=== PATIENT | female | born 2000 | race Caucasian/White ===

== ENCOUNTER → 2023-09-11 | Outpatient (CLI) | payer OTHER, SELFPAY ==
[2023-09-15 22:07] LABS: Chlamydia By Nucleic Acid AMP Negative (Negative); Gonococcus By Nucleic Acid AMP Negative (Negative)
== END | disposition home or self-care (01) ==
LOC: LABSPEC 14:27
PROVIDERS: Referring Provider Registered Nurse; Visit Provider Registered Nurse
DX: Z11.3 Encounter for screening for infections with a predominantly sexual mode of transmission (principal)
CPT/HCPCS: 87491; 87591

== ENCOUNTER → 2024-07-21 | Outpatient (CLI) | payer SELFPAY ==
[2024-07-21 09:19] LABS: hCG Titer Quant., Serum 561 mIU/mL (1-3)
== END | disposition home or self-care (01) ==
LOC: BWCLAB 08:06
PROVIDERS: Nurse Practitioner Women's Health; Referring Provider Obstetrics & Gynecology; Visit Provider Obstetrics & Gynecology
DX: Z34.90 Encounter for supervision of normal pregnancy, unspecified, unspecified trimester (principal)
CPT/HCPCS: 36415; 84702

== ENCOUNTER → 2024-07-23 | Outpatient (CLI) | payer SELFPAY ==
[2024-07-23 11:08] LABS: hCG Titer Quant., Serum 1355 mIU/mL (1-3)
== END | disposition home or self-care (01) ==
LOC: BWCLAB 08:11
PROVIDERS: Referring Provider Advanced Practice Midwife; Visit Provider Advanced Practice Midwife
DX: Z34.90 Encounter for supervision of normal pregnancy, unspecified, unspecified trimester (principal)
CPT/HCPCS: 36415; 84702

== ENCOUNTER 2024-07-29 16:14 | Emergency (ER) | payer SELFPAY ==
[2024-07-29 16:15] VITALS: BP 142/99; PULSE 106; RESP 15; TEMP 36.4; O2SAT 100; BMI 23.6
--- NOTE | 2024-07-29 16:27 | US_ITS ---
STUDY: FIRST TRIMESTER OBSTETRICAL ULTRASOUND REASON FOR EXAM: Female, 24 years old Left sided pelvic pain. LMP: TECHNIQUE: Transvaginal TECHNICAL QUALITY: Adequate. PRIOR ULTRASOUND: None. FINDINGS: There is visualization of a single gestational sac in a normal intrauterine position. The mean sac diameter (MSD) measures 1.04 cm, indicating an estimated gestational age (EGA) of 5 weeks, 5 days. The gestational sac shape is within normal limits. There is a visualized yolk sac. The yolk sac measures 2.4 mm. The placenta is non-visualized. No pole visualized at this time The estimated gestation age (EGA) by LMP is 6 weeks, 2 days. The estimated date of delivery (KEVIN) by LMP is March 22, 2025. The estimated gestation age (EGA) by US is 5 weeks, 5 days. The estimated date of delivery (KEVIN) by US is March 26, 2025. The uterus measures 8.2 x 7.2 x 4.5 cm. Small anechoic area adjacent to the gestational sac measuring 9 x 5 mm likely subchorionic hemorrhage There is no demonstrated uterine fibroid. The cervix is closed. The right ovary measures 2.9 x 2.2 x 2 cm. There is no right ovarian cyst. There is no visualized right adnexal mass or complex lesion. The left ovary measures 2.5 1.6-1.3 cm. There is no left ovarian cyst. There is no visualized left adnexal mass or complex lesion. There is no moderate amount of fluid in the cul de sac. US/Transvaginal w/Preg US IMPRESSION: Findings consistent with intrauterine gestation approximately 5-6 weeks gestational age with small subchorionic bleed. No definitive evidence for pelvic mass however there is free fluid possibly due to recent rupture of cyst. No definitive evidence for ectopic . Recommend clinical correlation and follow-up studies Electronically Signed: Rahul Bush MD at 18:23 EST ,
--- NOTE | 2024-07-29 16:30 | EDS_ITS ---
HPI HPI - GI History of Present Illness Chief Complaint: Abd Pain Informant: patient Abdominal Pain/Flank Pain Onset: Days Context: Gradual Onset Timing: Intermittent Quality: Cramping Location: LLQ (Left lower quadrant left lateral pelvis.) Current Severity: Mild Maximum Severity: Mild Nausea/Vomiting/Emesis GI Symptom: Positive for Vomiting (With first trimester .); Negative for Nausea Onset: Days Severity: Mild Diarrhea/Melena/Hematochezia GI Symptom: Negative for Diarrhea or Melena Associated Symptoms Associated Symptoms: Negative for Dysuria, Frequency, Hematuria or Urgency Narrative Narrative: 24-year-old female Ab1 with that being a miscarriage several months ago. No other significant past medical history. States she is currently about 6 weeks . Has been having mild left lower quadrant and left lateral pelv ic cramping for the last several days. No dysuria. No fever. No bleeding or discharge. No prior abdominal or pelvic surgeries or procedures. Prior similar symptoms: No Recent Illness/Hospitalization: No PFSH PFSH Medical History Supervision of normal first Screening examination for STI Home Medications ?Medication ?Instructions ?Recorded ?Last Taken ?Type NK 04/16/24 Unknown History Allergy/AdvReac Type Severity Reaction Status Date / Time No Known Allergies Allergy Verified 07/29/24 16:18 Family History Grandmother Breast cancer, Onset Age: 60 Paternal Stillbirth maternal & paternal each with 1 stillborn Uncle Cancer Paternal- throat cancer Mother Family history of recurrent miscarriage 3 miscarriages Surgical History History of root canal procedure [place] teeth extracted Social History adopted: No household members: spouse housing: house number of children: 0 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 occupational exposures/hazards: No pets and animals: No history of recent travel: Yes (January) out of state: Yes out of country: Yes sexually active: Yes Smoking Status: Never smoker alcohol intake: never substance use type: does not use well-balanced diet: daily or most days caffeine: No eating out: rarely or never during the past year weight has: remained stable what type of physical activity do you participate in: none manuelito/methodist: Confucianism seatbelt use: always do you feel safe at home: Yes 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 Constitutional Constitutional ED: Denies chills or fever(s) ENT ENT ED: Denies ear pain Cardiovascular Cardiovascular: Denies chest pain Respiratory/Chest Respiratory/Chest: Denies cough Gastrointestinal Gastrointestinal: Reports abdominal pain, nausea and vomiting; Denies constipation, diarrhea or melena Genitourinary Genitourinary ED: Denies dysuria or hematuria Musculoskeletal Musculoskeletal: Denies arthralgias or back pain Integumentary Denies abscess Neurologic Neurologic: Denies headache(s) Psychiatric Psychiatric: Denies anxiety Endocrine Endocrinology: Denies polydipsia Hematologic/Lymphatic Hematologic/Lymphatic: Denies easy bleeding Allergic/Immunologic Allergic/Immunologic ED: Denies mouth swelling EXAM Physical Exam Narrative Exam Narrative: Well-appearing 24-year-old female. Vital signs are stable afebrile. Companied by her mom I believe. H EENT exam unremarkable. Mytrex membranes. Neck non tender. Lungs clear. Heart regular rhythm rate about 100 no murmur. Chest wall ribs nontender. Abdomen soft, nontender, nondistended normal bowel sounds without peritoneal signs. She has no reproducible left lower quadrant abdominal pain at this time no right upper or right lower quadrant pain. No hernia or mass. No distention. No mass. Soft. Moving all 4 extremities. Nontender no edema. Back nontender. Neurologically she is awake alert no focal motor deficits. Const Vital Signs: 07/29/24 16:15 Temperature 97.5 F L Temperature Source Temporal Pulse Rate 106 H Respiratory Rate 15 Blood Pressure 142/99 H Blood Pressure Mean 113 Pulse Ox 100 Oxygen Delivery Method Room Air Positive well nourished and well developed; Negative for obese, cachectic, contractures or unkempt General Appearance ED: well developed and NAD; Negative for unkempt, cachectic, contractures or pallor Nutritional Appearance: Negative for cachectic or obese HEENT Reports moist mucous membranes normocephalic and atraumatic Eyes PERRL and EOMs intact bilaterally Neck no lymphadenopathy, supple and no JVD Resp normal respiratory effort and clear to auscultation bilaterally Cardio regular rate, regular rhythm, S1 normal heart sound, S2 normal heart sound and no murmurs GI non-tender, non-distended and no masses Inspection: Negative for abdominal distention Palpation: soft; Negative for tender, guarding or rebound tenderness present Back/Spine no CVA tenderness General Back: Negative for CVA tenderness Cervical Spine: Negative for cervical spine tenderness Thoracic Spine / Upper Back: Negative for thoracic spinal tenderness Lumbar Spine / Lower Back: Negative for lumbar spinal tenderness Extremity full ROM General Extremety ED: Negative for edema or tenderness General Extremity: Negative for edema Neuro CN's II-XII intact bilaterally and moves all extremities Sensorium / Orientation: alert, oriented to person, oriented to place and oriented to time; Negative for orientation impaired Motor Exam: strength 5/5 throughout Psych mental status grossly normal and thought process normal Appearance: Negative for unkempt Attitude: No agitated Mood & Affect: Negative for depressed or tearful Skin no wounds General Skin Exam: Negative for jaundice or pallor Lesions: no lesions Rashes: no rashes Trauma: Negative for abrasion Nails: Negative for discolored MDM MDM MDM Narrative Medical decision making narrative: 24-year-old female Ab1 with that being a miscarriage several months ago. Reportedly is around 6 weeks with mild cramping left lower quadrant. No dysuria. No fever. No bleeding or discharge. Exam benign. Pelvic ultrasound, quant and UA being obtained. Repeat exam patient doing well both at 5 PM and 6:26 PM. She will be discharged to home. Tylenol for pain. History & Record Review Discussion w/independent historian: Patient and Family Additional record(s) reviewed:: Prior inpatient record, Prior outpatient record and Prior ED visit Lab Data Attestation: I reviewed the patient's lab results. Lab results narrative: UA normal. No infection. Blood type B+. Quantitative hCG 14,073. Ultrasound shows small fluid in the pelvis possibly consistent with a ruptured ovarian cyst. Intrauterine at 5-6 weeks. No ectopic. Labs: Laboratory Results - last 24 hr 07/29/24 16:45 HCG, Quant [id number] H Urine Color Yellow Urine Clarity Clear Urine pH 6.5 Ur Specific Gar[place]di 1.015 Urine Protein Negative Urine Glucose (UA) Normal Urine Ketones Negative Urine Occult Blood Negative Urine Nitrite Negative Urine Bilirubin Negative Urine Urobilinogen Normal Ur Leukocyte Esterase Negative Urine RBC 0 SEEN Urine WBC 0-5 SEEN Ur Squamous Epith Cells 5-10 SEEN Urine Bacteria 0 SEEN Urine Mucus 0 SEEN Blood Type B POSITIVE Radiography Diagnostic Testing: Clinical Impression(s) from Imaging Studies Obstetrics Ultrasound 07/29/24 16:27 IMPRESSION: Findings consistent with intrauterine gestation approximately 5-6 weeks gestational age with small subchorionic bleed. No definitive evidence for pelvic mass however there is free fluid possibly due to recent rupture of cyst. No definitive evidence for ectopic . Recommend clinical correlation and follow-up studies Electronically Signed: Rahul Bush MD at 18:23 EST Reading Location ID and State: [facility] / [place] Tel , Service support , Discharge Plan Triage Chief Complaint: Abd Pain ED Provider: Gary Grace Dx/Rx/DC Orders Clinical Impression: Pelvic pain, First trimester Instructions: 1st Trimester Prescriptions: No Action NK Primary Care Provider: Care Physician,No Primary Referrals: Mikayla Ferrer DO [Med Staff - Active Staff] - Keep Jere appointment Care Physician,No Primary [Primary Care Provider] - Activity Restrictions/Additional Instructions: Urine is clean. No infection. Ultrasound looks good. at 5 to 6 weeks. Tylenol for pain. 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 Print Language: Kazakh Disposition Disposition: Home, Self Care
[2024-07-29 17:07] LABS: Bacteria 0 SEEN /hpf (None Seen); Mucous, Urine 0 SEEN /hpf (<or=2+); Red Blood Cells-Urine 0 SEEN /hpf (0-5)
[2024-07-29 17:23] LABS: Color, Urine Yellow (Yellow); Glucose, Dipstick Normal (Normal); Ketone-Dipstick Negative (Negative); Leukocyte Esterase-Dipstick Negative /ul (Negative); Nitrite-Dipstick Negative (Negative); Occult Blood-Urine Negative /ul (Negative); Protein-Dipstick Negative (Negative); Specific Gravity, Urine 1.015 (1.002-1.030); Urine Bilirubin Dipstick Negative (Negative); Urine Clarity Clear (Clear); Urine Urobilinogen Normal (Normal); Urine pH 6.5 (5.0 - 8.0)
[2024-07-29 17:31] LABS: Squamous Epithelial Cells - UA 5-10 SEEN /hpf (5-10); White Blood Cells 0-5 SEEN /hpf (0-5)
[2024-07-29 17:49] LABS: hCG Titer Quant., Serum 14073 mIU/mL (1-3)
[2024-07-29 18:15] VITALS: PULSE 98; RESP 18; O2SAT 100
== END 2024-07-29 18:35 | disposition home or self-care (01) ==
PROVIDERS: Emergency Provider Emergency Medicine; Visit Provider Emergency Medicine
DX: O99.891 Other specified diseases and conditions complicating pregnancy (principal); R10.2 Pelvic and perineal pain; Z3A.01 Less than 8 weeks gestation of pregnancy
CPT/HCPCS: 76817; 81001; 84702; 86900; 86901; 99282; A4216

== ENCOUNTER → 2024-08-09 | Outpatient (CLI) | payer SELFPAY ==
--- NOTE | 2024-08-09 15:34 | US_ITS ---
EXAM: US , TRANSVAGINAL CLINICAL INDICATION: viability, hx miscarriage TECHNIQUE: Real-time transvaginal obstetrical ultrasound of the maternal pelvis and a first trimester with image documentation. Transvaginal imaging was used for better evaluation of the fetus and adnexa. COMPARISON: No relevant prior studies available. FINDINGS: GESTATION: There is an intrauterine gestational sac with mean sac diameter 2.6 cm age 7 weeks 4 days. There is a 3 mm yolk sac. There is a pole crown-rump length of 1 cm age 7 weeks 1 day. heart rate is 137 bpm. PLACENTA/AMNIOTIC FLUID: There is a hypoechoic area in the uterus that measures 0.7 x 1.4 cm which may represent a subchorionic hemorrhage. UTERUS/CERVIX: Unremarkable. No myometrial mass. OVARIES: The right ovary measures 4.0 x 2.4 x 2.5 cm. The left ovary measures 2.7 x 1.3 x 1.7 cm. No mass. FREE FLUID: No free fluid. OTHER FINDINGS: The wrist measures 8.5 x 5.3 x 7.0 cm. US/Transvaginal w/Preg US IMPRESSION: Intrauterine gestation with an average ultrasound age is 7 weeks 3 days and ultrasound estimated due date of 03/25/2025. heart rate is 137 bpm. There is a hypoechoic area in the uterus adjacent to the gestational sac which may represent a subchorionic hemorrhage. Electronically Signed: Dl Bennett MD at 21:27 EST ,
== END | disposition home or self-care (01) ==
PROVIDERS: Referring Provider Obstetrics & Gynecology; Visit Provider Obstetrics & Gynecology
DX: O26.891 Other specified pregnancy related conditions, first trimester (principal); R10.2 Pelvic and perineal pain; Z3A.01 Less than 8 weeks gestation of pregnancy
CPT/HCPCS: 76817

== ENCOUNTER → 2024-08-23 | Outpatient (CLI) | payer SELFPAY ==
[2024-08-24 21:07] LABS: Chlamydia By Nucleic Acid AMP Negative (Negative); Gonococcus By Nucleic Acid AMP Negative (Negative)
[2024-08-27 12:52] LABS: HPV Reflexed? NOT INDICATED
== END | disposition home or self-care (01) ==
LOC: BWCLAB 11:50
PROVIDERS: Referring Provider Obstetrics & Gynecology; Visit Provider Obstetrics & Gynecology
DX: O09.90 Supervision of high risk pregnancy, unspecified, unspecified trimester (principal); Z12.4 Encounter for screening for malignant neoplasm of cervix; Z3A.00 Weeks of gestation of pregnancy not specified
CPT/HCPCS: 87086; 87491; 87591; 88175; G0145

== ENCOUNTER → 2024-09-09 | Outpatient (CLI) | payer SELFPAY ==
[2024-09-09 17:10] LABS: Absolute Lymphocyte Count 1.47 X10^3/uL (0.83-4.51); Basophil# 0.02 X10^3/uL; Basophil% 0.3 % (0-1); Eosinophil# 0.07 X10^3/uL; Hematocrit 34.1 % (37-47); Hemoglobin 11.3 g/dL (12.0-15.0); Lymphocyte # 1.47 X10^3/ul (0.83-4.51); Lymphocyte % 20.9 % (19-41); Mean Corp Hgb Conc 33.1 g/dL (32-36); Mean Corpuscular Hgb 29.4 pg (27.0-32.0); Mean Corpuscular Volume 88.6 fL (81-99); Mean Platelet Vol. 9.8 fl (6.2-12.0); Monocyte# 0.49 X10^3/uL; NRBC Flagged by Analyzer 0 % (0-5); Neutrophil # 4.99 X10^3/uL (2.7-7.7); Neutrophil % 70.7 % (47-70); Platelet Count 200 K/mm3 (150-450); RBC Distribution Width CV 13.6 % (11.6-14.6); RBC Distribution Width SD 44.4 fl (35.1-43.9); Red Blood Count 3.85 M/mm3 (4.2-5.4); White Blood Count 7.1 K/mm3 (4.4-11.0)
[2024-09-09 18:43] LABS: HIV - WCH Non-Reactive (Nonreactive); Hepatitis B Surface Antigen Non-Reactive (Nonreactive); Hepatitis C Antibody Non-Reactive (Nonreactive); Rubella IgG Reactive (Nonreactive); Syphilis Antibodies Non-reactive
== END | disposition home or self-care (01) ==
LOC: BWCLAB 16:19
PROVIDERS: Referring Provider Obstetrics & Gynecology; Visit Provider Obstetrics & Gynecology
DX: O09.90 Supervision of high risk pregnancy, unspecified, unspecified trimester (principal); Z3A.00 Weeks of gestation of pregnancy not specified
CPT/HCPCS: 36415; 85025; 86703; 86762; 86780; 86803; 86850; 86900; 86901; 87340

== ENCOUNTER 2024-11-10 07:33 | Outpatient (CLI) | payer SELFPAY ==
--- NOTE | 2024-11-10 07:48 | US_ITS ---
PROCEDURE: OB ANATOMY W/ TRANSVAGINAL 11/10/2024 REASON FOR EXAM: ANATOMY TECHNIQUE: High resolution obstetric ultrasound performed using a 2D transducer. Standard views obtained, including biometry, anatomy survey, and Doppler studies. COMPARISON: None FINDINGS Number: 1 Position: Varying position between cephalic and breech. Placental Position: Posterior and not low-lying. Placental Abnormalities: No evidence of previa. DIMENSIONS: Biparietal Diameter: 4.7 cm: 20 weeks and 1 day: 13%/ Head Circumference: 17 cm: 19 weeks and 5 days: 2 percentile/ Abdominal Circumference: 14.8 cm: 20 weeks and 0 days: 13 percentile/ Femur Length: 3.2 cm: 20 weeks and 1 day: 11 percentile/ ESTIMATED WEIGHT: 331 g plus/-50 g ESTIMATED WEIGHT PERCENTILE (24+ weeks): 7 percentile ESTIMATED GESTATIONAL AGE: Baseline: 21 weeks and 1 day By Ultrasound: 20 weeks and 1 day ESTIMATED DATE OF DELIVERY: Baseline: March 22, 2025 By Ultrasound: March 29, 2025 BIOPHYSICAL ASSESSMENT: Amniotic Fluid Volume: 3.4 Amniotic Fluid Index: Within normal limits (8-24 cm normal range) Cardiac Motion: 140 (average) Trunk and Limb Motion: Present. MATERNAL ANATOMY: Adnexa: Both maternal ovaries are visualized and unremarkable. Cervical Length (if measured): 3.5 cm ANATOMY: Spine: Unremarkable except for limited visualization of the thoracic spine due to position. Cranium: Unremarkable Cerebellum: Unremarkable Cisterna Magna: Unremarkable Cavum Septum Pellucidi: Unremarkable Lateral Ventricles: Unremarkable Choroid Plexus: Unremarkable Midline Falx: Unremarkable Nuchal Fold: Unremarkable Upper Lip: Unremarkable Heart: Unremarkable Stomach: Unremarkable Kidneys: Unremarkable Bladder: Unremarkable Umbilical Cord: Unremarkable Extremities: Unremarkable US/OB Anatomy w/ Transvaginal IMPRESSION: Single live intrauterine gestation with a mean gestational age of 21 weeks and 1 day. Low percentages seen in the biometry. Clinical correlation recommended. Reading Location: [place] [id number]
== END 2024-11-10 23:59 | disposition home or self-care (01) ==
PROVIDERS: Referring Provider Obstetrics & Gynecology; Visit Provider Obstetrics & Gynecology
DX: O09.92 Supervision of high risk pregnancy, unspecified, second trimester (principal); Z3A.21 21 weeks gestation of pregnancy
CPT/HCPCS: 76805; 76817

== ENCOUNTER 2025-01-29 21:34 | Outpatient (CLI) | payer SELFPAY ==
--- OUTSIDE RECORDS SUMMARY | 2025-01-29 21:43 | XMS RPT_ITS | CCD ---
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 Mikayla Ferrer DO Attending Provider Dr. Mikayla Ferrer DO Referring Provider Rosa M Moran CNM Attending Provider Rosa M Moran CNM Referring Provider [phone] Sanjay LANCE, Dr. Vega Attending Provider [phone] Dr. Gary Grace MD Emergency Provider [phone] Care Physician, No Primary Primary Care Provider Unavailable Dr. Negrita Gomez MD Attending Provider Care Physician, No Primary Referring Provider Un available Dr. Negrita Gomez MD Referring Provider Shereen Amos CNM Attending Provider [phone] NO PRIMARY CARE, Primary Care Unavailable NEGRITA GOMEZ Referring DELMA Harrington Attending Unavailable Gary Grace Attending Unavailable Care Physician, No Primary Primary Care Unava ilable Mikayla Ferrer Attending UnavailMikayla Dunlap Referring Unavailabl e Care Physician, No Primary Primary Care Unava ilable Negrita Gomez Attending Unavailable Negrita Gomez Referring Unavailable Care Physician, No Primary Primary Care Unava ilable Mikayla Ferrer Attending Unavailabl e Care Physician, No Primary Primary Care Unava ilable Negrita Gomez Attending Unavailable Care Physician, No Primary Referring Unava ilable Negrita Gomez Attending Unavailable Care Physician, No Primary Referring Unava ilable Care Physician, No Primary Primary Care Unava ilShereen Aguilera Attending Unavailable Care Physician, No Primary Referring Unava ilable Care Physician, No Primary Primary Care Unava ilable Mikayla Ferrer Attending Unavailabl e Care Physician, No Primary Referring Unava ilable Care Physician, No Primary Primary Care Unava ilable Paola Almanza NP Attending Unavailable Care Physician, No Primary Referring Unava ilable Care Physician, No Primary Primary Care Unava ilable Jose Cochran Attending Unavailable Dean, Rosa M Attending Unavailable Amy Gutierrez, Mikayla Attending Unavailabl e Amy Gutierrez, Mikayla Referring Unavailirena e Dean, Rosa M Attending Unavailable Dean, Rosa M Referring Unavailable Luis, Negrita Attending Unavailable Luis, Negrita Referring Unavailable Care Physician, No Primary Primary Care Unava ilable Luis, Negrita Attending Unavailable Luis, Negrita Referring Unavailable Care Physician, No Primary Primary Care Unava ilable Care Physician, No Primary Primary Care Provider Unavailable Care Physician, No Primary Referring Provider Un available Dr. Mikayla Ferrer DO Attending Provider Luis LANCE, Dr. Rees Attending Provider [phone] Luis LANCE, Dr. Rees Referring Provider [phone] Paola Mann Attending Provider [phone] Jose Cochran Attending Provider Medications Current Medications Medication Drug Class(es) Dates Sig (Normalized) Sig (Original) metroNIDAZOLE 500 mg oral tablet (3 sources) Nitroimidazole Antimicrobial Start: 06-07-2023 End: 06-14-2023 take 1 tablet by mouth twice daily at mealtime metroNIDAZOLE (FLAGYL) 500 MG tablet Indications: Vaginal discharge Take 1 (one) tablet (500 mg total) by mouth 2 (two) times a day with meals for 7 days . 14 tablet 0 06/07/2023 06/14/2023 Active Vit 522-Tnvy-Fxivqm 6 (Giovanni Pnv) 6 mg iron- 833.5 mcg DFE tablet (2 sources) Start: 08-12-2024 Vit 078-Fhcc-Lgryuh 6 ( Pnv) 6 mg iron- 833.5 mcg DFE tablet Active {tbl} PO August 12, 2024 1:00am Triamcinolone (3 sources) Corticosteroid Start: 01-27-2025 Triamcinolone Acetonide 0.1 % ointment Active 1 NMA TOPICAL TWICE A DAY January 27, 2025 12:00am Apply to all affected areas BID x 14 days. Start: 03-08-2024 End: 03-23-2024 Triamcinolone Acetonide 0.1 % ointment Discontinued 1 NMA TOPICAL TWICE A DAY March 08, 2024 12:00am March 23, 2024 9:03am Apply to all affected areas BID up to 14 days. Completed/Discontinued Medications Medication Drug Class(es) Dates Sig (Normalized) Sig (Original) acetaminophen 325 mg / oxyCODONE hydrochloride 5 mg oral tablet (2 sources) Opioid Agonist Start: 04-09-2024 End: 04-16-2024 Oxycodone-Acetamin ophen (Percocet) 5-325 mg tablet Discontinued 1 {tbl} PO EVERY 6 HOURS 14 April 09, 2024 April 15, 2024 12:00am April 16, 2024 12:04am miSOPROStol 0.2 mg oral tablet (2 sources) Prostaglandin E1 Analog Start: 04-09-2024 End: 04-16-2024 Misoprostol (Cytotec) 200 mcg tablet Discontinued 800 ug PO .complex April 09, 2024 12:00am April 16, 2024 11:32am 4 tablets orally and then repeat in 48 hours Mv-Mins 28-Cytr-Ncshc No.1-Dha (Pnv-[place]) 28-1-300 mg capsule (2 sources) Start: 03-23-2024 End: 04-16-2024 Mv-Mins 84-Swhp-Pgypd No.1-Dha (Pnv-[place]) 28-1-300 mg capsule Discontinued NMA PO March 23, 2024 12:00am April 16, 2024 11:35am naproxen 500 mg oral tablet (2 sources) Nonsteroidal Anti-inflammatory Drug Start: 04-09-2024 End: 04-16-2024 Naproxen 500 mg tablet Discontinued 500 mg PO 2 to 3 times per day as needed for pain April 09, 2024 12:00am April 16, 2024 11:35am administer with food or milk Problems Active Problems Problem Classification Problem Date Documented Date Episodic/Chronic Abdominal pain (4 sources) Pain in pelvis; Translations: [Pelvic and perineal pain] Onset: 04-09-2024 08-06-2024 Episodic Allergic reactions (3 sources) Contact dermatitis due to poison harris; Translations: [Allergic contact dermatitis due to plants, except food] Onset: 03-08-2024 08-12-2024 Episodic Immunizations and screening for infectious disease (2 sources) Patient encounter status; Translations: [Encounter for screening for infections with a predominantly sexual mode of transmission] 03-23-2024 Episodic Other complications of (2 sources) Missed miscarriage; Translations: [Missed ] 08-23-2024 Episodic Comment on above: SM consulted and opt ions discussed by SM with pt Other complications of (3 sources) High risk ; Translations: [Supervision of high risk , unspecified, unspecified trimester] 09-09-2024 Episodic Other complications of (2 sources) Pain in female pelvis; Translations: [Other specified related conditions, unspecified trimester] 08-12-2024 Episodic Other complications of (3 sources) Asymmetrical growth retardation; Translations: [Maternal care for other known or suspected poor growth, unspecified trimester, not applicable or unspecified] 11-12-2024 Episodic Comment on above: referral MFM for gudelia gregorio referral MFM for gudelia gregorio: 11/19 40%/nl. Rpt 12/20: Other complications of (1 source) Supervision of high risk , unspecified, unspecified trimester; Translations: [Supervision of high risk , unspecified, unspecified trimester] Onset: 11-16-2024 Episodic Other complications of (1 source) Other specified related conditions, unspecified trimester; Translations: [Other specified related conditions, unspecified trimester] Onset: 09-01-2024 Episodic Other female genital disorders (1 source) Abnormal uterine and vaginal bleeding, unspecified; Translations: [Abnormal uterine and vaginal bleeding, unspecified] Onset: 04-09-2024 Chronic Other female genital disorders (6 sources) Vaginal discharge; Translations: [Other specified noninflammatory disorders of vagina] Onset: 06-07-2023 06-07-2023 Episodic Other female genital disorders (2 sources) Other specified noninflammatory disorders of vagina; Translations: [Other specified noninflammatory disorders of vagina] Onset: 06-07-2023 Episodic Other and delivery including normal (20 sources) Normal ; Translations: [Encounter for supervision of normal first , unspecified trimester] Onset: 11-29-2024 04-09-2024 Episodic Comment on above: , KEVIN 11/01/24, H lore Burgos , KEVIN 03/22/25, H lore Burgos plan NIPT w/gender & declined carrier testing PRR , KEVIN 5, Aubrey Residual codes; unclassified (1 source) 12 weeks gestation of ; Translations: [12 weeks gestation of ] Onset: 09-09-2024 Episodic Past or Other Problems Problem Classification Problem Date Documented Da te Episodic/Chronic Residual codes; unclassified (1 source) 9 weeks gestation of ; Translations: [9 weeks gestation of ] Onset: 08-23-2024 Episodic Results Test Name Value Interpretation Reference Range Facility Laboratory - Chemistry and C hemistry - challengeOrdered By: Paola Almanza on 11-29-2024 Glucose Ql (U) Negative [facility] - UrinalysisOrder ed By: Paola Almanza on 11-29-2024 Protein Ql (U) Negative [facility] Corrections Unit Supervisor Office Visit Reporton 11-29-2024 Corrections Unit Supervisor Office Visit Report [facility] [address], [address] [place] [address] OFFICE VISIT Date of Service: 11/29/24 MR#: [id number] Acct: [id number] Name: JOI DANIEL Rep #: [id number] : 2000 Provider: UMESH osborne Age/Sex: 24/F Location: [facility] Status: Signed Intake Vital Signs 08/23/24 11:16 08/23/24 11:19 11/01/24 13:15 11/29/24 09:55 Height 5 ft 4 in 5 ft 4 in 5 ft 4 in 5 ft 4 in Weight: 164 lb BMI 28.1 BP 120/74 Intake Visit Reasons: 24 wk ob Chief Complaint: 24 Week OB [employer] Required: No Is patient in pain?: No Allergies No Known Allergies Allergy (Verified 11/29/24 09:55) Medications ???Medication ???Instructions ???Recorded ???Confirmed ???Type vit no.164-ferrous tab PO 08/12/24 11/29/24 History gluconate 6 mg-folate 833.5 mcg DFE tablet ( PNV) Last Menstrual Period: 06/15/24 Zika: Zika virus screening: Negative : No PFSH PFSH Medical History Poison harris dermatitis Pelvic pain affecting Supervision of normal first Screening examination for STI Surgical History History of root canal procedure [place] teeth extracted Family History Grandmother Stillbirth maternal paternal each with 1 stillborn Colon cancer Uncle Cancer Paternal- throat cancer Mother Family history of recurrent miscarriage 3 miscarriages Social History adopted: No household members: spouse housing: house number of children: 0 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 occupational exposures/hazards: No pets and animals: No history of recent travel: Yes (January) out of state: Yes out of country: Yes sexually active: Yes Smoking Status: Never smoker alcohol intake: never substance use type: does not use well-balanced diet: daily or most days caffeine: Yes (stopped since ) eating out: 1-3 times/week during the past year weight has: remained stable what type of physical activity do you participate in: none manuelito/bahai: Caodaism seatbelt use: always do you feel safe at home: Yes 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 Date Name GA/Weeks Outcome Route Bth Weight Infant Gen Labor Lgth Anesthesia Del Locatn Provider FOB 04/09/24 10 spontaneous Delivery Date: 04/09/24 Last Updated by: Deann Negrete RN Gestational sac measuring 7weeks HPI 24 wk ob Details: JIO DANIEL is a 24 year old who presents for routine OB visit. OB Visit KEVIN Calculator Estimated Delivery Date Method Current WG Current Estimate 03/22/25 LMP (Certain) 23w 6d Other Estimates 03/27/25 Ultrasound #1 23w 1d Expected Delivery Route/Plan Labor Preferences- CB/BF classes: encouraged labor support person: Aubrey labor intervention preferences: [] pain management options preferred: cut cord/dad catch: maybe : yes PP control planned: discussed discussed possible routes of delivery and associated risks: [] special requests: [] Specific Issue/Plans Covid status: [] Flu vaccine: [] Tdap vaccine: [] Rhogam: NA LARC form signed: yes Problem list reviewed and updated with the most current plan of care details and appropriate orders placed. Relevant counseling for the gestational age provided. Continue routine care and follow up unless otherwise noted in visit notes/problem list details Initial Weight: 150 lb Date -???-???-???-???-?? ?-???-???-???-???-? ??-???-???- EGA Weight BP Urine Prot -???-???-???-???-?? ?-???-???-???-???-? ??-???-???- Glucose FHR FuHt Pres Dilation -???-???-???-???-?? ?-???-???-???-???-? ??-???-???- Effaced St Visit Note 08/23/24 -???-???-???-???-?? ?-???-???-???-???-? ??-???-???- 9w 6d 150 lb 4 oz (+4 oz) 103/72 -???-???-???-???-?? ?-???-???-???-???-? ??-???-???- 170 -???-???-???-???-?? ?-???-???-???-???-? ??-???-???- SM- CRL 2.4c m 1.7cm subchorionic hematoma seen viable IUP 09/09/24 -???-???-???-???-?? ?-???-???-???-???-? ??-???-???- 12w 2d 151 lb 8 oz (+1 lb 8 oz) 124/78 Negative -???-???-???-???-?? ?-???-???-???-???-? ??-???-???- Negative 150 -???-???-???-???-?? ?-???-???-???-???-? ??-???-???- SM- no vb cr amping subchorionic hematoma resolved labs drawn today decline NIPT 10/08/24 -???-???- (more content not included)... Normal [facility] OB Anatomy w/ Transvaginalon 11-10-2024 OB Anatomy w/ Transvaginal [facility] [place] [facility] [address] [place], [place] [id number] OB Anatomy w/ Transvaginal MR#: [id number] Acct: [id number] Name: JOI DANIEL Rep #: [id number] : 2000 F 24 From: Johnny tate MD PCP: Care Physician,No Primary Status: [facility] Study: OB Anatomy w/ Transvaginal Date of Exam: 11/10 Exam# [id number] Ordering Dr: Negrita Gomez PROCEDURE: OB ANATOMY W/ TRANSVAGINAL 11/10/2024 REASON FOR EXAM: ANATOMY TECHNIQUE: High resolution obstetric ultrasound performed using a 2D transducer. Standard views obtained, including biometry, anatomy survey, and Doppler studies. COMPARISON: None FINDINGS Number: 1 Position: Varying position between cephalic and breech. Placental Position: Posterior and not low-lying. Placental Abnormalities: No evidence of previa. DIMENSIONS: Biparietal Diameter: 4.7 cm: 20 weeks and 1 day: 13%/ Head Circumference: 17 cm: 19 weeks and 5 days: 2 percentile/ Abdominal Circumference: 14.8 cm: 20 weeks and 0 days: 13 percentile/ Femur Length: 3.2 cm: 20 weeks and 1 day: 11 percentile/ ESTIMATED WEIGHT: 331 g plus/-50 g ESTIMATED WEIGHT PERCENTILE (24+ weeks): 7 percentile ESTIMATED GESTATIONAL AGE: Baseline: 21 weeks and 1 day By Ultrasound: 20 weeks and 1 day ESTIMATED DATE OF DELIVERY: Baseline: March 22, 2025 By Ultrasound: March 29, 2025 BIOPHYSICAL ASSESSMENT: Amniotic Fluid Volume: 3.4 Amniotic Fluid Index: Within normal limits (8-24 cm normal range) Cardiac Motion: 140 (average) Trunk and Limb Motion: Present. MATERNAL ANATOMY: Adnexa: Both maternal ovaries are visualized and unremarkable. Cervical Length (if measured): 3.5 cm ANATOMY: Spine: Unremarkable except for limited visualization of the thoracic spine due to position. Cranium: Unremarkable Cerebellum: Unremarkable Cisterna Magna: Unremarkable Cavum Septum Pellucidi: Unremarkable Lateral Ventricles: Unremarkable Choroid Plexus: Unremarkable Midline Falx: Unremarkable Nuchal Fold: Unremarkable Upper Lip: Unremarkable Heart: Unremarkable Stomach: Unremarkable Kidneys: Unremarkable Bladder: Unremarkable Umbilical Cord: Unremarkable Extremities: Unremarkable US/OB Anatomy w/ Transvaginal IMPRESSION: Single live intrauterine gestation with a mean gestational age of 21 weeks and 1 day. Low percentages seen in the biometry. Clinical correlation recommended. Reading Location: [place] [address] CC: Dr. Negrita Gomez MD; No Primary Care Physician Ferry Hand: Signed Normal [facility] Laboratory - Chemistry and C hemistry - challengeOrdered By: Mikayla Gutierrez on 11-01-2024 Glucose Ql (U) Negative [facility] Laboratory - UrinalysisOrder ed By: Mikayla Gutierrez on 11-01-2024 Protein Ql (U) Negative [facility] Corrections Unit Supervisor Office Visit Reporton 11-01-2024 Corrections Unit Supervisor Office Visit Report [facility] [address], [address] [place] [address] OFFICE VISIT Date of Service: 11/01/24 MR#: [id number] Acct: [id number] Name: DANIELJOIGIL MARTINEZ Rep #: [id number] : 2000 Provider: Dr. Mikayla Fraser DO Age/Sex: 24/F Location: [facility] Status: Signed Intake Vital Signs 08/23/24 11:16 10/08/24 08:51 11/01/24 13:15 11/01/24 13:15 Height 5 ft 4 in 5 ft 4 in 5 ft 4 in 5 ft 4 in Weight: 155 lb 8 oz 160 lb 4 oz BMI 26.6 27.5 BP 115/74 131/81 H Intake Visit Reasons: 20 wk ob [employer] Required: No Is patient in pain?: No Allergies No Known Allergies Allergy (Verified 11/01/24 13:14) Medications ???Medication ???Instructions ???Recorded ???Confirmed ???Type vit no.164-ferrous tab PO 08/12/24 11/01/24 History gluconate 6 mg-folate 833.5 mcg DFE tablet ( PNV) Last Menstrual Period: 06/15/24 Zika: Zika virus screening: Negative : No PFSH PFSH Medical History Poison harris dermatitis Pelvic pain affecting Supervision of normal first Screening examination for STI Surgical History History of root canal procedure [place] teeth extracted Family History Grandmother Stillbirth maternal paternal each with 1 stillborn Colon cancer Uncle Cancer Paternal- throat cancer Mother Family history of recurrent miscarriage 3 miscarriages Social History adopted: No household members: spouse housing: house number of children: 0 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 occupational exposures/hazards: No pets and animals: No history of recent travel: Yes (January) out of state: Yes out of country: Yes sexually active: Yes Smoking Status: Never smoker alcohol intake: never substance use type: does not use well-balanced diet: daily or most days caffeine: Yes (stopped since ) eating out: 1-3 times/week during the past year weight has: remained stable what type of physical activity do you participate in: none manuelito/bahai: Caodaism seatbelt use: always do you feel safe at home: Yes 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 Date Name GA/Weeks Outcome Route Bth Weight Infant Gen Labor Lgth Anesthesia Del Locatn Provider FOB 04/09/24 10 spontaneous Delivery Date: 04/09/24 Last Updated by: Deann Negrete RN Gestational sac measuring 7weeks HPI 20 wk ob Details: JOI DANIEL is a 24 year old who presents for routine OB visit. OB Visit KEVIN Calculator Estimated Delivery Date Method Current WG Current Estimate 03/22/25 LMP (Certain) 19w 6d Other Estimates 03/27/25 Ultrasound #1 19w 1d Expected Delivery Route/Plan Labor Preferences- CB/BF classes: [] labor support person: [] labor intervention preferences: [] pain management options preferred: [] cut cord/dad catch: [] : [] PP control planned: [] discussed possible routes of delivery and associated risks: [] special requests: [] Specific Issue/Plans Covid status: [] Flu vaccine: [] Tdap vaccine: [] Rhogam: [] LARC form signed: [] Problem list reviewed and updated with the most current plan of care details and appropriate orders placed. Relevant counseling for the gestational age provided. Continue routine care and follow up unless otherwise noted in visit notes/problem list details Initial Weight: 150 lb Date -???-???-???-???-?? ?-???-???-???-???-? ??-???-???- EGA Weight BP Urine Prot -???-???-???-???-?? ?-???-???-???-???-? ??-???-???- Glucose FHR FuHt Pres Dilation -???-???-???-???-?? ?-???-???-???-???-? ??-???-???- Effaced St Visit Note 08/23/24 -???-???-???-???-?? ?-???-???-???-???-? ??-???-???- 9w 6d 150 lb 4 oz (+4 oz) 103/72 -???-???-???-???-?? ?-???-???-???-???-? ??-???-???- 170 -???-???-???-???-?? ?-???-???-???-???-? ??-???-???- SM- CRL 2.4c m 1.7cm subchorionic hematoma seen viable IUP 09/09/24 -???-???-???-???-?? ?-???-???-???-???-? ??-???-???- 12w 2d 151 lb 8 oz (+1 lb 8 oz) 124/78 Negative -???-???-???-???-?? ?-???-???-???-???-? ??-???-???- Negative 150 -???-???-???-???-?? ?-???-???-???-???-? ??-???-???- SM- no vb cr amping subchorionic hematoma resolved labs drawn today decline NIPT 10/08/24 -???-???-???-???-?? ?-??? (more content not included)... Normal [facility] - Chemistry and C hemistry - challengeOrdered By: Shereen Amos on 10-08-2024 Glucose Ql (U) Negative [facility] - UrinalysisOrder ed By: Shereen Amos on 10-08-2024 Protein Ql (U) Negative [facility] Corrections Unit Supervisor Office Visit Reporton 10-08-2024 Corrections Unit Supervisor Office Visit Report [facility] [address], [address] [place] [address] OFFICE VISIT Date of Service: 10/08/24 MR#: [id number] Acct: [id number] Name: JOI DANIEL Rep #: [id number] : 2000 Provider: ABBI brito Age/Sex: 24/F Location: [facility] Status: Signed Intake Vital Signs 08/23/24 11:16 09/09/24 15:39 10/08/24 08:51 Height 5 ft 4 in 5 ft 4 in 5 ft 4 in Weight: 155 lb 8 oz BMI 26.6 BP 115/74 Intake Visit Reasons: 16 wk ob [employer] Required: No Is patient in pain?: No Allergies No Known Allergies Allergy (Verified 10/08/24 08:53) Medications ???Medication ???Instructions ???Recorded ???Confirmed ???Type vit no.164-ferrous tab PO 08/12/24 10/08/24 History gluconate 6 mg-folate 833.5 mcg DFE tablet ( PNV) Last Menstrual Period: 06/15/24 : Yes PFSH PFSH Medical History Poison harris dermatitis Pelvic pain affecting Supervision of normal first Screening examination for STI Surgical History History of root canal procedure [place] teeth extracted Family History Grandmother Stillbirth maternal paternal each with 1 stillborn Colon cancer Uncle Cancer Paternal- throat cancer Mother Family history of recurrent miscarriage 3 miscarriages Social History adopted: No household members: spouse housing: house number of children: 0 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 occupational exposures/hazards: No pets and animals: No history of recent travel: Yes (January) out of state: Yes out of country: Yes sexually active: Yes Smoking Status: Never smoker alcohol intake: never substance use type: does not use well-balanced diet: daily or most days caffeine: Yes (stopped since ) eating out: 1-3 times/week during the past year weight has: remained stable what type of physical activity do you participate in: none manuelito/bahai: Caodaism seatbelt use: always do you feel safe at home: Yes 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 Date Name GA/Weeks Outcome Route Bth Weight Gen Labor Lgth Anesthesia Del Locatn Provider FOB 04/09/24 10 spontaneous Delivery Date: 04/09/24 Last Updated by: Deann Negrete RN Gestational sac measuring 7weeks HPI 16 wk ob Details: JOI DANIEL is a 24 year old who presents for routine OB visit. OB Visit KEVIN Calculator Estimated Delivery Date Method Current WG Current Estimate 03/22/25 LMP (Certain) 16w 3d Other Estimates 03/27/25 Ultrasound #1 15w 5d Expected Delivery Route/Plan Labor Preferences- CB/BF classes: [] labor support person: [] labor intervention preferences: [] pain management options preferred: [] cut cord/dad catch: [] : [] PP control planned: [] discussed possible routes of delivery and associated risks: [] special requests: [] Specific Issue/Plans Covid status: [] Flu vaccine: [] Tdap vaccine: [] Rhogam: [] LARC form signed: [] Problem list reviewed and updated with the most current plan of care details and appropriate orders placed. Relevant counseling for the gestational age provided. Continue routine care and follow up unless otherwise noted in visit notes/problem list details Initial Weight: 150 lb Date -???-???-???-???-?? ?-???-???-???-???-? ??-???-???- EGA Weight BP Urine Prot -???-???-???-???-?? ?-???-???-???-???-? ??-???-???- Glucose FHR FuHt Pres Dilation -???-???-???-???-?? ?-???-???-???-???-? ??-???-???- Effaced St Visit Note 08/23/24 -???-???-???-???-?? ?-???-???-???-???-? ??-???-???- 9w 6d 150 lb 4 oz (+4 oz) 103/72 -???-???-???-???-?? ?-???-???-???-???-? ??-???-???- 170 -???-???-???-???-?? ?-???-???-???-???-? ??-???-???- SM- CRL 2.4c m 1.7cm subchorionic hematoma seen viable IUP 09/09/24 -???-???-???-???-?? ?-???-???-???-???-? ??-???-???- 12w 2d 151 lb 8 oz (+1 lb 8 oz) 124/78 Negative -???-???-???-???-?? ?-???-???-???-???-? ??-???-???- Negative 150 -???-???-???-???-?? ?-???-???-???-???-? ??-???-???- SM- no vb cr amping subchorionic hematoma resolved labs drawn today decline NIPT 10/08/24 -???-???-???-???-?? ?-???-???-???-???-? ??-???-???- 16w 3d 155 lb 8 oz (+5 lb 8 oz) 115/74 Negative -???-???-???-???-?? ?-???-???-???-??? (more content not included)... Normal [facility] Absolute neutrophil countOrd ered By: Negrita Gomez on 09-09-2024 Neutrophils (Bld) [#/Vol] 5.0 10*3/uL 2.0-7.7 [facility] Basophil percentageOrdered B y: Negrita Gomez on 09-09-2024 Basophils/100 WBC (Bld) 0.3 % 0-1 [facility] CBC W/Diff, Automatedon 08-13 Absolute Lymph 1.47 X10 3/uL Normal 0.83-4.51 [facility] Comment on above: Performed By: #### L 509.4005, L509.8000, L3890.6300, L100.0100, L3890.6100, L3890.6005, BTS ####[facility] [address] [place], [address] Absolute Neut 5.0 X10 3/uL Normal 2.0-7.7 [facility] Comment on above: Performed By: #### L 509.4005, L509.8000, L3890.6300, L100.0100, L3890.6100, L3890.6005, BTS ####[facility] [address] [place], [address] Basophils/100 WBC (Bld) 0.3 % Normal 0-1 [facility] Comment on above: Performed By: #### L 509.4005, L509.8000, L3890.6300, L100.0100, L3890.6100, L3890.6005, BTS ####[facility] [address] [place], [address] Eosinophils/100 WBC (Bld) 1.0 % Normal 0-5 [facility] Comment on above: Performed By: #### L 509.4005, L509.8000, L3890.6300, L100.0100, L3890.6100, L3890.6005, BTS ####[facility] [address] [place], [address] Erythrocyte distribution width (RBC) [Ratio] 13.6 % Normal 11.6-14.6 [facility] Comment on above: Performed By: #### L 509.4005, L509.8000, L3890.6300, L100.0100, L3890.6100, L3890.6005, BTS ####[facility] [address] [place], [address] Hematocrit (Bld) [Volume fraction] 34.1 % Low 37-47 [facility] Comment on above: Performed By: #### L 509.4005, L509.8000, L3890.6300, L100.0100, L3890.6100, L3890.6005, BTS ####[facility] [address] [place], [address] Hemoglobin (Bld) [Mass/Vol] 11.3 g/dL Low 12.0-15.0 [facility] Comment on above: Performed By: #### L 509.4005, L509.8000, L3890.6300, L100.0100, L3890.6100, L3890.6005, BTS ####[facility] [address] [place], [address] IG% 0.100 Normal 0.0-0.9 [facility] Comment on above: Result Comment: IG% - Immature Granulocytes (promyelocytes, myelocytes and metamyelocytes) > 1% indicates that a LEFT SHIFT is Present. Performed By: #### L 509.4005, L509.8000, L3890.6300, L100.0100, L3890.6100, L3890.6005, BTS ####[facility] [address] [place], [address] Lymphocytes/100 WBC (Bld) 20.9 % Normal 19-41 [facility] Comment on above: Performed By: #### L 509.4005, L509.8000, L3890.6300, L100.0100, L3890.6100, L3890.6005, BTS ####[facility] [address] [place], [address] MCH (RBC) [Entitic mass] 29.4 pg Normal 27.0-32.0 [facility] Comment on above: Performed By: #### L 509.4005, L509.8000, L3890.6300, L100.0100, L3890.6100, L3890.6005, BTS ####[facility] [address] [place], [address] MCHC (RBC) [Mass/Vol] 33.1 g/dL Normal 32-36 [facility] Comment on above: Performed By: #### L 509.4005, L509.8000, L3890.6300, L100.0100, L3890.6100, L3890.6005, BTS ####[facility] [address] [place], [address] MCV (RBC) [Entitic vol] 88.6 fL Normal 81-99 [facility] Comment on above: Performed By: #### L 509.4005, L509.8000, L3890.6300, L100.0100, L3890.6100, L3890.6005, BTS ####[facility] [address] [place], [address] Monocytes/100 WBC (Bld) 7.0 % Normal 0-10 [facility] Comment on above: Performed By: #### L 509.4005, L509.8000, L3890.6300, L100.0100, L3890.6100, L3890.6005, BTS ####[facility] [address] [place], [address] Neutrophils/100 WBC (Bld) 70.7 % High 47-70 [facility] Comment on above: Performed By: #### L 509.4005, L509.8000, L3890.6300, L100.0100, L3890.6100, L3890.6005, BTS ####[facility] [address] [place], [address] Nucleated RBC (Bld) [#/Vol] 0 10*3/uL Normal 0-5 [facility] Comment on above: Performed By: #### L 509.4005, L509.8000, L3890.6300, L100.0100, L3890.6100, L3890.6005, BTS ####[facility] [address] [place], [address] Platelet mean volume (Bld) [Entitic vol] 9.8 fL Normal 6.2-12.0 [facility] Comment on above: Performed By: #### L 509.4005, L509.8000, L3890.6300, L100.0100, L3890.6100, L3890.6005, BTS ####[facility] [address] [place], [address] Platelets (Bld) [#/Vol] 200 10*3/uL Normal 150-450 [facility] Comment on above: Performed By: #### L 509.4005, L509.8000, L3890.6300, L100.0100, L3890.6100, L3890.6005, BTS ####[facility] [address] [place], [address] RBC (Bld) [#/Vol] 3.85 10*6/uL Low 4.2-5.4 [facility] Comment on above: Performed By: #### L 509.4005, L509.8000, L3890.6300, L100.0100, L3890.6100, L3890.6005, BTS ####[facility] [address] [place], [address] RDW SD 44.4 fl High 35.1-43.9 [facility] Comment on above: Performed By: #### L 509.4005, L509.8000, L3890.6300, L100.0100, L3890.6100, L3890.6005, BTS ####[facility] [address] [place], [address] WBC (Bld) [#/Vol] 7.1 10*3/uL Normal 4.4-11.0 [facility] Comment on above: Performed By: #### L 509.4005, L509.8000, L3890.6300, L100.0100, L3890.6100, L3890.6005, BTS ####[facility] [address] [place], [address] Eosinophil percentageOrdered By: Negrita Gomez on 09-09-2024 Eosinophils/100 WBC (Bld) 1.0 % 0-5 [facility] Erythrocyte distribution wid th (RBC) [Ratio]Ordered By: Negrita Gomez on 09-09-2024 Erythrocyte distribution width (RBC) [Entitic vol] 44.4 fL High 35.1-43.9 [facility] Erythrocyte distribution wid th ratioOrdered By: Negrita Gmoez on 09-09-2024 Erythrocyte distribution width (RBC) [Ratio] 13.6 % 11.6-14.6 [facility] HIV - WCHon 09-09-2024 HIV Non-Reactive Normal Nonreactive [facility] Comment on above: Order Comment: Reaso n for Exam: Performed By: #### L 509.4005, L509.8000, L3890.6300, L100.0100, L3890.6100, L3890.6005, BTS ####[facility] [address] [place], [address] HIV 1+2 Ab+HIV1 p24 Ag IA Ql Ordered By: Negrita Gomez on 09-09-2024 HIV (1&2) Antibody Non-Reactive Nonreactive [facility] Hematocrit Auto (Bld) [Volum e fraction]Ordered By: Negrita Gomez on 09-09-2024 Hematocrit (Bld) [Volume fraction] 34.1 % Low 37-47 [facility] Hemoglobin measurementOrdere d By: Negrita Gomez on 09-09-2024 Hemoglobin (Bld) [Mass/Vol] 11.3 g/dL Low 12.0-15.0 [facility] Hepatitis B Surface Antigeno n 09-09-2024 HEP B Surf Ag Non-Reactive Normal Nonreactive [facility] Comment on above: Order Comment: Reaso n for Exam: Performed By: #### L 509.4005, L509.8000, L3890.6300, L100.0100, L3890.6100, L3890.6005, BTS ####[facility] [address] [place], [address] Hepatitis B surface antigen detectionOrdered By: Negrita Gomez on 09-09-2024 Hepatitis B Surface Antigen Non-Reactive Nonreactive [facility] Hepatitis C Antibodyon 09-09 Hepatitis C AB [facility]-Reactive [facility] Comment on above: Order Comment: Reaso n for Exam: Result Comment: Non Reactive: < 0.8 Equivocal: >/= 0.8 to < 1.0 Reactive: >/= 1.0 The CDC requires that a reactive/equivocal HCV antibody result be sent out for confirmation. HCV Quant by PCR testing. Performed By: #### L 509.4005, L509.8000, L3890.6300, L100.0100, L3890.6100, L3890.6005, BTS ####[facility] [address] [place], [address] Hepatitis C virus antibody a ssayOrdered By: Negrita Gomez on 09-09-2024 Hepatitis C Antibody Non-Reactive Nonreactive [facility] Comment on above: Non Reactive: < 0.8 Equivocal: >/= 0.8 to < 1.0 Reactive: >/= 1.0The CDC requires that a reactive/equivocal HCV antibody result be sent out for confirmation. HCV Quant by PCR testing. Immature granulocytes/100 WB C Auto (Bld)Ordered By: Negrita Gomez on 09-09-2024 Immature granulocytes/100 WBC (Bld) 0.100 % 0.0-0.9 [facility] Comment on above: IG% - Immature Granu locytes (promyelocytes, myelocytes and metamyelocytes) > 1% indicates that a LEFT SHIFT is Present. L509.8000on 09-09-2024 Syphilis Abs Non-Reactive Normal [facility] Comment on above: Order Comment: Reaso n for Exam: Performed By: #### L 509.4005, L509.8000, L3890.6300, L100.0100, L3890.6100, L3890.6005, BTS ####[facility] [address] [place], [address] Laboratory - Chemistry and C hemistry - challengeOrdered By: Negrita Gomez on 09-09-2024 Glucose Ql (U) Negative [facility] Laboratory - UrinalysisOrder ed By: Negrita Gomez on 09-09-2024 Protein Ql (U) Negative [facility] Lymphocytes Auto (Unsp spec) [#/Vol]Ordered By: Negrita Gomez on 09-09-2024 Lymphocytes (Bld) [#/Vol] 1.47 10*3/uL 0.83-4.51 [facility] Lymphocytes/100 WBC Auto (Un sp spec)Ordered By: Negrita Gomez on 09-09-2024 Lymphocytes/100 WBC (Bld) 20.9 % 19-41 [facility] MCV (mean corpuscular volume ) determinationOrdered By: Negirta Gomez on 09-09-2024 MCV (RBC) [Entitic vol] 88.6 fL 81-99 [facility] Mean corpuscular hemoglobin (MCH) determinationOrdered By: Negrita Gomez on 09-09-2024 MCH (RBC) [Entitic mass] 29.4 pg 27.0-32.0 [facility] Mean corpuscular hemoglobin concentration (MCHC) determinationOrdered By: Negrita Gomez on 09-09-2024 MCHC (RBC) [Mass/Vol] 33.1 g/dL 32-36 [facility] Mean platelet volume determi nationOrdered By: Negrita Gomez on 09-09-2024 Platelet mean volume (Bld) [Entitic vol] 9.8 fL 6.2-12.0 [facility] Monocyte percentageOrdered B y: Negrita Gomez on 09-09-2024 Monocytes/100 WBC (Bld) 7.0 % 0-10 [facility] Neutrophil percentageOrdered By: Negrita Gomez on 09-09-2024 Neutrophils/100 WBC (Bld) 70.7 % High 47-70 [facility] Nucleated red blood cell per centageOrdered By: Negrita Gomez on 09-09-2024 Nucleated RBC/100 WBC (Bld) [Ratio] 0 % 0-5 [facility] Corrections Unit Supervisor Office Visit Reporton 09-09-2024 Corrections Unit Supervisor Office Visit Report [facility] [address], [address] [place] [address] OFFICE VISIT Date of Service: 09/09/24 MR#: [id number] Acct: [id number] Name: JOI DANIEL Rep #: [id number] : 2000 Provider: Dr. Negrita felix MD Age/Sex: 24/F Location: [facility] Status: Signed Intake Vital Signs 08/23/24 11:16 08/23/24 11:19 09/09/24 15:36 09/09/24 15:39 Height 5 ft 4 in 5 ft 4 in 5 ft 4 in 5 ft 4 in Weight: 151 lb 8 oz BMI 25.9 BP 124/78 H Intake Visit Reasons: 12 wk ob FU Chief Complaint: 12 wk ob Is patient in pain?: No Allergies No Known Allergies Allergy (Verified 09/09/24 15:38) Medications ???Medication ???Instructions ???Recorded ???Confirmed ???Type vit no.164-ferrous tab PO 08/12/24 09/09/24 History gluconate 6 mg-folate 833.5 mcg DFE tablet ( PNV) Last Menstrual Period: 06/15/24 PFSH PFSH Medical History Poison harris dermatitis Pelvic pain affecting Supervision of normal first Screening examination for STI Surgical History History of root canal procedure [place] teeth extracted Family History Grandmother Stillbirth maternal paternal each with 1 stillborn Colon cancer Uncle Cancer Paternal- throat cancer Mother Family history of recurrent miscarriage 3 miscarriages Social History adopted: No household members: spouse housing: house number of children: 0 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 occupational exposures/hazards: No pets and animals: No history of recent travel: Yes (January) out of state: Yes out of country: Yes sexually active: Yes Smoking Status: Never smoker alcohol intake: never substance use type: does not use well-balanced diet: daily or most days caffeine: Yes (stopped since ) eating out: 1-3 times/week during the past year weight has: remained stable what type of physical activity do you participate in: none manuelito/bahai: Caodaism seatbelt use: always do you feel safe at home: Yes 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 Date Name GA/Weeks Outcome Route Bth Weight Gen Labor Lgth Anesthesia Del Locatn Provider FOB 04/09/24 10 spontaneous Delivery Date: 04/09/24 Last Updated by: Deann Negrete RN Gestational sac measuring 7weeks HPI 12 wk ob FU Details: JOI DANIEL is a 24 year old who presents for routine OB visit. OB Visit KEVIN Calculator Estimated Delivery Date Method Current WG Current Estimate 03/22/25 LMP (Certain) 12w 2d Other Estimates 03/27/25 Ultrasound #1 11w 4d Expected Delivery Route/Plan Labor Preferences- CB/BF classes: [] labor support person: [] labor intervention preferences: [] pain management options preferred: [] cut cord/dad catch: [] : [] PP control planned: [] discussed possible routes of delivery and associated risks: [] special requests: [] Specific Issue/Plans Covid status: [] Flu vaccine: [] Tdap vaccine: [] Rhogam: [] LARC form signed: [] Problem list reviewed and updated with the most current plan of care details and appropriate orders placed. Relevant counseling for the gestational age provided. Continue routine care and follow up unless otherwise noted in visit notes/problem list details Initial Weight: Not Recorded Date -???-???-???-???-?? ?-???-???-???-???-? ??-???-???- EGA Weight BP Urine Prot -???-???-???-???-?? ?-???-???-???-???-? ??-???-???- Glucose FHR FuHt Pres Dilation -???-???-???-???-?? ?-???-???-???-???-? ??-???-???- Effaced St Visit Note 08/23/24 -???-???-???-???-?? ?-???-???-???-???-? ??-???-???- 9w 6d 150 lb 4 oz 103/72 -???-???-???-???-?? ?-???-???-???-???-? ??-???-???- 170 -???-???-???-???-?? ?-???-???-???-???-? ??-???-???- SM- CRL 2.4c m 1.7cm subchorionic hematoma seen viable IUP 09/09/24 -???-???-???-???-?? ?-???-???-???-???-? ??-???-???- 12w 2d 151 lb 8 oz 124/78 -???-???-???-???-?? ?-???-???-???-???-? ??-???-???- 150 -???-???-???-???-?? ?-???-???-???-???-? ??-???-???- SM- no vb cr amping subchorionic hematoma resolved labs drawn today decline NIPT ACOG First Trimester First Trimester: Desire for , Alcohol, Tobacco Cessation, Illicit/Recreationa l Drug/Substance Use, Intimate Partner Vi (more content not included)... Normal [facility] Platelet countOrdered By: Sari Gomez on 09-09-2024 Platelets (Bld) [#/Vol] 200 10*3/uL 150-450 [facility] RBC Auto (Bld) [#/Vol]Ordere d By: Negrita Gomez on 09-09-2024 RBC (Bld) [#/Vol] 3.85 10*6/uL Low 4.2-5.4 [facility] Rubella IgGon 09-09-2024 Rubella IgG Reactive Normal Nonreactive [facility] Comment on above: Order Comment: Reaso n for Exam: Result Comment: Anti body Results Interpretation of Immune Status Non Reactive Presumed Non-Immune Equivocal Equivocal Reactive Presumed Immune Performed By: #### L 509.4005, L509.8000, L3890.6300, L100.0100, L3890.6100, L3890.6005, BTS ####[facility] [address] [place], [address] Rubella immune status IgGOrd ered By: Negrita Gomez on 09-09-2024 Rubella IgG Antibody Reactive Nonreactive [facility] Comment on above: Antibody Results Int erpretation of Immune Status Non Reactive Presumed Non-Immune Equivocal Equivocal Reactive Presumed Immune Treponema sp Ab Ql (S)Ordere d By: Negrita Gomez on 09-09-2024 Syphilis Total Antibody Non-Reactive [facility] Type AND Screenon 09-09-2024 Ab SCREEN GEL PENDING Normal [facility] Comment on above: Order Comment: PN Performed By: #### L 509.4005, L509.8000, L3890.6300, L100.0100, L3890.6100, L3890.6005, BTS ####[facility] [address] [place], [address] ABO and Rh group Nom (Bld) Blood group B Rh(D) positive Normal [facility] Comment on above: Order Comment: PN Performed By: #### L 509.4005, L509.8000, L3890.6300, L100.0100, L3890.6100, L3890.6005, BTS ####[facility] [address] [place], [address] White blood cell (WBC) count Ordered By: Negrita Gomez on 09-09-2024 WBC (Bld) [#/Vol] 7.1 10*3/uL 4.4-11.0 [facility] PAP I-G w/rfx hrHPV-Aptimaon 08-27-2024 ADEQ Comment Normal . [facility] Comment on above: Order Comment: Speci men Comment: [id number] Comment: Source.............Cervix;EndocervixSpecimen Comment: LMP / Prev Treat...[id number] Comment: Other..............Specimen Comment: No. of containers..01 ThinPrep Vial Result Comment: Sati sfactory for evaluation. No endocervical component is identified. An endocervical component is not commonly seen in the patient. Performed By: #### L 7000.1800, M100.2200, L7400.0353 ####[facility] [address] [place], [place], [address] COMM . Normal . [facility] Comment on above: Order Comment: Speci men Comment: [id number] Comment: Source.............Cervix;EndocervixSpecimen Comment: LMP / Prev Treat...[id number] Comment: Other..............Specimen Comment: No. of containers..01 ThinPrep Vial Performed By: #### L 7000.1800, M100.2200, L7400.0353 ####[facility] [address] [place], [place], [address] COMMENT Comment Normal . [facility] Comment on above: Order Comment: Speci men Comment: [id number] Comment: Source.............Cervix;EndocervixSpecimen Comment: LMP / Prev Treat...[id number] Comment: Other..............Specimen Comment: No. of containers..01 ThinPrep Vial Result Comment: This liquid based ThinPrep(R) pap test was screened with the use of an image guided system. Performed By: #### L 7000.1800, M100.2200, L7400.0353 ####[facility] [address] [place], [place], [address] DIAG Comment Normal . [facility] Comment on above: Order Comment: Speci men Comment: [id number] Comment: Source.............Cervix;EndocervixSpecimen Comment: LMP / Prev Treat...[id number] Comment: Other..............Specimen Comment: No. of containers..01 ThinPrep Vial Result Comment: NEGA TIVE FOR INTRAEPITHELIAL LESION OR MALIGNANCY. Performed By: #### L 7000.1800, M100.2200, L7400.0353 ####[facility] [address] [place], [place], [address] HPV RFLX Comment Normal . [facility] Comment on above: Order Comment: Speci men Comment: [id number] Comment: Source.............Cervix;EndocervixSpecimen Comment: LMP / Prev Treat...[id number] Comment: Other..............Specimen Comment: No. of containers..01 ThinPrep Vial Result Comment: The HPV DNA reflex criteria were not met with this specimen result therefore, no HPV testing was performed. Performed at: [address] [id number] Director Executive Communications: Masood Polanco PhD, Phone: [phone] Performed at: [address] [id number] Director Executive Communications: Amber García MD, Phone: [phone] Performed By: #### L 7000.1800, M100.2200, L7400.0353 ####[facility] [address] [place], [place], [address] PAPSMR Comment Normal . [facility] Comment on above: Order Comment: Speci men Comment: [id number] Comment: Source.............Cervix;EndocervixSpecimen Comment: LMP / Prev Treat...[id number] Comment: Other..............Specimen Comment: No. of containers..01 ThinPrep Vial Result Comment: The Pap smear is a screening test designed to aid in the detection of premalignant and malignant conditions of the uterine cervix. It is not a diagnostic procedure and should not be used as the sole means of detecting cervical cancer. Both false-positive and false-negative reports do occur. Performed By: #### L 7000.1800, M100.2200, L7400.0353 ####[facility] [address] [place], [address] PERFORM Comment Normal . [facility] Comment on above: Order Comment: Speci men Comment: [id number] Comment: Source.............Cervix;EndocervixSpecimen Comment: LMP / Prev Treat...[id number] Comment: Other..............Specimen Comment: No. of containers..01 ThinPrep Vial Result Comment: Mary Andrade, Solutions Engineer (ASCP) Performed By: #### L 7000.1800, M100.2200, L7400.0353 ####[facility] [address] [place], [address] Chlamydia/GC AFRICA aptimaon CHLAMY,NUC ACID Negative Normal Negative [facility] Comment on above: Performed By: #### L 7000.1800, M100.2200, L7400.0353 ####[facility] [address] [place], [address] GC BY NUC ACID Negative Normal Negative [facility] Comment on above: Result Comment: Perf ormed at: =G - [facility] [address] [id number] Director Executive Communications: Amber García MD, Phone: [phone] Performed By: #### L 7000.1800, M100.2200, L7400.0353 ####[facility] [address] [place], [address] Urine Cultureon 08-24-2024 URC Culture exhibits no growth. Normal [facility] Comment on above: Performed By: #### L 7000.1800, M100.2200, L7400.0353 ####[facility] [address] [place], [address] C. trachomatis rRNA AFRICA+prob e Ql (Unsp spec)Ordered By: Negrita Gomez on 08-23-2024 Chlamydia DNA (AFRICA) Negative Negative [facility] Director Of Partnerships Cyto stain Nom (C vx/Vag) [ID]Ordered By: Negrita Gomez on 08-23-2024 Pap Smear Performed By Comment . [facility] Comment on above: Leana Andrade, Cyto technologist (ASCP) Cytology report Cyto stain D oc (Cvx/Vag)Ordered By: Negrita Gomez on 08-23-2024 Thin Prep Pap Smear Comment . [facility] Comment on above: The Pap smear is a s creening test designed to aid in thedetection of premalignant and malignant conditions of theuterine cervix. It is not a diagnostic procedure andshould not be used as the sole means of detecting cervicalcancer. Both false-positive and false-negative reports dooccur. Image-guided ThinPrep PapOrd ered By: Negrita Gomez on 08-23-2024 Pap Smear Note Comment . [facility] Comment on above: This liquid based Th inPrep(R) pap test was screened withthe use of an image guided system. Image-guided liquid-based Pa pOrdered By: Negrita Gomez on 08-23-2024 Pap Smear Diagnosis Comment . [facility] Comment on above: NEGATIVE FOR INTRAEP ITHELIAL LESION OR MALIGNANCY. Image-guided liquid-based ce rvical Pap w high-risk HPV+reflex to HPV 16+18Ordered By: Negrita Gomez on 08-23-2024 Human Papillomavirus Screen Comment . [facility] Comment on above: The HPV DNA reflex c falgunieria were not met with this specimenresult therefore, no HPV testing was performed.Performed at: [facility] [place], [place] [id number] Director: Masood Polanco PhD, Phone: [phone] at: [facility] [id number] Director: Amber García MD, Phone: [phone] Neisseria gonorrhoeae nuclei c acid detection by amplified probe techniqueOrdered By: Negrita Gomez on 08-23-2024 N. gonorrhoeae DNA [place]+probe Ql (Unsp spec) Negative Negative [facility] Comment on above: Performed at: =[facility] [address] [place] [id number] Director: Amber García MD, Phone: [phone] Corrections Unit Supervisor Office Visit Reporton 08-23-2024 Corrections Unit Supervisor Office Visit Report [facility] [address], [address] [place] [address] OFFICE VISIT Date of Service: 08/23/24 MR#: [id number] Acct: [id number] Name: JOI DANIEL Rep #: [id number] : 2000 Provider: Dr. Negrita felix MD Age/Sex: 24/F Location[place] [facility] [place] Status: Signed Intake Vital Signs 04/16/24 11:35 07/20/24 13:47 07/29/24 16:15 08/23/24 10:23 Height 5 ft 4 in 5 ft 4 in 5 ft 4 in 5 ft 4 in Weight: 150 lb 4 oz BMI 25.7 BP 103/72 Intake Visit Reasons: New OB, LMP 06/15, KEVIN 03/22 hx miscarriage Allergies No Known Allergies Allergy (Verified 08/23/24 10:24) Medications ???Medication ???Instructions ???Recorded ???Confirmed ???Type vit no.164-ferrous tab PO 08/12/24 History gluconate 6 mg-folate 833.5 mcg DFE tablet (Giovanni PNV) Last Menstrual Period: 06/15/24 : Yes PFSH PFSH Medical History Poison harris dermatitis Pelvic pain affecting Supervision of normal first Screening examination for STI Surgical History History of root canal procedure [place] teeth extracted Family History Grandmother Stillbirth maternal paternal each with 1 stillborn Colon cancer Uncle Cancer Paternal- throat cancer Mother Family history of recurrent miscarriage 3 miscarriages Social History adopted: No household members: spouse housing: house number of children: 0 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 occupational exposures/hazards: No pets and animals: No history of recent travel: Yes (January) out of state: Yes out of country: Yes sexually active: Yes Smoking Status: Never smoker alcohol intake: never substance use type: does not use well-balanced diet: daily or most days caffeine: Yes (stopped since ) eating out: 1-3 times/week during the past year weight has: remained stable what type of physical activity do you participate in: none manuelito/bahai: Caodaism seatbelt use: always do you feel safe at home: Yes 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 Date Name GA/Weeks Outcome Route Bth Weight Gen Labor Lgth Anesthesia Del Locatn Provider FOB 04/09/24 10 spontaneous Delivery Date: 04/09/24 Last Updated by: Deann Negrete RN Gestational sac measuring 7weeks HPI New OB, LMP 06/15, KEVIN 03/22 hx miscarriage Details: JOI DANIEL is a 24 year old who presents for New OB visit. OB Visit KEVIN Calculator Estimated Delivery Date Method Current WG Current Estimate 03/22/25 LMP (Certain) 9w 6d Other Estimates 03/27/25 Ultrasound #1 9w 1d Comments: HIV: Urine Culture: Sequential Screen: NIPT Screen: Estimated Due Date: 03/22/25 Initial Weight: Not Recorded Date -???-???-???-???-?? ?-???-???-???-???-? ??-???-???- EGA Weight BP Urine Prot -???-???-???-???-?? ?-???-???-???-???-? ??-???-???- Glucose FHR FuHt Pres Dilation -???-???-???-???-?? ?-???-???-???-???-? ??-???-???- Effaced St Visit Note 08/23/24 -???-???-???-???-?? ?-???-???-???-???-? ??-???-???- 9w 6d 150 lb 4 oz 103/72 -???-???-???-???-?? ?-???-???-???-???-? ??-???-???- 170 -???-???-???-???-?? ?-???-???-???-???-? ??-???-???- SM- CRL 2.4c m 1.7cm subchorionic hematoma seen viable IUP Menstrual History Last Menstrual Period: 06/15/24 Antepartum Record Genetic Screening: Congenital Heart Defect: Other, Neural Tube Defect: Other, Hemoglobinopathy Or Carrier: Other, Cystic Fibrosis: Other, Chromosome Abnormality: Other, Guilherme-Sachs: Other, Hemophilia: Other, Intellectual Disability/Autism: Other, Recurrent Loss/Stillbirth: Patient (Grandparents), Other Structural Defect: Other, Other Genetic Disease: Other and Maternal Metabolic Disorder: Other Infection History: Live with someone with TB or Exposed to TB: No, Patient or Partner has history of Genital Herpes: No, Rash or Viral illness since last mentrual period: No, Prior GBS-Infected child: No, History of STD: No, HIV Infection: No, History of Hepatitis: No, Recent travel outside of [place]: Yes, Concern for hepatitis exposure: No, Varicella immune: Yes (Chickenpox as a child) and Covid Vaccinated: No ACOG First Trimester First Trimester: Desire for , Alcohol, Tobacco Cessation, Illicit/Recreationa l Drug/Substance Use, Intimate Partner Viol (more content not included)... Normal [facility] Corrections Unit Supervisor Office Visit Report [facility] [address], [address] [place] [address] OFFICE VISIT Date of Service: 08/23/24 MR#: [id number] Acct: [id number] Name: JOI DANIEL Rep #: [id number] : 2000 Provider: Dr. Negrita felix MD Age/Sex: 24/F Location: [facility] Status: Signed Intake Vital Signs 04/16/24 11:35 07/20/24 13:47 07/29/24 16:15 08/23/24 10:23 Height 5 ft 4 in 5 ft 4 in 5 ft 4 in 5 ft 4 in Weight: 150 lb 4 oz BMI 25.7 BP 130/91 H Intake Visit Reasons: New OB, LMP 06/15, KEVIN 03/22 hx miscarriage [employer] Required: No Is patient in pain?: No Allergies No Known Allergies Allergy (Verified 08/23/24 10:24) Medications ???Medication ???Instructions ???Recorded ???Confirmed ???Type vit no.164-ferrous tab PO 08/12/24 History gluconate 6 mg-folate 833.5 mcg DFE tablet (Giovanni PNV) Last Menstrual Period: 06/15/24 Zika: Zika virus screening: Negative : Yes Have you fallen in the past year?: No PFSH PFSH Medical History Poison harris dermatitis Pelvic pain affecting Supervision of normal first Screening examination for STI Surgical History History of root canal procedure [place] teeth extracted Family History Grandmother Stillbirth maternal paternal each with 1 stillborn Colon cancer Uncle Cancer Paternal- throat cancer Mother Family history of recurrent miscarriage 3 miscarriages Social History adopted: No household members: spouse housing: house number of children: 0 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 occupational exposures/hazards: No pets and animals: No history of recent travel: Yes (January) out of state: Yes out of country: Yes sexually active: Yes Smoking Status: Never smoker alcohol intake: never substance use type: does not use well-balanced diet: daily or most days caffeine: Yes (stopped since ) eating out: 1-3 times/week during the past year weight has: remained stable what type of physical activity do you participate in: none manuelito/bahai: Caodaism seatbelt use: always do you feel safe at home: Yes additional social history: Aubrey- History 1 Elective abortions Hx Para 0 Spontaneous abortions 1 Hx # Term Pregnancies Ectopic pregnancies Hx # Pregnancies Multiple births # of living children 0 Past Pregnancies Del. Date Name GA/Weeks Outcome Route Bth Weight Infant Gen Labor Lgth Anesthesia Del Locatn Provider FOB 04/09/24 10 spontaneous Delivery Date: 04/09/24 Last Updated by: Deann Negrete RN Gestational sac measuring 7weeks HPI New OB, LMP 06/15, KEVIN 03/22 hx miscarriage Details: JOI DANIEL is a 24 year old who presents for New OB visit. OB Visit KEVIN Calculator Estimated Delivery Date Method Current WG Current Estimate 03/22/25 LMP (Certain) 9w 6d Comments: HIV: Urine Culture: Sequential Screen: NIPT Screen: Estimated Due Date: 03/22/25 Menstrual History Last Menstrual Period: 06/15/24 Reported LMP: definite Normal amount/duration: Yes Frequency in days: 28 On hormonal BC at conception: No hCG+: 06/13/24 Antepartum Record Genetic Screening: Congenital Heart Defect: Other, Neural Tube Defect: Other, Hemoglobinopathy Or Carrier: Other, Cystic Fibrosis: Other, Chromosome Abnormality: Other, Guilherme-Sachs: Other, Hemophilia: Other, Intellectual Disability/Autism: Other, Recurrent Loss/Stillbirth: Patient (Grandparents), Other Structural Defect: Other, Other Genetic Disease: Other and Maternal Metabolic Disorder: Other Infection History: Live with someone with TB or Exposed to TB: No, Patient or Partner has history of Genital Herpes: No, Rash or Viral illness since last mentrual period: No, Prior GBS-Infected child: No, History of STD: No, HIV Infection: No, History of Hepatitis: No, Recent travel outside of [place]: Yes, Concern for hepatitis exposure: No, Varicella immune: Yes (Chickenpox as a child) and Covid Vaccinated: No Medical History Medical History: Positive: D (Rh) Sensitized (B+) and Negative: Diabetes, Hypertension, Heart disease, Auto-immune disorder, Kidney disease/UTI, Neurologic/epilepsy , Psychiatric, Depression/postpart um depression, Hepatitis/liver disease, Varicosities/phlebi tis, Thyroid dysfunction, Trauma/domestic violence, History of blood transfusions, Pulmonary (e.g.,TB,Asthma), Seasonal allergies, Drug/latex allergies/reactions , Breast, Intelligence Director surgery, Operations/hospital izations, Anest (more content not included)... Normal [facility] Service comment (Unsp spec) [Interp]Ordered By: Negrita Gomez on 08-23-2024 Pap Smear Comment (3) . . [facility] Urine cultureOrdered By: Anselmo Gomez on 08-23-2024 Bacteria identified Cx Nom (U) Culture exhibits no growth. [facility] Transvaginal w/Preg USon Transvaginal w/Preg US [facility] Imaging Services [address] [place] [address] Transvaginal w/Preg US MR#: [id number] Acct: [id number] Name: JOI DANIEL Rep #: [id number] : 2000 F 24 From: Dl Bennett MD PCP: Care Physician,No Primary Status: REG CLI Study: Transvaginal w/Preg US Date of Exam: 08/09/24 Exam# [id number] Ordering Dr: Mikayla Ferrer DO -[id number] EXAM: US , TRANSVAGINAL CLINICAL INDICATION: viability, hx miscarriage TECHNIQUE: Real-time transvaginal obstetrical ultrasound of the maternal pelvis and a first trimester with image documentation. Transvaginal imaging was used for better evaluation of the fetus and adnexa. COMPARISON: No relevant prior studies available. FINDINGS: GESTATION: There is an intrauterine gestational sac with mean sac diameter 2.6 cm age 7 weeks 4 days. There is a 3 mm yolk sac. There is a pole crown-rump length of 1 cm age 7 weeks 1 day. heart rate is 137 bpm. PLACENTA/AMNIOTIC FLUID: There is a hypoechoic area in the uterus that measures 0.7 x 1.4 cm which may represent a subchorionic hemorrhage. UTERUS/CERVIX: Unremarkable. No myometrial mass. OVARIES: The right ovary measures 4.0 x 2.4 x 2.5 cm. The left ovary measures 2.7 x 1.3 x 1.7 cm. No mass. FREE FLUID: No free fluid. OTHER FINDINGS: The wrist measures 8.5 x 5.3 x 7.0 cm. US/Transvaginal w/Preg US IMPRESSION: Intrauterine gestation with an average ultrasound age is 7 weeks 3 days and ultrasound estimated due date of 03/25/2025. heart rate is 137 bpm. There is a hypoechoic area in the uterus adjacent to the gestational sac which may represent a subchorionic hemorrhage. Electronically Signed: Dl Bennett MD at 21:27 EST , CC: Dr. Mikayla Ferrer, DO; No Primary Care Physician Ferry Hand: Signed Normal [facility] [id number] 07-29-2024 ABO and Rh group Nom (Bld) Blood group B Rh(D) positive Normal [facility] Comment on above: Performed By: #### L 700.8000, B882-1 ####[facility] [id number] [facility] [place], [address] Bilirubin Test strip Ql (U)O rdered By: Gary Grace on 07-29-2024 Bilirubin Ql (U) Negative Negative [facility] Emergency Department Summary on 07-29-2024 Emergency Department Summary [facility] Medical Records Department [address] [place] [address] Emergency Department Summary 07/29/24 MR#: [id number] Acct: [id number] Name: JOI DANIEL Rep #: [id number] : 2000 24 From: Gary Grace MD PCP: Care Physician,No Primary Status:REG ER Location: ED HPI HPI - GI History of Present Illness Chief Complaint: Abd Pain Informant: patient Abdominal Pain/Flank Pain Onset: Days Context: Gradual Onset Timing: Intermittent Quality: Cramping Location: LLQ (Left lower quadrant left lateral pelvis.) Current Severity: Mild Maximum Severity: Mild Nausea/Vomiting/July sis GI Symptom: Positive for Vomiting (With first trimester .); Negative for Nausea Onset: Days Severity: Mild Diarrhea/Melena/Hem atochezia GI Symptom: Negative for Diarrhea or Melena Associated Symptoms Associated Symptoms: Negative for Dysuria, Frequency, Hematuria or Urgency Narrative Narrative: 24-year-old female Ab1 with that being a miscarriage several months ago. No other significant past medical history. States she is currently about 6 weeks . Has been having mild left lower quadrant and left lateral pelvic cramping for the last several days. No dysuria. No fever. No bleeding or discharge. No prior abdominal or pelvic surgeries or procedures. Prior similar symptoms: No Recent Illness/Hospitaliza tion: No PFSH PFSH Medical History Supervision of normal first Screening examination for STI Home Medications ???Medication ???Instructions ???Recorded ???Last Taken ???Type NK 04/16/24 Unknown History Allergy/AdvReac Type Severity Reaction Status Date / Time No Known Allergies Allergy Verified 07/29/24 16:18 Family History Grandmother Breast cancer, Onset Age: 60 Paternal Stillbirth maternal paternal each with 1 stillborn Uncle Cancer Paternal- throat cancer Mother Family history of recurrent miscarriage 3 miscarriages Surgical History History of root canal procedure [place] teeth extracted Social History adopted: No household members: spouse housing: house number of children: 0 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 occupational exposures/hazards: No pets and animals: No history of recent travel: Yes (January) out of state: Yes out of country: Yes sexually active: Yes Smoking Status: Never smoker alcohol intake: never substance use type: does not use well-balanced diet: daily or most days caffeine: No eating out: rarely or never during the past year weight has: remained stable what type of physical activity do you participate in: none manuelito/bahai: Caodaism seatbelt use: always do you feel safe at home: Yes 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 Constitutional Constitutional ED: Denies chills or fever(s) ENT ENT ED: Denies ear pain Cardiovascular Cardiovascular: Denies chest pain Respiratory/Chest Respiratory/Chest: Denies cough Gastrointestinal Gastrointestinal: Reports abdominal pain, nausea and vomiting; Denies constipation, diarrhea or melena Genitourinary Genitourinary ED: Denies dysuria or hematuria Musculoskeletal Musculoskeletal: Denies arthralgias or back pain Integumentary Denies abscess Neurologic Neurologic: Denies headache(s) Psychiatric Psychiatric: Denies anxiety Endocrine Endocrinology: Denies polydipsia Hematologic/Lymphat ic Hematologic/Lymphat ic: Denies easy bleeding Allergic/Immunologi c Allergic/Immunologi c ED: Denies mouth swelling EXAM Physical Exam Narrative Exam Narrative: Well-appearing 24-year-old female. Vital signs are stable afebrile. Companied by her mom I believe. H EENT exam unremarkable. Mytrex membranes. Neck nontender. Lungs clear. Heart regular rhythm rate about 100 no murmur. Chest wall ribs nontender. Abdomen soft, nontender, nondistended normal bowel sounds without peritoneal signs. She has no reproducible left lower quadrant abdominal pain at this time no right upper or right lower quadrant pain. No hernia or mass. No distention. No mass. Soft. Moving all 4 extremities. Nontender no edema. Back nontender. Neurologically she is awake alert no focal motor deficits. Const Vital Signs: 07/29/24 16:15 Temperature 97.5 F L Temperature Source Temporal Pulse Rate 106 H Respiratory Rate 15 Blood Pressure 142/99 H Blood Pressure Mean 113 Pulse Ox 100 Oxygen Delivery Method Room Air Positive well nourished and (more content not included)... Normal [facility] Epithelial cells.squamous LM Ql (Urine sed)Ordered By: Gary Grace on 07-29-2024 Epithelial cells.squamous LM.HPF (Urine sed) [#/Area] 5 /[HPF] 5-10 [facility] Glucose Ql (U)Ordered By: Adeel Grace on 07-29-2024 Urine Glucose (UA) Normal mg/dl Normal [facility] HCG ( test) QlOrder ed By: Gary Grace on 12-19-2024 Human Chorionic Gonadotropin, Quant 16504 mIU/mL High <4 [facility] Comment on above: hCG levels with Gest ational AgeGestational Age hCG mIU/mL (IU/L)0.2 - 1 week 5 - 501-2 weeks 50 - 5002-3 weeks 100 - 25224-4 weeks 500 - 920395-8 weeks 1000 - 437117-7 weeks 63354 - 100,0006-8 weeks 45416 - 200,0002-3 months 12400 - 100,000 Ketones Test strip Ql (U)Ord ered By: Gary Grace on 07-29-2024 Ketones Ql (U) Negative Negative [facility] Microscopic analysis of urin e for red blood cells (RBC)Ordered By: Gary Grace on 07-29-2024 Urine RBC 0 SEEN /hpf 0-5 [facility] Mucus LM Ql (Urine sed)Order ed By: Gary Grace on 07-29-2024 Mucus Ql (Urine sed) 0 SEEN /hpf [facility] Nitrite Test strip Ql (U)Ord ered By: Gary Grace on 07-29-2024 Nitrite Ql (U) Negative Negative [facility] Protein Test strip Ql (U)Ord ered By: Gary Grace on 07-29-2024 Protein Ql (U) Negative Negative [facility] Transvaginal w/Preg USon Transvaginal w/Preg US [facility] Services [address] [place] [address] Transvaginal w/Preg US MR#: [id number] Acct: [id number] Name: JOI DANIEL Rep #: [id number] : 2000 F 24 From: Rahul Bush MD PCP: Care Physician,No Primary Status: REG ER Study: Transvaginal w/Preg US Date of Exam: 07/29/24 Exam# [id number] Ordering Dr: Gary Grace MD -[id number] STUDY: FIRST TRIMESTER OBSTETRICAL ULTRASOUND REASON FOR EXAM: Female, 24 years old Left sided pelvic pain. LMP: TECHNIQUE: Transvaginal TECHNICAL QUALITY: Adequate. PRIOR ULTRASOUND: None. FINDINGS: There is visualization of a single gestational sac in a normal intrauterine position. The mean sac diameter (MSD) measures 1.04 cm, indicating an estimated gestational age (EGA) of 5 weeks, 5 days. The gestational sac shape is within normal limits. There is a visualized yolk sac. The yolk sac measures 2.4 mm. The placenta is non-visualized. No pole visualized at this time The estimated gestation age (EGA) by LMP is 6 weeks, 2 days. The estimated date of delivery (KEVIN) by LMP is March 22, 2025. The estimated gestation age (EGA) by US is 5 weeks, 5 days. The estimated date of delivery (KEVIN) by US is March 26, 2025. The uterus measures 8.2 x 7.2 x 4.5 cm. Small anechoic area adjacent to the gestational sac measuring 9 x 5 mm likely subchorionic hemorrhage There is no demonstrated uterine fibroid. The cervix is closed. The right ovary measures 2.9 x 2.2 x 2 cm. There is no right ovarian cyst. There is no visualized right adnexal mass or complex lesion. The left ovary measures 2.5 1.6-1.3 cm. There is no left ovarian cyst. There is no visualized left adnexal mass or complex lesion. There is no moderate amount of fluid in the cul de sac. US/Transvaginal w/Preg US IMPRESSION: Findings consistent with intrauterine gestation approximately 5-6 weeks gestational age with small subchorionic bleed. No definitive evidence for pelvic mass however there is free fluid possibly due to recent rupture of cyst. No definitive evidence for ectopic . Recommend clinical correlation and follow-up studies Electronically Signed: Rahul Bush MD at 18:23 EST , CC: Dr. Gary Grace MD; No Primary Care Physician Ferry Hand: Signed Normal [facility] Urinalysis, Completeon 12-19 -2024 EPI,SQUAMOUS 5-10 SEEN Normal 5-10 [facility] Comment on above: Order Comment: CLEAN CATCH Performed By: #### L 400.0001 #### [facility] [address] [place], [address] WBC 0-5 SEEN Normal 0-5 [facility] Comment on above: Order Comment: CLEAN CATCH Performed By: #### L 400.0001 #### [facility] [address] [place], [address] BACTERIA 0 SEEN Normal None Seen [facility] Comment on above: Order Comment: CLEAN CATCH Performed By: #### L 400.0001 #### [facility] [address] [place], [address] Mucus Ql (Urine sed) 0 SEEN Normal [facility] Comment on above: Order Comment: CLEAN CATCH Performed By: #### L 400.0001 #### [facility] [address] [place], [address] RBC 0 SEEN Normal 0-5 [facility] Comment on above: Order Comment: CLEAN CATCH Performed By: #### L 400.0001 #### [facility] [address] [place], [address] Urine blood detectionOrdered By: Gary Grace on 07-29-2024 Urine Occult Blood Negative Negative [facility] Urine clarityOrdered By: Tal Grace on 07-29-2024 Clarity (U) Clear Clear [facility] Urine color determinationOrd ered By: Gary Grace on 07-29-2024 Color (U) Yellow Yellow [facility] Urine leukocyte esterase det ection by dipstickOrdered By: Gary Grace on 07-29-2024 Leukocyte esterase Test strip Ql (U) Negative Negative [facility] Urine pHOrdered By: Gary mclean on 07-29-2024 pH (U) 6.5 [pH] 5.0 - 8.0 [facility] Urine sediment bacteria coun t by microscopy (number/high power field)Ordered By: Gary Grace on 07-29-2024 Bacteria LM.HPF (Urine sed) [#/Area] 0 /[HPF] None Seen [facility] Urine specific gravity measu rementOrdered By: Gary Grace on 07-29-2024 Specific gravity (U) [Rel density] 1.015 1.002-1.030 [facility] Urobilinogen Ql (U)Ordered B y: Gary Grace on 07-29-2024 Urine Urobilinogen Normal mg/dl Normal [facility] White blood cell countOrdere d By: Gary Grace on 07-29-2024 Urine WBC 0-5 SEEN /hpf 0-5 [facility] hCG Titer Quant., Serumon HCG QUANT. 04962 mIU/mL High 1-3 [facility] Comment on above: Result Comment: hCG levels with Gestational Age Gestational Age hCG mIU/mL (IU/L) 0.2 - 1 week 5 - 50 1-2 weeks 50 - 500 2-3 weeks 100 - 5000 3-4 weeks 500 - 21054 4-5 weeks 1000 - 47330 5-6 weeks 36538 - 100,000 6-8 weeks 23117 - 200,000 2-3 months 01474 - 100,000 Performed By: #### L 700.8000, B882-1 ####[facility] [id number] [place], [place], [address] HCG ( test) QlOrder ed By: Rosa M Moran on 07-23-2024 Human Chorionic Gonadotropin, Quant 1355 mIU/mL High <4 [facility] Comment on above: hCG levels with Gest ational AgeGestational Age hCG mIU/mL (IU/L)0.2 - 1 week 5 - 501-2 weeks 50 - 5002-3 weeks 100 - 31102-9 weeks 500 - 111648-3 weeks 1000 - 840515-3 weeks 89044 - 100,0006-8 weeks 46389 - 200,0002-3 months 68731 - 100,000 hCG Titer Quant., Serumon HCG QUANT. 1355 mIU/mL High 1-3 [facility] Comment on above: Result Comment: hCG levels with Gestational Age Gestational Age hCG mIU/mL (IU/L) 0.2 - 1 week 5 - 50 1-2 weeks 50 - 500 2-3 weeks 100 - 5000 3-4 weeks 500 - 29857 4-5 weeks 1000 - 85290 5-6 weeks 45390 - 100,000 6-8 weeks 23927 - 200,000 2-3 months 05139 - 100,000 Performed By: #### L 700.8000 #### [facility] [address] [place], [place], [address] HCG ( test) QlOrder ed By: Paola Almanza on 07-21-2024 Human Chorionic Gonadotropin, Quant 561 mIU/mL High <4 [facility] Comment on above: hCG levels with Gest ational AgeGestational Age hCG mIU/mL (IU/L)0.2 - 1 week 5 - 501-2 weeks 50 - 5002-3 weeks 100 - 20732-2 weeks 500 - 607381-4 weeks 1000 - 334589-4 weeks 45759 - 100,0006-8 weeks 13383 - 200,0002-3 months 13093 - 100,000 hCG Titer Quant., Serumon HCG QUANT. 561 mIU/mL High 1-3 [facility] Comment on above: Result Comment: hCG levels with Gestational Age Gestational Age hCG mIU/mL (IU/L) 0.2 - 1 week 5 - 50 1-2 weeks 50 - 500 2-3 weeks 100 - 5000 3-4 weeks 500 - 25226 4-5 weeks 1000 - 34303 5-6 weeks 78124 - 100,000 6-8 weeks 51905 - 200,000 2-3 months 66692 - 100,000 Performed By: #### L 700.8000 #### [facility] [address] [place], [place], [address] Corrections Unit Supervisor Office Visit Reporton 04-16-2024 Corrections Unit Supervisor Office Visit Report [facility] [address], [address] [place] [address] OFFICE VISIT Date of Service: 04/16/24 MR#: [id number] Acct: [id number] Name: JOI DANIEL Rep #: [id number] : 2000 Provider: Dr. Mikayla Fraser DO Age/Sex: 24/F Location: [facility] Status: Signed Intake Vital Signs 04/09/24 11:08 04/09/24 12:18 04/16/24 11:35 04/16/24 11:35 Height 5 ft 4 in 5 ft 4 in 5 ft 4 in 5 ft 4 in Weight: 139 lb 2 oz BMI 23.8 BP 115/76 Intake Visit Reasons: miscarriage follow up *give pt new hipaa form* [employer] Required: No Is patient in pain?: No Allergies No Known Allergies Allergy (Verified 04/16/24 11:32) Medications ???Medication ???Instructions ???Recorded ???Confirmed ???Type NK 04/16/24 04/16/24 History Post menopausal: No Patient : No : No [facility] History Supervision of normal first Screening examination for STI Surgical History History of root canal procedure [place] teeth extracted Family History Grandmother Breast cancer, Onset Age: 60 Paternal Stillbirth maternal paternal each with 1 stillborn Uncle Cancer Paternal- throat cancer Mother Family history of recurrent miscarriage 3 miscarriages Social History adopted: No household members: spouse housing: house number of children: 0 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 occupational exposures/hazards: No pets and animals: No history of recent travel: Yes (January) out of state: Yes out of country: Yes sexually active: Yes Smoking Status: Never smoker alcohol intake: never substance use type: does not use well-balanced diet: daily or most days caffeine: No eating out: rarely or never during the past year weight has: remained stable what type of physical activity do you participate in: none manuelito/bahai: Caodaism seatbelt use: always do you feel safe at home: Yes additional social history: Aubrey- [employer] [facility] miscarriage follow up *give pt new hipaa form* Details: JOI DANIEL is a 24 year old who presents for follow up cytotec treatment for an incomplete . She bled heavily last weekend and now just has some brown discharge. History 1 Elective abortions Hx Para 0 Spontaneous abortions 1 Hx # Term Pregnancies Ectopic pregnancies Hx # Pregnancies Multiple births # of living children 0 Past Pregnancies Del. Date Name GA/Weeks Outcome Route Bth Weight Infant Gen Labor Lgth Anesthesia Del Locatn Provider FOB 04/09/24 10 spontaneous Delivery Date: 04/09/24 Last Updated by: Deann Negrete RN Gestational sac measuring 7weeks ROS Const ROS Unobtainable: All systems reviewed are unremarkable except as noted in H Resp Resp: Reports system reviewed and no additional complaints, except as documented; Denies cough GI GI: Reports as per HPI Psych Psych: Reports system reviewed and no additional complaints, except as documented Exam Const General: cooperative, healthy appearing, comfortable and no acute distress Resp Effort Inspection: normal respiratory effort General: bimanual renal exam normal bilaterally External Female Exam: normal appearance of the urethra Urethra: normal appearance of the urethra Speculum Exam - Vagina: normal appearance of the vagina Speculum Exam - Cervix: normal appearance of the cervix Bimanual Exam- Adnexa, other: normal adnexae and normal Pelvic Support: normal Skin General: no rashes or lesions noted Psych Appearance: grossly normal Speech and Movement: speech and movement normal Coding Level of Care Code Off vis,est,level 3 Diagnoses Missed O02.1 Assessment and Plan Assessment and Plan (1) Missed : Status: Acute Comment: SM consulted and options discussed by SM with pt Plan: now complete . ENdometrium is 2mm on exam. Patient will call us if she gets again and will order early us and quants. 04/16/24 1322 Date Mikayla Pillai Signature: Date (if applicable) CC: Normal [facility] Corrections Unit Supervisor Office Visit Reporton 04-09-2024 Corrections Unit Supervisor Office Visit Report [facility] [address], [address] [place] [address] OFFICE VISIT Date of Service: 04/09/24 MR#: [id number] Acct: [id number] Name: JOI DANIEL Rep #: [id number] : 2000 Provider: ABBI Del Castillo ams Age/Sex: 24/F Location: [facility] Status: Signed Intake Vital Signs 09/11/23 07:07 03/03/24 09:18 04/09/24 11:06 04/09/24 11:08 Height 5 ft 4 in 5 ft 4 in 5 ft 4 in 5 ft 4 in Weight: 136 lb 139 lb 2 oz BMI 23.3 23.8 BP 98/67 120/82 H Blood Pressure Location Lt brachial Position Sitting Intake Visit Reasons: New OB, LMP 01/25, KEVIN 11/01/24 [employer] Required: No Is patient in pain?: No Allergies No Known Allergies Allergy (Verified 04/09/24 11:06) Medications ???Medication ???Instructions ???Recorded ???Confirmed ???Type multivit-min no.71-iron fum 28 cap PO 03/23/24 04/09/24 History mg-folate no.1 1 mg-dha 300 mg capsule (PNV-[place]) misoprostol 200 mcg tablet 800 mcg (4 x 200 mcg) PO .complex 04/09/24 04/09/24 Rx (Cytotec) #8 tabs naproxen 500 mg tablet 500 mg PO BID-TID PRN pain #30 tabs 04/09/24 04/09/24 Rx oxycodone-acetamino phen 5 mg-325 1 tab PO Q6H 7 days #14 tabs 04/09/24 04/09/24 Rx mg tablet (Percocet) Last Menstrual Period: 01/26/24 Zika: Zika virus screening: Negative : No PFSH PFSH Medical History (Updated 04/09/24 @ 15:27 by Deann Negrete RN) Supervision of normal first Screening examination for STI Surgical History History of root canal procedure [place] teeth extracted Family History Grandmother Breast cancer, Onset Age: 60 Paternal Stillbirth maternal paternal each with 1 stillborn Uncle Cancer Paternal- throat cancer Mother Family history of recurrent miscarriage 3 miscarriages Social History adopted: No household members: spouse housing: house number of children: 0 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 occupational exposures/hazards: No pets and animals: No history of recent travel: Yes (January) out of state: Yes out of country: Yes sexually active: Yes Smoking Status: Never smoker alcohol intake: never substance use type: does not use well-balanced diet: daily or most days caffeine: No eating out: rarely or never during the past year weight has: remained stable what type of physical activity do you participate in: none manuelito/bahai: Caodaism seatbelt use: always do you feel safe at home: Yes 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 Date Name GA/Weeks Outcome Route Bth Weight Infant Gen Labor Lgth Anesthesia Del Locatn Provider FOB 04/09/24 10 spontaneous Delivery Date: 04/09/24 Last Updated by: Deann Negrete RN Gestational sac measuring 7weeks HPI New OB, LMP 01/25, KEVIN 11/01/24 Details: JOI DANIEL is a 24 year old who presents for New OB visit. Gestational sac measuring 7 weeks. SM consulted. confirms missed AB. she denies any vaginal bleeding no abnormal discharge, she has had a positive test for a month and a half. she denies any fevers. she denies any significant crmaping or pain. OB Visit Comments: HIV: Urine Culture: Sequential Screen: NIPT Screen: Estimated Due Date: 11/01/24 Menstrual History Last Menstrual Period: 01/26/24 Reported LMP: definite Normal amount/duration: No (Had severe cramping for 2 days of last menses. Normal flow.) Frequency in days: 28 On hormonal BC at conception: No hCG+: 02/23/24 Antepartum Record Genetic Screening: Congenital Heart Defect: Other, Neural Tube Defect: Other, Hemoglobinopathy Or Carrier: Other, Cystic Fibrosis: Other, Chromosome Abnormality: Other, Guilherme-Sachs: Other, Hemophilia: Other, Intellectual Disability/Autism: Other, Recurrent Loss/Stillbirth: Patient (Both Grandmothers had 1 stillborn, Mother 3 miscarriages), Other Structural Defect: Other, Other Genetic Disease: Other and Maternal Metabolic Disorder: Other Infection History: Live with someone with TB or Exposed to TB: No, Patient or Partner has history of Genital Herpes: No, Rash or Viral illness since last mentrual period: No, Prior GBS-Infected child: No, History of STD: No, HIV Infection: No, History of Hepatitis: No, Recent travel outside of [place]: Yes (January), Concern for hepatitis exposure: No, Varicella immune: Yes (immune) and Covid Vac (more content not included)... Normal [facility] Urgent Care Visit Reporton 0 03-08-2024 Urgent Care Visit Report [facility] [address] , [address] [place] [address] OFFICE VISIT Date of Service: 03/08/24 MR#: [id number] Acct: [id number] Name: KARISSA DANIEL Rep #: [id number] : 2000 Provider: BETTINA West Age/Sex: 23/F Location: [facility] Status: Signed Intake Vital Signs 03/03/24 09:18 Height 1.63 m Weight: 62.596 kg BMI 23.6 BP 105/68 Blood Pressure Location Lt brachial Position Sitting Pulse 76 Pulse Source Monitor Temp 98.7 F Temp Source Temporal Pulse Oximetry (%) 100 Intake Visit Reasons: POISON HARRIS Chief Complaint: poison harris Allergies No Known Allergies Allergy (Unverified 03/08/24 09:49) Medications ???Medication ???Instructions ???Recorded ???Confirmed ???Type triamcinolone acetonide 0.1 % 1 applic topical BID #30 grams 03/08/24 03/08/24 Rx topical ointment PFSH Family History Grandmother Breast cancer Social History (Updated 09/11/23 @ 07:32 by Lisa Leblanc) adopted: No household members: family housing: house number of children: 0 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 This has been present about a week. She has a mild maculopapular rash that is pruritic on the arms, neck, and slightly on the face. No breathing issues/wheezing or sob. She tried an otc ointment but that did not help. ROS Const Constitutional: No body ache, chills, fatigue or fever(s) Resp Respiratory: No cough, shortness of breath or wheezing Endo Endocrine: No fatigue Aller/Imm Allergy/Immunologic : No wheezing Coding Level of Care Code Off vis,new,level 3 Diagnoses Z34.90 Poison harris dermatitis L23.7 Assessment and Plan Assessment and Plan (1) : Status: Acute (2) Poison harris dermatitis: Status: Acute Plan: Poison harris complicated by 5 week . I have explained that systemic steroids are not indicated. She has failed an otc remedy. A low-mid potency topical corticosteroid is low risk. Start kenalog topical 0.1% bid for up to 14 days. Medications: New triamcinolone acetonide 0.1% Apply to all affected areas BID up to 14 days. 1 applic topical BID 30 grams 0RF 03/08/24 1002 Date Jose Cope Signature: Date (if applicable) CC: Normal [facility] HCG ( test) Ql (U)O rdered By: Jeannette Lloyd on 06-07-2023 Internal Control Pass [facility] Interpretation and review of laboratory results Normal [facility] - Chemistry and C hemistry - challengeon 06-07-2023 Bilirubin Ql (U) Negative Negative [facility] Glucose Ql (U) Negative Normal, Negative mg/dL [facility] Ketones Ql (U) Trace Abnormal Negative mg/dL [facility] pH (U) 7.0 [pH] 5.0 - 7.0 [facility] Specific gravity (U) [Rel density] 1.020 1.005 - 1.025 [facility] Urobilinogen Qn (U) 0.2 mg/dL <2.0, 0. 2, Normal, Negative, 1.0, 2.0, <1.0 [facility] Laboratory - Chemistry and C hemistry - challengeOrdered By: Jeannette Lloyd on 06-07-2023 HCG ( test) Ql (U) Negative Negative [facility] Laboratory - Hematology and Cell countson 06-07-2023 Hemoglobin Ql (U) Trace-intact Abnormal Negative [facility] - Urinalysison Leukocyte esterase Test strip Ql (U) Large Abnormal Negative [facility] Nitrite Ql (U) Negative Negative [facility] Protein Ql (U) Trace Abnormal Negative mg/dL [facility] alth No Panel Informationon 06-07 Interpretation and review of laboratory results Abnormal [facility] Vital Signs Date Time Vital Sign Value Performing Clinician Facility 01-27-2025 15:25-0400 Body height 162.56 cm No Primary Care Physician [facility] 01-27-2025 15:25-0400 Body mass index (BMI) [Ratio] 29.8 kg/m2 No Primary Care Physician [facility] 01-27-2025 15:25-0400 Body temperature 98.4 [degF] No Primary Care Physician [facility] 01-27-2025 15:25-0400 Body weight 78.92 kg No Primary Care Physician [facility] 01-27-2025 15:25-0400 Diastolic blood pressure 65 mm[Hg] No Primary Care Physician [facility] 01-27-2025 15:25-0400 Heart rate 90 /min No Primary Care Physician [facility] 01-27-2025 15:25-0400 SaO2% (BldA) [Mass fraction] 97 % No Primary Care Physician [facility] 01-27-2025 15:25-0400 Systolic blood pressure 98 mm[Hg] No Primary Care Physician [facility] 11-29-2024 09:55-0400 Body mass index (BMI) [Ratio] 28.1 kg/m2 No Primary Care Physician [facility] 11-29-2024 09:55-0400 Body weight 74.38 kg No Primary Care Physician [facility] 11-29-2024 09:55-0400 Diastolic blood pressure 74 mm[Hg] No Primary Care Physician [facility] 11-29-2024 09:55-0400 Systolic blood pressure 120 mm[Hg] No Primary Care Physician [facility] 11-01-2024 13:15-0400 Body height 162.[address] Mikayla Ferrer DO Work Phone: [facility] 11-01-2024 13:15-0400 Body mass index (BMI) [Ratio] 27.5 kg/m2 Dr. Mikayla Ferrer DO Work Phone: [facility] 11-01-2024 13:15-0400 Body weight 72.[address] Mikayla Ferrer DO Work Phone: [facility] 11-01-2024 13:15-0400 Diastolic blood pressure 81 mm[Hg] Dr. Mikayla Ferrer DO Work Phone: [facility] 11-01-2024 13:15-0400 Systolic blood pressure 131 mm[Hg] Dr. Mikayla Ferrer DO Work Phone: [facility] 10-08-2024 08:51-0500 Body mass index (BMI) [Ratio] 26.6 kg/m2 Dr. Mikayla Ferrer DO Work Phone: [facility] 10-08-2024 08:51-0500 Body weight 70.[address] Mikayla Ferrer DO Work Phone: [facility] 10-08-2024 08:51-0500 Diastolic blood pressure 74 mm[Hg] Dr. Mikayla Ferrer DO Work Phone: [facility] 10-08-2024 08:51-0500 Systolic blood pressure 115 mm[Hg] Dr. Mikayla Ferrer DO Work Phone: [facility] 09-09-2024 15:36-0500 Body mass index (BMI) [Ratio] 25.9 kg/m2 Dr. Mikayla Ferrer DO Work Phone: [facility] 09-09-2024 15:36-0500 Body weight 68.[address] Mikayla Ferrer DO Work Phone: [facility] 09-09-2024 15:36-0500 Diastolic blood pressure 78 mm[Hg] Dr. Mikayla Ferrer DO Work Phone: [phone])[phone] [place] [address] 09-09-2024 15:36-0500 Systolic blood pressure 124 mm[Hg] Dr. Mikayla Ferrer DO Work Phone: [facility] 08-23-2024 10:23-0500 Body mass index (BMI) [Ratio] 25.7 kg/m2 Dr. Mikayla Ferrer DO Work Phone: [phone])[phone] [place] [address] 08-23-2024 10:23-0500 Body weight 68.[address] Mikayla Ferrer DO Work Phone: [facility] 08-23-2024 10:23-0500 Diastolic blood pressure 72 mm[Hg] Dr. Mikayla Ferrer DO Work Phone: [facility] 08-23-2024 10:23-0500 Systolic blood pressure 103 mm[Hg] Dr. Mikayla Ferrer DO Work Phone: [facility] 07-29-2024 18:15-0500 Heart rate 98 /min Dr. Mikayla Ferrer DO Work Phone: [facility] 07-29-2024 18:15-0500 Respiratory rate 18 /min Dr. Mikayla Ferrer DO Work Phone: [facility] 07-29-2024 18:15-0500 SaO2% (BldA) [Mass fraction] 100 % Dr. Mikayla Ferrer DO Work Phone: [facility] 07-29-2024 16:15-0500 Body mass index (BMI) [Ratio] 23.6 kg/m2 Dr. Mikayla Ferrer DO Work Phone: [facility] 07-29-2024 16:15-0500 Body temperature 97.5 [degF] Dr. Mikayla Ferrer DO Work Phone: [facility] 07-29-2024 16:15-0500 Body weight 62.[address] Mikayla Ferrer DO Work Phone: [facility] 07-29-2024 16:15-0500 Diastolic blood pressure 99 mm[Hg] Dr. Mikayla Ferrer DO Work Phone: [facility] 07-29-2024 16:15-0500 Systolic blood pressure 142 mm[Hg] Dr. Mikayla Ferrer DO Work Phone: [facility] 06-07-2023 12:54-0400 Body height 165.1 cm [facility] 06-07-2023 12:54-0400 Body mass index (BMI) [Ratio] 22.88 kg/m2 [facility] 06-07-2023 12:54-0400 Body temperature 97.9 [degF] [facility] 06-07-2023 12:54-0400 Body weight 62.37 kg [facility] 06-07-2023 12:54-0400 Diastolic blood pressure 75 mm[Hg] [facility] 06-07-2023 12:54-0400 Heart rate 69 /min [facility] 06-07-2023 12:54-0400 Respiratory rate 18 /min [facility] 06-07-2023 12:54-0400 SaO2% (BldA) [Mass fraction] 95 % [facility] 06-07-2023 12:54-0400 Systolic blood pressure 110 mm[Hg] [facility] Encounters Encounter Date Encounter Type Care Provider Facility Start: 01-27-2025 End: 01-27-2025 ambulatory No Primary Care Physician [facility] Work Phone: Start: 01-27-2025 End: 01-27-2025 Patient encounter procedure Jose Palomo PA -[facility] Work Phone: Start: 11-29-2024 End: 11-29-2024 Patient encounter procedure Paola Almanza CUSTOMER SERVICE DRIVER-C -[facility] Work Phone: Start: 11-29-2024 End: 11-29-2024 ambulatory Paola Almanza NP Facility:[facility] Start: 11-19-2024 End: 11-19-2024 ambulatory MD [facility] Start: 11-10-2024 End: 11-10-[address] Mikayla Ferrer DO Work Phone: [facility] Work Phone: Start: 11-10-2024 End: 11-10-[address] Negrita Gomez MD -[facility] Work Phone: Start: 11-10-2024 End: 11-10-2024 ambulatory Negrita Gomez Facility:[facility] Start: 11-01-2024 End: 11-01-[address] Mikayla Ferrer DO -[facility] Work Phone: Start: 11-01-2024 End: 11-01-2024 ambulatory Mikayla Ferrer Facility:[facility] Start: 10-08-2024 End: 10-08-2024 Patient encounter procedure Shereen Amos CNM -[facility] Work Phone: Start: 10-08-2024 End: 10-08-2024 ambulatory Shereen Amos Facility:[facility] Start: 09-09-2024 End: 09-09-[address] Negrita Gomez MD -[facility] Work Phone: Start: 09-09-2024 End: 09-09-2024 ambulatory Negrita Gomez Facility:[facility] Start: 09-09-2024 End: 09-09-2024 ambulatory Negrita Gomez Facility:[facility] Start: 08-23-2024 End: 08-23-[address] Negrita Gomze MD -Lab, [facility] Start: 08-23-2024 End: 08-23-2024 ambulatory No Primary Care Physician Facility:[facility] Start: 08-23-2024 End: 08-23-[address] Negrita Gomez MD -[facility] Work Phone: Start: 08-23-2024 End: 08-23-2024 ambulatory Negrita Gomez Facility:[facility] Start: 08-09-2024 End: 08-09-[address] Mikayla Ferrer DO -Ultrasound, [facility] Work Phone: Start: 08-09-2024 End: 08-09-2024 ambulatory Mikayla Ferrer Facility:[facility] Start: 07-29-2024 End: 07-29-2024 Emergency department patient visit Dr. Gary Grace MD -Emergency Department Work Phone: Start: 07-23-2024 End: 07-23-2024 Patient encounter procedure Rosa M Moran CNM -Lab, [facility] Start: 07-23-2024 End: 07-23-2024 ambulatory Rosa M Moran Facility:[facility] Start: 07-21-2024 End: 07-21-[address] Mikayla Ferrer DO -Lab, [facility] Start: 07-21-2024 End: 07-21-2024 ambulatory Mikayla Ferrer Facility:[facility] Start: 04-16-2024 End: 04-16-2024 ambulatory Mikayla Ferrer Facility:[facility] Start: 04-09-2024 End: 04-09-2024 ambulatory Rosa M Moran Facility:[facility] Start: 03-08-2024 End: 03-08-2024 ambulatory Jose DUNBAR Facility:[facility] Start: 06-07-2023 End: 06-07-2023 ambulatory GIOVANNI WINSTON [facility] Start: 06-07-2023 End: 06-07-2023 Office outpatient new 30 minutes Giovanni Winston DO [facility] [place] Comment on above: Vaginal discharge (P rimary Dx) Procedures Date Procedure Procedure Detail Performing Clinician Start: 11-10-2024 Ultrasonography in f irst trimester Dr. Mikayla Ferrer DO Work Phone: Start: 08-23-[address] Malou Ferrer DO Work Phone: Start: 08-09-[address] ic ultrasonography Dr. Mikayla Ferrer DO Work Phone: Start: 07-29-[address] ic ultrasonography Dr[address] Mikayla Ferrer DO Work Phone: Start: 06-07-2023 End: 06-07-2023 Urine test visual color cmprsn meths Giovanni Winston DO Plan of Treatment Date Care Activity Detail Author Start: 07-29-2024 [facility] Start: 04-11-2023 Influenza vaccination Sequenti al Influenza Vaccine (#1) [facility] Start: 2019 Screening for malign ant neoplasm of cervix Pap Smear [facility] Start: 2016 Hepatitis C screening Hepatitis C Sc reening [facility] Start: 2013 HIV screening HIV Screening [facility] Start: 2010 Depression screening using PHQ-9 (Patient Health Questionnaire 9) score Depression Screening (PHQ-2/9) [facility] Start: 2009 Vaccination for marguerite n papillomavirus HPV Vaccines (1 - 2-dose series) [facility] Start: 2001 History and physical examination, annual for health maintenance Wellness Visit [facility] Start: 1998 COVID-19 Vaccine (#1) COVID-19 Vacci ne (#1) [facility] Start: 1998 Tetanus vaccination Tetanus: Every 1 0yrs [facility] End: 06-07-2024 Bacteria identified in Unspecified specimen by Aerobe culture Urine Aerobic Culture Microbiology Routine Vaginal discharge 1 Occurrences starting 06/07/2023 until 06/07/2024 [facility] Comment on above: 1 Occurrences starti ng 06/07/2023 until 06/07/2024 CBC W Auto Different ial panel - Blood [facility] Chlamydia trachomati s rRNA assay Chlamydia/GC/Trichomon as Amplified RNA Microbiology Routine Vaginal discharge Ordered: 06/07/2023 [facility] Comment on above: Ordered: 06/07/2023 End: 06-07-2024 Gardnerella vaginalis rRNA assay Vaginitis DNA Probes Microbiology Routine Vaginal discharge 1 Occurrences starting 06/07/2023 until 06/07/2024 [facility] Comment on above: 1 Occurrences starti ng 06/07/2023 until 06/07/2024 Measurement of gluco se 2 hours after glucose challenge for glucose tolerance test [facility] Neisseria gonorrhoea e nucleic acid detection Chlamydia/Gonorrhoeae Amplified RNA Microbiology Routine Vaginal discharge Ordered: 06/07/2023 [facility] Comment on above: Ordered: 06/07/2023 Patient Education 1st Trimester [facility] Work Phone: Patient referral [facility] Work Phone: Serologic test for syphilis [facility] Trichomonas vaginali s Amplified RNA Trichomonas vaginalis Amplified RNA Microbiology Routine Vaginal discharge Ordered: 06/07/2023 [facility] Comment on above: Ordered: 06/07/2023 [facility] Payers Date Payer Category Payer Unknown [id number] 2024 Self-pay 2022 Unknown [employer] PPO [id number] 2022-Present [phone] [address] [place] [address] [id number] 2022 Unknown [id number] 2000 Unknown [id number] Unknown [id number] Unknown [id number] Unknown [id number] [id number] Unknown [id number] [id number] Unknown [id number] [id number] Unknown [id number] [id number] Unknown [id number] [id number] Unknown [id number] [id number] Unknown [id number] [id number] Unknown [id number] [id number] Unknown [id number] [id number] Unknown [id number] [id number] Unknown [id number] [id number] Unknown [id number] [id number] Unknown [id number] Social History Date Type Detail Facility Start: 06-07-2023 Tobacco smoking status MEIS Ex-smoker [facility] History of tobacco use Current smoker [facility] History of tobacco use Cigarette Smoker [facility] Start: 06-07-2023 Tobacco use and exposure Smokeless tobacco non-user [facility] Start: 06-07-2023 Alcohol intake Current drinke r of alcohol (finding) [facility] Start: 06-07-2023 History of Social function [facility] Start: 06-07-2023 Tobacco use panel [facility] Start: 06-07-[address] [facility] Start: 2000 Sex Assigned At Not on file [facility] Start: 08-23-2024 Tobacco smoking status NHIS Never smoked tobacco (finding) [facility] Start: 11-16-2024 Sex Female (finding) [facility] Start: 2000 Sex Assigned At Female [facility] Clinical Note 11-19-2024 Note Date & Type Note Facility 11-19-2024 Note [facility] CONSULTATION Referring Provider Negrita Gomez MD [address] [place] [address] SUBJECTIVE Joi Daniel is a 24 y.o. who presents at 22w3d for discussion of IUGR. She presents with and is without other complaints. She otherwise denies LOF/CTX/VB. She is without preE complaints. She endorses movement We performed a detailed ROS including screening for general, gastrointestinal, respiratory, cardiac, renal, urological symptoms and the patient has no pertinent positives on screen. OB History Para Term AB Living 2 1 SAB IAB Ectopic Multiple Live Births 1 # Outcome Date GA Lbr Cas/2nd Weight Sex Type Anes PTL Lv 2 Current 1 SAB 03/2024 8w0d Problem List[1] History reviewed. No pertinent past medical history. Past Surgical History: Procedure Laterality Date WISDOM TOOTH EXTRACTION Current Medications[2] Allergies[3] Social History Socioeconomic History Marital status: Spouse name: Not on file Number of children: Not on file Years of education: Not on file Highest education level: Not on file Occupational History Not on file Tobacco Use Smoking status: Never Smokeless tobacco: Never Substance and Sexual Activity Alcohol use: Never Drug use: Never Sexual activity: Not on file Other Topics Concern Not on file Social History Narrative Not on file Social Drivers of Health Food Insecurity: Not on file Transportation Needs: Not on file Housing Stability: Not on file Family History Problem Relation Age of Onset Cancer Maternal Grandmother Cancer Paternal Uncle OBJECTIVE BP 119/62 Pulse 89 Resp 18 Wt 73.7 kg (162 lb 8 oz) LMP 06/15/2024 SpO2 100% BMI 27.89 kg/m Alert and oriented, NAD, comfortable appearing. Normal respiratory effort Abdomen: Gravid and non-tender during ultrasound exam. OB Imaging: Please see detailed ultrasound report. Laboratory Studies reviewed in [facility]. Medical Discussion: Ultrasound results reviewed. The limitation of ultrasound in the diagnosis of all congenital anomalies and genetic syndromes was discussed. Ultrasound is not diagnostic for aneuploidy and will not detect all structural abnormalities, even if multiple exams are performed during a given . Normal ultrasound findings do not guarantee normal outcomes. We discussed the definition of IUGR today and that the baby's weight today is reassuring and appropriate. The patient's questions and concerns have been addressed and she was counseled regarding subsequent recommendations and evaluation. Impressions: Measurements are c/w established KEVIN. Normal appearing anatomy on today s exam. Normal amniotic fluid. Normal placentation. Normal appearing cervix/adnexa. Patient declined transvaginal exam to evaluate placentation and cervix. Recommendations: Ultrasound to evaluate growth and complete anatomy in 4 weeks with MFM has been scheduled. Thank you for allowing me to participate in the care of your patient. Please do not hesitate to contact me if you have any questions or concerns. If findings at delivery differ from our evaluation, please provide us with follow-up for quality technician fiberglass. The data contained in the above ultrasound report/consultation along with subsequent clinical management of the patient are the responsibility of the ordering provider. Sincerely, Julio Brink MD, FACOG Maternal Medicine Shelter Monitor The total time for today's visit is 45 minutes in which I spent time in reviewing the medical records, counseling, charting, and coordinating care. [1] There is no problem list on file for this patient. [2] Current Outpatient Medications: Vit-Fe Fumarate-FA ( PO), Take by mouth, Disp: , Rfl: UNABLE TO FIND, Med Name: probiotic, Disp: , Rfl: NONFORMULARY, MED Name Natural Wellness and Prevention. 5 drops TID daily, Disp: , Rfl: [3] No Known Allergies [facility] Radiology Diagnostic study note 11-10-2024 Note Date & Type Note Facility 11-10-2024 Radiology Diagnostic study note [facility] [place] Imaging Services [address] [place] [address] OB Anatomy w/ Transvaginal MR#: [id number] Acct: [id number] Name: JOI DANIEL Rep #: [id number] : 2000 F 24 From: Leo Ryan MD PCP: Care Physician,No Primary Status: REG CLI Study:OB Anatomy w/ Transvaginal Date of Exam : 11/10/24 Exam# [id number] Ordering Dr: Negrita Steve MD PROCEDURE: OB ANATOMY W/ TRANSVAGINAL 11/10/2024 REASON FOR EXAM: ANATOMY TECHNIQUE: High resolution obstetric ultrasound performed using a 2D transducer. Standard views obtained, including biometry, anatomy survey, and Doppler studies. COMPARISON: None FINDINGS Number: 1 Position: Varying position between cephalic and breech. Placental Position: Posterior and not low-lying. Placental Abnormalities: No evidence of previa. DIMENSIONS: Biparietal Diameter: 4.7 cm: 20 weeks and 1 day: 13%/ Head Circumference: 17 cm: 19 weeks and 5 days: 2 percentile/ Abdominal Circumference: 14.8 cm: 20 weeks and 0 days: 13 percentile/ Femur Length: 3.2 cm: 20 weeks and 1 day: 11 percentile/ ESTIMATED WEIGHT: 331 g plus/-50 g ESTIMATED WEIGHT PERCENTILE (24+ weeks): 7 percentile ESTIMATED GESTATIONAL AGE: Baseline: 21 weeks and 1 day By Ultrasound: 20 weeks and 1 day ESTIMATED DATE OF DELIVERY: Baseline: March 22, 2025 By Ultrasound: March 29, 2025 BIOPHYSICAL ASSESSMENT: Amniotic Fluid Volume: 3.4 Amniotic Fluid Index: Within normal limits (8-24 cm normal range) Cardiac Motion: 140 (average) Trunk and Limb Motion: Present. MATERNAL ANATOMY: Adnexa: Both maternal ovaries are visualized and unremarkable. Cervical Length (if measured): 3.5 cm ANATOMY: Spine: Unremarkable except for limited visualization of the thoracic spine due to position. Cranium: Unremarkable Cerebellum: Unremarkable Cisterna Magna: Unremarkable Cavum Septum Pellucidi: Unremarkable Lateral Ventricles: Unremarkable Choroid Plexus: Unremarkable Midline Falx: Unremarkable Nuchal Fold: Unremarkable Upper Lip: Unremarkable Heart: Unremarkable Stomach: Unremarkable Kidneys: Unremarkable Bladder: Unremarkable Umbilical Cord: Unremarkable Extremities: Unremarkable US/OB Anatomy w/ Transvaginal IMPRESSION: Single live intrauterine gestation with a mean gestational age of 21 weeks and 1day. Low percentages seen in the biometry. Clinical correlation recommended. Reading Location: [place] [address] CC: Dr. Negrita Gomez MD; No Primary Care Physician ~ Ferry Hand: Signed [facility] Evaluation note 10-08-2024 Note Date & Type Note Facility 10-08-2024 Evaluation note Diagnosis Onset Date Resolution acute October 08, 2024 8:45am Supervision of normal acute October 08, 2 025 8:45am acute November 01 1:11pm Supervision of normal acute November 01, 2024 1:11pm Asymmetric IUGR affecting , antepartum acute November 29, 2024 9:51am acute November 29 9:51am Supervision of normal acute November 29, 2024 9:51am [facility] Work Phone: Evaluation note 08-23-2024 Note Date & Type Note Facility 08-23-2024 Evaluation note Diagnosis Onset Date Resolution acute August 23, 2024 10:05am Supervision of high-risk resolved August 10:05am acute September 09, 2024 3:30pm Supervision of normal acute September 09 3:30pm acute October 08, 2024 8:45am Supervision of normal acute October 08, 2 025 8:45am acute November 01 1:11pm Supervision of normal acute November 01, 2024 1:11pm [facility] Work Phone: Clinical Note 08-23-2024 Note Date & Type Note Facility 08-23-2024 Note [facility] Pap Smear Specimen Adequacy August 23, 2024 12:51pm Comment . Satisfactory for evaluation. No endocervical component is identified.An endocervical component is not commonly seen in the patient. Comment on above: Satisfactory for toni luation. No endocervical component is identified.An endocervical component is not commonly seen in the patient. Evaluation + Plan note 06-07-2023 Assessment & Plan Note - Giovanni Winston, - 06/07/2023 1:17 PM EDT Note Date & Type Note Facility 06-07-2023 Evaluation + Plan note Associ ated Problem(s): Vaginal discharge Reports vaginal discharge x2 months. Denies any urinary symptoms. Intimate exam offered to patient with big data platform architect however patient declines as she states she has an upcoming KEG INSPECTOR appointment coming up. -Self swab of POC gonorrhea/trichomonas/chlamydia and vaginitis probe collected. -POC UA collected. Showed ketones, trace blood, large leuk esterase. Urine culture pending. -POC urine collected. Negative. -Start abx for prophylactic treatment. We will treat as BV at this time and initiate Flagyl 500 mg twice daily x7 days. Advised that we will contact if antibiotic changes needed. -Discussed safe sex practices. -Return precautions provided. -Follow-up with PCP. [facility] Note 06-07-2023 Assessment & Plan Note - Giovanni Winston DO - 06/07/2023 1:17 PM EDT Note Date & Type Note Facility 06-07-2023 Miscellaneous Notes Associate d Problem(s): Vaginal discharge Reports vaginal discharge x2 months. Denies any urinary symptoms. Intimate exam offered to patient with big data platform architect however patient declines as she states she has an upcoming KEG INSPECTOR appointment coming up. -Self swab of POC gonorrhea/trichomonas/chlamydia and vaginitis probe collected. -POC UA collected. Showed ketones, trace blood, large leuk esterase. Urine culture pending. -POC urine collected. Negative. -Start abx for prophylactic treatment. We will treat as BV at this time and initiate Flagyl 500 mg twice daily x7 days. Advised that we will contact if antibiotic changes needed. -Discussed safe sex practices. -Return precautions provided. -Follow-up with PCP. documented in this encounter [facility] History of Present illness Narrative 06-07-2023 Giovanni Winston DO - 06/07/2023 1:03 PM EDT Note Date & Type Note Facility 06-07-2023 History of Presen t illness Narrative Images from the original note were not included. Patient Name: [facility] Urgent Care Location: Karissa Daniel [address] [place] [address] Date Of : Date Of Visit: 2000 06/07/2023 MRN# Provider: [id number] Giovanni Winston DO Chief Complaint Patient presents with Vaginitis Swollen and itching (dark discharge) notice the symptoms a couple of months ago Assessment & Plan Problem List Vaginal discharge - Primary Reports vaginal discharge x2 months. Denies any urinary symptoms. Intimate exam offered to patient with big data platform architect however patient declines as she states she has an upcoming KEG INSPECTOR appointment coming up. -Self swab of POC gonorrhea/trichomonas/chlamydia and vaginitis probe collected. -POC UA collected. Showed ketones, trace blood, large leuk esterase. Urine culture pending. -POC urine collected. Negative. -Start abx for prophylactic treatment. We will treat as BV at this time and initiate Flagyl 500 mg twice daily x7 days. Advised that we will contact if antibiotic changes needed. -Discussed safe sex practices. -Return precautions provided. -Follow-up with PCP. Relevant Medications metroNIDAZOLE (FLAGYL) 500 MG tablet Other Relevant Orders Vaginitis DNA Probes POC , Urine (Completed) POC Urinalysis Dipstick, Auto (Completed) Chlamydia/GC/Trichomonas Amplified RNA Urine Aerobic Culture Return if symptoms worsen or fail to improve. Additional Clinical Comments Discussed over the counter medications for symptomatic management and side effects of medications. Recommended taking all medications with food and to stop medications if they develop any signs of an allergic reaction. Educated patient and/or guardian about signs and symptoms that would warrant further immediate evaluation. Recommended that they should return to urgent care, make an appointment with their family physician, or go to the emergency room if symptoms persist or get acutely worse. Recommended follow up within the next week with their PCP or to get established with a PCP soon in order to follow up appropriately. Subjective 23 y.o. female presents with Vaginitis (Swollen and itching (dark discharge) notice the symptoms a couple of months ago ) HPI Vaginal Discharge Endorses a few months of dark discharge. Discharge was originally white now dark green/yellow. Feels that it is getting worse. Thinks dark discharge is because of recent ending of menstrual period. Last menstrual period was last week. Endorses itching on the inside and outside of vagina. Feels outside vagina might be a little swollen. Sexually active with 1 partner with intermittent use of protection. Last had intercourse approximately 1 month ago. Denies any pain or discomfort with intercourse. Denies any low back pain or urinary symptoms. Review Of Systems Review of Systems Constitutional: Negative for chills and fever. HENT: Negative for congestion, postnasal drip, sinus pressure and sinus pain. Respiratory: Negative for cough, chest tightness, shortness of breath and wheezing. Cardiovascular: Negative for chest pain. Gastrointestinal: Negative for abdominal pain, diarrhea, nausea and vomiting. Genitourinary: Positive for vaginal discharge. Negative for dysuria, frequency, genital sores, hematuria, menstrual problem, urgency, vaginal bleeding and vaginal pain. Musculoskeletal: Negative for back pain and myalgias. Neurological: Negative for light-headedness and headaches. Medical History History reviewed. No pertinent past medical history. History reviewed. No pertinent surgical history. Patient Active Problem List Diagnosis Vaginal discharge Social History Social History Tobacco Use Smoking status: Former Types: Cigarettes Smokeless tobacco: Never Substance Use Topics Alcohol use: Yes Comment: occassional Drug use: Yes Types: Marijuana Family History History reviewed. No pertinent family history. Objective Physical Exam BP 110/75 (BP Location: Left arm, Patient Position: Sitting, BP Cuff Size: Adult) Pulse 69 Temp 97.9 F (36.6 C) Resp 18 Ht 5' 5 Wt 62.4 kg (137 lb 8 oz) SpO2 95% BMI 22.88 kg/m Vision/Hearing Exam:No results found. Physical Exam Vitals and nursing note reviewed. Constitutional: General: She is not in acute distress. Appearance: Normal appearance. She is normal weight. She is not ill-appearing. HENT: Right Ear: External ear normal. Left Ear: External ear normal. Nose: Nose normal. Mouth/Throat: Pharynx: Oropharynx is clear. Cardiovascular: Rate and Rhythm: Normal rate and regular rhythm. Pulses: Normal pulses. Heart sounds: Normal heart sounds. Pulmonary: Effort: Pulmonary effort is normal. No respiratory distress. Breath sounds: Normal breath sounds. Abdominal: General: Abdomen is flat. Palpations: Abdomen is soft. Tenderness: There is no abdominal tenderness. There is no right CVA tenderness or left CVA tenderness. Genitourinary: Comments: Deferred per patient preference Lymphadenopathy: Cervical: No cervical adenopathy. Neurological: Mental Status: She is alert and oriented to person, place, and time. Procedure Notes Procedures Results Recent Results (from the past 168 hour(s)) POC , Urine Collection Time: 06/07/23 1:45 PM Result Value Ref Range POC Preg Test, Ur Negative Negative Internal Control Pass POC Urinalysis Dipstick, Auto Collection Time: 06/07/23 1:45 PM Result Value Ref Range Glucose, UA Negative Normal, Negative mg/dL Bilirubin, UA Negative Negative Ketones, UA Trace (A) Negative mg/dL Spec Grav, UA 1.020 1.005 - 1.025 Blood, UA Trace-intact (A) Negative pH, UA 7.0 5.0 - 7.0 Protein, UA Trace (A) Negative mg/dL Urobilinogen, UA 0.2 <2.0, 0.2, Normal, Negative, 1.0, 2.0, <1.0 mg/dL Nitrite, UA Negative Negative Leukocyte Esterase, UA Large (A) Negative No orders to display Orders Placed This Visit Orders Placed This Encounter Procedures Vaginitis DNA Probes Chlamydia/GC/Trichomonas Amplified RNA Chlamydia/Gonorrhoeae Amplified RNA Trichomonas vaginalis Amplified RNA Urine Aerobic Culture POC , Urine POC Urinalysis Dipstick, Auto Medication List At End Of Visit Current Outpatient Medications Medication Sig Dispense Refill metroNIDAZOLE (FLAGYL) 500 MG tablet Take 1 (one) tablet (500 mg total) by mouth 2 (two) times a day with meals for 7 days . 14 tablet 0 No current facility-administered medications for this visit. There are no Patient Instructions on file for this visit. Giovanni Winston DO documented in this encounter [facility] Evaluation note Note Date & Type Note Facility Evaluation note Diagnosis Vaginal discharge- Primary Leukorrhea, not specified as infective documented in this encounter [facility] Reason for referral (narrative) Note Date & Type Note Facility Reason for referral (narrative) No reason for referral information available [facility] Work Phone: Summary Purpose Family History Relationship Condition Age at Onset Recorded Date/T jayne grandmother Stillbirth Unknown Malignant neoplasm of colon Unknown uncle Malignant neoplasm Unknown mother Family history of recurrent miscarriage U nknown Advance Directives Advance Directive Response Recorded Date/ Time Living Will No July 29 5:55pm Do you have a Healthcare Power of Agronomy Supervisor? No July 29, 2024 5:55pm Chief Complaint and Reason for Visit Chief Complaint Admit Date ABD PAIN July 29, 2024 4:14pm EARLY , PELVIC PAIN August 092023 3:24pm New OB, LMP 11/5, KEVIN 8/12 hx miscarriag e August 23, 2024 10:05am 12 wk ob FU September 09, 2024 3 :30pm 16 wk ob October 08, 2024 8:45am 20 wk ob November 01, 2024 1:1 1pm ANATOMY November 10, 2024 7:33 am Reason for Visit Admit Date August 23, 2024 1 0:05am Supervision of high-risk Janua 2024 10:05am September 09, 2024 3 :30pm Supervision of normal September 09, 2024 3:30pm October 08, 2024 8:45am Supervision of normal October 08, 2024 8:45am November 01, 2024 1:1 1pm Supervision of normal November 012024 1:11pm Chief Complaint Admit Date 16 wk ob October 08, 2024 8:45am 20 wk ob November 01, 2024 1:1 1pm ANATOMY November 10, 2024 7:33 am 24 wk ob November 29, 2024 9:5 1am POISON HARRIS January 27, 2025 3:17 pm Reason for Visit Admit Date October 08, 2024 8:45am Supervision of normal October 08, 2024 8:45am November 01, 2024 1:1 1pm Supervision of normal November 012024 1:11pm Asymmetric IUGR affecting , ant epartum November 29, 2024 9:51am November 29, 2024 9:5 1am Supervision of normal November 292024 9:51am Additional Source Comments Reason for Visit (unrecogniz ed section and content) Reason Comments Vaginitis Swollen and itching (dark discharge) notice the symptoms a couple of months ago Care Teams (unrecognized sec tion and content) Washcoat Wiper Relationship Specialty Start Date End Date No, Physician [facility] PCP - General 06/07/23 Team Status: Active Member Role Status Dates No Primary Care Physician Primary Care Provider Active Team Status: Inactive Member Role Status Dates Dr. Mikayla Ferrer DO Attending Provider Activ e Start: July 21, 2024 End: July 21, 2024 Dr. Mikayla Ferrer DO Referring Provider Activ e Start: July 21, 2024 End: July 21, 2024 Team Status: Inactive Member Role Status Dates Rosa M Moran CNM Attending Provider Active S tart: July 23, 2024 End: July 23, 2024 Rosa M Moran CNM Referring Provider Active S tart: July 23, 2024 End: July 23, 2024 Team Status: Inactive Member Role Status Dates Dr. Gary Grace MD Attending Provider Active S tart: July 29, 2024 End: July 29, 2024 Dr. Gary Grace MD Emergency Provider Active S tart: July 29, 2024 End: July 29, 2024 No Primary Care Physician Primary Care Provider Active Start: July 29, 2024 End: July 29, 2024 Team Status: Inactive Member Role Status Dates Dr. Mikayla Ferrer DO Attending Provider Activ e Start: August 09, 2024 End: August 09, 2024 Dr. Mikayla Ferrer DO Referring Provider Activ e Start: August 09, 2024 End: August 09, 2024 No Primary Care Physician Primary Care Provider Active Start: August 09, 2024 End: August 09, 2024 Team Status: Inactive Member Role Status Dates Dr. Negrita Gomez MD Attending Provider Active Start: August 23, 2024 End: August 23, 2024 No Primary Care Physician Primary Care Provider Active Start: August 23, 2024 End: August 23, 2024 No Primary Care Physician Referring Provider Active Start: August 23, 2024 End: August 23, 2024 Team Status: Inactive Member Role Status Dates No Primary Care Physician Primary Care Provider Active Start: August 23, 2024 End: August 23, 2024 Dr. Negrita Gomez MD Attending Provider Active Start: August 23, 2024 End: August 23, 2024 Dr. Negrita Gomez MD Referring Provider Active Start: August 23, 2024 End: August 23, 2024 Team Status: Inactive Member Role Status Dates No Primary Care Physician Primary Care Provider Active Start: September 09, 2024 End: September 09, 2024 No Primary Care Physician Referring Provider Active Start: September 09, 2024 End: September 09, 2024 Dr. Negrita Gomez MD Attending Provider Active Start: September 09, 2024 End: September 09, 2024 Team Status: Inactive Member Role Status Dates No Primary Care Physician Primary Care Provider Active Start: September 09, 2024 End: September 09, 2024 Dr. Negrita Gomez MD Attending Provider Active Start: September 09, 2024 End: September 09, 2024 Dr. Negrita Gomez MD Referring Provider Active Start: September 09, 2024 End: September 09, 2024 Team Status: Inactive Member Role Status Dates No Primary Care Physician Primary Care Provider Active Start: October 08, 2024 End: October 08, 2024 No Primary Care Physician Referring Provider Active Start: October 08, 2024 End: October 08, 2024 Shereen Amos CNM Attending Provider Active Start: October 08, 2024 End: October 08, 2024 Team Status: Inactive Member Role Status Dates No Primary Care Physician Primary Care Provider Active Start: November 01, 2024 End: November 01, 2024 No Primary Care Physician Referring Provider Active Start: November 01, 2024 End: November 01, 2024 Dr. Mikayla Ferrer DO Attending Provider Activ e Start: November 01, 2024 End: November 01, 2024 Team Status: Inactive Member Role Status Dates No Primary Care Physician Primary Care Provider Active Start: November 10, 2024 End: November 10, 2024 Dr. Negrita Gomez MD Attending Provider Active Start: November 10, 2024 End: November 10, 2024 Dr. Negrita Gomez MD Referring Provider Active Start: November 10, 2024 End: November 10, 2024 Team Status: Inactive Member Role Status Dates No Primary Care Physician Primary Care Provider Active Start: November 29, 2024 End: November 29, 2024 No Primary Care Physician Referring Provider Active Start: November 29, 2024 End: November 29, 2024 MARCUS Funez NPC Attending Provider Active Start: November 29, 2024 End: November 29, 2024 Team Status: Inactive Member Role Status Dates No Primary Care Physician Primary Care Provider Active Start: January 27, 2025 End: January 27, 2025 No Primary Care Physician Referring Provider Active Start: January 27, 2025 End: January 27, 2025 BETTINA Ware Attending Provider Active Sta rt: January 27, 2025 End: January 27, 2025 INFORMATION SOURCE (unrecogn ized section and content) DATE CREATED AUTHOR 06/09/2023 [facility] DATE CREATED AUTHOR AUTHOR'S ORGANIZ ATION 11/21/2024 [facility] DATE CREATED AUTHOR AUTHOR'S ORGANIZ ATION 11/29/2024 [facility] Goals (unrecognized section and content) Goals may be documented in a n alternate sectionGoals may be documented in an alternate section FOR RECORDS PERTAINING TO PATIENTS WHO ARE OR HAVE BEEN ENROLLED IN A CHEMICAL DEPENDENCY/SUBSTANCEABUSE PROGRAM, SOME INFORMATION MAY BE OMITTED. This clinical summary was aggregated from multiple sources. Caution should be exercised in using it in the provision of clinical care. This summary normalizes information from multiple sources, and as a consequence, information in this document may materially change the coding, format and clinical context of patient data. In addition, data may be omitted in some cases. CLINICAL DECISIONS SHOULD BE BASED ON THE PRIMARY CLINICAL RECORDS. [employer] provides no warranty or guarantee of the accuracy or completeness of information in this document.
[2025-01-29 21:47] VITALS: BP 111/63; PULSE 82; RESP 14; TEMP 37
[2025-01-29 21:48] VITALS: PULSE 91; O2SAT 99
[2025-01-29 21:53] VITALS: BMI 29.7
--- NOTE | 2025-01-30 15:02 | OB.TRI.NOTE ---
HPI - General HPI Narrative SHEEBA SALINAS, is a 24 F who presents at 32.4 with decreased movement overall, still having 10 movements per hour. planning a home and desired wellbeing check. PFSH PFSH Medical History Poison harris dermatitis Pelvic pain affecting Supervision of normal first Screening examination for STI Home Medications ?Medication ?Instructions ?Recorded ?Last Taken ?Type vit no.164-ferrous 1 tab PO DAILY pregnanc 08/12/24 01/29/25 History gluconate 6 mg-folate 833.5 mcg DFE tablet (Giovanni PNV) triamcinolone acetonide 0.1 % 1 applic topical BID #80 grams 01/27/25 01/29/25 Rx topical ointment Allergy/AdvReac Type Severity Reaction Status Date / Time No Known Allergies Allergy Verified 01/29/25 21:50 Family History Grandmother Stillbirth maternal & paternal each with 1 stillborn Colon cancer Uncle Cancer Paternal- throat cancer Mother Family history of recurrent miscarriage 3 miscarriages Surgical History History of root canal procedure [place] teeth extracted Social History adopted: No household members: spouse housing: house number of children: 0 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 occupational exposures/hazards: No pets and animals: No history of recent travel: Yes ([place]) out of state: Yes out of country: Yes sexually active: Yes Smoking Status: Never smoker alcohol intake: never substance use type: does not use well-balanced diet: daily or most days caffeine: Yes (stopped since ) eating out: 1-3 times/week during the past year weight has: remained stable what type of physical activity do you participate in: none manuelito/scientology: [employer] seatbelt use: always do you feel safe at home: Yes additional social history: [employer] History 1 Elective abortions Hx Para 0 Spontaneous abortions 1 Hx # Term Pregnancies Ectopic pregnancies Hx # Pregnancies Multiple births # of living children 0 Past Pregnancies Del. Date Name GA/Weeks Outcome Route Bth Weight Gen Labor Lgth Anesthesia Del Locatn Provider FOB 08/30/24 10 spontaneous Delivery Date: 04/09/24 Last Updated by: Deann Negrete RN Gestational sac measuring 7weeks NST FHR Rate Baby A Baseline: 130-140 Variability:: Moderate Accelerations:: 15 x 15 Decelerations:: None NST Reactive:: Yes FHR Category:: Category I Assessment & Plan (1) Decreased movement: COMMENT: now with good movement, reactive nst (2) Asymmetric IUGR affecting , antepartum: COMMENT: referral MFM for anatomy: 11/19 40%/nl. Rpt 12/20: PLAN: outpatient growth scan ordered PLAN: Plan Patient presents for triage evaluation secondary to decreased fm. 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 See problem list details for additional plan information. Charges/Coding Procedures Urinary/Genital [id number]: 27114-86 non-stress test Interp
== END 2025-01-29 22:30 | disposition home or self-care (01) ==
LOC: WPOUT 21:38 → WP 21:40
PROVIDERS: Referring Provider Registered Nurse; Visit Provider Registered Nurse
DX: O36.8130 Decreased fetal movements, third trimester, not applicable or unspecified (principal); O36.5930 Maternal care for other known or suspected poor fetal growth, third trimester, not applicable or unspecified; Z3A.32 32 weeks gestation of pregnancy
CPT/HCPCS: 59025; 59050; 99221; G0378

== ENCOUNTER 2025-03-27 11:00 | Inpatient (IN) | payer SELFPAY ==
[2025-03-27] VITALS (47 sets, daily range): BP systolic 78–157; BP diastolic 47–103; PULSE 61–156; RESP 14–20; TEMP 36.3–37.4; O2SAT 79–100; BMI 30.5
--- OUTSIDE RECORDS SUMMARY | 2025-03-27 09:54 | XMS RPT_ITS | CCD ---
Author Organization [facility] Care Team Providers Care Technology Education Instructor Name Role Phone No, Physician Primary Care Provider UnavailGIOVANNI Rogers Attending Unavailable SHORTY, PHYSICIAN Primary Care Unavailable Dr. Mikayla Ferrer DO Attending Provider Dr. Mikayla Ferrer DO Referring Provider Rosa M Moran CNM Attending Provider [phone] Rosa M Moran CNM Referring Provider [phone] Sanjay LANCE, Dr. Vega Attending Provider [phone] Dr. Gary Grace MD Emergency Provider [phone] Care Physician, No Primary Primary Care Provider Unavailable Dr. Negrita Gomez MD Attending Provider Care Physician, No Primary Referring Provider Un available Dr. Negrita Gomez MD Referring Provider Shereen Amos CNM Attending Provider [phone] NO PRIMARY CARE, MD Primary Care Unavailable NEGRITA GOMEZ Referring UnavailDELMA Wing Attending Unavailable Care Physician, No Primary Primary Care Provider Unavailable Care Physician, No Primary Referring Provider Un available Dr. Mikayla Ferrer DO Attending Provider Dr. Negrita Gomez MD Attending Provider Dr. Negrita Gomez MD Referring Provider Paola Mann Attending Provider [phone] Jose Cochran Attending Provider Shereen Amos CNM Referring Provider [phone] Shereen Amos Referring Unavailable Shereen Amos Attending Unavailable Shereen Amos Consulting Unavailable Care Physician, No Primary Primary Care Unava ilable Care Physician, No Primary Primary Care Unava ilable Care Physician, No Primary Referring Unava ilable Cami HOWE, Paola Attending Unavailable Care Physician, No Primary Primary Care Unava ilable Care Physician, No Primary Referring Unava ilable Jose Cochran Attending Unavailable Shereen Amos Attending Unavailable Care Physician, No Primary Primary Care Unava ilable Care Physician, No Primary Referring Unava ilable Jose Cochran Attending Unavailable Care Physician, No Primary Primary Care Unava ilable Care Physician, No Primary Referring Unava ilable Marcanthony, Negrita Attending Unavailable Dean, Rosa M Attending Unavailable Mikayla Ferrer Attending Unavailabl e Care Physician, No Primary Primary Care Unava ilable Care Physician, No Primary Referring Unava ilable Marcanthony, Negrita Attending Unavailable Care Physician, No Primary Primary Care Unava ilable Care Physician, No Primary Referring Unava ilable Mikayla Ferrer Attending UnavailRosa M Bowman Referring Unavailable Rosa M Moran Attending Unavailable Amy Gutierrez, Mikayla Referring Unavailabl e Mikayla Ferrer Attending Unavailabl e Care Physician, No Primary Primary Care Unava ilable Marcanthony, Negrita Referring Unavailable Marcanthony, Negrita Attending Unavailable Care Physician, No Primary Primary Care Unava ilable Marcanthony, Negrita Referring Unavailable Marcanthony, Negrita Attending Unavailable Care Physician, No Primary Primary Care Unava ilable Gary Grace Attending Unavailable Shereen Amos Attending Unavailable Care Physician, No Primary Primary Care Unava ilable Shereen Amos Referring Unavailable Care Physician, No Primary Primary Care Unava ilable Mikayla Ferrer Referring Unavailabl e Mikayla Ferrer Attending Unavailabl e Care Physician, No Primary Primary Care Unava ilable Marcanthony, Negrita Referring Unavailable MarcanthonyNegrita Attending Unavailable Medications Current Medications Medication Drug Class(es) Dates [...] 14 tablet 0 06/07/2023 06/14/2023 Active Vit 588-Ogfx-Sqkihu 6 ( Pnv) 6 mg iron- 833.5 mcg DFE tablet (3 sources) Start: 08-12-2024 take 6 tablets by mouth once daily Vit 853-Gbvg-Flpdgt 6 ( Pnv) 6 mg iron- 833.5 mcg DFE tablet Active 1 {tbl} PO DAILY August 12, 2024 1:00am Start: 08-12-2024 Vit 1 91-Rwiu-Ipttxv 6 ( Pnv) 6 mg iron- 833.5 mcg DFE tablet Active {tbl} PO August 12, 2024 1:00am Triamcinolone (5 sources) Corticosteroid Start: 01-27-2025 Triamcinolone Acetonide 0.1 [...] / oxyCODONE hydrochloride 5 mg oral tablet (3 sources) Opioid Agonist Start: 04-09-2024 End: 04-16-2024 Oxycodone-Acetamin ophen (Percocet) 5-325 mg tablet Discontinued 1 {tbl} PO EVERY 6 HOURS 14 April 09, 2024 April 15, 2024 12:00am April 16, 2024 12:04am miSOPROStol 0.2 mg oral tablet (3 sources) Prostaglandin E1 Analog Start: 04-09-2024 End: 04-16-2024 Misoprostol (Cytotec) 200 mcg tablet Discontinued 800 ug PO .complex 8 April 09, 2024 12:00am April 16, 2024 11:32am 4 tablets orally and then repeat in 48 hours Mv-Mins 73-Rcxz-Teapt No.1-Dha (Pnv-Dundee) 28-1-300 mg capsule (3 sources) Start: 03-23-2024 End: 04-16-2024 Mv-Mins 28-Zuws-Icbaj No.1-Dha (Pnv-Dundee) 28-1-300 mg capsule Discontinued NMA PO March 23, 2024 12:00am April 16, 2024 11:35am naproxen 500 mg oral tablet (3 sources) Nonsteroidal Anti-inflammatory Drug Start: 04-09-2024 End: 04-16-2024 Naproxen 500 mg tablet Discontinued 500 mg PO 2 to 3 times per day as needed for pain April 09, 2024 12:00am April 16, 2024 11:35am administer with food or milk Problems Active Problems Problem Classification Problem Date Documented Date Episodic/Chronic Immunizations and screening for infectious disease (3 sources) Patient encounter status; Translations: [Encounter for screening for infections with a predominantly sexual mode of transmission] 03-23-2024 Episodic Other complications of (3 sources) Missed miscarriage; Translations: [Missed ] 08-23-2024 Episodic Comment on above: SM consulted and opt ions discussed by SM with pt Other complications of (4 sources) High risk ; Translations: [Supervision of high risk , unspecified, unspecified trimester] 09-09-2024 Episodic Other complications of (3 sources) Pain in female pelvis; Translations: [Other specified related conditions, unspecified trimester] 08-12-2024 Episodic Other complications of (5 sources) Asymmetrical growth retardation; Translations: [Maternal care for other known or suspected poor growth, unspecified trimester, not applicable or unspecified] 11-12-2024 Episodic Comment on above: referral MFM for gudelia perkins referral MFM for gudelia perkins: 11/19 40%/nl. Rpt 12/20: Other complications of (1 source) Decreased movements, unspecified trimester, not applicable or unspecified; Translations: [Decreased movements, unspecified trimester, not applicable or unspecified] Onset: 02-10-2025 Episodic Other complications of (1 source) Maternal care for other known or suspected poor growth, unspecified trimester, not applicable or unspecified; Translations: [Maternal care for other known or suspected poor growth, unspecified trimester, not applicable or unspecified] Onset: 02-10-2025 Episodic Other complications of (1 source) Decreased movements, third trimester, not applicable or unspecified; Translations: [Decreased movements, third trimester, not applicable or unspecified] Onset: 02-10-2025 Episodic Other complications of (1 source) Supervision of high risk , unspecified, unspecified trimester; Translations: [Supervision of high risk , unspecified, unspecified trimester] Onset: 11-16-2024 Episodic Other female genital disorders (1 source) [...] lore Burgos , KEVIN 03/22/25, H lore Aubrey plan NIPT w/gender & declined carrier testing PRR , KEVIN 5, Aubrey Past or Other Problems Problem Classification Problem Date Documented Da te Episodic/Chronic Abdominal pain (5 sources) Pain in pelvis; Translations: [Pelvic and perineal pain] Onset: 04-09-2024 08-06-2024 Episodic Allergic reactions (6 sources) Contact dermatitis due to poison harris; Translations: [Allergic contact dermatitis due to plants, except food] Onset: 03-08-2024 08-12-2024 Episodic Other complications of (1 source) Other specified related conditions, unspecified trimester; Translations: [Other specified related conditions, unspecified trimester] Onset: 09-01-2024 Episodic Residual codes; unclassified (1 source) 12 weeks gestation of ; Translations: [12 weeks gestation of ] Onset: 09-09-2024 Episodic Residual codes; unclassified (1 source) 9 weeks gestation of ; Translations: [9 weeks gestation of ] Onset: 08-23-2024 Episodic Results Test Name Value Interpretation Reference Range Facility OB Triage Physician Noteon 0 01-30-2025 OB Triage Physician Note [facility] Medical Records Department [address] [place] [address] OB Triage Physician Note 01/30/25 1502 MR#: [id number] Acct: [id number] Name: JOI DANIEL Rep #: [id number] : 2000 24 From: Shereen Amos CNM PCP: Care Physician,No Primary Status:DEP CLI Y Location: [facility] HPI - General HPI Narrative JOI DANIEL, is a 24 F who presents at 32.4 with decreased movement overall, still having 10 movements per hour. planning a home and desired wellbeing check. [facility] Medical History Poison harris dermatitis Pelvic pain affecting Supervision of normal first Screening examination for STI Home Medications ???Medication ???Instructions ???Recorded ???Last Taken ???Type vit no.164-ferrous 1 tab PO DAILY pregnanc 08/12/24 0 01/29/25 History gluconate 6 mg-folate 833.5 mcg DFE tablet ( PNV) triamcinolone acetonide 0.1 % 1 applic topical BID #80 grams 01/29/25 Rx topical ointment Allergy/AdvReac Type Severity Reaction Status Date / Time No Known Allergies Allergy Verified 01/29/25 21:50 Family History Grandmother Stillbirth maternal paternal each with 1 stillborn Colon cancer Uncle Cancer Paternal- throat cancer Mother Family history of recurrent miscarriage 3 miscarriages Surgical History History of root canal procedure Pavo teeth extracted Social History adopted: No household members: spouse housing: house number of children: 0 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 occupational exposures/hazards: No pets and animals: No history of recent travel: Yes ([place]) out of state: Yes out of country: Yes sexually active: Yes Smoking Status: Never smoker alcohol intake: never substance use type: does not use well-balanced diet: daily or most days caffeine: Yes (stopped since ) eating out: 1-3 times/week during the past year weight has: remained stable what type of physical activity do you participate in: none manuelito/adventism: Jewish seatbelt use: always do you feel safe at home: Yes 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 Person History 1 Elective abortions Hx Para 0 Spontaneous abortions 1 Hx # Term Pregnancies Ectopic pregnancies Hx # Pregnancies Multiple births # of living children 0 Past Pregnancies Del. Date Name GA/Weeks Outcome Route Bth Weight Infant Gen Labor Lgth Anesthesia Del Locatn Provider FOB 04/09/24 10 spontaneous Delivery Date: 04/09/24 Last Updated by: Deann Negrete RN Gestational sac measuring 7weeks NST FHR Rate Baby A Baseline: 130-140 Variability:: Moderate Accelerations:: 15 x 15 Decelerations:: None NST Reactive:: Yes FHR Category:: Category I Assessment Plan (1) Decreased movement: COMMENT: now with good movement, reactive nst (2) Asymmetric IUGR affecting , antepartum: COMMENT: referral MFM for anatomy: 11/19 40%/nl. Rpt 12/20: PLAN: outpatient growth scan ordered PLAN: Plan Patient presents for triage evaluation secondary to decreased fm. FHT: Moderate variability reactive no decelerations category I tracing Orion: no Contractions Assessment and plan: Reactive NST, reassuring maternal and status patient discharged to home to follow-up with co-care chief architect. See problem list details for additional plan information. Charges/Coding Procedures Urinary/Genital 52xxx-59xxx: 39040-32 non-stress test Interp 01/30/25 1504 Date Shereen Amos CNM Cosigner Signature (if applicable): Date __ CC: ABBI Amos; No Primary Care Physician Signed Normal [facility] Office Visit Reporton 2024 Office Visit Report [facility] [address] [place] [address] OFFICE VISIT Date of Service: 01/27/25 MR#: [id number] Acct: [id number] Patient: JOI DANIEL Rep #: [id number] : 2000 Provider: BETTINA West Age/Sex: 24/F Location: [facility] Status: Signed Intake Vital Signs 11/29/24 09:55 01/27/25 15:25 Height 1.63 m 1.63 m Weight: 74.389 kg 78.925 kg BMI 28.1 29.8 BP 120/74 98/65 Blood Pressure Location Rt brachial Position Sitting Pulse 90 Pulse Source Monitor Temp 98.4 F Temp Source Temporal Pulse Oximetry (%) 97 Oxygen Delivery Method room air Intake Visit Reasons: POISON HARRIS Chief Complaint: contact dermatitis Allergies No Known Allergies Allergy (Verified 01/27/25 15:26) Medications ???Medication ???Instructions ???Recorded ???Confirmed ???Type vit no.164-ferrous tab PO 08/12/24 01/27/25 History gluconate 6 mg-folate 833.5 mcg DFE tablet ( PNV) triamcinolone acetonide 0.1 % 1 applic topical BID #80 grams 01/27/25 Rx topical ointment PFSH Medical History Poison harris dermatitis Pelvic pain affecting Supervision of normal first Screening examination for STI Surgical History History of root canal procedure Pavo teeth extracted Family History Grandmother Stillbirth maternal [...] physical activity do you participate in: none manuelito/adventism: Jewish seatbelt use: always do you feel safe at home: Yes 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 Person Female Reproductive History Menstrual Ab spontaneous: 1 HPI HPI Chief Complaint: contact dermatitis Details: JOI DANIEL, is a 24 F who presents to the office today for contact dermatitis complicated by current . Pt has had this about 1 week. She is not sure if it was poison harris or some other plant. It started after mowing her lawn. She has a diffuse maculopapular rash that is pruritic in patches on her thighs, proximal arms, and armpits, stomach, and neck. She has been putting hydrocortisone cream on it with minimal relief. No SOB/Wheezing. She does not currently have an OBGYN, she is seeing a terrazzo layer. ROS Const Constitutional: No chills, fatigue or fever(s) Resp Respiratory: No shortness of breath or wheezing Skin Skin: Positive for redness, itchy eyes and rash Endo Endocrine: No fatigue Aller/Imm Allergy/Immunologic : Positive for itchy eyes; No wheezing Exam Const General: cooperative, healthy appearing, comfortable, no acute distress, well developed and well groomed Nutritional Appearance: average body habitus and well nourished Orientation: alert, awake and oriented x3 Resp Effort Inspection: normal respiratory effort, able to speak in complete sentences, symmetric chest movement, no cough and not labored Skin Other: mildly erythematous maculopapular rash BL arms, thighs, abd, neck. Coding Level of Care Code Off vis,est,level 3 Diagnoses Contact dermatitis L25.9 Assessment and Plan Assessment and Plan (1) Contact dermatitis: Status: Acute Plan: Cannot have systemic corticosteroids due to . start triamcinolone ointment bid x 14 days. If no improvement follow up with PCP. Medications: New triamcinolone acetonide 0.1% Apply to all affected areas BID x 14 days. 1 applic topical BID 80 grams 0RF 01/27/25 1536 Date Jose DUNBAR Cosigner Signature: Date (if applicable) CC: Normal [facility] - Chemistry and C hemistry - challengeOrdered By: Paola Almanza on 11-29-2024 Glucose Ql (U) Negative [facility] - UrinalysisOrder ed By: Paola Almanza on 11-29-2024 Protein Ql (U) Negative [facility] Office Visit Reporton 11-29-2024 [facility] Office Visit Report [facility] [address], [address] [place] [address] OFFICE VISIT Date of Service: 11/29/24 MR#: [id number] Acct: [id number] Name: JOI DANIEL Rep #: [id number] : 2000 Provider: UMESH osborne Age/Sex: 24/F Location: [facility] Status: Signed Intake Vital Signs 08/23/24 11:16 08/23/24 11:19 11/01/24 13:15 11/29/24 09:55 Height 5 ft 4 in 5 ft 4 in 5 ft 4 in 5 ft 4 in Weight: 164 lb BMI 28.1 BP 120/74 Intake Visit Reasons: 24 wk ob Chief Complaint: 24 Week OB J2Ee Java Developer Required: No Is patient in pain?: No [...] Surgical History History of root canal procedure Pavo teeth extracted Family History Grandmother Stillbirth maternal [...] physical activity do you participate in: none manuelito/adventism: Jewish seatbelt use: always do you feel safe at home: Yes 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 Person History 1 Elective abortions Hx Para 0 [...] measuring 7weeks HPI 24 wk ob Details: JOI DANIEL is a [...] 10/08/24 -???-???- (more content not included)... [facility] OB Anatomy w/ Transvaginalon 11-10-2024 OB Anatomy w/ Transvaginal [facility] [address] [place] [id number] OB Anatomy w/ Transvaginal MR#: [id number] Acct: [id number] Name: JOI DANIEL Rep #: [id number] : 2000 F 24 From: Johnny tate MD PCP: Care Physician,No Primary Status: REG CL Study: OB Anatomy w/ Transvaginal Date of Exam: 11/10 Exam# [id number] Ordering Dr: Negrita Gomez PROCEDURE: OB ANATOMY [...] the biometry. Clinical correlation recommended. Reading Location: [place] [address] CC: Dr. Negrita Gomez MD; No Primary Care Physician Writer: Signed Normal [facility] - Chemistry and C hemistry - challengeOrdered By: Mikayla Gutierrez on 11-01-2024 Glucose Ql (U) Negative [facility] - UrinalysisOrder ed By: Mikayla Gutierrez on 11-01-2024 Protein Ql (U) Negative [facility] Office Visit Reporton 11-01-2024 Furniture [facility] Office Visit Report [facility] [address], [address] [place] [address] OFFICE VISIT Date of Service: 11/01/24 MR#: [id number] Acct: [id number] Name: JOI DANIEL Rep #: [id number] : 2000 Provider: Dr. Mikayla Fraser DO Age/Sex: 24/F Location: [facility] Status: Signed Intake Vital Signs 08/23/24 11:16 10/08/24 08:51 11/01/24 13:15 11/01/24 13:15 Height 5 ft 4 in 5 ft 4 in 5 ft 4 in 5 ft 4 in Weight: 155 lb 8 oz 160 lb 4 oz BMI 26.6 27.5 BP 115/74 131/81 H Intake Visit Reasons: 20 wk ob J2Ee Java Developer Required: No Is patient in pain?: No [...] Surgical History History of root canal procedure Pavo teeth extracted Family History Grandmother Stillbirth maternal [...] physical activity do you participate in: none manuelito/adventism: Jewish seatbelt use: always do you feel safe at home: Yes 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 Person History 1 Elective abortions Hx Para 0 Spontaneous abortions 1 Hx # Term Pregnancies Ectopic pregnancies Hx # Pregnancies Multiple births # of living children 0 Past Pregnancies Del. Date Name GA/Weeks Outcome Route Bth Weight Gen Labor Lgth Anesthesia Del Julio Cesaratn Provider FOB 04/09/24 10 spontaneous Delivery Date: [...] -???-???-???-???-?? ?-??? (more content not included)... Normal [facility] - Chemistry and C hemistry - challengeOrdered By: Shereen Amos on 10-08-2024 Glucose Ql (U) Negative [facility] - UrinalysisOrder ed By: Shereen Amos on 10-08-2024 Protein Ql (U) Negative [facility] Office Visit Reporton 10-08-2024 [facility] Office Visit Report [facility] [address], [address] [place] [address] OFFICE VISIT Date of Service: 10/08/24 MR#: [id number] Acct: [id number] Name: JOI DANIEL Rep #: [id number] : 2000 Provider: ABBI brito Age/Sex: 24/F Location: [place] Status: Signed Intake Vital Signs 08/23/24 11:16 09/09/24 15:39 10/08/24 08:51 Height 5 ft 4 in 5 ft 4 in 5 ft 4 in Weight: 155 lb 8 oz BMI 26.6 BP 115/74 Intake Visit Reasons: 16 wk ob J2Ee Java Developer Required: No Is patient in pain?: No [...] Surgical History History of root canal procedure Pavo teeth extracted Family History Grandmother Stillbirth maternal [...] physical activity do you participate in: none manuelito/adventism: Jewish seatbelt use: always do you feel safe at home: Yes 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 Person History 1 Elective abortions Hx Para 0 [...] -???-???-???-???-?? ?-???-???-???-??? (more content not included)... [facility] Absolute neutrophil countOrd ered By: Negrita Gomez on 09-09-2024 Neutrophils (Bld) [#/Vol] 5.0 10*3/uL 2.0-7.7 [facility] Basophil percentageOrdered B y: Negrita Gomez on 09-09-2024 Basophils/100 WBC (Bld) 0.3 % 0-1 [facility] CBC W/Diff, Automatedon 08-13 Absolute Lymph 1.47 X10 3/uL Normal 0.83-4.51 [facility] Comment on above: Performed By: #### L 509.4005, L509.8000, L3890.6300, L100.0100, L3890.6100, L3890.6005, BTS ####[facility] [address] [place], [address] Absolute Neut 5.0 X10 3/uL Normal 2.0-7.7 [facility] Comment on above: Performed By: #### L 509.4005, L509.8000, L3890.6300, L100.0100, L3890.6100, L3890.6005, BTS ####[facility] [address] [place], [address] Basophils/100 WBC (Bld) 0.3 % Normal 0-1 [facility] Comment on above: Performed By: #### L 509.4005, L509.8000, L3890.6300, L100.0100, L3890.6100, L3890.6005, BTS ####[facility] [address] [place], [address] Eosinophils/100 WBC (Bld) 1.0 % Normal 0-5 [facility] Comment on above: Performed By: #### L 509.4005, L509.8000, L3890.6300, L100.0100, L3890.6100, L3890.6005, BTS ####[facility] [address] [place], [address] Erythrocyte distribution width (RBC) [Ratio] 13.6 % Normal 11.6-14.6 [facility] Comment on above: Performed By: #### L 509.4005, L509.8000, L3890.6300, L100.0100, L3890.6100, L3890.6005, BTS ####[facility] [address] [place], [address] Hematocrit (Bld) [Volume fraction] 34.1 % Low 37-47 [facility] Comment on above: Performed By: #### L 509.4005, L509.8000, L3890.6300, L100.0100, L3890.6100, L3890.6005, BTS ####[facility] [address] [place], [address] Hemoglobin (Bld) [Mass/Vol] 11.3 g/dL Low 12.0-15.0 [facility] Comment on above: Performed By: #### L 509.4005, L509.8000, L3890.6300, L100.0100, L3890.6100, L3890.6005, BTS ####[facility] [address] [place], [address] IG% 0.100 Normal 0.0-0.9 [facility] Comment on above: Result Comment: IG% - Immature Granulocytes (promyelocytes, myelocytes and metamyelocytes) > 1% indicates that a LEFT SHIFT is Present. Performed By: #### L 509.4005, L509.8000, L3890.6300, L100.0100, L3890.6100, L3890.6005, BTS ####[facility] [address] [place], [address] Lymphocytes/100 WBC (Bld) 20.9 % Normal 19-41 [facility] Comment on above: Performed By: #### L 509.4005, L509.8000, L3890.6300, L100.0100, L3890.6100, L3890.6005, BTS ####[facility] [address] [place], [address] MCH (RBC) [Entitic mass] 29.4 pg Normal 27.0-32.0 [facility] Comment on above: Performed By: #### L 509.4005, L509.8000, L3890.6300, L100.0100, L3890.6100, L3890.6005, BTS ####[facility] [address] [place], [address] MCHC (RBC) [Mass/Vol] 33.1 g/dL Normal 32-36 [facility] Comment on above: Performed By: #### L 509.4005, L509.8000, L3890.6300, L100.0100, L3890.6100, L3890.6005, BTS ####[facility] [address] [place], [address] MCV (RBC) [Entitic vol] 88.6 fL Normal 81-99 [facility] Comment on above: Performed By: #### L 509.4005, L509.8000, L3890.6300, L100.0100, L3890.6100, L3890.6005, BTS ####[facility] [address] [place], [address] Monocytes/100 WBC (Bld) 7.0 % Normal 0-10 [facility] Comment on above: Performed By: #### L 509.4005, L509.8000, L3890.6300, L100.0100, L3890.6100, L3890.6005, BTS ####[facility] [address] [place], [address] Neutrophils/100 WBC (Bld) 70.7 % High 47-70 [facility] Comment on above: Performed By: #### L 509.4005, L509.8000, L3890.6300, L100.0100, L3890.6100, L3890.6005, BTS ####[facility] [address] [place], [address] Nucleated RBC (Bld) [#/Vol] 0 10*3/uL Normal 0-5 [facility] Comment on above: Performed By: #### L 509.4005, L509.8000, L3890.6300, L100.0100, L3890.6100, L3890.6005, BTS ####[facility] [address] [place], [address] Platelet mean volume (Bld) [Entitic vol] 9.8 fL Normal 6.2-12.0 [facility] Comment on above: Performed By: #### L 509.4005, L509.8000, L3890.6300, L100.0100, L3890.6100, L3890.6005, BTS ####[facility] [address] [place], [address] Platelets (Bld) [#/Vol] 200 10*3/uL Normal 150-450 [facility] Comment on above: Performed By: #### L 509.4005, L509.8000, L3890.6300, L100.0100, L3890.6100, L3890.6005, BTS ####[facility] [address] [place], [address] RBC (Bld) [#/Vol] 3.85 10*6/uL Low 4.2-5.4 [facility] Comment on above: Performed By: #### L 509.4005, L509.8000, L3890.6300, L100.0100, L3890.6100, L3890.6005, BTS ####[facility] [address] [place], [address] RDW SD 44.4 fl High 35.1-43.9 [facility] Comment on above: Performed By: #### L 509.4005, L509.8000, L3890.6300, L100.0100, L3890.6100, L3890.6005, BTS ####[facility] [address] [place], [address] WBC (Bld) [#/Vol] 7.1 10*3/uL Normal 4.4-11.0 [facility] Comment on above: Performed By: #### L 509.4005, L509.8000, L3890.6300, L100.0100, L3890.6100, L3890.6005, BTS ####[facility] [address] [place], [address] Eosinophil percentageOrdered By: Negrita Gomez on 09-09-2024 Eosinophils/100 WBC (Bld) 1.0 % 0-5 [facility] Erythrocyte distribution wid th (RBC) [Ratio]Ordered By: Negrita Gomez on 09-09-2024 Erythrocyte distribution width (RBC) [Entitic vol] 44.4 fL High 35.1-43.9 [facility] Erythrocyte distribution wid th ratioOrdered By: Negrita Gomez on 09-09-2024 Erythrocyte distribution width (RBC) [Ratio] 13.6 % 11.6-14.6 [facility] HIV - WCHon 09-09-2024 HIV Non-Reactive Normal Nonreactive [facility] Comment on above: Order Comment: Reaso n for Exam: Performed By: #### L 509.4005, L509.8000, L3890.6300, L100.0100, L3890.6100, L3890.6005, BTS ####[facility] [address] [place], [address] HIV 1+2 Ab+HIV1 p24 Ag IA Ql Ordered By: Negrita Gomez on 09-09-2024 HIV (1&2) Antibody Non-Reactive Nonreactive [facility] Hematocrit Auto (Bld) [Volum e fraction]Ordered By: Negrita Gomez on 09-09-2024 Hematocrit (Bld) [Volume fraction] 34.1 % Low 37-47 [facility] Hemoglobin measurementOrdere d By: Negrita Gomez on 09-09-2024 Hemoglobin (Bld) [Mass/Vol] 11.3 g/dL Low 12.0-15.0 [facility] Hepatitis B Surface Antigeno n 09-09-2024 HEP B Surf Ag Non-Reactive Normal Nonreactive [facility] Comment on above: Order Comment: Reaso n for Exam: Performed By: #### L 509.4005, L509.8000, L3890.6300, L100.0100, L3890.6100, L3890.6005, BTS ####[facility] [address] [place], [address] Hepatitis B surface antigen detectionOrdered By: Negrita Gomez on 09-09-2024 Hepatitis B Surface Antigen Non-Reactive Nonreactive [facility] Hepatitis C Antibodyon 09-09 Hepatitis C AB Non-Reactive Normal [facility] Comment on above: Order Comment: Reaso n for Exam: Result Comment: Non Reactive: < 0.8 Equivocal: >/= 0.8 to < 1.0 Reactive: >/= 1.0 The [facility] requires that a reactive/equivocal HCV antibody result be sent out for confirmation. HCV Quant by PCR testing. Performed By: #### L 509.4005, L509.8000, L3890.6300, L100.0100, L3890.6100, L3890.6005, BTS ####[facility] [address] [place], [address] Hepatitis C virus antibody a ssayOrdered By: Negrita Gomez on 09-09-2024 Hepatitis C Antibody Non-Reactive Nonreactive [facility] Comment on above: Non Reactive: < 0.8 Equivocal: >/= 0.8 to < 1.0 Reactive: >/= 1.0The CDC requires that a reactive/equivocal HCV antibody result be sent out for confirmation. HCV Quant by PCR testing. Immature granulocytes/100 WB C Auto (Bld)Ordered By: Negrita Gomez on 09-09-2024 Immature granulocytes/100 WBC (Bld) 0.100 % 0.0-0.9 [facility] Comment on above: IG% - Immature Granu locytes (promyelocytes, myelocytes and metamyelocytes) > 1% indicates that a LEFT SHIFT is Present. L509.8000on 09-09-2024 Syphilis Abs Non-Reactive Normal [facility] Comment on above: Order Comment: Reaso n for Exam: Performed By: #### L 509.4005, L509.8000, L3890.6300, L100.0100, L3890.6100, L3890.6005, BTS ####[facility] [address] [place], [place], [address] Laboratory - Chemistry and C hemistry - challengeOrdered By: Negrita Gomez on 09-09-2024 Glucose Ql (U) Negative [facility] Laboratory - UrinalysisOrder ed By: Negrita Gomez on 09-09-2024 Protein Ql (U) Negative [facility] Lymphocytes Auto (Unsp spec) [#/Vol]Ordered By: Negrita Gomez on 09-09-2024 Lymphocytes (Bld) [#/Vol] 1.47 10*3/uL 0.83-4.51 [facility] Lymphocytes/100 WBC Auto (Un sp spec)Ordered By: Negrita Gomez on 09-09-2024 Lymphocytes/100 WBC (Bld) 20.9 % 19-41 [facility] MCV (mean corpuscular volume ) determinationOrdered By: Negrita Gomez on 09-09-2024 MCV (RBC) [Entitic vol] 88.6 fL 81-99 [facility] Mean corpuscular hemoglobin (MCH) determinationOrdered By: Negrita Gomez on 09-09-2024 MCH (RBC) [Entitic mass] 29.4 pg 27.0-32.0 [facility] Mean corpuscular hemoglobin concentration (MCHC) determinationOrdered By: Negrita Gomez on 09-09-2024 MCHC (RBC) [Mass/Vol] 33.1 g/dL 32-36 [facility] Mean platelet volume determi nationOrdered By: Negrita Gmoez on 09-09-2024 Platelet mean volume (Bld) [Entitic vol] 9.8 fL 6.2-12.0 [facility] Monocyte percentageOrdered B y: Negrita Gomez on 09-09-2024 Monocytes/100 WBC (Bld) 7.0 % 0-10 [facility] Neutrophil percentageOrdered By: Negrita Gomez on 09-09-2024 Neutrophils/100 WBC (Bld) 70.7 % High 47-70 [facility] Nucleated red blood cell per centageOrdered By: Negrita Gomez on 09-09-2024 Nucleated RBC/100 WBC (Bld) [Ratio] 0 % 0-5 [facility] [employer] Office Visit Reporton 09-09-2024 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 Negrita felix MD Age/Sex: 24/F Location: [facility] Status: Signed Intake Vital Signs 08/23/24 11:16 [...] ( PNV) Last Menstrual Period: 06/15/24 PFSH [facility] Medical History Poison harris dermatitis Pelvic pain affecting Supervision of normal first Screening examination for STI Surgical History History of root canal procedure Pavo teeth extracted Family History Grandmother Stillbirth maternal [...] physical activity do you participate in: none manuelito/adventism: Jewish seatbelt use: always do you feel safe at home: Yes 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 Normal [facility] Platelet countOrdered By: Sari Gomez on 09-09-2024 Platelets (Bld) [#/Vol] 200 10*3/uL 150-450 [facility] RBC Auto (Bld) [#/Vol]Ordere d By: Negrita Gomez on 09-09-2024 RBC (Bld) [#/Vol] 3.85 10*6/uL Low 4.2-5.4 [facility] Rubella IgGon 09-09-2024 Rubella IgG Reactive Normal Nonreactive [facility] Comment on above: Order Comment: Reaso n for Exam: Result Comment: Anti body Results Interpretation of Immune Status Non Reactive Presumed Non-Immune Equivocal Equivocal Reactive Presumed Immune Performed By: #### L 509.4005, L509.8000, L3890.6300, L100.0100, L3890.6100, L3890.6005, BTS ####[facility] [address] [place], [address] Rubella immune status IgGOrd ered By: Negrita Gomez on 09-09-2024 Rubella IgG Antibody Reactive Nonreactive [facility] Comment on above: Antibody Results Int erpretation of Immune Status Non Reactive Presumed Non-Immune Equivocal Equivocal Reactive Presumed Immune Treponema sp Ab Ql (S)Ordere d By: Negrita Gomez on 09-09-2024 Syphilis Total Antibody Non-Reactive [facility] Type AND Screenon 09-09-2024 Ab SCREEN GEL PENDING Normal [facility] Comment on above: Order Comment: PN Performed By: #### L 509.4005, L509.8000, L3890.6300, L100.0100, L3890.6100, L3890.6005, BTS ####[facility] [address] [place], [place], [address] ABO and Rh group Nom (Bld) Blood group B Rh(D) positive Normal [facility] Comment on above: Order Comment: PN Performed By: #### L 509.4005, L509.8000, L3890.6300, L100.0100, L3890.6100, L3890.6005, BTS ####[facility] [address] [place], [address] White blood cell (WBC) count Ordered By: Negrita Gomez on 09-09-2024 WBC (Bld) [#/Vol] 7.1 10*3/uL 4.4-11.0 [facility] PAP I-G w/rfx hrHPV-Aptimaon 08-27-2024 ADEQ Comment Normal . [facility] Comment on above: Order Comment: Specalia gilbert Comment: [id number] Comment: Source.............Cervix;EndocervixSpecimen Comment: LMP / Prev Treat...[id number]=[id number] Comment: Other..............Specimen Comment: No. of containers..01 ThinPrep Vial Result Comment: Sati sfactory for evaluation. No endocervical component is identified. An endocervical component is not commonly seen in the patient. Performed By: #### L 7000.1800, M100.2200, L7400.0353 ####[facility] [address] [place], [place], [address] COMM . Normal . [facility] Comment on above: Order Comment: Speci men Comment: [id number] Comment: Source.............Cervix;EndocervixSpecimen Comment: LMP / Prev Treat...ZHA=[id number] Comment: Other..............Specimen Comment: No. of containers..01 ThinPrep Vial Performed By: #### L 7000.1800, M100.2200, L7400.0353 ####[facility] [address] [place], [place], [address] COMMENT Comment Normal . [facility] Comment on above: Order Comment: Speci men Comment: [id number] Comment: Source.............Cervix;EndocervixSpecimen Comment: LMP / Prev Treat...WLP=[id number] Comment: Other..............Specimen Comment: No. of containers..01 ThinPrep Vial Result Comment: This liquid based ThinPrep(R) pap test was screened with the use of an image guided system. Performed By: #### L 7000.1800, M100.2200, L7400.0353 ####[facility] [address] [place], [place], [address] DIAG Comment Normal . [facility] Comment on above: Order Comment: Speci men Comment: [id number] Comment: Source.............Cervix;EndocervixSpecimen Comment: LMP / Prev Treat...[id number]=[id number] Comment: Other..............Specimen Comment: No. of containers..01 ThinPrep Vial Result Comment: NEGA TIVE FOR INTRAEPITHELIAL LESION OR MALIGNANCY. Performed By: #### L 7000.1800, M100.2200, L7400.0353 ####[facility] [address] [place], [place], [address] HPV RFLX Comment Normal . [facility] Comment on above: Order Comment: Speci men Comment: [id number] Comment: Source.............Cervix;EndocervixSpecimen Comment: LMP / Prev Treat...JIA=[id number] Comment: Other..............Specimen Comment: No. of containers..01 ThinPrep Vial Result Comment: The HPV DNA reflex criteria were not met with this specimen result therefore, no HPV testing was performed. Performed at: [address] [id number] Field Education Director: Masood Polanco PhD, Phone: [phone] Performed at: [facility] [id number] Field Education Director: Amber García MD, Phone: [phone] Performed By: #### L 7000.1800, M100.2200, L7400.0353 ####[facility] [address] [facility] [address] [place], [place], [address] PAPSMR Comment Normal . [facility] Comment on above: Order Comment: Speci men Comment: [id number] Comment: Source.............Cervix;EndocervixSpecimen Comment: LMP / Prev Treat...[id number]=[id number] Comment: Other..............Specimen Comment: No. of containers..01 ThinPrep [...] Performed By: #### L 7000.1800, M100.2200, L7400.0353 ####[facility] [address] [place], [address] PERFORM Comment Normal . [facility] Comment on above: Order Comment: Speci men Comment: [id number] Comment: Source.............Cervix;EndocervixSpecimen Comment: LMP / Prev Treat...ODJ=[id number] Comment: Other..............Specimen Comment: No. of containers..01 ThinPrep Vial Result Comment: Mary Andrade, Patient Relations Representative (ASCP) Performed By: #### L 7000.1800, M100.2200, L7400.0353 ####[facility] [address] [place], [address] Chlamydia/GC AFRICA aptimaon CHLAMY,NUC ACID Negative Normal Negative [facility] Comment on above: Performed By: #### L 7000.1800, M100.2200, L7400.0353 ####[facility] [address] [place], [address] GC BY NUC ACID Negative Normal Negative [facility] Comment on above: Result Comment: Perf ormed at: =G - [facility] [address] [id number] Field Education Director: Amber García MD, Phone: [phone] Performed By: #### L 7000.1800, M100.2200, L7400.0353 ####[facility] [address] [place], [address] Urine Cultureon 08-24-2024 URC Culture exhibits no growth. Normal [facility] Comment on above: Performed By: #### L 7000.1800, M100.2200, L7400.0353 ####[facility] [address] [place], [address] C. trachomatis rRNA AFRICA+prob e Ql (Unsp spec)Ordered By: Negrita Gomez on 08-23-2024 Chlamydia DNA (AFRICA) Negative Negative [facility] Life Skills Teacher Cyto stain Nom (C vx/Vag) [ID]Ordered By: Negrita Gomez on 08-23-2024 Pap Smear Performed By Comment . [facility] Comment on above: Leana Andrade, Cyto technologist (ASCP) Cytology report Cyto stain D oc (Cvx/Vag)Ordered By: Negrita Gomez on 08-23-2024 Thin Prep Pap Smear Comment . [facility] Comment on above: The Pap smear is a s creening test designed to aid in thedetection of premalignant and malignant conditions of theuterine cervix. It is not a diagnostic procedure andshould not be used as the sole means of detecting cervicalcancer. Both false-positive and false-negative reports dooccur. Image-guided ThinPrep PapOrd ered By: Negrita Gomez on 08-23-2024 Pap Smear Note Comment . [facility] Comment on above: This liquid based Th inPrep(R) pap test was screened withthe use of an image guided system. Image-guided liquid-based Pa pOrdered By: Negrita Gomez on 08-23-2024 Pap Smear Diagnosis Comment . [facility] Comment on above: NEGATIVE FOR INTRAEP ITHELIAL LESION OR MALIGNANCY. Image-guided liquid-based ce rvical Pap w high-risk HPV+reflex to HPV 16+18Ordered By: Negrita Gomez on 08-23-2024 Human Papillomavirus Screen Comment . [facility] Comment on above: The HPV DNA reflex c jeramy were not met with this specimenresult therefore, no HPV testing was performed.Performed at: [facility] [place], [place] [id number] Director: Masood Polanco PhD, Phone: [phone] at: [address] [id number] Director: Amber García MD, Phone: [phone] Neisseria gonorrhoeae nuclei c acid detection by amplified probe techniqueOrdered By: Negrita Gomez on 08-23-2024 N. gonorrhoeae DNA AFRICA+probe Ql (Unsp spec) Negative Negative [facility] Comment on above: Performed at: =G - Nicole riceigor WallaceIzrchxhari[address] StreetGerardo dobbs [place] [id number] Director: Amber García MD, Phone: [phone] Furniture Dipper Office Visit Reporton 08-23-2024 Furniture Dipper Office Visit Report [facility] [address], [address] [place] [address] OFFICE VISIT Date of Service: 08/23/24 MR#: [id number] Acct: [id number] Name: JOI DANIEL Rep #: [id number] : 2000 Provider: Dr. 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 Normal [facility] Furniture Dipper Office Visit Report [facility] [address], [address] [place] [address] OFFICE VISIT Date of Service: 08/23/24 MR#: [id number] Acct: [id number] Name: JOI DANIEL Rep #: [id number] : 2000 Provider: Dr. Negrita felix MD Age/Sex: 24/F Location: [place] Status: Signed Intake Vital Signs 04/16/24 11:35 07/20/24 13:47 07/29/24 16:15 08/23/24 10:23 Height 5 ft 4 in 5 ft 4 in 5 ft 4 in 5 ft 4 in Weight: 150 lb 4 oz BMI 25.7 BP 130/91 H Intake Visit Reasons: New OB, LMP 06/15, KEVIN 03/22 hx miscarriage J2Ee Java Developer Required: No Is patient in pain?: No [...] Surgical History History of root canal procedure Pavo teeth extracted Family History Grandmother Stillbirth maternal [...] physical activity do you participate in: none manuelito/adventism: Jewish seatbelt use: always do you feel safe at home: Yes additional social history: Herb Gordon History 1 Elective abortions Hx Para 0 [...] (e.g.,TB,Asthma), Seasonal allergies, Drug/latex allergies/reactions , Breast, Bar Back surgery, Operations/hospital izations, Anest (more content not included)... Normal [facility] Service comment (Unsp spec) [Interp]Ordered By: Negrita Gomez on 08-23-2024 Pap Smear Comment (3) . . [facility] Urine cultureOrdered By: Anselmo Gomez on 08-23-2024 Bacteria identified Cx Nom (U) Culture exhibits no growth. [facility] Transvaginal w/Preg USon Transvaginal w/Preg US [facility] [address] [place] [address] Transvaginal w/Preg US MR#: [id number] Acct: [id number] Name: JOI DANIEL Rep #: [id number] : 2000 F 24 From: Dl Bennett MD PCP: Care Physician,No Primary Status: REG CLI Study: Transvaginal w/Preg US Date of Exam: 08/09/24 Exam# [id number] Ordering Dr: Mikayla Ferrer DO -[id number] EXAM: US , TRANSVAGINAL CLINICAL INDICATION: [...] Mikayla Ferrer, DO; No Primary Care Physician Writer: Signed Normal [facility] [id number] 07-29-2024 ABO and Rh group Nom (Bld) Blood group B Rh(D) positive Normal [facility] Comment on above: Performed By: #### L 700.8000, B882-1 ####[facility] [address] [facility] [place], [address] Bilirubin Test strip Ql (U)O rdered By: Gary Grace on 07-29-2024 Bilirubin Ql (U) Negative Negative [facility] Emergency Department Summary on 07-29-2024 Emergency Department Summary [facility] Medical Records Department [address] [place] [address] Emergency Department Summary 07/29/24 MR#: [id number] Acct: [id number] Name: JOI DANIEL Rep #: [id number] : 2000 24 From: Gary Grace MD [...] Surgical History History of root canal procedure Pavo teeth extracted Social History adopted: No household [...] physical activity do you participate in: none manuelito/adventism: Jewish seatbelt use: always do you feel safe at home: Yes 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 Normal [facility] Epithelial cells.squamous LM Ql (Urine sed)Ordered By: Gary Grace on 07-29-2024 Epithelial cells.squamous LM.HPF (Urine sed) [#/Area] 5 /[HPF] 5-10 [facility] Glucose Ql (U)Ordered By: Adeel Grace on 07-29-2024 Urine Glucose (UA) Normal mg/dl Normal [facility] HCG ( test) QlOrder ed By: Gary Grace on 07-29-2024 Human Chorionic Gonadotropin, Quant 18263 mIU/mL High <4 [facility] Comment on above: hCG levels with Gest ational AgeGestational Age hCG mIU/mL (IU/L)0.2 - 1 week 5 - 501-2 weeks 50 - 5002-3 weeks 100 - 45777-7 weeks 500 - 738092-7 weeks 1000 - 063170-9 weeks 04492 - 100,0006-8 weeks 39419 - 200,0002-3 months 25680 - 100,000 Ketones Test strip Ql (U)Ord ered By: Gary Grace on 07-29-2024 Ketones Ql (U) Negative Negative [facility] Microscopic analysis of urin e for red blood cells (RBC)Ordered By: Gary Grace on 07-29-2024 Urine RBC 0 SEEN /hpf 0-5 [facility] Mucus LM Ql (Urine sed)Order ed By: Gary Grace on 07-29-2024 Mucus Ql (Urine sed) 0 SEEN /hpf [facility] Nitrite Test strip Ql (U)Ord ered By: Gary Grace on 07-29-2024 Nitrite Ql (U) Negative Negative [facility] Protein Test strip Ql (U)Ord ered By: Gary Grace on 07-29-2024 Protein Ql (U) Negative Negative [facility] Transvaginal w/Preg USon Transvaginal w/Preg US [facility] [address] [place], [place] [address] Transvaginal w/Preg US MR#: [id number] Acct: [id number] Name: JOI DANIEL Rep #: [id number] : 2000 F 24 From: Rahul Bush MD PCP: Care Physician,No Primary Status: REG ER Study: Transvaginal w/Preg US Date of Exam: 07/29/24 Exam# [id number] Ordering Dr: Gary Grace MD -[id number] STUDY: FIRST TRIMESTER OBSTETRICAL ULTRASOUND REASON [...] Gary Grace MD; No Primary Care Physician Writer: Signed Normal [facility] Urinalysis, Completeon 07-29 EPI,SQUAMOUS 5-10 SEEN Normal 5-10 [facility] Comment on above: Order Comment: CLEAN CATCH Performed By: #### L 400.0001 #### [facility] [address] [place], [address] WBC 0-5 SEEN Normal 0-5 [facility] Comment on above: Order Comment: CLEAN CATCH Performed By: #### L 400.0001 #### [facility] [address] [place], [address] BACTERIA 0 SEEN Normal None Seen [facility] Comment on above: Order Comment: CLEAN CATCH Performed By: #### L 400.0001 #### [facility] [address] [place], [address] Mucus Ql (Urine sed) 0 SEEN Normal [facility] Comment on above: Order Comment: CLEAN CATCH Performed By: #### L 400.0001 #### [facility] [address] [place], [address] RBC 0 SEEN Normal 0-5 [facility] Comment on above: Order Comment: CLEAN CATCH Performed By: #### L 400.0001 #### [facility] [address] [place], [address] Urine blood detectionOrdered By: Gary Grace on 07-29-2024 Urine Occult Blood Negative Negative [facility] Urine clarityOrdered By: Tal Grace on 07-29-2024 Clarity (U) Clear Clear [facility] Urine color determinationOrd ered By: Gary Grace on 07-29-2024 Color (U) Yellow Yellow [facility] Urine leukocyte esterase det ection by dipstickOrdered By: Gary Grace on 07-29-2024 Leukocyte esterase Test strip Ql (U) Negative Negative [facility] Urine pHOrdered By: Gary mclean on 07-29-2024 pH (U) 6.5 [pH] 5.0 - 8.0 [facility] Urine sediment bacteria coun t by microscopy (number/high power field)Ordered By: Gary Grace on 07-29-2024 Bacteria LM.HPF (Urine sed) [#/Area] 0 /[HPF] None Seen [facility] Urine specific gravity measu rementOrdered By: Gary Grace on 07-29-2024 Specific gravity (U) [Rel density] 1.015 1.002-1.030 [facility] Urobilinogen Ql (U)Ordered B y: Gary Sanjay on 07-29-2024 Urine Urobilinogen Normal mg/dl Normal [facility] White blood cell countOrdere d By: Gary Grace on 07-29-2024 Urine WBC 0-5 SEEN /hpf 0-5 [facility] hCG Titer Quant., Serumon HCG QUANT. 21567 mIU/mL High 1-3 [facility] Comment on above: Result Comment: hCG levels with Gestational Age Gestational Age hCG mIU/mL (IU/L) 0.2 - 1 week 5 - 50 1-2 weeks 50 - 500 2-3 weeks 100 - 5000 3-4 weeks 500 - 37952 4-5 weeks 1000 - 55684 5-6 weeks 95284 - 100,000 6-8 weeks 97105 - 200,000 2-3 months 23567 - 100,000 Performed By: #### L 700.8000, B882-1 ####[facility] [address] [place], [address] HCG ( test) QlOrder ed By: Rosa M Moran on 07-23-2024 Human Chorionic Gonadotropin, Quant 1355 mIU/mL High <4 [facility] Comment on above: hCG levels with Gest ational AgeGestational Age hCG mIU/mL (IU/L)0.2 - 1 week 5 - 501-2 weeks 50 - 5002-3 weeks 100 - 18675-4 weeks 500 - 893169-3 weeks 1000 - 703324-1 weeks 71322 - 100,0006-8 weeks 47281 - 200,0002-3 months 88227 - 100,000 hCG Titer Quant., Serumon HCG QUANT. 1355 mIU/mL High 1-3 [facility] Comment on above: Result Comment: hCG levels with Gestational Age Gestational Age hCG mIU/mL (IU/L) 0.2 - 1 week 5 - 50 1-2 weeks 50 - 500 2-3 weeks 100 - 5000 3-4 weeks 500 - 53713 4-5 weeks 1000 - 31699 5-6 weeks 64807 - 100,000 6-8 weeks 95191 - 200,000 2-3 months 22178 - 100,000 Performed By: #### L 700.8000 #### [facility] [address] [place], [address] HCG ( test) QlOrder ed By: Paola Almanza on 07-21-2024 Human Chorionic Gonadotropin, Quant 561 mIU/mL High <4 [facility] Comment on above: hCG levels with Gest ational AgeGestational Age hCG mIU/mL (IU/L)0.2 - 1 week 5 - 501-2 weeks 50 - 5002-3 weeks 100 - 95521-5 weeks 500 - 543849-3 weeks 1000 - 541234-1 weeks 32793 - 100,0006-8 weeks 67801 - 200,0002-3 months 01874 - 100,000 hCG Titer Quant., Serumon HCG QUANT. 561 mIU/mL High 1-3 [facility] Comment on above: Result Comment: hCG levels with Gestational Age Gestational Age hCG mIU/mL (IU/L) 0.2 - 1 week 5 - 50 1-2 weeks 50 - 500 2-3 weeks 100 - 5000 3-4 weeks 500 - 76823 4-5 weeks 1000 - 73558 5-6 weeks 35752 - 100,000 6-8 weeks 45026 - 200,000 2-3 months 79213 - 100,000 Performed By: #### L 700.8000 #### [facility] [address] [place], [address] Furniture Dipper Office Visit Reporton 04-16-2024 Furniture [facility] Office Visit Report [facility]'s [address], [address] [place] [address] OFFICE VISIT Date of Service: 04/16/24 MR#: [id number] Acct: [id number] Name: JOI DANIEL Rep #: [id number] : 2000 Provider: Dr. Mikayla Fraser DO Age/Sex: 24/F Location: [place] Status: Signed Intake Vital Signs 04/09/24 11:08 04/09/24 12:18 04/16/24 11:35 04/16/24 11:35 Height 5 ft 4 in 5 ft 4 in 5 ft 4 in 5 ft 4 in Weight: 139 lb 2 oz BMI 23.8 BP 115/76 Intake Visit Reasons: miscarriage follow up *give pt new hipaa form* J2Ee Java Developer Required: No Is patient in pain?: No Allergies No Known Allergies Allergy (Verified 04/16/24 11:32) Medications ???Medication ???Instructions ???Recorded ???Confirmed ???Type NK 04/16/24 04/16/24 History Post menopausal: No Patient : No : No PFSH Medical History Supervision of normal first Screening examination for STI Surgical History History of root canal procedure Pavo teeth extracted Family History Grandmother Breast cancer, [...] physical activity do you participate in: none manuelito/adventism: Jewish seatbelt use: always do you feel safe at home: Yes 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 Person [facility] miscarriage follow up *give pt new hipaa [...] Pillai Signature: Date (if applicable) CC: Normal [facility] Furn[facility] Office Visit Reporton 04-09-2024 Furniture Dipper Office Visit Report [facility] [address], [address] [place] [address] OFFICE VISIT Date of Service: 04/09/24 MR#: [id number] Acct: [id number] Name: JOI DANIEL Rep #: [id number] : 2000 Provider: ABBI Del Castillo ams Age/Sex: 24/F Location: [place] Status: Signed Intake Vital Signs 09/11/23 07:07 03/03/24 09:18 04/09/24 11:06 04/09/24 11:08 Height 5 ft 4 in 5 ft 4 in 5 ft 4 in 5 ft 4 in Weight: 136 lb 139 lb 2 oz BMI 23.3 23.8 BP 98/67 120/82 H Blood Pressure Location Lt brachial Position Sitting Intake Visit Reasons: New OB, LMP 01/25, KEVIN 11/01/24 J2Ee Java Developer Required: No Is patient in pain?: No Allergies No Known Allergies Allergy (Verified 04/09/24 11:06) Medications ???Medication ???Instructions ???Recorded ???Confirmed ???Type multivit-min no.71-iron fum 28 cap PO 03/23/24 04/09/24 History mg-folate no.1 1 mg-dha 300 mg capsule (PNV-[place]) misoprostol 200 mcg tablet 800 mcg (4 [...] Surgical History History of root canal procedure Pavo teeth extracted Family History Grandmother Breast cancer, [...] physical activity do you participate in: none manuelito/adventism: Jewish seatbelt use: always do you feel safe at home: Yes additional social history: Herb Gordon History 1 Elective abortions Hx Para 0 [...] Covid Vac (more content not included)... Normal [facility] Visit Reporton 0 03-08-2024 Urgent Care Visit Report [facility] [address], [address] [place] [address] OFFICE VISIT Date of Service: 03/08/24 MR#: [id number] Acct: [id number] Name: KARISSA DANIEL Rep #: [id number] : 2000 Provider: BETTINA West Age/Sex: 23/F Location: [facility] Status: Signed Intake Vital Signs 03/03/24 09:18 [...] 30 grams 0RF 03/08/24 1002 Date Jose DUNBAR Cosigner Signature: Date (if applicable) CC: Normal [facility] HCG ( test) Ql (U)O rdered By: Jeannette Lloyd on 06-07-2023 Internal Control Pass [facility] Interpretation and review of laboratory results Normal [facility] - Chemistry and C hemistry - challengeon 06-07-2023 Bilirubin Ql (U) Negative Negative [facility] Glucose Ql (U) Negative Normal, Negative mg/dL [facility] Ketones Ql (U) Trace Abnormal Negative mg/dL [facility] alth pH (U) 7.0 [pH] 5.0 - 7.0 [facility] Specific gravity (U) [Rel density] 1.020 1.005 - 1.025 [facility] Urobilinogen Qn (U) 0.2 mg/dL <2.0, 0. 2, Normal, Negative, 1.0, 2.0, <1.0 [facility] Laboratory - Chemistry and C hemistry - challengeOrdered By: Jeannette Lloyd on 06-07-2023 HCG ( test) Ql (U) Negative Negative [facility] - Hematology and Cell countson 06-07-2023 Hemoglobin Ql (U) Trace-intact Abnormal Negative [facility] Laboratory - Urinalysison Leukocyte esterase Test strip Ql (U) Large Abnormal Negative [facility] Nitrite Ql (U) Negative Negative [facility] Protein Ql (U) Trace Abnormal Negative mg/dL [facility] alth No Panel Informationon 06-07 Interpretation and review of laboratory results Abnormal [facility] Vital Signs Date Time Vital Sign Value Performing Clinician Facility 01-29-2025 21:53-0400 Body height 162.56 cm No Primary Care Physician [facility] 01-29-2025 21:53-0400 Body mass index (BMI) [Ratio] 29.7 kg/m2 No Primary Care Physician [facility] 01-29-2025 21:53-0400 Body weight 78.58 kg No Primary Care Physician [facility] 01-29-2025 21:48-0400 Heart rate 91 /min No Primary Care Physician [facility] 01-29-2025 21:48-0400 SaO2% (BldA) [Mass fraction] 99 % No Primary Care Physician [facility] 01-29-2025 21:47-0400 Body temperature 98.6 [degF] No Primary Care Physician [facility] 01-29-2025 21:47-0400 Diastolic blood pressure 63 mm[Hg] No Primary Care Physician [facility] 01-29-2025 21:47-0400 Respiratory rate 14 /min No Primary Care Physician [facility] 01-29-2025 21:47-0400 Systolic blood pressure 111 mm[Hg] No Primary Care Physician [facility] 01-27-2025 15:25-0400 Body height 162.56 cm No Primary Care Physician [facility] 01-27-2025 15:25-0400 Body mass index (BMI) [Ratio] 29.8 kg/m2 No Primary Care Physician [facility] 01-27-2025 15:25-0400 Body temperature 98.4 [degF] No Primary Care Physician [facility] 01-27-2025 15:25-0400 Body weight 78.92 kg No Primary Care Physician [facility] 01-27-2025 15:25-0400 Diastolic blood pressure 65 mm[Hg] No Primary Care Physician [facility] 01-27-2025 15:25-0400 Heart rate 90 /min No Primary Care Physician [facility] 01-27-2025 15:25-0400 SaO2% (BldA) [Mass fraction] 97 % No Primary Care Physician [facility] 01-27-2025 15:25-0400 Systolic blood pressure 98 mm[Hg] No Primary Care Physician [facility] 11-29-2024 09:55-0400 Body mass index (BMI) [Ratio] 28.1 kg/m2 No Primary Care Physician [facility] 11-29-2024 09:55-0400 Body weight 74.38 kg No Primary Care Physician [facility] 11-29-2024 09:55-0400 Diastolic blood pressure 74 mm[Hg] No Primary Care Physician [facility] 11-29-2024 09:55-0400 Systolic blood pressure 120 mm[Hg] No Primary Care Physician [facility] 11-01-2024 13:15-0400 Body height 162.[address] Mikayla Ferrer DO Work Phone: [facility] 11-01-2024 13:15-0400 Body mass index (BMI) [Ratio] 27.5 kg/m2 Dr. Mikayla Ferrer DO Work Phone: [facility] 11-01-2024 13:15-0400 Body weight 72.[address] Mikayla Ferrer DO Work Phone: [facility] 11-01-2024 13:15-0400 Diastolic blood pressure 81 mm[Hg] Dr. Mikayla Ferrer DO Work Phone: [facility] 11-01-2024 13:15-0400 Systolic blood pressure 131 mm[Hg] Dr. Mikayla Ferrer DO Work Phone: [facility] 10-08-2024 08:51-0500 Body mass index (BMI) [Ratio] 26.6 kg/m2 Dr. Mikayla Ferrer DO Work Phone: [facility] 10-08-2024 08:51-0500 Body weight 70.[address] Mikayla Ferrer DO Work Phone: [facility] 10-08-2024 08:51-0500 Diastolic blood pressure 74 mm[Hg] Dr. Mikayla Ferrer DO Work Phone: [facility] 10-08-2024 08:51-0500 Systolic blood pressure 115 mm[Hg] Dr. Mikayla Ferrer DO Work Phone: [facility] 09-09-2024 15:36-0500 Body mass index (BMI) [Ratio] 25.9 kg/m2 Dr. Mikayla Ferrer DO Work Phone: [facility] 09-09-2024 15:36-0500 Body weight 68.[address] Mikayla Ferrer DO Work Phone: [facility] 09-09-2024 15:36-0500 Diastolic blood pressure 78 mm[Hg] Dr. Mikayla Ferrer DO Work Phone: [facility] 09-09-2024 15:36-0500 Systolic blood pressure 124 mm[Hg] Dr. Mikayla Ferrer DO Work Phone: [facility] 08-23-2024 10:23-0500 Body mass index (BMI) [Ratio] 25.7 kg/m2 Dr. Mikayla Ferrer DO Work Phone: [facility] 08-23-2024 10:23-0500 Body weight 68.[address] Mikayla Ferrer DO Work Phone: [facility] 08-23-2024 10:23-0500 Diastolic blood pressure 72 mm[Hg] Dr. Mikayla Ferrer DO Work Phone: [facility] 08-23-2024 10:23-0500 Systolic blood pressure 103 mm[Hg] Dr. Mikayla Ferrer DO Work Phone: [facility] 07-29-2024 18:15-0500 Heart rate 98 /min Dr. Mikayla Ferrer DO Work Phone: [facility] 07-29-2024 18:15-0500 Respiratory rate 18 /min Dr. Mikayla Ferrer DO Work Phone: [facility] 07-29-2024 18:15-0500 SaO2% (BldA) [Mass fraction] 100 % Dr. Mikayla Ferrer DO Work Phone: [facility] 07-29-2024 16:15-0500 Body mass index (BMI) [Ratio] 23.6 kg/m2 Dr. Mikayla Ferrer DO Work Phone: [facility] 07-29-2024 16:15-0500 Body temperature 97.5 [degF] Dr. Mikayla Ferrer DO Work Phone: [facility] 07-29-2024 16:15-0500 Body weight 62.[address] Mikayla Ferrer DO Work Phone: [facility] 07-29-2024 16:15-0500 Diastolic blood pressure 99 mm[Hg] Dr. Mikayla Ferrer DO Work Phone: [facility] 07-29-2024 16:15-0500 Systolic blood pressure 142 mm[Hg] Dr. Mikayla Ferrer DO Work Phone: [facility] 06-07-2023 12:54-0400 Body height 165.1 cm Giovanni Winston DO [facility] 06-07-2023 12:54-0400 Body mass index (BMI) [Ratio] 22.88 kg/m2 [facility] 06-07-2023 12:54-0400 Body temperature 97.9 [degF] [facility] 06-07-2023 12:54-0400 Body weight 62.37 kg [facility] 06-07-2023 12:54-0400 Diastolic blood pressure 75 mm[Hg] [facility] 06-07-2023 12:54-0400 Heart rate 69 /min [facility] 06-07-2023 12:54-0400 Respiratory rate 18 /min [facility] 06-07-2023 12:54-0400 SaO2% (BldA) [Mass fraction] 95 % [facility] 06-07-2023 12:54-0400 Systolic blood pressure 110 mm[Hg] [facility] Encounters Encounter Date Encounter Type Care Provider Facility Start: 01-30-2025 ambulatory Shereen Amos Facilit y:[facility] Start: 01-29-2025 End: 01-29-2025 ambulatory No Primary Care Physician [facility] Work Phone: Start: 01-29-2025 End: 01-29-2025 Patient encounter procedure Shereen Amos CNM -[facility] Work Phone: Start: 01-27-2025 End: 01-27-2025 Patient encounter procedure Jose Palomo PA -[facility] Work Phone: Start: 01-27-2025 End: 01-27-2025 ambulatory No Primary Care Physician [facility] Work Phone: Start: 11-29-2024 End: 11-29-2024 Patient encounter procedure Paola Almanza UNDERWEAR HEMMER-C -[facility] Work Phone: Start: 11-29-2024 End: 11-29-2024 ambulatory No Primary Care Physician Facility:[facility] Start: 11-19-2024 End: 11-19-2024 ambulatory MD [facility] Start: 11-10-2024 End: 11-10-[address] Mikayla Ferrer DO Work Phone: [facility] Work Phone: Start: 11-10-2024 End: 11-10-[address] Negrita Gomez MD -[facility] Work Phone: Start: 11-10-2024 End: 11-10-2024 ambulatory No Primary Care Physician Facility:[facility] Start: 11-01-2024 End: 11-01-[address] Mikayla Ferrer DO -[facility] Work Phone: Start: 11-01-2024 End: 11-01-2024 ambulatory No Primary Care Physician Facility:[facility] Start: 10-08-2024 End: 10-08-2024 Patient encounter procedure Shereen Amos LAURIE -[facility] Work Phone: Start: 10-08-2024 End: 10-08-2024 ambulatory Shereen Amos Facility:[facility] Start: 09-09-2024 End: 09-09-[address] Negrita Gomez MD -[facility] Work Phone: Start: 09-09-2024 End: 09-09-2024 ambulatory No Primary Care Physician Facility:[facility] Start: 09-09-2024 End: 09-09-2024 ambulatory No Primary Care Physician Facility:[facility] Start: 08-23-2024 End: 08-23-[address] Negrita Gomez MD -Lab, [facility] Start: 08-23-2024 End: 08-23-2024 ambulatory No Primary Care Physician Facility:[facility] Start: 08-23-2024 End: 08-23-[address] Negrita Gomez MD -[facility] Work Phone: Start: 08-23-2024 End: 08-23-2024 ambulatory No Primary Care Physician Facility:[facility] Start: 08-09-2024 End: 08-09-[address] Mikayla Ferrer DO -Ultrasound, [facility] Work Phone: Start: 08-09-2024 End: 08-09-2024 ambulatory No Primary Care Physician Facility:[facility] Start: 07-29-2024 End: 07-29-2024 Emergency department patient visit Dr. Gary Grace MD -Emergency Department Work Phone: Start: 07-23-2024 End: 07-23-2024 Patient encounter procedure Rosa M Moran CNM -Lab, [facility] Start: 07-23-2024 End: 07-23-2024 ambulatory Rosa M Moran Facility:[facility] Start: 07-21-2024 End: 07-21-[address] Mikayla Ferrer DO -Lab, [facility] Start: 07-21-2024 End: 07-21-2024 ambulatory Mikayla Ferrer Facility:[facility] Start: 04-16-2024 End: 04-16-2024 ambulatory Mikayla Ferrer Facility:[facility] Start: 04-09-2024 End: 04-09-2024 ambulatory Rosa M Moran Facility:[facility] Start: 03-08-2024 End: 03-08-2024 ambulatory Jose DUNBAR Facility:[facility] Start: 06-07-2023 End: 06-07-2023 ambulatory [facility] Start: 06-07-2023 End: 06-07-2023 Office outpatient new 30 minutes [facility] Comment on above: Vaginal discharge (P rimary [...] Urine test visual color cmprsn meths Giovanni Ford Tish DO Plan of Treatment Date Care Activity Detail Author Start: 01-29-2025 Nonstress test [facility] Start: 01-29-2025 Obstetric monitoring [facility] Start: 01-29-2025 Vital signs measurements [facility] Start: 01-29-2025 [facility] Start: 01-29-2025 Patient discharge [facility] Start: 07-29-2024 [facility] Start: 04-11-2023 Influenza vaccination Sequenti al Influenza Vaccine (#1) [facility] Start: 2019 Screening for malign ant neoplasm of cervix Pap Smear [facility] Start: 2016 Hepatitis C screening Hepatitis C Sc reening [facility] Start: 2013 HIV screening HIV Screening [facility] Start: 2010 Depression screening using PHQ-9 (Patient Health Questionnaire 9) score Depression Screening (PHQ-2/9) [facility] Start: 2009 Vaccination for marguerite n papillomavirus HPV Vaccines (1 - 2-dose series) [facility] Start: 2001 History and physical examination, annual for health maintenance Wellness Visit [facility] Start: 1998 COVID-19 Vaccine (#1) COVID-19 Vacci ne (#1) [facility] Start: 1998 Tetanus vaccination Tetanus: Every 1 0yrs [facility] End: 06-07-2024 Bacteria identified in Unspecified specimen by Aerobe culture Urine Aerobic Culture Microbiology Routine Vaginal discharge 1 Occurrences starting 06/07/2023 until 06/07/2024 [facility] Comment on above: 1 Occurrences starti ng 06/07/2023 until 06/07/2024 CBC W Auto Different ial panel - Blood [facility] Chlamydia trachomati s rRNA assay Chlamydia/GC/Trichomon as Amplified RNA Microbiology Routine Vaginal discharge Ordered: 06/07/2023 [facility] Comment on above: Ordered: 06/07/2023 End: 06-07-2024 Gardnerella vaginalis rRNA assay Vaginitis DNA Probes Microbiology Routine Vaginal discharge 1 Occurrences starting 06/07/2023 until 06/07/2024 [facility] Comment on above: 1 Occurrences starti ng 06/07/2023 until 06/07/2024 Measurement of gluco se 2 hours after glucose challenge for glucose tolerance test [facility] Neisseria gonorrhoea e nucleic acid detection Chlamydia/Gonorrhoeae Amplified RNA Microbiology Routine Vaginal discharge Ordered: 06/07/2023 [facility] Comment on above: Ordered: 06/07/2023 Patient Education [facility] Work Phone: Patient referral [facility] Work Phone: Serologic test for syphilis [facility] Trichomonas vaginali s Amplified RNA Trichomonas vaginalis Amplified RNA Microbiology Routine Vaginal discharge Ordered: 06/07/2023 [facility] Comment on above: Ordered: 06/07/2023 [facility] Payers Date Payer Category Payer Unknown [id number] 2024 Self-pay 2022 Unknown [employer] PPO [id number] 2022-Present [phone] [address] [place] [address] [id number] 2022 Unknown [id number] 2000 Unknown [id number] Unknown [id number] Unknown [id number] Unknown [id number] 2.840.1.960537.3.579.2.462 Unknown [id number] 2.840.1.295888.3.579.2.462 Unknown [id number] 2.840.1.196977.3.579.2.462 Unknown [id number] 2.0.1.909700.3.579.2.462 Unknown [id number] 2.16.840.1.766063.3.579.2.462 Unknown [id number] 2.16.840.1.375621.3.579.2.462 Unknown [id number] 2.16.840.1.680428.3.579.2.462 Unknown [id number] 2.16.840.1.582467.3.579.2.462 Unknown [id number] 2.16.840.1.957466.3.579.2.462 Unknown [id number] 2.16840.1.872089.3.579.2.462 Unknown [id number] 2.16840.1.541689.3.579.2.462 Unknown [id number] 2.16840.1.498636.3.579.2.462 Unknown [id number] 2.16840.1.297976.3.579.2.462 Unknown [id number] 2.16840.1.900589.3.579.2.462 Unknown [id number] [id number] Unknown [id number] [id number] Social History Date Type Detail Facility Start: 06-07-2023 Tobacco smoking status [facility] Ex-smoker [facility] History of tobacco use Current smoker [facility] History of tobacco use Cigarette Smoker [facility] Start: 06-07-2023 Tobacco use and exposure Smokeless tobacco non-user [facility] Start: 06-07-2023 Alcohol intake Current drinke r of alcohol (finding) [facility] Start: 06-07-2023 History of Social function [facility] Start: 06-07-2023 Tobacco use panel [facility] Start: 06-07-2023 Alcohol Comment occassional [facility] Start: 2000 Sex Assigned At Not on file [facility] Start: 08-23-2024 Tobacco smoking status [facility] Never smoked tobacco (finding) [facility] Start: 11-16-2024 Sex Female (finding) [facility] Start: 2000 Sex Assigned At Female W karyn [facility] Clinical Notes 06-07-2023 to 11-19-2024 Note Date & Type Note Facility 11-19-2024 Note [facility] Referring Provider Negrita Gomez MD [address] [place] [address] SUBJECTIVE Joi Daniel is a 24 y.o. [...] detailed ultrasound report. Laboratory Studies reviewed in EPIC. Medical Discussion: Ultrasound results reviewed. 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 The data contained in the above ultrasound report/consultation along with subsequent clinical management of the patient are the responsibility of the ordering provider. Sincerely, Julio Brink MD, FACOG Maternal Medicine [employer] Judge The total time for today's visit is [...] Disp: , Rfl: [3] No Known Allergies [facility] 11-10-2024 Radiology Diagnostic study note [facility] [address], [place] [id number] OB Anatomy w/ Transvaginal MR#: [id number] Acct: [id number] Name: JOI DANIEL Rep #: [id number] : 2000 F 24 From: Leo Ryan MD PCP: Care Physician,No Primary Status: REG CLI Study:OB Anatomy w/ Transvaginal Date of Exam : 11/10/24 Exam# [id number] Ordering Dr: Negrita Steve MD PROCEDURE: OB [...] the biometry. Clinical correlation recommended. Reading Location: [facility] CC: Dr. Negrita Gomez MD; No Primary Care Physician ~ Writer: Signed [facility] 10-08-2024 Evaluation note Diagnosis Onset Date Resolution acute October 08, 2024 8:45am Supervision of normal acute October 08, 025 8:45am acute November 01 1:11pm Supervision of normal acute November 01, 2024 1:11pm Asymmetric IUGR affecting , antepartum acute November 29, 2024 9:51am acute November 29 9:51am Supervision of normal acute November 29, 2024 9:51am [facility] Work Phone: 1(809) 151-958702-28-2025 Evaluation note* Diagnosis Onset Date Resolution Status Admit Date acute October 08, 2024 8:45am Supervision of normal acute October 08, 2 025 8:45am acute November 01 1:11pm Supervision of normal acute November 01, 2024 1:11pm Asymmetric IUGR affecting , antepartum acute November 9:51am acute November 29 9:51am Supervision of normal acute November 29, 2024 9:51am Contact dermatitis acute January 092024 3:17pm [facility] Work Phone: 1(744) 663-625201-13-2025 Evaluation note* Diagnosis Onset Date Resolution Status Admit Date acute August 23, 2024 10:05am Supervision of high-risk resolved August 23 10:05am acute September 09, 2024 3:30pm Supervision of normal acute September 09 3:30pm acute October 08, 2024 8:45am Supervision of normal acute October 08, 2 025 8:45am acute November 01 1:11pm Supervision of normal acute November 01, 2024 1:11pm [facility] Work Phone: 1(484) 389-331701-13-2025 NotePap Smear Specimen AdequacyJan2024 12:51pmComment.Satisfactory for evaluation. No endocervical component is identified.An endocervical component is not commonly seen in the patient.[facility] INTER[facility]ACED A#[id number] HospitalComment on above: Satisfactory for evaluation. No endocervical component is identified.An endocervical component is not commonly seen in the patient.06-07-2023 Evaluation + Plan note* Assessment & Plan Note - Giovanni Winston DO - 06/07/2023 1:17 PM EDTAssociated Problem(s): Vaginal discharge Reports vaginal discharge x2 months. Denies any urinary symptoms. Intimate exam offered to patient with telecommunications administrator however patient declines as she states she has an upcoming INSPECTOR BICYCLE appointment coming up. -Self swab of POC [...] practices. -Return precautions provided. -Follow-up with PCP. [id number] Miscellaneous Notes* Assessment & Plan Note - Giovanni Winston DO - 06/07/2023 1:17 PM EDTAssociated Problem(s): Vaginal discharge Reports vaginal discharge x2 months. Denies any urinary symptoms. Intimate exam offered to patient with telecommunications administrator however patient declines as she states she has an upcoming INSPECTOR BICYCLE appointment coming up. -Self swab of POC [...] provided. -Follow-up with PCP. documented in this [id number] History of Present illness Narrative* Giovanni Winston DO - 06/07/2023 1:03 PM EDT Images from the original note were not included. Patient Name: [facility] Location: [facility] [address] [place], [place] [id number] [phone] Date Of : Date Of Visit: 2000 06/07/2023 MRN# Provider: [id number] Giovanni Winston DO Chief Complaint Patient presents with Vaginitis Swollen and itching (dark discharge) notice the symptoms a couple of months ago Assessment & Plan Problem List Vaginal discharge - Primary Reports vaginal discharge x2 months. Denies any urinary symptoms. Intimate exam offered to patient with telecommunications administrator however patient declines as she states she has an upcoming INSPECTOR [employer] appointment coming up. -Self swab of POC [...] medications if they develop any signs of anallergic reaction. Educated patient and/or guardian about signs and symptoms that would warrant further immediate evaluation. Recommended that they should return to urgent care, make an appointment with their family physician, or go to the emergency room if symptoms persist or get acutely worse. Recommended follow upwithin the next week with their PCP or [...] Sitting, BP Cuff Size: Adult) Pulse 69 Temp97.9 F (36.6 C) Resp 18 Ht 5' [...] visit. Giovanni Winston DO documented in this encounterOhioHealthEvaluation note* Diagnosis Vaginal discharge- Primary Leukorrhea, not specified as infective [facility] ([facility]ative[facility]No reason for referral information availableWUniversity Hospitals [facility] Work Phone: Summary Purpose Family History No Family History Records Found Relationship Condition Age at Onset Recorded Date/T jayne grandmother Stillbirth Unknown Malignant neoplasm of colon Unknown uncle Malignant neoplasm Unknown mother Family history of recurrent miscarriage U nknown Advance Directives No Advanced Directives Records Found Advance Directive Response Recorded Date/ Time Living Will No July 29 5:55pm Do you have a Healthcare Power of Bed And Breakfast Innkeeper? No July 29, 2024 5:55pm Chief Complaint [...] 1am Supervision of normal November 292024 9:51am Chief Complaint Admit Date 16 wk ob October 08, 2024 8:45am 20 wk ob November 01, 2024 1:1 1pm ANATOMY November 10, 2024 7:33 am 24 wk ob November 29, 2024 9:5 1am POISON HARRIS January 27, 2025 3:17 pm DECREASED MOVEMENT January 29, 2025 9:34pm Reason for Visit Admit Date October 08, 2024 8:45am Supervision of normal October 08, 2024 8:45am November 01, 2024 1:1 1pm Supervision of normal November 012024 1:11pm Asymmetric IUGR affecting , ant epartum November 29, 2024 9:51am November 29, 2024 9:5 1am Supervision of normal November 292024 9:51am Contact dermatitis January 27, 2025 3:17 pm Additional Source Comments Reason for Visit (unrecogniz ed section and content) Reason Comments Vaginitis Swollen and itching (dark discharge) notice the symptoms a couple of months ago Care Teams (unrecognized sec tion and content) Technology Education Instructor Relationship Specialty Start Date End Date No, Physician [facility] PCP - General 06/07/23 Team Status: Active [...] November 29, 2024 End: November 29, 2024 Paola Almanza UNDERWEAR HEMMER, UNDERWEAR HEMMER-C Attending Provider Active Start: November 29, 2024 End: November 29, 2024 Team Status: Inactive Member Role Status Dates No Primary Care Physician Primary Care Provider Active Start: January 27, 2025 End: January 27, 2025 No Primary Care Physician Referring Provider Active Start: January 27, 2025 End: January 27, 2025 BETTINA Ware Attending Provider Active Sta rt: January 27, 2025 End: January 27, 2025 Team Status: Inactive Member Role Status Dates No Primary Care Physician Primary Care Provider Active Start: January 29, 2025 End: January 29, 2025 Shereen Amos CNM Attending Provider Active Start: January 29, 2025 End: January 29, 2025 Shereen Amos CNM Referring Provider Active Start: January 29, 2025 End: January 29, 2025 INFORMATION SOURCE (unrecogn ized section and content) DATE CREATED AUTHOR 06/09/2023 [facility] DATE CREATED AUTHOR AUTHOR'S ORGANIZ ATION 11/21/2024 [facility] DATE CREATED AUTHOR AUTHOR'S ORGANIZ ATION 02/12/2025 [facility] Goals (unrecognized section and content) Goals may be documented in a n alternate sectionGoals may be documented in an alternate sectionGoals may be documented in an [...] BE BASED ON THE PRIMARY CLINICAL RECORDS. [facility]. provides no warranty or guarantee of the accuracy or completeness of information in this document.
--- NOTE | 2025-03-27 10:36 | HP.PCM.OB_ITS ---
HPI - General General Date of Admission: 03/27/25 HPI Narrative SHEEBA SALINAS, is a 25 F who presents IAL regular ctx was 2 now 4 cm no vb lof good fm. she hasn't been seen by our practice since 24 weeks she has been planning on a home [facility] Medical History Poison harris dermatitis Pelvic pain affecting Supervision of normal first Screening examination for STI Home Medications ?Medication ?Instructions ?Recorded ?Last Taken ?Type vit no.164-ferrous 1 tab PO DAILY pregnanc 01/29/25 History gluconate 6 mg-folate 833.5 mcg DFE tablet (Giovanni PNV) Allergy/AdvReac Type Severity Reaction Status Date / Time No Known Allergies Allergy Verified 03/27/25 10:24 Family History Grandmother Stillbirth maternal & paternal each with 1 stillborn Colon cancer Uncle Cancer Paternal- throat cancer Mother Family history of recurrent miscarriage 3 miscarriages Surgical History History of root canal procedure Alvin teeth extracted Social History adopted: No household members: spouse housing: house number of children: 0 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 occupational exposures/hazards: No pets and animals: No history of recent travel: Yes (January) out of state: Yes out of country: Yes sexually active: Yes Smoking Status: Never smoker alcohol intake: never substance use type: does not use well-balanced diet: daily or most days caffeine: Yes (stopped since ) eating out: 1-3 times/week during the past year weight has: remained stable what type of physical activity do you participate in: none manuelito/hinduism: Rastafarian seatbelt use: always do you feel safe at home: Yes additional social history: 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 Date Name GA/Weeks Outcome Route Bth Weight Infant Gen Labor Lgth Anesthesia Del Locatn Provider FOB 04/09/24 10 spontaneous Delivery Date: 04/09/24 Last Updated by: Deann Negrete RN Gestational sac measuring 7weeks NST FHR Rate Baby A Baseline: 140 Variability:: Moderate Accelerations:: 15 x 15 Decelerations:: None NST Reactive:: Yes FHR Category:: Category I Uterine Activity:: q3-5 ROS Constitutional Constitutional: Reports systems reviewed and no addt'l complaints, except as documented ENT HEENT: Reports systems reviewed and no addt'l complaints, except as documented Cardiovascular Cardiovascular: Reports systems reviewed and no addt'l complaints, except as documented Respiratory/Chest Respiratory/Chest: Reports systems reviewed and no addt'l complaints, except as documented Gastrointestinal Gastrointestinal: Reports systems reviewed and no addt'l complaints, except as documented and nausea; Denies abdominal pain Genitourinary Genitourinary: Reports systems reviewed and no addt'l complaints, except as documented, contractions Details: present and frequency (regular ) and movement Details: present Musculoskeletal Musculoskeletal: Reports systems reviewed and no addt'l complaints, except as documented Integumentary Integumentary: Reports as per HPI Neurologic Neurologic: Reports systems reviewed and no addt'l complaints, except as documented Endocrine Endocrinology: Reports systems reviewed and no addt'l complaints, except as documented Vital Signs Vital Signs Vital Signs: 03/27/25 10:10 03/27/25 10:10 03/27/25 10:10 Temperature Temperature Source Temporal Pulse Rate 90 Blood Pressure 121/75 H BP Systolic 121 BP Diastolic 75 03/27/25 10:10 Temperature 98.5 F Temperature Source Pulse Rate Blood Pressure BP Systolic BP Diastolic Weight Weight: 178 lb 2.136 oz Body Mass Index (BMI) 30.5 Physical Exam Const alert, oriented x3 and healthy appearing Constitutional Narrative: uncomfortable with contractions HEENT normocephalic and moist oral mucous membranes Head and Scalp: atraumatic Neck full ROM, no lymphadenopathy, supple and thyroid normal General: trachea midline Thyroid: thyroid normal Lymph Lymphatic: no lymphadenopathy noted Chest inspection of chest normal Resp normal respiratory effort Cardio regular rate GI soft to palpation and non-tender GI Narrative: gravid Inspection: gravid external exam normal Bimanual Exam - Vag & Uterus: uterus non-tender Manual OB Exam: estimated gestational size appropriate, presentation cephalic, dilated, effaced and station Extremity normal to inspection General Extremity: Negative for edema Skin no rashes or lesions noted Neuro deep tendon reflexes 2+ bilaterally Motor Exam: strength 5/5 throughout and clonus absent Psych mental status grossly normal Labs Labs Labs: Blood Type B POSITIVE Antibody Screen NEGATIVE Hct 36.4 % (37-47) L Hgb 12.6 g/dL (12.0-15.0) Obstetrics Ultrasound Syphilis Total Ab Nonreactive (Nonreactive) Rubella IgG Antibody Reactive (Nonreactive) Hep Bs Antigen Non-Reactive (Nonreactive) Hepatitis C Antibody Non-Reactive (Nonreactive) Chlamydia DNA ([place]) Negative (Negative) N.gonorrhoeae DNA ([place]) Negative (Negative) HIV 1&2 Antibody Non-Reactive (Nonreactive) Assessment & Plan (1) : QUALIFIERS: Weeks of gestation: 23 weeks Qualified Code(s): Z3A.23 - 23 weeks gestation of COMMENT: plan NIPT w/gender & declined carrier testing (2) Supervision of normal : QUALIFIERS: Normal : normal first Trimester: second trimester Qualified Code(s): Z34.02 - Encounter for supervision of normal first , second trimester COMMENT: PRR , KEVIN 03/22/25, Aubrey (3) Asymmetric IUGR affecting , antepartum: COMMENT: referral MFM for anatomy: 11/19 40%/nl. Rpt 12/20: (4) Contact dermatitis: PLAN: Plan Patient presents IAL, plan expectant management for , pitocin/AROM PRN if needed. Pain management: plans epidural. GBS unknown- no risk factors, no antibiotics indicated at this time. Management of any complications: none I have reviewed the [facility] and made any clinically relevant updates.
--- OUTSIDE RECORDS SUMMARY | 2025-03-27 11:06 | XMS RPT_ITS | CCD ---
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 Mikayla Ferrer DO Attending Provider Dr. Mikayla Ferrer DO Referring Provider Rosa M Moran CNM Attending Provider [phone] Rosa M Moran CNM Referring Provider [phone] Sanjay LANCE, Dr. Vega Attending Provider Dr. Gary Grace MD Emergency Provider [phone] Care Physician, No Primary Primary Care Provider [...] Provider Dr. Negrita Gomez MD Referring Provider [phone] Paola Mann Attending Provider [phone] Jose Cochran [...] Rosa M Moran Attending Unavailable Amy Gutierrez, Mikalya Referring Unavailabl e Mikayla Ferrer Attending Unavailabl [...] 14 tablet 0 06/07/2023 06/14/2023 Active Vit 531-Lszm-Yqqawh 6 ( Pnv) 6 mg iron- 833.5 mcg DFE tablet (3 sources) Start: 08-12-2024 take 6 tablets by mouth once daily Vit 358-Nqff-Vduuky 6 ( Pnv) 6 mg iron- 833.5 mcg DFE tablet Active 1 {tbl} PO DAILY August 12, 2024 1:00am Start: 08-12-2024 Vit 1 24-Uowk-Sygbsx 6 ( Pnv) 6 mg iron- 833.5 [...] and then repeat in 48 hours Mv-Mins 41-Dstc-Stluf No.1-Dha (Pnv-Pearl) 28-1-300 mg capsule (3 sources) Start: 03-23-2024 End: 04-16-2024 Mv-Mins 94-Muvs-Kxacr No.1-Dha (Pnv-Pearl) 28-1-300 mg capsule Discontinued NMA PO March [...] Noteon 0 01-30-2025 OB Triage Physician Note [facility] Medical Records Department [address] [place] [address] OB Triage Physician Note 01/30/25 1502 MR#: [id number] Acct: [id number] Name: JOI DANIEL Rep #: [id number] : 2000 24 From: Shereen Amos CNM PCP: Care Physician,No Primary Status:DEP CLI Y Location: [facility] HPI - General HPI Narrative JOI DANIEL, is a 24 F who presents at 32.4 with decreased movement overall, still having 10 movements per hour. planning a home and desired wellbeing check. 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 See problem list details for additional plan information. Charges/Coding Procedures Urinary/Genital 52xxx-59xxx: [id number] non-stress test Interp 01/30/25 1504 Date Shereen Amos CNM Cosigner Signature (if applicable): Date __ CC: ABBI Amos; No Primary Care Physician Signed Normal [facility] Office Visit Reporton 2024 Office Visit Report [facility] [address] [place] [address] OFFICE VISIT Date of Service: 01/27/25 MR#: [id number] Acct: [id number] Patient: JOI DANIEL Rep #: [id number] : 2000 Provider: BETTINA West Age/Sex: 24/F Location: [facility] Status: Signed Intake Vital Signs 11/29/24 09:55 [...] Surgical History History of root canal procedure Bureau teeth extracted Family History Grandmother Stillbirth maternal [...] physical activity do you participate in: none manuelito/worship: Anglican seatbelt use: always do you feel safe at home: Yes additional social history: Aubrey- Manager Council Female Reproductive History Menstrual Ab spontaneous: 1 [...] have an OBGYN, she is seeing a clay miner. ROS Const Constitutional: No chills, fatigue or [...] Cosigner Signature: Date (if applicable) CC: Normal [facility] Laboratory - Chemistry and C hemistry - challengeOrdered By: Paola Almanza on 11-29-2024 Glucose Ql (U) Negative [facility] Laboratory - UrinalysisOrder ed By: Paola Almanza on 11-29-2024 Protein Ql (U) Negative [facility] Office Visit Reporton 11-29-2024 [facility] Office Visit Report [facility] [address], [address] [place] [address] OFFICE VISIT Date of Service: 11/29/24 MR#: [id number] Acct: [id number] Name: JOI DANIEL Rep #: [id number] : 2000 Provider: UMESH osborne Age/Sex: 24/F Location: [facility] Status: Signed Intake Vital Signs 08/23/24 11:16 08/23/24 11:19 11/01/24 13:15 11/29/24 09:55 Height 5 ft 4 in 5 ft 4 in 5 ft 4 in 5 ft 4 in Weight: 164 lb BMI 28.1 BP 120/74 Intake Visit Reasons: 24 wk ob Chief Complaint: 24 Week OB Wellness Manager Required: No Is patient in pain?: No [...] Surgical History History of root canal procedure Bureau teeth extracted Family History Grandmother Stillbirth maternal [...] physical activity do you participate in: none manuelito/worship: Anglican seatbelt use: always do you feel safe at home: Yes additional social history: Aubrey- Manager Council History 1 Elective abortions Hx Para 0 [...] 10/08/24 -???-???- (more content not included)... Normal [facility] OB Anatomy w/ Transvaginalon 11-10-2024 OB Anatomy w/ Transvaginal [facility] Imaging Services [address] [place] [address] OB Anatomy w/ Transvaginal MR#: [id number] Acct: [id number] Name: JOI DANIEL Rep #: [id number] : 2000 F 24 From: Johnny tate MD PCP: Care Physician,No Primary Status: REG CL Study: OB Anatomy w/ Transvaginal Date of Exam: 11/10 Exam# [id number] Ordering Dr: Negrita Gomez PROCEDURE: OB ANATOMY [...] the biometry. Clinical correlation recommended. Reading Location: [place] [address] CC: Dr. Negrita Gomez MD; No Primary Care Physician Golf Course Designer: Signed Normal [facility] Laboratory - Chemistry and C hemistry - challengeOrdered By: Mikayla Gutierrez on 11-01-2024 Glucose Ql (U) Negative [facility] Laboratory - UrinalysisOrder ed By: Mikayla Gutierrez on 11-01-2024 Protein Ql (U) Negative [facility] Office Visit Reporton 11-01-2024 [facility] Office Visit Report [facility] [address], [address] [place] [address] OFFICE VISIT Date of Service: 11/01/24 MR#: [id number] Acct: [id number] Name: JOI DANIEL Rep #: [id number] : 2000 Provider: Dr. Mikayla Fraser DO Age/Sex: 24/F Location: [facility] Status: Signed Intake Vital Signs 08/23/24 11:16 10/08/24 08:51 11/01/24 13:15 11/01/24 13:15 Height 5 ft 4 in 5 ft 4 in 5 ft 4 in 5 ft 4 in Weight: 155 lb 8 oz 160 lb 4 oz BMI 26.6 27.5 BP 115/74 131/81 H Intake Visit Reasons: 20 wk ob Wellness Manager Required: No Is patient in pain?: No [...] Surgical History History of root canal procedure Bureau teeth extracted Family History Grandmother Stillbirth maternal [...] physical activity do you participate in: none manuelito/worship: Anglican seatbelt use: always do you feel safe at home: Yes additional social history: Aubrey- Manager Council History 1 Elective abortions Hx Para 0 [...] -???-???-???-???-?? ?-??? (more content not included)... Normal [facility] Laboratory - Chemistry and C hemistry - challengeOrdered By: Shereen Amos on 10-08-2024 Glucose Ql (U) Negative [facility] Laboratory - UrinalysisOrder ed By: Shereen Amos on 10-08-2024 Protein Ql (U) Negative [facility] [facility] Office Visit Reporton 10-08-2024 [facility] Office Visit Report [facility] [address], [address] [place] [address] OFFICE VISIT Date of Service: 10/08/24 MR#: [id number] Acct: [id number] Name: JOI DANIEL Rep #: [id number] : 2000 Provider: ABBI brito Age/Sex: 24/F Location: [facility] Status: Signed Intake Vital Signs 08/23/24 11:16 09/09/24 15:39 10/08/24 08:51 Height 5 ft 4 in 5 ft 4 in 5 ft 4 in Weight: 155 lb 8 oz BMI 26.6 BP 115/74 Intake Visit Reasons: 16 wk ob Wellness Manager Required: No Is patient in pain?: No [...] Surgical History History of root canal procedure Bureau teeth extracted Family History Grandmother Stillbirth maternal [...] physical activity do you participate in: none manuelito/worship: Anglican seatbelt use: always do you feel safe at home: Yes additional social history: Aubrey- Manager Council History 1 Elective abortions Hx Para 0 [...] -???-???-???-???-?? ?-???-???-???-??? (more content not included)... Normal [facility] Absolute neutrophil countOrd ered By: Negrita Gomez on 09-09-2024 Neutrophils (Bld) [#/Vol] 5.0 10*3/uL 2.0-7.7 [facility] Basophil percentageOrdered B y: Negrita Gomez on 09-09-2024 Basophils/100 WBC (Bld) 0.3 % 0-1 [facility] CBC W/Diff, Automatedon 08-13 Absolute Lymph 1.47 X10 3/uL Normal 0.83-4.51 [facility] Comment on above: Performed By: #### L 509.4005, L509.8000, L3890.6300, L100.0100, L3890.6100, L3890.6005, BTS ####[facility] [address] [place], [address] Absolute Neut 5.0 X10 3/uL Normal 2.0-7.7 [facility] Comment on above: Performed By: #### L 509.4005, L509.8000, L3890.6300, L100.0100, L3890.6100, L3890.6005, BTS ####[facility] [address] [place], [address] Basophils/100 WBC (Bld) 0.3 % Normal 0-1 [facility] Comment on above: Performed By: #### L 509.4005, L509.8000, L3890.6300, L100.0100, L3890.6100, L3890.6005, BTS ####[facility] [address] [place], [address] Eosinophils/100 WBC (Bld) 1.0 % Normal 0-5 [facility] Comment on above: Performed By: #### L 509.4005, L509.8000, L3890.6300, L100.0100, L3890.6100, L3890.6005, BTS ####[facility] [address] [place], [address] Erythrocyte distribution width (RBC) [Ratio] 13.6 % Normal 11.6-14.6 [facility] Comment on above: Performed By: #### L 509.4005, L509.8000, L3890.6300, L100.0100, L3890.6100, L3890.6005, BTS ####[facility] [address] [place], [address] Hematocrit (Bld) [Volume fraction] 34.1 % Low 37-47 [facility] Comment on above: Performed By: #### L 509.4005, L509.8000, L3890.6300, L100.0100, L3890.6100, L3890.6005, BTS ####[facility] [address] [place], [address] Hemoglobin (Bld) [Mass/Vol] 11.3 g/dL Low 12.0-15.0 [facility] Comment on above: Performed By: #### L 509.4005, L509.8000, L3890.6300, L100.0100, L3890.6100, L3890.6005, BTS ####[facility] [address] [place], [address] IG% 0.100 Normal 0.0-0.9 [facility] Comment on above: Result Comment: IG% - Immature Granulocytes (promyelocytes, myelocytes and metamyelocytes) > 1% indicates that a LEFT SHIFT is Present. Performed By: #### L 509.4005, L509.8000, L3890.6300, L100.0100, L3890.6100, L3890.6005, BTS ####[facility] [address] [place], [address] Lymphocytes/100 WBC (Bld) 20.9 % Normal 19-41 [facility] Comment on above: Performed By: #### L 509.4005, L509.8000, L3890.6300, L100.0100, L3890.6100, L3890.6005, BTS ####[facility] [address] [place], [address] MCH (RBC) [Entitic mass] 29.4 pg Normal 27.0-32.0 [facility] Comment on above: Performed By: #### L 509.4005, L509.8000, L3890.6300, L100.0100, L3890.6100, L3890.6005, BTS ####[facility] [address] [place], [address] MCHC (RBC) [Mass/Vol] 33.1 g/dL Normal 32-36 [facility] Comment on above: Performed By: #### L 509.4005, L509.8000, L3890.6300, L100.0100, L3890.6100, L3890.6005, BTS ####[facility] [address] [place], [address] MCV (RBC) [Entitic vol] 88.6 fL Normal 81-99 [facility] Comment on above: Performed By: #### L 509.4005, L509.8000, L3890.6300, L100.0100, L3890.6100, L3890.6005, BTS ####[facility] [address] [place], [address] Monocytes/100 WBC (Bld) 7.0 % Normal 0-10 [facility] Comment on above: Performed By: #### L 509.4005, L509.8000, L3890.6300, L100.0100, L3890.6100, L3890.6005, BTS ####[facility] [address] [place], [address] Neutrophils/100 WBC (Bld) 70.7 % High 47-70 [facility] Comment on above: Performed By: #### L 509.4005, L509.8000, L3890.6300, L100.0100, L3890.6100, L3890.6005, BTS ####[facility] [address] [place], [address] Nucleated RBC (Bld) [#/Vol] 0 10*3/uL Normal 0-5 [facility] Comment on above: Performed By: #### L 509.4005, L509.8000, L3890.6300, L100.0100, L3890.6100, L3890.6005, BTS ####[facility] [address] [place], [address] Platelet mean volume (Bld) [Entitic vol] 9.8 fL Normal 6.2-12.0 [facility] Comment on above: Performed By: #### L 509.4005, L509.8000, L3890.6300, L100.0100, L3890.6100, L3890.6005, BTS ####[facility] [address] [place], [address] Platelets (Bld) [#/Vol] 200 10*3/uL Normal 150-450 [facility] Comment on above: Performed By: #### L 509.4005, L509.8000, L3890.6300, L100.0100, L3890.6100, L3890.6005, BTS ####[facility] [address] [place], [address] RBC (Bld) [#/Vol] 3.85 10*6/uL Low 4.2-5.4 [facility] Comment on above: Performed By: #### L 509.4005, L509.8000, L3890.6300, L100.0100, L3890.6100, L3890.6005, BTS ####[facility] [address] [place], [address] RDW SD 44.4 fl High 35.1-43.9 [facility] Comment on above: Performed By: #### L 509.4005, L509.8000, L3890.6300, L100.0100, L3890.6100, L3890.6005, BTS ####[facility] [address] [place], [address] WBC (Bld) [#/Vol] 7.1 10*3/uL Normal 4.4-11.0 [facility] Comment on above: Performed By: #### L 509.4005, L509.8000, L3890.6300, L100.0100, L3890.6100, L3890.6005, BTS ####[facility] [address] [place], [address] Eosinophil percentageOrdered By: Negrita Gomez on 09-09-2024 Eosinophils/100 WBC (Bld) 1.0 % 0-5 [facility] Erythrocyte distribution wid th (RBC) [Ratio]Ordered By: Negrita Gomez on 09-09-2024 Erythrocyte distribution width (RBC) [Entitic vol] 44.4 fL High 35.1-43.9 [facility] Erythrocyte distribution wid th ratioOrdered By: Negrita Gomez on 09-09-2024 Erythrocyte distribution width (RBC) [Ratio] 13.6 % 11.6-14.6 [facility] HIV - WCHon 09-09-2024 HIV Non-Reactive Normal Nonreactive [facility] Comment on above: Order Comment: Reaso n for Exam: Performed By: #### L 509.4005, L509.8000, L3890.6300, L100.0100, L3890.6100, L3890.6005, BTS ####[facility] [address] [place], [address] HIV 1+2 Ab+HIV1 p24 Ag IA Ql Ordered By: Negrita Gomez on 09-09-2024 HIV (1&2) Antibody Non-Reactive Nonreactive [facility] Hematocrit Auto (Bld) [Volum e fraction]Ordered By: Negrita Gomez on 09-09-2024 Hematocrit (Bld) [Volume fraction] 34.1 % Low 37-47 [facility] Hemoglobin measurementOrdere d By: Negrita Gomez on 09-09-2024 Hemoglobin (Bld) [Mass/Vol] 11.3 g/dL Low 12.0-15.0 [facility] Hepatitis B Surface Antigeno n 09-09-2024 HEP B Surf Ag Non-Reactive Normal Nonreactive [facility] Comment on above: Order Comment: Reaso n for Exam: Performed By: #### L 509.4005, L509.8000, L3890.6300, L100.0100, L3890.6100, L3890.6005, BTS ####[facility] [address] [place], [address] Hepatitis B surface antigen detectionOrdered By: Negrita Gomez on 09-09-2024 Hepatitis B Surface Antigen Non-Reactive Nonreactive [facility] Hepatitis C Antibodyon 09-09 Hepatitis C AB Non-Reactive Normal [facility] Comment on above: Order Comment: Reaso n for Exam: Result Comment: Non Reactive: < 0.8 Equivocal: >/= 0.8 to < 1.0 Reactive: >/= 1.[address] [facility] requires that a reactive/equivocal HCV antibody result be sent out for confirmation. HCV Quant by PCR testing. Performed By: #### L 509.4005, L509.8000, L3890.6300, L100.0100, L3890.6100, L3890.6005, BTS ####[facility] [address] [place], [address] Hepatitis C virus antibody a ssayOrdered By: Negrita Gomez on 09-09-2024 Hepatitis C Antibody Non-Reactive Nonreactive [facility] Comment on above: Non Reactive: < 0.8 Equivocal: >/= 0.8 to < 1.0 Reactive: >/= 1.0The CDC requires that a reactive/equivocal HCV antibody result be sent out for confirmation. HCV Quant by PCR testing. Immature granulocytes/100 WB C Auto (Bld)Ordered By: Negrita Gomez on 09-09-2024 Immature granulocytes/100 WBC (Bld) 0.100 % 0.0-0.9 [facility] Comment on above: IG% - Immature Granu locytes (promyelocytes, myelocytes and metamyelocytes) > 1% indicates that a LEFT SHIFT is Present. L509.8000on 09-09-2024 Syphilis Abs Non-Reactive Normal [facility] Comment on above: Order Comment: Reaso n for Exam: Performed By: #### L 509.4005, L509.8000, L3890.6300, L100.0100, L3890.6100, L3890.6005, BTS ####[facility] [address] [place], [place], [address] Laboratory - Chemistry and C hemistry - challengeOrdered By: Negrita Gomez on 09-09-2024 Glucose Ql (U) Negative [facility] Laboratory - UrinalysisOrder ed By: Negrita Gomez on 09-09-2024 Protein Ql (U) Negative [facility] Lymphocytes Auto (Unsp spec) [#/Vol]Ordered By: Negrita Gomez on 09-09-2024 Lymphocytes (Bld) [#/Vol] 1.47 10*3/uL 0.83-4.51 [facility] Lymphocytes/100 WBC Auto (Un sp spec)Ordered By: Negrita Gomez on 09-09-2024 Lymphocytes/100 WBC (Bld) 20.9 % 19-41 [facility] MCV (mean corpuscular volume ) determinationOrdered By: Negrita Gomez on 09-09-2024 MCV (RBC) [Entitic vol] 88.6 fL 81-99 [facility] Mean corpuscular hemoglobin (MCH) determinationOrdered By: Negrita Gomez on 09-09-2024 MCH (RBC) [Entitic mass] 29.4 pg 27.0-32.0 [facility] Mean corpuscular hemoglobin concentration (MCHC) determinationOrdered By: Negrita Gomez on 09-09-2024 MCHC (RBC) [Mass/Vol] 33.1 g/dL 32-36 [facility] Mean platelet volume determi nationOrdered By: Negrita Gomez on 09-09-2024 Platelet mean volume (Bld) [Entitic vol] 9.8 fL 6.2-12.0 [facility] Monocyte percentageOrdered B y: Negrita Gomez on 09-09-2024 Monocytes/100 WBC (Bld) 7.0 % 0-10 [facility] Neutrophil percentageOrdered By: Negrita Gomez on 09-09-2024 Neutrophils/100 WBC (Bld) 70.7 % High 47-70 [facility] Nucleated red blood cell per centageOrdered By: Negrita Gomez on 09-09-2024 Nucleated RBC/100 WBC (Bld) [Ratio] 0 % 0-5 [facility] [employer] Office Visit Reporton 09-09-2024 [employer] Office Visit Report [facility] [address], [address] [place] [address] OFFICE VISIT Date of Service: 09/09/24 MR#: [id number] Acct: [id number] Name: JOI DANIEL Rep #: [id number] : 2000 Provider: Dr. Negrita felix MD Age/Sex: 24/F Location: [facility] Status: Signed Intake Vital Signs 08/23/24 [...] ( PNV) Last Menstrual Period: 06/15/24 PFSH [facility] Medical History Poison harris dermatitis Pelvic pain affecting Supervision of normal first Screening examination for STI Surgical History History of root canal procedure Bureau teeth extracted Family History Grandmother Stillbirth maternal [...] physical activity do you participate in: none manuelito/worship: Anglican seatbelt use: always do you feel safe at home: Yes additional social history: Aubrey- Manager Council History 1 Elective abortions Hx Para 0 [...] Partner Vi (more content not included)... Normal [facility] Platelet countOrdered By: Sari Gomez on 09-09-2024 Platelets (Bld) [#/Vol] 200 10*3/uL 150-450 [facility] RBC Auto (Bld) [#/Vol]Ordere d By: Negrita Gomez on 09-09-2024 RBC (Bld) [#/Vol] 3.85 10*6/uL Low 4.2-5.4 [facility] Rubella IgGon 09-09-2024 Rubella IgG Reactive Normal Nonreactive [facility] Comment on above: Order Comment: Reaso n for Exam: Result Comment: Anti body Results Interpretation of Immune Status Non Reactive Presumed Non-Immune Equivocal Equivocal Reactive Presumed Immune Performed By: #### L 509.4005, L509.8000, L3890.6300, L100.0100, L3890.6100, L3890.6005, BTS ####[facility] [address] [place], [address] Rubella immune status IgGOrd ered By: Negrita Gomez on 09-09-2024 Rubella IgG Antibody Reactive Nonreactive [facility] Comment on above: Antibody Results Int erpretation of Immune Status Non Reactive Presumed Non-Immune Equivocal Equivocal Reactive Presumed Immune Treponema sp Ab Ql (S)Ordere d By: Negrita Gomez on 09-09-2024 Syphilis Total Antibody Non-Reactive [facility] Type AND Screenon 09-09-2024 Ab SCREEN GEL PENDING Normal [facility] Comment on above: Order Comment: PN Performed By: #### L 509.4005, L509.8000, L3890.6300, L100.0100, L3890.6100, L3890.6005, BTS ####[facility] [address] [place], [place], [id number] ABO and Rh group Nom (Bld) Blood group B Rh(D) positive Normal [facility] Comment on above: Order Comment: PN Performed By: #### L 509.4005, L509.8000, L3890.6300, L100.0100, L3890.6100, L3890.6005, BTS ####[facility] [address] [place], [address] White blood cell (WBC) count Ordered By: Negrita Gomez on 09-09-2024 WBC (Bld) [#/Vol] 7.1 10*3/uL 4.4-11.0 [facility] PAP I-G w/rfx hrHPV-Aptimaon 08-27-2024 ADEQ Comment Normal . [facility] Comment on above: Order Comment: Specalia gilbert Comment: [id number] Comment: Source.............Cervix;EndocervixSpecimen Comment: LMP / Prev Treat...MIR=[id number] Comment: Other..............Specimen Comment: No. of containers..01 ThinPrep Vial Result Comment: Sati sfactory for evaluation. No endocervical component is identified. An endocervical component is not commonly seen in the patient. Performed By: #### L 7000.1800, M100.2200, L7400.0353 ####[facility] [address] [place], [place], [address] COMM . Normal . [facility] Comment on above: Order Comment: Speci men Comment: [id number] Comment: Source.............Cervix;EndocervixSpecimen Comment: LMP / Prev Treat...[id number] Comment: Other..............Specimen Comment: No. of containers..01 ThinPrep Vial Performed By: #### L 7000.1800, M100.2200, L7400.0353 ####[facility] [address] [place], [place], [address] COMMENT Comment Normal . [facility] Comment on above: Order Comment: Speci men Comment: [id number] Comment: Source.............Cervix;EndocervixSpecimen Comment: LMP / Prev Treat...[id number] Comment: Other..............Specimen Comment: No. of containers..01 ThinPrep Vial Result Comment: This liquid based ThinPrep(R) pap test was screened with the use of an image guided system. Performed By: #### L 7000.1800, M100.2200, L7400.0353 ####[facility] [address] [place], [place], [address] DIAG Comment Normal . [facility] Comment on above: Order Comment: Speci men Comment: [id number] Comment: Source.............Cervix;EndocervixSpecimen Comment: LMP / Prev Treat...[id number] Comment: Other..............Specimen Comment: No. of containers..01 ThinPrep Vial Result Comment: NEGA TIVE FOR INTRAEPITHELIAL LESION OR MALIGNANCY. Performed By: #### L 7000.1800, M100.2200, L7400.0353 ####[facility] [address] [place], [place], [address] HPV RFLX Comment Normal . [facility] Comment on above: Order Comment: Speci men Comment: [id number] Comment: Source.............Cervix;EndocervixSpecimen Comment: LMP / Prev Treat...[id number] Comment: Other..............Specimen Comment: No. of containers..01 ThinPrep Vial Result Comment: The HPV DNA reflex criteria were not met with this specimen result therefore, no HPV testing was performed. Performed at: [address] [id number] Programmer Or Analyst: Masood Polanco PhD, Phone: [phone] Performed at: [facility] [id number] Programmer Or Analyst: Amber García MD, Phone: [phone] Performed By: #### L 7000.1800, M100.2200, L7400.0353 ####[facility] [address] [place], [place], [address] PAPSMR Comment Normal . [facility] Comment on above: Order Comment: Speci men Comment: [id number] Comment: Source.............Cervix;EndocervixSpecimen Comment: LMP / Prev Treat...[id number] Comment: Other..............Specimen Comment: No. of containers..01 ThinPrep [...] Performed By: #### L 7000.1800, M100.2200, L7400.0353 ####[facility] [address] [place], [address] PERFORM Comment Normal . [facility] Comment on above: Order Comment: Speci men Comment: [id number] Comment: Source.............Cervix;EndocervixSpecimen Comment: LMP / Prev Treat...[id number] Comment: Other..............Specimen Comment: No. of containers..01 ThinPrep Vial Result Comment: Mary Andrade, Gaming Worker (ASCP) Performed By: #### L 7000.1800, M100.2200, L7400.0353 ####[facility] [address] [place], [address] Chlamydia/GC AFRICA aptimaon CHLAMY,NUC ACID Negative Normal Negative [facility] Comment on above: Performed By: #### L 7000.1800, M100.2200, L7400.0353 ####[facility] [address] [place], [address] GC BY NUC ACID Negative Normal Negative [facility] Comment on above: Result Comment: Perf ormed at: =G - [facility] [address] [id number] Programmer Or Analyst: Amber García MD, Phone: [phone] Performed By: #### L 7000.1800, M100.2200, L7400.0353 ####[facility] [address] [place], [address] Urine Cultureon 08-24-2024 URC Culture exhibits no growth. Normal [facility] Comment on above: Performed By: #### L 7000.1800, M100.2200, L7400.0353 ####[facility] [address] [place], [address] C. trachomatis rRNA AFRICA+prob e Ql (Unsp spec)Ordered By: Negrita Gomez on 08-23-2024 Chlamydia DNA (AFRICA) Negative Negative [facility] Excel Vba Developer Cyto stain Nom (C vx/Vag) [ID]Ordered By: Negrita Gomez on 08-23-2024 Pap Smear Performed By Comment . [facility] Comment on above: Leana Andrade, Cyto technologist (ASCP) Cytology report Cyto stain D oc (Cvx/Vag)Ordered By: Negrita Gomez on 08-23-2024 Thin Prep Pap Smear Comment . [facility] Comment on above: The Pap smear is a s creening test designed to aid in thedetection of premalignant and malignant conditions of theuterine cervix. It is not a diagnostic procedure andshould not be used as the sole means of detecting cervicalcancer. Both false-positive and false-negative reports dooccur. Image-guided ThinPrep PapOrd ered By: Negrita Gomez on 08-23-2024 Pap Smear Note Comment . [facility] Comment on above: This liquid based Th inPrep(R) pap test was screened withthe use of an image guided system. Image-guided liquid-based Pa pOrdered By: Negrita Gomez on 08-23-2024 Pap Smear Diagnosis Comment . [facility] Comment on above: NEGATIVE FOR INTRAEP ITHELIAL LESION OR MALIGNANCY. Image-guided liquid-based ce rvical Pap w high-risk HPV+reflex to HPV 16+18Ordered By: Negrita Gomez on 08-23-2024 Human Papillomavirus Screen Comment . [facility] Comment on above: The HPV DNA reflex c jeramy were not met with this specimenresult therefore, no HPV testing was performed.Performed at: [facility] [place], [place] [id number] Director: Masood Polanco PhD, Phone: [phone] at: [address] [id number] Director: Amber García MD, Phone: [phone] Neisseria gonorrhoeae nuclei c acid detection by amplified probe techniqueOrdered By: Negrita Gomez on 08-23-2024 N. gonorrhoeae DNA AFRICA+probe Ql (Unsp spec) Negative Negative [facility] Comment on above: Performed at: =G - Nicole riceigor WallaceOhntlmchqk[address] StreetGerardo dobbs [place] [id number] Director: Amber García MD, Phone: [phone] [facility] Visit Reporton 08-23-2024 [facility] Office Visit Report [facility] [address], [address] [place] [address] OFFICE VISIT Date of Service: 08/23/24 MR#: [id number] Acct: [id number] Name: JOI DANIEL Rep #: [id number] : 2000 Provider: Dr. 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 Normal [facility] Cook Vacuum Kettle Office Visit Report [facility] [address], [address] [place] [address] OFFICE VISIT Date of Service: 08/23/24 MR#: [id number] Acct: [id number] Name: JOI DANIEL Rep #: [id number] : 2000 Provider: Dr. Negrita felix MD Age/Sex: 24/F Location: [facility] Status: Signed Intake Vital Signs 04/16/24 11:35 07/20/24 13:47 07/29/24 16:15 08/23/24 10:23 Height 5 ft 4 in 5 ft 4 in 5 ft 4 in 5 ft 4 in Weight: 150 lb 4 oz BMI 25.7 BP 130/91 H Intake Visit Reasons: New OB, LMP 06/15, KEVIN 03/22 hx miscarriage Wellness Manager Required: No Is patient in pain?: No [...] Surgical History History of root canal procedure Bureau teeth extracted Family History Grandmother Stillbirth maternal [...] physical activity do you participate in: none manuelito/worship: Anglican seatbelt use: always do you feel safe [...] (e.g.,TB,Asthma), Seasonal allergies, Drug/latex allergies/reactions , Breast, Program Or Project Administrator surgery, Operations/hospital izations, Anest (more content not included)... Normal [facility] Service comment (Unsp spec) [Interp]Ordered By: Negrita Gomez on 08-23-2024 Pap Smear Comment (3) . . [facility] Urine cultureOrdered By: Anselmo Gomez on 08-23-2024 Bacteria identified Cx Nom (U) Culture exhibits no growth. [facility] Transvaginal w/Preg USon Transvaginal w/Preg US [facility] Imaging Services [address] [place] [address] Transvaginal w/Preg US MR#: [id number] Acct: [id number] Name: JOI DANIEL Rep #: [id number] : 2000 F 24 From: Dl Bennett MD PCP: Care Physician,No Primary Status: REG CLI Study: Transvaginal w/Preg US Date of Exam: 08/09/24 Exam# [id number] Ordering Dr: Mikayla Ferrer DO -[id number] EXAM: US , TRANSVAGINAL CLINICAL INDICATION: [...] Mikayla Ferrer, DO; No Primary Care Physician Golf Course Designer: Signed Normal [facility] [id number] 07-29-2024 ABO and Rh group Nom (Bld) Blood group B Rh(D) positive Normal [facility] Comment on above: Performed By: #### L 700.8000, B882-1 ####[facility] [address] [facility] [place] [place], [address] Bilirubin Test strip Ql (U)O rdered By: Gary Grace on 07-29-2024 Bilirubin Ql (U) Negative Negative [facility] Emergency Department Summary on 07-29-2024 Emergency Department Summary [facility] Medical Records Department [address] [place] [address] Emergency Department Summary 07/29/24 MR#: [id number] Acct: [id number] Name: JOI DANIEL Rep #: [id number] : 2000 24 From: Gary Grace MD [...] Surgical History History of root canal procedure Bureau teeth extracted Social History adopted: No household [...] physical activity do you participate in: none manuelito/worship: Anglican seatbelt use: always do you feel safe at home: Yes 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 Normal [facility] Epithelial cells.squamous LM Ql (Urine sed)Ordered By: Gary Grace on 07-29-2024 Epithelial cells.squamous LM.HPF (Urine sed) [#/Area] 5 /[HPF] 5-10 [facility] Glucose Ql (U)Ordered By: Adeel Grace on 07-29-2024 Urine Glucose (UA) Normal mg/dl Normal [facility] HCG ( test) QlOrder ed By: Gary Grace on 07-29-2024 Human Chorionic Gonadotropin, Quant 31044 mIU/mL High <4 [facility] Comment on above: hCG levels with Gest ational AgeGestational Age hCG mIU/mL (IU/L)0.2 - 1 week 5 - 501-2 weeks 50 - 5002-3 weeks 100 - 20377-8 weeks 500 - 555332-9 weeks 1000 - 307928-6 weeks 15756 - 100,0006-8 weeks 87619 - 200,0002-3 months 30776 - 100,000 Ketones Test strip Ql (U)Ord ered By: Gary Grace on 07-29-2024 Ketones Ql (U) Negative Negative [facility] Microscopic analysis of urin e for red blood cells (RBC)Ordered By: Gary Grace on 07-29-2024 Urine RBC 0 SEEN /hpf 0-5 [facility] Mucus LM Ql (Urine sed)Order ed By: Gary Grace on 07-29-2024 Mucus Ql (Urine sed) 0 SEEN /hpf [facility] Nitrite Test strip Ql (U)Ord ered By: Gary Grace on 07-29-2024 Nitrite Ql (U) Negative Negative [facility] Protein Test strip Ql (U)Ord ered By: Gary Grace on 07-29-2024 Protein Ql (U) Negative Negative [facility] Transvaginal w/Preg USon Transvaginal w/Preg US [facility] Imaging Services [address] [place], [place] [address] Transvaginal w/Preg US MR#: [id number] Acct: [id number] Name: JOI DANIEL Rep #: [id number] : 2000 F 24 From: Rahul Bush MD PCP: Care Physician,No Primary Status: REG ER Study: Transvaginal w/Preg US Date of Exam: 07/29/24 Exam# [id number] Ordering Dr: Gary Grace MD -[id number] STUDY: FIRST TRIMESTER OBSTETRICAL ULTRASOUND REASON [...] Gary Grace MD; No Primary Care Physician Golf Course Designer: Signed Normal [facility] Urinalysis, Completeon 07-29 EPI,SQUAMOUS 5-10 SEEN Normal 5-10 [facility] Comment on above: Order Comment: CLEAN CATCH Performed By: #### L 400.0001 #### [facility] Laboratory [address] [place], [address] WBC 0-5 SEEN Normal 0-5 [facility] Comment on above: Order Comment: CLEAN CATCH Performed By: #### L 400.0001 #### [facility] [address] [place], [address] BACTERIA 0 SEEN Normal None Seen [facility] Comment on above: Order Comment: CLEAN CATCH Performed By: #### L 400.0001 #### [facility] [address] [place], [address] Mucus Ql (Urine sed) 0 SEEN Normal [facility] Comment on above: Order Comment: CLEAN CATCH Performed By: #### L 400.0001 #### [facility] [address] [place], [address] RBC 0 SEEN Normal 0-5 [facility] Comment on above: Order Comment: CLEAN CATCH Performed By: #### L 400.0001 #### [facility] [address] [place], [address] Urine blood detectionOrdered By: Gary Grace on 07-29-2024 Urine Occult Blood Negative Negative [facility] Urine clarityOrdered By: Tal Grace on 07-29-2024 Clarity (U) Clear Clear [facility] Urine color determinationOrd ered By: Gary Grace on 07-29-2024 Color (U) Yellow Yellow [facility] Urine leukocyte esterase det ection by dipstickOrdered By: Gary Grace on 07-29-2024 Leukocyte esterase Test strip Ql (U) Negative Negative [facility] Urine pHOrdered By: Gary mclean on 07-29-2024 pH (U) 6.5 [pH] 5.0 - 8.0 [facility] Urine sediment bacteria coun t by microscopy (number/high power field)Ordered By: Gary Grace on 07-29-2024 Bacteria LM.HPF (Urine sed) [#/Area] 0 /[HPF] None Seen [facility] Urine specific gravity measu rementOrdered By: Gary Grace on 07-29-2024 Specific gravity (U) [Rel density] 1.015 1.002-1.030 [facility] Urobilinogen Ql (U)Ordered B y: Gary Sanjay on 07-29-2024 Urine Urobilinogen Normal mg/dl Normal [facility] White blood cell countOrdere d By: Gary Grace on 07-29-2024 Urine WBC 0-5 SEEN /hpf 0-5 [facility] hCG Titer Quant., Serumon HCG QUANT. 88608 mIU/mL High 1-3 [facility] Comment on above: Result Comment: hCG levels with Gestational Age Gestational Age hCG mIU/mL (IU/L) 0.2 - 1 week 5 - 50 1-2 weeks 50 - 500 2-3 weeks 100 - 5000 3-4 weeks 500 - 69958 4-5 weeks 1000 - 96009 5-6 weeks 81752 - 100,000 6-8 weeks 35755 - 200,000 2-3 months 78042 - 100,000 Performed By: #### L 700.8000, B882-1 ####[facility] [address] [place], [address] HCG ( test) QlOrder ed By: Rosa M Moran on 07-23-2024 Human Chorionic Gonadotropin, Quant 1355 mIU/mL High <4 [facility] Comment on above: hCG levels with Gest ational AgeGestational Age hCG mIU/mL (IU/L)0.2 - 1 week 5 - 501-2 weeks 50 - 5002-3 weeks 100 - 20441-4 weeks 500 - 168305-7 weeks 1000 - 290002-3 weeks 51818 - 100,0006-8 weeks 88134 - 200,0002-3 months 84431 - 100,000 hCG Titer Quant., Serumon HCG QUANT. 1355 mIU/mL High 1-3 [facility] Comment on above: Result Comment: hCG levels with Gestational Age Gestational Age hCG mIU/mL (IU/L) 0.2 - 1 week 5 - 50 1-2 weeks 50 - 500 2-3 weeks 100 - 5000 3-4 weeks 500 - 72223 4-5 weeks 1000 - 16598 5-6 weeks 08857 - 100,000 6-8 weeks 67490 - 200,000 2-3 months 32368 - 100,000 Performed By: #### L 700.8000 #### [facility] [address] [place], [address] HCG ( test) QlOrder ed By: Paola Almanza on 07-21-2024 Human Chorionic Gonadotropin, Quant 561 mIU/mL High <4 [facility] Comment on above: hCG levels with Gest ational AgeGestational Age hCG mIU/mL (IU/L)0.2 - 1 week 5 - 501-2 weeks 50 - 5002-3 weeks 100 - 01685-0 weeks 500 - 426314-9 weeks 1000 - 381111-0 weeks 75147 - 100,0006-8 weeks 17533 - 200,0002-3 months 19931 - 100,000 hCG Titer Quant., Serumon HCG QUANT. 561 mIU/mL High 1-3 [facility] Comment on above: Result Comment: hCG levels with Gestational Age Gestational Age hCG mIU/mL (IU/L) 0.2 - 1 week 5 - 50 1-2 weeks 50 - 500 2-3 weeks 100 - 5000 3-4 weeks 500 - 64865 4-5 weeks 1000 - 03298 5-6 weeks 43832 - 100,000 6-8 weeks 11014 - 200,000 2-3 months 55798 - 100,000 Performed By: #### L 700.8000 #### [facility] [address] [place], [address] [facility] Office Visit Reporton 04-16-2024 Cook Vacuum Kettle Office Visit Report [facility] [address], [address] [place] [address] OFFICE VISIT Date of Service: 04/16/24 MR#: [id number] Acct: [id number] Name: JOI DANIEL Rep #: [id number] : 2000 Provider: Dr. Mikayla Fraser DO Age/Sex: 24/F Location: [facility] Status: Signed Intake Vital Signs 04/09/24 11:08 04/09/24 12:18 04/16/24 11:35 04/16/24 11:35 Height 5 ft 4 in 5 ft 4 in 5 ft 4 in 5 ft 4 in Weight: 139 lb 2 oz BMI 23.8 BP 115/76 Intake Visit Reasons: miscarriage follow up *give pt new hipaa form* Wellness Manager Required: No Is patient in pain?: No Allergies No Known Allergies Allergy (Verified 04/16/24 11:32) Medications ???Medication ???Instructions ???Recorded ???Confirmed ???Type NK 04/16/24 04/16/24 History Post menopausal: No Patient : No : No PFSH Medical History Supervision of normal first Screening examination for STI Surgical History History of root canal procedure Bureau teeth extracted Family History Grandmother Breast cancer, [...] physical activity do you participate in: none manuelito/worship: Anglican seatbelt use: always do you feel safe at home: Yes 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 follow up *give pt new hipaa [...] Pillai Signature: Date (if applicable) CC: Normal [facility] Kettle Office Visit Reporton 04-09-2024 Cook Vacuum Kettle Office Visit Report [facility] [address], [address] [place] [address] OFFICE VISIT Date of Service: 04/09/24 MR#: [id number] Acct: [id number] Name: JOI DANIEL Rep #: [id number] : 2000 Provider: ABBI Del Castillo ams Age/Sex: 24/F Location: [facility] Status: Signed Intake Vital Signs 09/11/23 07:07 03/03/24 09:18 04/09/24 11:06 04/09/24 11:08 Height 5 ft 4 in 5 ft 4 in 5 ft 4 in 5 ft 4 in Weight: 136 lb 139 lb 2 oz BMI 23.3 23.8 BP 98/67 120/82 H Blood Pressure Location Lt brachial Position Sitting Intake Visit Reasons: New OB, LMP 01/25, KEVIN 11/01/24 Wellness Manager Required: No Is patient in pain?: No Allergies No Known Allergies Allergy (Verified 04/09/24 11:06) Medications ???Medication ???Instructions ???Recorded ???Confirmed ???Type multivit-min no.71-iron fum 28 cap PO 03/23/24 04/09/24 History mg-folate no.1 1 mg-dha 300 mg capsule (PNV-Pearl) misoprostol 200 mcg tablet 800 mcg (4 [...] Surgical History History of root canal procedure Bureau teeth extracted Family History Grandmother Breast cancer, [...] physical activity do you participate in: none manuelito/worship: Anglican seatbelt use: always do you feel safe [...] Covid Vac (more content not included)... Normal [facility] Urgent Care Visit Reporton 0 03-08-2024 Urgent Care Visit Report [facility] [address], [address] [place] [address] OFFICE VISIT Date of Service: 03/08/24 MR#: [id number] Acct: [id number] Name: KARISSA DANIEL Rep #: [id number] : 2000 Provider: BETTINA eWst Age/Sex: 23/F Location: [facility] Status: Signed Intake Vital Signs 03/03/24 09:18 [...] Cosigner Signature: Date (if applicable) CC: Normal [facility] HCG ( test) Ql (U)O rdered By: Jeannette Lloyd on 06-07-2023 Internal Control Pass [facility] Interpretation and review of laboratory results Normal [facility] Laboratory - Chemistry and C hemistry - challengeon 06-07-2023 Bilirubin Ql (U) Negative Negative [facility] Glucose Ql (U) Negative Normal, Negative mg/dL [facility] Ketones Ql (U) Trace Abnormal Negative mg/dL [facility] alth pH (U) 7.0 [pH] 5.0 - 7.0 [facility] Specific gravity (U) [Rel density] 1.020 1.005 - 1.025 [facility] Urobilinogen Qn (U) 0.2 mg/dL <2.0, 0. 2, Normal, Negative, 1.0, 2.0, <1.0 [facility] Laboratory - Chemistry and C hemistry - challengeOrdered By: Jeannette Lloyd on 06-07-2023 HCG ( test) Ql (U) Negative Negative [facility] Laboratory - Hematology and Cell countson 06-07-2023 Hemoglobin Ql (U) Trace-intact Abnormal Negative [facility] Laboratory - Urinalysison Leukocyte esterase Test strip Ql (U) Large Abnormal Negative [facility] Nitrite Ql (U) Negative Negative [facility] Protein Ql (U) Trace Abnormal Negative mg/dL [facility] alth No Panel Informationon 06-07 Interpretation and review of laboratory results Abnormal [facility] Vital Signs Date Time Vital Sign Value Performing Clinician Facility 01-29-2025 21:53-0400 Body height 162.56 cm No Primary Care Physician [facility] 01-29-2025 21:53-0400 Body mass index (BMI) [Ratio] 29.7 kg/m2 No Primary Care Physician [facility] 01-29-2025 21:53-0400 Body weight 78.58 kg No Primary Care Physician [facility] 01-29-2025 21:48-0400 Heart rate 91 /min No Primary Care Physician [facility] 01-29-2025 21:48-0400 SaO2% (BldA) [Mass fraction] 99 % No Primary Care Physician [facility] 01-29-2025 21:47-0400 Body temperature 98.6 [degF] No Primary Care Physician [facility] 01-29-2025 21:47-0400 Diastolic blood pressure 63 mm[Hg] No Primary Care Physician [facility] 01-29-2025 21:47-0400 Respiratory rate 14 /min No Primary Care Physician [facility] 01-29-2025 21:47-0400 Systolic blood pressure 111 mm[Hg] No Primary Care Physician [facility] 01-27-2025 15:25-0400 Body height 162.56 cm No Primary Care Physician [facility] 01-27-2025 15:25-0400 Body mass index (BMI) [Ratio] 29.8 kg/m2 No Primary Care Physician [facility] 01-27-2025 15:25-0400 Body temperature 98.4 [degF] No Primary Care Physician [facility] 01-27-2025 15:25-0400 Body weight 78.92 kg No Primary Care Physician [facility] 01-27-2025 15:25-0400 Diastolic blood pressure 65 mm[Hg] No Primary Care Physician [facility] 01-27-2025 15:25-0400 Heart rate 90 /min No Primary Care Physician [facility] 01-27-2025 15:25-0400 SaO2% (BldA) [Mass fraction] 97 % No Primary Care Physician [facility] 01-27-2025 15:25-0400 Systolic blood pressure 98 mm[Hg] No Primary Care Physician [facility] 11-29-2024 09:55-0400 Body mass index (BMI) [Ratio] 28.1 kg/m2 No Primary Care Physician [facility] 11-29-2024 09:55-0400 Body weight 74.38 kg No Primary Care Physician [facility] 11-29-2024 09:55-0400 Diastolic blood pressure 74 mm[Hg] No Primary Care Physician [facility] 11-29-2024 09:55-0400 Systolic blood pressure 120 mm[Hg] No Primary Care Physician [facility] 11-01-2024 13:15-0400 Body height 162.[address] Mikayla Ferrer DO Work Phone: [facility] 11-01-2024 13:15-0400 Body mass index (BMI) [Ratio] 27.5 kg/m2 Dr. Mikayla Ferrer DO Work Phone: [facility] 11-01-2024 13:15-0400 Body weight 72.[address] Mikayla Ferrer DO Work Phone: [facility] 11-01-2024 13:15-0400 Diastolic blood pressure 81 mm[Hg] Dr. Mikayla Ferrer DO Work Phone: [facility] 11-01-2024 13:15-0400 Systolic blood pressure 131 mm[Hg] Dr. Mikayla Ferrer DO Work Phone: [facility] 10-08-2024 08:51-0500 Body mass index (BMI) [Ratio] 26.6 kg/m2 Dr. Mikayla Ferrer DO Work Phone: [facility] 10-08-2024 08:51-0500 Body weight 70.[address] Mikayla Ferrer DO Work Phone: [facility] 10-08-2024 08:51-0500 Diastolic blood pressure 74 mm[Hg] Dr. Mikayla Ferrer DO Work Phone: [facility] 10-08-2024 08:51-0500 Systolic blood pressure 115 mm[Hg] Dr. Mikayla Ferrer DO Work Phone: [facility] 09-09-2024 15:36-0500 Body mass index (BMI) [Ratio] 25.9 kg/m2 Dr. Mikayla Ferrer DO Work Phone: [facility] 09-09-2024 15:36-0500 Body weight 68.[address] Mikayla Ferrer DO Work Phone: [facility] 09-09-2024 15:36-0500 Diastolic blood pressure 78 mm[Hg] Dr. Mikayla Ferrer DO Work Phone: [facility] 09-09-2024 15:36-0500 Systolic blood pressure 124 mm[Hg] Dr. Mikayla Ferrer DO Work Phone: [facility] 08-23-2024 10:23-0500 Body mass index (BMI) [Ratio] 25.7 kg/m2 Dr. Mikayla Ferrer DO Work Phone: [facility] 08-23-2024 10:23-0500 Body weight 68.[address] Mikayla Ferrer DO Work Phone: [facility] 08-23-2024 10:23-0500 Diastolic blood pressure 72 mm[Hg] Dr. Mikayla Ferrer DO Work Phone: [facility] 08-23-2024 10:23-0500 Systolic blood pressure 103 mm[Hg] Dr. Mikayla Ferrer DO Work Phone: [facility] 07-29-2024 18:15-0500 Heart rate 98 /min Dr. Mikayla Ferrer DO Work Phone: [facility] 07-29-2024 18:15-0500 Respiratory rate 18 /min Dr. Mikayla Ferrer DO Work Phone: [facility] 07-29-2024 18:15-0500 SaO2% (BldA) [Mass fraction] 100 % Dr. Mikayla Ferrer DO Work Phone: [facility] 07-29-2024 16:15-0500 Body mass index (BMI) [Ratio] 23.6 kg/m2 Dr. Mikayla Ferrer DO Work Phone: [facility] 07-29-2024 16:15-0500 Body temperature 97.5 [degF] Dr. Mikayla Ferrer DO Work Phone: [facility] 07-29-2024 16:15-0500 Body weight 62.[address] Mikayla Ferrer DO Work Phone: [facility] 07-29-2024 16:15-0500 Diastolic blood pressure 99 mm[Hg] Dr. Mikayla Ferrer DO Work Phone: [facility] 07-29-2024 16:15-0500 Systolic blood pressure 142 mm[Hg] Dr. Mikayla Ferrer DO Work Phone: [facility] 06-07-2023 12:54-0400 Body height 165.1 cm Giovanni Winston DO [facility] 06-07-2023 12:54-0400 Body mass index (BMI) [Ratio] 22.88 kg/m2 [facility] 06-07-2023 12:54-0400 Body temperature 97.9 [degF] [facility] 06-07-2023 12:54-0400 Body weight 62.37 kg [facility] 06-07-2023 12:54-0400 Diastolic blood pressure 75 mm[Hg] [facility] 06-07-2023 12:54-0400 Heart rate 69 /min [facility] 06-07-2023 12:54-0400 Respiratory rate 18 /min [facility] 06-07-2023 12:54-0400 SaO2% (BldA) [Mass fraction] 95 % [facility] 06-07-2023 12:54-0400 Systolic blood pressure 110 mm[Hg] [facility] Encounters Encounter Date Encounter Type Care Provider Facility Start: 01-30-2025 ambulatory Shereen Amos Facilit y:[facility] Start: 01-29-2025 End: 01-29-2025 ambulatory No Primary Care Physician [facility] Work Phone: Start: 01-29-2025 End: 01-29-2025 Patient encounter procedure Shereen Amos CNM -[facility] Work Phone: Start: 01-27-2025 End: 01-27-2025 Patient encounter procedure Jose Palomo PA -[facility] Work Phone: Start: 01-27-2025 End: 01-27-2025 ambulatory No Primary Care Physician [facility] Work Phone: Start: 11-29-2024 End: 11-29-2024 Patient encounter procedure Paola Almanza AUDIO PRODUCTION ENGINEER-C -[facility] Work Phone: Start: 11-29-2024 End: 11-29-2024 ambulatory No Primary Care Physician Facility:[facility] Start: 11-19-2024 End: 11-19-2024 ambulatory MD [facility] Start: 11-10-2024 End: 11-10-[address] Mikayla Ferrer DO Work Phone: [facility] Work Phone: Start: 11-10-2024 End: 11-10-[address] Negrita Gomez MD -[facility] Work Phone: Start: 11-10-2024 End: 11-10-2024 ambulatory No Primary Care Physician Facility:[facility] Start: 11-01-2024 End: 11-01-[address] Mikayla Ferrer DO -[facility] Work Phone: Start: 11-01-2024 End: 11-01-2024 ambulatory No Primary Care Physician Facility:[facility] Start: 10-08-2024 End: 10-08-2024 Patient encounter procedure Shereen Amos LAURIE -[facility] Work Phone: Start: 10-08-2024 End: 10-08-2024 ambulatory Shereen Amos Facility:[facility] Start: 09-09-2024 End: 09-09-[address] Negrita Gomez MD -[facility] Work Phone: Start: 09-09-2024 End: 09-09-2024 ambulatory No Primary Care Physician Facility:[facility] Start: 09-09-2024 End: 09-09-2024 ambulatory No Primary Care Physician Facility:[facility] Start: 08-23-2024 End: 08-23-[address] Negrita Gomez MD -Lab, [facility] Start: 08-23-2024 End: 08-23-2024 ambulatory No Primary Care Physician Facility:[facility] Start: 08-23-2024 End: 08-23-[address] Negrita Gomez MD -[facility] Work Phone: Start: 08-23-2024 End: 08-23-2024 ambulatory No Primary Care Physician Facility:[facility] Start: 08-09-2024 End: 08-09-[address] Mikayla Ferrer DO -Ultrasound, [facility] Work Phone: Start: 08-09-2024 End: 08-09-2024 ambulatory No Primary Care Physician Facility:[facility] Start: 07-29-2024 End: 07-29-2024 Emergency department patient visit Dr. Gary Grace MD -Emergency Department Work Phone: Start: 07-23-2024 End: 07-23-2024 Patient encounter procedure Rosa M Moran CNM -Lab, [facility] Start: 07-23-2024 End: 07-23-2024 ambulatory Rosa M Moran Facility:[facility] Start: 07-21-2024 End: 07-21-[address] Mikayla Ferrer DO -Lab, [facility] Start: 07-21-2024 End: 07-21-2024 ambulatory Mikayla Ferrer Facility:[facility] Start: 04-16-2024 End: 04-16-2024 ambulatory Mikayla Ferrer Facility:[facility] Start: 04-09-2024 End: 04-09-2024 ambulatory Rosa M Moran Facility:[facility] Start: 03-08-2024 End: 03-08-2024 ambulatory Jose DUNBAR Facility:[facility] Start: 06-07-2023 End: 06-07-2023 ambulatory [facility] Start: 06-07-2023 End: 06-07-2023 Office outpatient new 30 minutes [facility] Comment on above: Vaginal discharge (P rimary [...] Activity Detail Author Start: 01-29-2025 Nonstress test [facility] Start: 01-29-2025 Obstetric monitoring [facility] Start: 01-29-2025 Vital signs measurements [facility] Start: 01-29-2025 [facility] Start: 01-29-2025 Patient discharge [facility] Start: 07-29-2024 [facility] Start: 04-11-2023 Influenza vaccination Sequenti al Influenza Vaccine (#1) [facility] Start: 2019 Screening for malign ant neoplasm of cervix Pap Smear [facility] Start: 2016 Hepatitis C screening Hepatitis C Sc reening [facility] Start: 2013 HIV screening HIV Screening [facility] Start: 2010 Depression screening using PHQ-9 (Patient Health Questionnaire 9) score Depression Screening (PHQ-2/9) [facility] Start: 2009 Vaccination for marguerite n papillomavirus HPV Vaccines (1 - 2-dose series) [facility] Start: 2001 History and physical examination, annual for health maintenance Wellness Visit [facility] Start: 1998 COVID-19 Vaccine (#1) COVID-19 Vacci ne (#1) [facility] Start: 1998 Tetanus vaccination Tetanus: Every 1 0yrs [facility] End: 06-07-2024 Bacteria identified in Unspecified specimen by Aerobe culture Urine Aerobic Culture Microbiology Routine Vaginal discharge 1 Occurrences starting 06/07/2023 until 06/07/2024 [facility] Comment on above: 1 Occurrences starti ng 06/07/2023 until 06/07/2024 CBC W Auto Different ial panel - Blood [facility] Chlamydia trachomati s rRNA assay Chlamydia/GC/Trichomon as Amplified RNA Microbiology Routine Vaginal discharge Ordered: 06/07/2023 [facility] Comment on above: Ordered: 06/07/2023 End: 06-07-2024 Gardnerella vaginalis rRNA assay Vaginitis DNA Probes Microbiology Routine Vaginal discharge 1 Occurrences starting 06/07/2023 until 06/07/2024 [facility] Comment on above: 1 Occurrences starti ng 06/07/2023 until 06/07/2024 Measurement of gluco se 2 hours after glucose challenge for glucose tolerance test [facility] Neisseria gonorrhoea e nucleic acid detection Chlamydia/Gonorrhoeae Amplified RNA Microbiology Routine Vaginal discharge Ordered: 06/07/2023 [facility] Comment on above: Ordered: 06/07/2023 Patient Education [facility] Work Phone: Patient referral [facility] Work Phone: Serologic test for syphilis [facility] Trichomonas vaginali s Amplified RNA Trichomonas vaginalis Amplified RNA Microbiology Routine Vaginal discharge Ordered: 06/07/2023 [facility] Comment on above: Ordered: 06/07/2023 [facility] Payers Date Payer Category Payer Unknown [id number] 2024 Self-pay 2022 Unknown [employer] PPO [id number] 2022-Present [phone] [address] [place] [address] [id number] 2022 Unknown [id number] 2000 Unknown [id number] Unknown [id number] Unknown [id number] Unknown [id number] [id number] Unknown [id number] [id number] Unknown [id number] [id number] Unknown [id number] 2.0.1.383430.3.579.2.462 Unknown [id number] 2.16.840.1.985882.3.579.2.462 Unknown [id number] 2.16.840.1.824835.3.579.2.462 Unknown [id number] 2.16.840.1.726564.3.579.2.462 Unknown [id number] 2.16.840.1.110632.3.579.2.462 Unknown [id number] 2.16.840.1.788129.3.579.2.462 Unknown [id number] [id number] Unknown [id number] [id number] Unknown [id number] 2.16840.1.333647.3.579.2.462 Unknown [id number] [id number] Unknown [id number] [id number] Unknown [id number] [id number] Unknown [id number] [id number] Social History Date Type Detail Facility Start: 06-07-2023 Tobacco smoking status [facility] Ex-smoker [facility] History of tobacco use Current smoker [facility] History of tobacco use Cigarette Smoker [facility] Start: 06-07-2023 Tobacco use and exposure Smokeless tobacco non-user [facility] Start: 06-07-2023 Alcohol intake Current drinke r of alcohol (finding) [facility] Start: 06-07-2023 History of Social function [facility] Start: 06-07-2023 Tobacco use panel [facility] Start: 06-07-2023 Alcohol Comment occassional [facility] Start: 2000 Sex Assigned At Not on file O [facility] Start: 08-23-2024 Tobacco smoking status [facility] Never smoked tobacco (finding) [facility] Start: 11-16-2024 Sex Female (finding) [facility] Start: 2000 Sex Assigned At Female W karyn [facility] Clinical Notes 06-07-2023 to 11-19-2024 Note Date & Type Note Facility 11-19-2024 Note [facility] CONS[facility] Referring Provider Negrita Gomez MD [address] [place] [address] SUBJECTIVE Joi Daniel is a 24 y.o. 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 The data contained in the above ultrasound report/consultation along with subsequent clinical management of the patient are the responsibility of the ordering provider. Sincerely, Julio Brink MD, FACOG Maternal Medicine Pole Incisor Operator The total time for today's visit is [...] Disp: , Rfl: [3] No Known Allergies [facility] 11-10-2024 Radiology Diagnostic study note [facility] Imaging Services [address], [place] [id number] OB Anatomy w/ Transvaginal MR#: [id number] Acct: [id number] Name: JOI DANIEL Rep #: [id number] : 2000 F 24 From: Leo Ryan MD PCP: Care Physician,No Primary Status: REG CLI Study:OB Anatomy w/ Transvaginal Date of Exam : 11/10/24 Exam# [id number] Ordering Dr: Negrita Steve MD PROCEDURE: OB [...] the biometry. Clinical correlation recommended. Reading Location: [facility] CC: Dr. Negrita Gomez MD; No Primary Care Physician ~ Golf Course Designer: Signed [facility] 10-08-2024 Evaluation note Diagnosis Onset Date Resolution acute October 08, 2024 8:45am Supervision of normal acute October 08, 025 8:45am acute November 01 1:11pm Supervision of normal acute November 01, 2024 1:11pm Asymmetric IUGR affecting , antepartum acute November 29, 2024 9:51am acute November 29 9:51am Supervision of normal acute November 29, 2024 9:51am [facility] Work Phone: 1(985) 919-778502-28-2025 Evaluation note* Diagnosis Onset Date Resolution Status Admit Date acute October 08, 2024 8:45am Supervision of normal acute October 08, 2 025 8:45am acute November 01 1:11pm Supervision of normal acute November 01, 2024 1:11pm Asymmetric IUGR affecting , antepartum acute November 9:51am acute November 29 9:51am Supervision of normal acute November 29, 2024 9:51am Contact dermatitis acute January 092024 3:17pm [facility] Work Phone: 1(533) 746-443901-13-2025 Evaluation note* Diagnosis Onset Date Resolution Status Admit Date acute August 23, 2024 10:05am Supervision of high-risk resolved August 23 10:05am acute September 09, 2024 3:30pm Supervision of normal acute September 09 3:30pm acute October 08, 2024 8:45am Supervision of normal acute October 08, 2 025 8:45am acute November 01 1:11pm Supervision of normal acute November 01, 2024 1:11pm [facility] Work Phone: 1(415) 547-842801-13-2025 NotePap Smear Specimen AdequacyJan2024 12:51pmComment.Satisfactory for evaluation. No endocervical component is identified.An endocervical component is not commonly seen in the patient.[facility]ACED A#[id number] Medical Specialty Hospital - ColumbusComment on above: Satisfactory for evaluation. No endocervical component is identified.An endocervical component is not commonly seen in the patient.06-07-2023 Evaluation + Plan note* Assessment & Plan Note - Giovanni Winston DO - 06/07/2023 1:17 PM EDTAssociated Problem(s): Vaginal discharge Reports vaginal discharge x2 months. Denies any urinary symptoms. 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 -Self swab of POC [...] practices. -Return precautions provided. -Follow-up with PCP. [id number] Miscellaneous Notes* Assessment & Plan Note - Giovanni Winston DO - 06/07/2023 1:17 PM EDTAssociated Problem(s): Vaginal discharge Reports vaginal discharge x2 months. Denies any urinary symptoms. 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 -Self swab of POC [...] provided. -Follow-up with PCP. documented in this [id number] History of Present illness Narrative* Giovanni Winston DO - 06/07/2023 1:03 PM EDT Images from the original note were not included. Patient Name: [facility] Location: Kar[place] Daniel [address] [place], [place] [id number] [phone] Date Of : Date Of Visit: 2000 06/07/2023 MRN# Provider: [id number] Giovanni Winston DO Chief Complaint Patient presents with Vaginitis Swollen and itching (dark discharge) notice the symptoms a couple of months ago Assessment & Plan Problem List Vaginal discharge - Primary Reports vaginal discharge x2 months. Denies any urinary symptoms. 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 -Self swab of POC [...] specified as infective documented [facility] this [facility] ([facility])No reason for referral information availableWMercy Health [facility] Work Phone: Summary Purpose Family History No [...] Do you have a Healthcare Power of Recreation Therapy Aide? No July 29, 2024 5:55pm Chief Complaint [...] Care Teams (unrecognized sec tion and content) Welder Fabricator Relationship Specialty Start Date End Date No, Physician [facility] PCP - General 06/07/23 Team Status: [...] 2024 End: November 29, 2024 Paola Almanza AUDIO PRODUCTION ENGINEER, AUDIO PRODUCTION ENGINEER-C Attending Provider Active Start: November 29, 2024 [...] section and content) DATE CREATED AUTHOR 06/09/2023 [facility] DATE CREATED AUTHOR AUTHOR'S ORGANIZ ATION 11/21/2024 [facility] DATE CREATED AUTHOR AUTHOR'S ORGANIZ ATION 02/12/2025 [facility] Goals (unrecognized section and content) Goals may [...] BE BASED ON THE PRIMARY CLINICAL RECORDS. [facility]. provides no warranty or guarantee of the accuracy or completeness of information in this document.
[2025-03-27 11:46] LABS: Hematocrit 36.4 % (37-47); Hemoglobin 12.6 g/dL (12.0-15.0); Immature Granulocytes Count 0.140 X10^3/uL (0.0-0.0); Mean Corp Hgb Conc 34.6 g/dL (32-36); Mean Corpuscular Volume 89.2 fL (81-99); Mean Platelet Vol. 9.2 fl (6.2-12.0); NRBC Flagged by Analyzer 0 % (0-5); Platelet Count 215 K/mm3 (150-450); RBC Distribution Width CV 12.9 % (11.6-14.6); RBC Distribution Width SD 42.1 fl (35.1-43.9); Red Blood Count 4.08 M/mm3 (4.2-5.4); White Blood Count 16.1 K/mm3 (4.4-11.0)
[2025-03-27 12:41] LABS: Syphilis Antibodies Nonreactive (Nonreactive)
[2025-03-27] MEDS: Lactated Ringers 1,000 ML 200 ML IV (13:02)
[2025-03-27] MEDS: fentaNYL-bupivacaine (epidural) 100 ML BAG EPIDURAL (13:10)
[2025-03-27] MEDS: Lactated Ringers 1,000 ML 999 ML IV (15:10)
[2025-03-27] MEDS: Oxytocin 15 Units/NS 250ml 15 UNITS/250 ML IV.SOLN 83 UNITS IV (16:30)
--- NOTE | 2025-03-27 16:53 | EX.PCM.OBVAG ---
Assessment & Plan (1) Asymmetric IUGR affecting , antepartum: COMMENT: referral MFM for anatomy: 11/19 40%/nl. Rpt 12/20: (2) Supervision of normal : QUALIFIERS: Normal : normal first Trimester: second trimester Qualified Code(s): Z34.02 - Encounter for supervision of normal first , second trimester COMMENT: PRR , KEVIN 03/22/25, Aubrey (3) : QUALIFIERS: Weeks of gestation: 23 weeks Qualified Code(s): Z3A.23 - 23 weeks gestation of COMMENT: plan NIPT w/gender & declined carrier testing (4) Active labor at term: Vaginal Delivery Maternal Presentation Maternal Presentation: see assessment and plan Vaginal Delivery Information Procedure Performed: Spontaneous Vaginal Delivery Surgeon/Practitioner: Negrita Smith Pre-Procedure Diagnosis: see assessment and plan Post-Procedure Diagnosis: same Type of anesthesia: Epidural Findings Description of procedure: Patient began pushing and delivered the head in the HOOD presentation. The head was delivered atraumatically . The anterior and posterior shoulders delivered without complication followed by the rest of the infant and the was placed on the maternal abdomen. Delayed cord clamping was employed for approximately 60 seconds. Cord was clamped and cut and gentle traction was applied to the cord and the placenta delivered spontaneously immediately following it was noted to be intact with three-vessel cord. The perineum and vagina were inspected and noted to have no laceration. EBL was 100 cc. Patient and infant tolerated delivery well. Presentation: Vertex Placental Delivery Description: Spontaneous Specimen collected: Yes Description of specimen(s) removed: placenta Put In Beat Adjuster manager technical support: No Post Vaginal Deli Medications given after delivery: Other (pitocin) Complication Complications: No Multi Select Codes Urinary/Genital Urinary/Genital CPT Codes: 91031 Vaginal Delivery [facility]
--- NOTE | 2025-03-27 16:55 | DCINST_ITS ---
Discharge Instructions DC O2, CPAP, BIPAP needs Home O2 Discharge instructions: No Dressing / Incision Discharge Activity: Return to Normal Activity, May Not Drive (while taking narcotic pain medications.) and May Shower May resume sexual activity in: 4-6 weeks Dressing / Incision Call your doctor if your incision/area has: Continuous Slow Oozing, Sudden Increased Bleeding, Increased Pain/ Swelling, Increased Redness and Foul Smelling Discharge Follow Up Care Please Follow Up With: Negrita Smith MD When: Call [phone] to make an appointment with your doctor in 6 weeks. If you had elevated blood pressure or 4th degree laceration, you will need to be seen in 2 weeks. Test Results: Test results from this visit will be discussed in further detail at your follow- up appointment, if applicable. Discharge Plan Admission Admit Date/Time: 03/27/25 11:00 Attending Provider: Negrita Smith Primary Care Provider: Herber Physician,Karen Primary Discharge Orders/Prescriptions Prescriptions: No Action Giovanni PNV 6 mg iron- 833.5 mcg DFE tablet 1 tab PO DAILY Referrals / Follow Up: Care Physician,No Primary [Primary Care Provider] -
[2025-03-28] VITALS (9 sets, daily range): BP systolic 100–113; BP diastolic 59–89; PULSE 77–106; RESP 15–16; TEMP 36.6–36.8; O2SAT 97–99
--- NOTE | 2025-03-28 07:46 | PCM.PN.OB ---
Subjective Subjective Patient doing well without complaints. Tolerating PO. Ambulating and voiding without difficulty. Feeding well. Denies chest pain, shortness of breath, calf pain/swelling, fevers, chills, lightheadedness. Objective Data Objective Data Vital Signs: Vital Signs Temp Pulse Resp BP Pulse Ox O2 Del Method 98.0 F 98 16 100/59 L 99 Room Air 03/28/25 04:44 03/28/25 04:44 03/28/25 04:44 03/28/25 04:44 03/28/25 04:44 03/28/25 04:44 Oxygen Delivery Method Room Air Weight: 178 lb 2.136 oz Body Mass Index (BMI) 30.5 Intake & Output: Intake and Output for Last 24 Hours 03/26/25 03/27/25 03/28/25 23:59 23:59 23:59 Intake Total 2250 / 2250 Output Total 100 / 100 Balance 2150 / 2150 Lab / Micro Data Attestation: I reviewed the patient's lab results. 03/27/25 11:30 Labs: Laboratory Results - last 24 hr 03/27/25 11:30: WBC 16.1 H, RBC 4.08 L, Hgb 12.6, Hct 36.4 L, MCV 89.2, MCH 30.9, MCHC 34.6, RDW Std Deviation 42.1, RDW Coeff of Melissa 12.9, Plt Count 215, MPV 9.2, Immature Gran % (Auto) 0.900, Neut % (Auto) 85.0 H, Lymph % (Auto) 8.0 L, [place] % (Auto) 5.8, Eos % (Auto) 0.1, Baso % (Auto) 0.2, Absolute Neuts (auto) 13.7 H, Absolute Lymphs (auto) 1.28, Nucleated RBC % 0, Syphilis Total Ab Nonreactive, Blood Type B POSITIVE, Antibody Screen NEGATIVE ROS Constitutional Constitutional: Reports systems reviewed and no addt'l complaints, except as documented; Denies anorexia or headache(s) Cardiovascular Cardiovascular: Reports systems reviewed and no addt'l complaints, except as documented; Denies dizziness, dyspnea, nausea or tachypnea Respiratory/Chest Respiratory/Chest: Reports systems reviewed and no addt'l complaints, except as documented; Denies cough, dyspnea, shortness of breath at rest or tachypnea Gastrointestinal Gastrointestinal: Reports systems reviewed and no addt'l complaints, except as documented; Denies abdominal pain, constipation or nausea Genitourinary Genitourinary: Reports systems reviewed and no addt'l complaints, except as documented; Denies burning urination, difficulty urinating, dysuria, urinary frequency or urinary incontinence Musculoskeletal Musculoskeletal: Reports systems reviewed and no addt'l complaints, except as documented Integumentary Integumentary: Reports systems reviewed and no addt'l complaints, except as documented Neurologic Neurologic: Reports systems reviewed and no addt'l complaints, except as documented; Denies abnormal speech, dizziness or headache(s) Psychiatric Psychiatric: Reports systems reviewed and no addt'l complaints, except as documented Endocrine Endocrinology: Reports systems reviewed and no addt'l complaints, except as documented Hematologic/Lymphatic Hematologic/Lymphatic: Reports systems reviewed and no addt'l complaints, except as documented Physical Exam Const alert, oriented x3 and no apparent distress Neck full ROM Resp normal respiratory effort, normal air movement and no retractions Effort and Inspection: able to speak in complete sentences and symmetric chest movement GI soft to palpation Bladder / Kidney Exam: bladder normal to palpation Uterus Palpation: uterus fundus firm Extremity normal to inspection and full ROM Psych mental status grossly normal, thought process normal and cooperative Assessment & Plan (1) Vaginal delivery: COMMENT: SM-boy PLAN: s/p PPD # 1 1. routine post delivery care 2. breast feeding- support given 3. rh positive 4. rubella immune (2) Active labor at term: (3) Contact dermatitis: (4) Asymmetric IUGR affecting , antepartum: COMMENT: referral MFM for anatomy: 11/19 40%/nl. Rpt 12/20: (5) Supervision of normal : QUALIFIERS: Normal : normal first Trimester: second trimester Qualified Code(s): Z34.02 - Encounter for supervision of normal first , second trimester COMMENT: PRR , KEVIN 03/22/25, Aubrey (6) : QUALIFIERS: Weeks of gestation: 23 weeks Qualified Code(s): Z3A.23 - 23 weeks gestation of COMMENT: plan NIPT w/gender & declined carrier testing Charges/Coding Multi Select Codes Urinary/Genital Urinary/Genital CPT Codes: No Charge
[2025-03-29 02:39] VITALS: BP 106/61; PULSE 71; PULSE 78; PULSE 80; RESP 16; TEMP 35.9; O2SAT 99
--- NOTE | 2025-03-29 07:42 | PCM.DC.SUM ---
Providers Date of Admission: 03/27/25 Primary Care Physician: Karen Primary Care Phys Reason For Visit: LABOR Diagnosis Discharge Diagnosis (1) Vaginal delivery: Status: Acute Code(s): O80 - Encounter for full-term uncomplicated delivery (2) Active labor at term: Status: Acute (3) Contact dermatitis: Status: Acute Code(s): L25.9 - Unspecified contact dermatitis, unspecified cause (4) Asymmetric IUGR affecting , antepartum: Status: Acute Code(s): O36.5990 - Maternal care for other known or suspected poor growth, unspecified trimester, not applicable or unspecified (5) Supervision of normal : Status: Acute Code(s): Z34.90 - Encounter for supervision of normal , unspecified, unspecified trimester Qualifiers: Normal : normal first Trimester: second trimester Qualified Code(s): Z34.02 - Encounter for supervision of normal first , second trimester (6) : Status: Acute Code(s): Z34.90 - Encounter for supervision of normal , unspecified, unspecified trimester Qualifiers: Weeks of gestation: 23 weeks Qualified Code(s): Z3A.23 - 23 weeks gestation of Medications at Discharge Home Medications vit no.164-ferrous gluconate 6 mg-folate 833.5 mcg DFE tablet ( PNV) 1 tab PO DAILY pregnanc 08/12/24 Hospital Course Operations None Procedures None Summary of Care Provided Minutes Spent on Discharge: 15 Hospital Course: The patient was admitted to L&D on 03/27/25 and delivered a viable male on this day. On post day #1 she used services to help with breast feeding and on post day #2 she requests discharged to home. She denies heavy vaginal bleeding or dizziness. Weight / BMI Weight Weight: 178 lb 2.136 oz Body Mass Index (BMI) 30.5 ABG / Lab / Microbiology Data 03/27/25 11:30 D/C Instructions Discharge Activity: Return to Normal Activity, May Not Drive (while taking narcotic pain medications.) and May Shower May resume sexual activity in: 4-6 weeks Call your doctor if your incision/area has: Continuous Slow Oozing, Sudden Increased Bleeding, Increased Pain/ Swelling, Increased Redness and Foul Smelling Discharge DC O2, CPAP, BIPAP Needs Home O2 Discharge instructions: No Please Follow Up With: Negrita Smith MD When: Call [phone] to make an appointment with your doctor in 6 weeks. If you had elevated blood pressure or 4th degree laceration, you will need to be seen in 2 weeks. Meaningful Use Info Meaningful Use Meaningful Use Diagnoses (Choose all that apply): None applicable Discharge Plan Admission Admit Date/Time: 03/27/25 11:00 Primary Reason for Your Visit: vaginal delivery Attending Provider: Negrita Smith Primary Care Provider: Care Physician,Karen Primary Discharge Orders/Prescriptions Prescriptions: No Action PNV 6 mg iron- 833.5 mcg DFE tablet 1 tab PO DAILY Referrals / Follow Up: Care Physician,No Primary [Primary Care Provider] - Disposition Disposition (needs filled in before D/C Order can be placed): Home, Self Care
[2025-03-29 08:41] VITALS: BP 98/53; PULSE 81
[2025-03-29 09:00] VITALS: BP 98/53; PULSE 81; RESP 16; TEMP 36.7
== END 2025-03-29 10:50 | disposition home or self-care (01) | DRG 805 ==
LOC: WPOUT 11:04 → WP 11:04
PROVIDERS: Admitting Provider Obstetrics & Gynecology; Visit Provider Obstetrics & Gynecology
DX: O36.5930 Maternal care for other known or suspected poor fetal growth, third trimester, not applicable or unspecified (principal); Z37.0 Single live birth; O60.14X0 Preterm labor third trimester with preterm delivery third trimester, not applicable or unspecified; Z3A.28 28 weeks gestation of pregnancy
CPT/HCPCS: 59025; 59050; 85025; 86780; 86850; 86900; 86901; 99221; G0378

== ENCOUNTER 2025-04-02 15:48 | Outpatient (CLI) | payer SELFPAY ==
--- OUTSIDE RECORDS SUMMARY | 2025-04-02 15:53 | XMS RPT_ITS | CCD ---
Author Organization [facility] Care Team Providers Care Polysomnography Technologist Name Role Phone No, Physician Primary Care Provider UnavailGIOVANNI Rogers Attending Unavailable NO, PHYSICIAN Primary Care Unavailable Dr. Mikayla Ferrer DO Attending Provider Dr. Mikayla Ferrer DO Referring Provider Rosa M Moran CNM Attending Provider [phone] Rosa M Moran CNM Referring Provider [phone] Sanjay LANCE, Dr. Vega Attending Provider Dr. Gary Grace MD Emergency Provider Care Physician, No Primary Primary Care Provider Unavailable Dr. Negrita Gomez MD Attending Provider [phone] Care Physician, No Primary Referring Provider Un available Dr. Negrita Gomez MD Referring Provider [phone] Shereen Amos CNM Attending Provider [phone] NO PRIMARY CARE, MD Primary Care Unavailable NEGRITA GOMEZ Referring UnavailDELMA Wing Attending Unavailable Care Physician, No Primary Primary Care Provider Unavailable Care Physician, No Primary Referring Provider Un available Dr. Mikayla Ferrer DO Attending Provider Dr. Negrita Gomez MD Attending Provider Dr. Negrita Gomez MD Referring Provider [phone] Paola Mann Attending Provider [phone] Jose Cochran Attending Provider Shereen Amos CNM Referring Provider Care Physician, No Primary Primary Care Provider Unavailable Care Physician, No Primary Referring Provider Un available Shereen Amos CNM Attending Provider Dandre CNM, Shereen Other Provider Luis LANCE, Dr. Rees Admit Provider [phone] Luis LANCE, Dr. Rees Attending Provider Luis LANCE, Dr. Rees Other Provider [phone] Dean GO, Rosa M Attending Provider [phone] Amy Gutierrez DO, Dr. Degroot Attending Provider Rosa M Moran Referring Unavailable Rosa M Moran Attending Unavailable Negrita Gomez Attending Unavailable Care Physician, No Primary Primary Care Unava ilable Negrita Gomez Referring Unavailable Vande VeldeMikayla Referring Unavailabl e Vande VelMikayla hermosillo Attending Unavailabl e Care Physician, No Primary Primary Care Unava ilable Shereen Amos Attending Unavailable Care Physician, No Primary Primary Care Unava ilable Care Physician, No Primary Referring Unava ilable Vande VelMikayla hermosillo Referring Unavailabl e Vande VeldeMikayla Attending Unavailabl e Care Physician, No Primary Primary Care Unava ilable Gray Grace Attending Unavailable Care Physician, No Primary Primary Care Unava ilable Negrita Gomez Admitting Unavailable Negrita Gomez Attending Unavailable Shereen Amos Referring Unavailable Shereen Amos Attending Unavailable Care Physician, No Primary Primary Care Unava ilable Care Physician, No Primary Referring Unava ilable Vande VelMikayla hermosillo Attending Unavailabl e Care Physician, No Primary Primary Care Unava ilable Care Physician, No Primary Referring Unava ilable Cami SUPERINTENDENT TERMINALPaola Attending Unavailable Care Physician, No Primary Primary Care Unava ilable Care Physician, No Primary Primary Care Unava ilable Negrita Gomez Attending Unavailable Negrita Gomez Referring Unavailable Care Physician, No Primary Primary Care Unava ilable Negrita Gomez Attending Unavailable Negrita Gomez Referring Unavailable Vande VelMikayla hermosillo Attending Unavailabl e Care Physician, No Primary Referring Unava ilable Jose Cochran Attending Unavailable Care Physician, No Primary Primary Care Unava ilable Rosa M Moran Attending Unavailable Negrita Gomez Attending Unavailable Care Physician, No Primary Primary Care Unava ilable Care Physician, No Primary Referring Unava ilable Care Physician, No Primary Primary Care Unava ilable Negrita Gomez Attending Unavailable Care Physician, No Primary Referring UnaShereen Fontaine Referring Unavailable Shereen Amos Attending Unavailable Shereen Amos Consulting Unavailable Care Physician, No Primary Primary Care Unava ilable Care Physician, No Primary Primary Care Unava ilable Negrita Gomez Consulting Unavailable Negrita Gomez Admitting Unavailable Rosa M Moran Attending Unavailable Negrita Gomez Attending Unavailable Mikayla Ferrer Attending Unavailabl e Medications Current Medications Medication Drug Class(es) Dates [...] 14 tablet 0 06/07/2023 06/14/2023 Active Vit 959-Niha-Kuxulg 6 (Giovanni Pnv) 6 mg iron- 833.5 mcg DFE tablet (4 sources) Start: 08-12-2024 take 6 tablets by mouth once daily Vit 385-Yysg-Pcakje 6 (Giovanni Pnv) 6 mg iron- 833.5 mcg DFE tablet Active 1 {tbl} PO DAILY August 12, 2024 1:00am pregnanc Start: 08-12-2024 take 6 tablets by mo uth once daily Vit 490-Hqht-Ktjjsf 6 ( Pnv) 6 mg iron- 833.5 mcg DFE tablet Active 1 {tbl} PO DAILY August 12, 2024 1:00am Start: 08-12-2024 Vit 1 94-Bbcs-Dznmlf 6 ( Pnv) 6 mg iron- 833.5 mcg DFE tablet Active {tbl} PO August 12, 2024 1:00am Completed/Discontinued Medications Medication Drug Class(es) Dates Sig (Normalized) Sig (Original) acetaminophen 325 mg / oxyCODONE hydrochloride 5 mg oral tablet (4 sources) Opioid Agonist Start: 04-09-2024 End: 04-16-2024 Oxycodone-Acetamin ophen (Percocet) 5-325 mg tablet Discontinued 1 {tbl} PO EVERY 6 HOURS 14 7 0 April 09, 2024 April 15, 2024 12:00am April 16, 2024 12:04am Acute pain in female pelvis Pelvic and perineal pain miSOPROStol 0.2 mg oral tablet (4 sources) Prostaglandin E1 Analog Start: 04-09-2024 End: 04-16-2024 Misoprostol (Cytotec) 200 mcg tablet Discontinued 800 ug PO .complex 8 1 April 09, 2024 12:00am April 16, 2024 11:32am 4 tablets orally and then repeat in 48 hours Mv-Mins 60-Ejik-Tngog No.1-Dha (Pnv-Charlotte) 28-1-300 mg capsule (4 sources) Start: 03-23-2024 End: 04-16-2024 Mv-Mins 63-Anvz-Zcofx No.1-Dha (Pnv-Charlotte) 28-1-300 mg capsule Discontinued NMA PO March 23, 2024 12:00am April 16, 2024 11:35am naproxen 500 mg oral tablet (4 sources) Nonsteroidal Anti-inflammatory Drug Start: 04-09-2024 End: 04-16-2024 Naproxen 500 mg tablet Discontinued 500 mg PO 2 to 3 times per day as needed for pain 30 2 April 09, 2024 12:00am April 16, 2024 11:35am Abnormal uterine bleeding Abnormal uterine and vaginal bleeding, unspecified administer with food or milk Triamcinolone (7 sources) Corticosteroid Start: 01-27-2025 End: 03-27-2025 Triamcinolone Acetonide 0.1 % ointment Discontinued 1 NMA TOPICAL TWICE A DAY 80 0 January 27, 2025 12:00am March 27, 2025 10:24am Apply to all affected areas BID x 14 days. Start: 01-27-2025 Triamcinolone Acetonide 0.1 % ointment Active 1 NMA TOPICAL TWICE A DAY 80 January 27, 2025 12:00am Apply to all affected areas BID x 14 days. Start: 03-08-2024 End: 03-23-2024 Triamcinolone Acetonide 0.1 % ointment Discontinued 1 NMA TOPICAL TWICE A DAY 30 0 March 08, 2024 12:00am March 23, 2024 9:03am Apply to all affected areas BID up to 14 days. Problems Active Problems Problem Classification Problem Date Documented Date Episodic/Chronic Allergic reactions (11 sources) Contact dermatitis due to poison harris; Translations: [Allergic contact dermatitis due to plants, except food] Onset: 03-29-2025 08-12-2024 Episodic Immunizations and screening for infectious disease (4 sources) Patient encounter status; Translations: [Encounter for screening for infections with a predominantly sexual mode of transmission] 03-23-2024 Episodic Other complications of (4 sources) Missed miscarriage; Translations: [Missed ] 08-23-2024 Episodic Comment on above: SM consulted and opt ions discussed by SM with pt Other complications of (5 sources) High risk ; Translations: [Supervision of high risk , unspecified, unspecified trimester] 09-09-2024 Episodic Other complications of (4 sources) Pain in female pelvis; Translations: [Other specified related conditions, unspecified trimester] 08-12-2024 Episodic Other complications of (9 sources) Asymmetrical growth retardation; Translations: [Maternal care for other known or suspected poor growth, unspecified trimester, not applicable or unspecified] 11-12-2024 Episodic Comment on above: referral MFM for gudelia gregorio referral MFM for gudelia gregorio: 11/19 40%/nl. Rpt 12/20: Other complications of (2 sources) Reduced movement; Translations: [Decreased movements, unspecified trimester, not applicable or unspecified] 03-27-2025 Episodic Comment on above: now with good moveme nt, reactive nst Other complications of (2 sources) Maternal care for other known or suspected poor growth, unspecified trimester, not applicable or unspecified; Translations: [Maternal care for other known or suspected poor growth, unspecified trimester, not applicable or unspecified] Onset: 03-29-2025 Episodic Other complications of (1 source) Decreased movements, unspecified trimester, not applicable or unspecified; Translations: [Decreased movements, unspecified trimester, not applicable or unspecified] Onset: 02-10-2025 Episodic Other complications of (1 source) Decreased movements, third trimester, not applicable or unspecified; Translations: [Decreased movements, third trimester, not applicable or unspecified] Onset: 02-10-2025 Episodic Other female genital disorders (1 source) [...] on above: , KEVIN 11/01/24, H lore Wbebw , KEVIN 03/22/25, H lore Aubrey plan NIPT w/gender & declined carrier testing PRR , KEVIN 5, Aubrey SM-boy Residual codes; unclassified (2 sources) 23 weeks gestation of ; Translations: [23 weeks gestation of ] Onset: 03-29-2025 Episodic Past or Other Problems Problem Classification Problem Date Documented Da te Episodic/Chronic Abdominal pain (6 sources) Pain in pelvis; Translations: [Pelvic and perineal pain] Onset: 04-09-2024 08-06-2024 Episodic Other complications of (1 source) Supervision [...] Test Name Value Interpretation Reference Range Facility Absolute lymphocyte countOrd ered By: Negrita Gomez on 03-27-2025 Lymphocytes Auto (Unsp spec) [#/Vol] 1.28 10*3/uL 0.83-4.51 [facility] Absolute neutrophil countOrd ered By: Negrita Gomez on 03-27-2025 Neutrophils (Bld) [#/Vol] 13.7 10*3/uL High 2.0-7.7 [facility] Automated lymphocyte count a s percentage of total leukocytesOrdered By: Negrita Gomez on 03-27-2025 Lymphocytes/100 WBC Auto (Unsp spec) 8.0 % Low 19-41 [facility] Basophil percentageOrdered B y: Negrita Gomez on 03-27-2025 Basophils/100 WBC (Bld) 0.2 % 0-1 [facility] CBC W/Diff, Automatedon 03-11 Absolute Lymph 1.28 X10 3/uL Normal 0.83-4.51 [facility] Comment on above: Performed By: #### Usman CONTEH, L100.0100 ####[facility] [address] [place], [address] Absolute Neut 13.7 X10 3/uL High 2.0-7.7 [facility] Comment on above: Performed By: #### Usman CONTEH, L100.0100 ####[facility] [address] [place], [address] Basophils/100 WBC (Bld) 0.2 % Normal 0-1 [facility] Comment on above: Performed By: #### Usman CONTEH, L100.0100 ####[facility] [address] [place], [address] Eosinophils/100 WBC (Bld) 0.1 % Normal 0-5 [facility] Comment on above: Performed By: #### Usman CONTEH, L100.0100 ####[facility] [address] [place], [address] Erythrocyte distribution width (RBC) [Ratio] 12.9 % Normal 11.6-14.6 [facility] Comment on above: Performed By: #### Usman CONTEH, L100.0100 ####[facility] [address] [place], [address] Hematocrit (Bld) [Volume fraction] 36.4 % Low 37-47 [facility] Comment on above: Performed By: #### Usman CONTEH, L100.0100 ####[facility] [address] [place], [address] Hemoglobin (Bld) [Mass/Vol] 12.6 g/dL Normal 12.0-15.0 [facility] Comment on above: Performed By: #### Usman CONTEH, L100.0100 ####[facility] [address] [place], [address] IG% 0.900 Normal 0.0-0.9 [facility] Comment on above: Result Comment: IG% - Immature Granulocytes (promyelocytes, myelocytes and metamyelocytes) > 1% indicates that a LEFT SHIFT is Present. Performed By: #### Usman CONTEH, L100.0100 ####[facility] [address] [place], [address] Lymphocytes/100 WBC (Bld) 8.0 % Low 19-41 [facility] Comment on above: Performed By: #### Usman CONTEH, L100.0100 ####[facility] [address] [place], [address] MCH (RBC) [Entitic mass] 30.9 pg Normal 27.0-32.0 [facility] Comment on above: Performed By: #### Usman CONTEH, L100.0100 ####[facility] [address] [place], [address] MCHC (RBC) [Mass/Vol] 34.6 g/dL Normal 32-36 [facility] Comment on above: Performed By: #### Usman CONTEH, L100.0100 ####[facility] [address] [place], [address] MCV (RBC) [Entitic vol] 89.2 fL Normal 81-99 [facility] Comment on above: Performed By: #### Usman CONTEH, L100.0100 ####[facility] [address] [place], [address] Monocytes/100 WBC (Bld) 5.8 % Normal 0-10 [facility] Comment on above: Performed By: #### Usman CONTEH, L100.0100 ####[facility] [address] [place], [address] Neutrophils/100 WBC (Bld) 85.0 % High 47-70 [facility] Comment on above: Performed By: #### Usman CONTEH, L100.0100 ####[facility] [address] [place], [address] Nucleated RBC (Bld) [#/Vol] 0 10*3/uL Normal 0-5 [facility] Comment on above: Performed By: #### Usman CONTEH, L100.0100 ####[facility] [address] [place], [address] Platelet mean volume (Bld) [Entitic vol] 9.2 fL Normal 6.2-12.0 [facility] Comment on above: Performed By: #### Usman CONTEH, L100.0100 ####[facility] [address] [place], [address] Platelets (Bld) [#/Vol] 215 10*3/uL Normal 150-450 [facility] Comment on above: Performed By: #### Usman CONTEH, L100.0100 ####[facility] [address] [place], [address] RBC (Bld) [#/Vol] 4.08 10*6/uL Low 4.2-5.4 [facility] Comment on above: Performed By: #### Usman CONTEH, L100.0100 ####[facility] [address] [place], [address] RDW SD 42.1 fl Normal 35.1-43.9 [facility] Comment on above: Performed By: #### B TS, L100.0100 ####[facility] [address] [place], [address] WBC (Bld) [#/Vol] 16.1 10*3/uL High 4.4-11.0 [facility] Comment on above: Performed By: #### B TS, L100.0100 ####[facility] [address] [place], [address] Discharge Instructionon 03-11 Discharge Instruction [facility] Medical Records Department [address] [place] [address] Instructions for Home/Discharge Instructions 03/27/25 1655 MR#: [id number] Acct: [id number] Name: JOI DANIEL Rep #: [id number] : 2000 25 From: Negrita Gomez MD PCP: Herber Physician,Karen Primary Status:ADM IN Discharge Instructions DC O2, CPAP, BIPAP needs Home O2 Discharge instructions: No Dressing / Incision Discharge Activity: Return to Normal Activity, May Not Drive (while taking narcotic pain medications.) and May Shower May resume sexual activity in: 4-6 weeks Dressing / Incision Call your doctor if your incision/area has: Continuous Slow Oozing, Sudden Increased Bleeding, Increased Pain/ Swelling, Increased Redness and Foul Smelling Discharge Follow Up Care Please Follow Up With: Negrita Gomez MD When: Call [phone] to make an appointment with your doctor in 6 weeks. If you had elevated blood pressure or 4th degree laceration, you will need to be seen in 2 weeks. Test Results: Test results from this visit will be discussed in further detail at your follow-up appointment, if applicable. Discharge Plan Admission Admit Date/Time: 03/27/25 11:00 Attending Provider: Negrita Gomez Primary Care Provider: Care Physician,Karen Primary Discharge Orders/Prescription s Prescriptions: No Action Giovanni PNV 6 mg iron- 833.5 mcg DFE tablet 1 tab PO DAILY Referrals / Follow Up: Care Physician,No Primary [Primary Care Provider] - 03/27/25 0035 Negrita Gomez MD CC: No Primary Care Physician Signed Normal [facility] Eosinophil percentageOrdered By: Negrita Gomez on 03-27-2025 Eosinophils/100 WBC (Bld) 0.1 % 0-5 [facility] Erythrocyte distribution wid th ratioOrdered By: Negrita Gomez on 03-27-2025 Erythrocyte distribution width (RBC) [Ratio] 12.9 % 11.6-14.6 [facility] Erythrocyte distribution wid th standard deviationOrdered By: Negrita Gomez on 03-27-2025 Erythrocyte distribution width (RBC) [Ratio] 42.1 fl 35.1-43.9 [facility] H AND P Exam - OB/GYNon 03-11 H&P Exam - [facility] Medical Records Department [address] [place] [address] H P Exam - [facility] 03/27/25 1036 MR#: [id number] Acct: [id number] Name: JOI DANIEL Rep #: [id number] : 2000 25 From: Negrita Gomez MD PCP: Care Physician,No Primary Status:ADM IN Location: [id number] HPI - General General Date of Admission: 03/27/25 HPI Narrative JOI DANIEL, is a 25 F who presents IAL regular ctx was 2 now 4 cm no vb lof good fm. she hasn't been seen by our practice since 24 weeks she has been planning on a home [facility] Medical History Poison harris dermatitis Pelvic pain affecting Supervision of normal first Screening examination for STI Home Medications ???Medication ???Instructions ???Recorded ???Last Taken ???Type vit no.164-ferrous 1 tab PO DAILY pregnanc 08/12/24 0 01/29/25 History gluconate 6 mg-folate 833.5 mcg DFE tablet ( PNV) Allergy/AdvReac Type Severity Reaction Status Date / Time No Known Allergies Allergy Verified 03/27/25 10:24 Family History Grandmother Stillbirth maternal paternal each with 1 stillborn Colon cancer Uncle Cancer Paternal- throat cancer Mother Family history of recurrent miscarriage 3 miscarriages Surgical History History of root canal procedure [place] teeth extracted Social History adopted: No household [...] physical activity do you participate in: none manuelito/protestant: Gnosticism seatbelt use: always do you feel safe at home: Yes 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 Hx Para 0 [...] 7weeks NST FHR Rate Baby A Baseline: 140 Variability:: Moderate Accelerations:: 15 x 15 Decelerations:: None NST Reactive:: Yes FHR Category:: Category I Uterine Activity:: q3-5 ROS Constitutional Constitutional: Reports systems reviewed and no addt'l complaints, except as documented ENT HEENT: Reports systems reviewed and no addt'l complaints, except as documented Cardiovascular Cardiovascular: Reports systems reviewed and no addt'l complaints, except as documented Respiratory/Chest Respiratory/Chest: Reports systems reviewed and no addt'l complaints, except as documented Gastrointestinal Gastrointestinal: Reports systems reviewed and no addt'l complaints, except as documented and nausea; Denies abdominal pain Genitourinary Genitourinary: Reports systems reviewed and no addt'l complaints, except as documented, contractions Details: present and frequency (regular ) and movement Details: present Musculoskeletal Musculoskeletal: Reports systems reviewed and no addt'l complaints, except as documented Integumentary Integumentary: Reports as per HPI Neurologic Neurologic: Reports systems reviewed and no addt'l complaints, except as documented Endocrine Endocrinology: Reports systems reviewed and no addt'l complaints, except as documented Vital Signs Vital Signs Vital Signs: 03/27/25 10:10 03/27/25 10:10 03/27/25 10:10 Temperature Temperature Source Temporal Pulse Rate 90 Blood Pressure 121/75 H BP Systolic 121 BP Diastolic 75 03/27/25 10:10 Temperature 98.5 F Temperature Source Pulse Rate Blood Pressure BP Systolic BP Diastolic Weight Weight: 178 lb 2.136 oz Body Mass Index (BMI) 30.5 Physical Exam Const alert, oriented x3 and healthy appearing Constitutional Narrative: uncomfortable with contractions HEENT normocephalic and moist oral mucous membranes Head and Scalp: atraumatic Neck full ROM, no lymphade (more content not included)... Normal [facility] Hematocrit Auto (Bld) [Volum e fraction]Ordered By: Negrita Gomez on 03-27-2025 Hematocrit (Bld) [Volume fraction] 36.4 % Low 37-47 [facility] Hemoglobin measurementOrdere d By: Negrita Gomez on 03-27-2025 Hemoglobin (Bld) [Mass/Vol] 12.6 g/dL 12.0-15.0 [facility] Immature granulocytes/100 WB C Auto (Bld)Ordered By: Negrita Gomez on 03-27-2025 Immature granulocytes/100 WBC (Bld) 0.900 % 0.0-0.9 [facility] Comment on above: IG% - Immature Granu locytes (promyelocytes, myelocytes and metamyelocytes) > 1% indicates that a LEFT SHIFT is Present. MCV (mean corpuscular volume ) determinationOrdered By: Negrita Gomez on 03-27-2025 MCV (RBC) [Entitic vol] 89.2 fL 81-99 [facility] MR/OB.VAGSHARIon 03-27-2025 MR/OB.LUTHERI [facility] Medical Records Department [address] [place] [address] OB Vaginal Delivery 03/27/25 1653 MR#: [id number] Acct: [id number] Name: JOI DANIEL Rep #: [id number] : 2000 25 From: Negrita Gomez MD PCP: Care Physician,No Primary Status:ADM IN Location: [place] [address] Assessment Plan (1) Asymmetric IUGR affecting , antepartum: COMMENT: referral MFM for anatomy: 11/19 40%/nl. Rpt 12/20: (2) Supervision of normal : QUALIFIERS: Normal : normal first Trimester: second trimester Qualified Code(s): Z34.02 - Encounter for supervision of normal first , second trimester COMMENT: PRR , KEVIN 03/22/25, Aubrey (3) : QUALIFIERS: Weeks of gestation: 23 weeks Qualified Code(s): Z3A.23 - 23 weeks gestation of COMMENT: plan NIPT w/gender declined carrier testing (4) Active labor at term: Vaginal Delivery Maternal Presentation Maternal Presentation: see assessment and plan Vaginal Delivery Information Procedure Performed: Spontaneous Vaginal Delivery Surgeon/Practitione r: Negrita Gomez Pre-Procedure Diagnosis: see assessment and plan Post-Procedure Diagnosis: same Type of anesthesia: Epidural Findings Description of procedure: Patient began pushing and delivered the head in the HOOD presentation. The head was delivered atraumatically . The anterior and posterior shoulders delivered without complication followed by the rest of the and the infant was placed on the maternal abdomen. Delayed cord clamping was employed for approximately 60 seconds. Cord was clamped and cut and gentle traction was applied to the cord and the placenta delivered spontaneously immediately following it was noted to be intact with three-vessel cord. The perineum and vagina were inspected and noted to have no laceration. EBL was 100 cc. Patient and tolerated delivery well. Presentation: Vertex Placental Delivery Description: Spontaneous Specimen collected: Yes Description of specimen(s) removed: placenta Home Based Assistant seed analysis laboratory assistant: No Post Vaginal Deli Medications given after delivery: Other (pitocin) Complication Complications: No Multi Select Codes Urinary/Genital Urinary/Genital CPT Codes: 03668 Vaginal Delivery global pkg 03/27/25 1654 Cosigner Signature (if applicable): CC: Dr. Negrita Gomez MD; No Primary Care Physician Signed Normal [facility] Mean corpuscular hemoglobin (MCH) determinationOrdered By: Negrita Gomez on 03-27-2025 MCH (RBC) [Entitic mass] 30.9 pg 27.0-32.0 [facility] Mean corpuscular hemoglobin concentration (MCHC) determinationOrdered By: Negrita Gomez on 03-27-2025 MCHC (RBC) [Mass/Vol] 34.6 g/dL 32-36 [facility] Mean platelet volume determi nationOrdered By: Negrita Gomez on 03-27-2025 Platelet mean volume (Bld) [Entitic vol] 9.2 fL 6.2-12.0 [facility] Monocyte percentageOrdered B y: Negrita Gomez on 03-27-2025 Monocytes/100 WBC (Bld) 5.8 % 0-10 [facility] Neutrophil percentageOrdered By: Negrita Gomez on 03-27-2025 Neutrophils/100 WBC (Bld) 85.0 % High 47-70 [facility] Nucleated red blood cell per centageOrdered By: Negrita Gomez on 03-27-2025 Nucleated RBC/100 WBC (Bld) [Ratio] 0 % 0-5 [facility] Platelet countOrdered By: Sari Gomez on 03-27-2025 Platelets (Bld) [#/Vol] 215 10*3/uL 150-450 [facility] RBC Auto (Bld) [#/Vol]Ordere d By: Negrita Gomez on 03-27-2025 RBC (Bld) [#/Vol] 4.08 10*6/uL Low 4.2-5.4 [facility] Syphilis Antibodieson 2024 Syphilis Abs Non-Reactive Normal Nonreactive [facility] Comment on above: Performed By: #### L 509.8002 ####[facility] [address] [place], [address] Type AND Screenon 03-27-2025 Ab SCREEN GEL Negative Normal [facility] Comment on above: Order Comment: Labor Performed By: #### B TS, L100.0100 ####[facility] [address] [place], [address] White blood cell (WBC) count Ordered By: eNgrita Gomez on 03-27-2025 WBC (Bld) [#/Vol] 16.1 10*3/uL High 4.4-11.0 [facility] OB Triage Physician Noteon 0 01-30-2025 OB Triage Physician Note [facility] Medical Records Department [address] [place] [address] OB Triage Physician Note 01/30/25 1502 MR#: [id number] Acct: [id number] Name: JOI DANIEL Rep #: [id number] : 2000 24 From: Shereen Amos CNM PCP: Care Physician,No Primary Status:DEP CLI Y Location: [facility] HPI - General HPI Narrative JOI DANIEL, is a 24 F who presents at 32.4 with decreased movement overall, still having 10 movements per hour. planning a home and desired wellbeing check. 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 See problem list details for additional plan information. Charges/Coding Procedures Urinary/Genital 52xxx-59xxx: 03730-99 non-stress test Interp 01/30/25 1504 Date Shereen Dandre GO Cosigner Signature (if applicable): Date __ CC: ABBI Amos; No Primary Care Physician Signed Normal [facility] Office Visit Reporton 2024 Office Visit Report [facility] [address] [place] [address] OFFICE VISIT Date of Service: 01/27/25 MR#: [id number] Acct: [id number] Patient: JOI DANIEL Rep #: [id number] : 2000 Provider: BETTINA West Age/Sex: 24/F Location: [facility] Status: Signed Intake Vital Signs 11/29/24 09:55 [...] Surgical History History of root canal procedure [place] teeth extracted Family History Grandmother Stillbirth maternal [...] physical activity do you participate in: none manuelito/protestant: Gnosticism seatbelt use: always do you feel safe at home: Yes 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 ROS Const Constitutional: No chills, fatigue or [...] Cosigner Signature: Date (if applicable) CC: Normal [facility] Laboratory - Chemistry and C hemistry - challengeOrdered By: Paola Almanza on 11-29-2024 Glucose Ql (U) Negative [facility] - UrinalysisOrder ed By: Paola Almanza on 11-29-2024 Protein Ql (U) Negative [facility] 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 Office Visit Reporton 11-29-2024 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 Office Visit Report [facility]'s [address], [address] [place] [address] OFFICE VISIT Date of Service: 11/29/24 MR#: [id number] Acct: [id number] Name: JOI DANIEL Rep #: [id number] : 2000 Provider: UMESH osborne Age/Sex: 24/F Location: [facility] Status: Signed Intake Vital Signs 08/23/24 11:16 08/23/24 11:19 11/01/24 13:15 11/29/24 09:55 Height 5 ft 4 in 5 ft 4 in 5 ft 4 in 5 ft 4 in Weight: 164 lb BMI 28.1 BP 120/74 Intake Visit Reasons: 24 wk ob Chief Complaint: 24 Week OB Fitness Teacher Required: No Is patient in pain?: No [...] Surgical History History of root canal procedure [place] teeth extracted Family History Grandmother Stillbirth maternal [...] physical activity do you participate in: none manuelito/protestant: Gnosticism seatbelt use: always do you feel safe at home: Yes 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 Normal [facility] OB Anatomy w/ Transvaginalon 11-10-2024 OB Anatomy w/ Transvaginal [facility] Imaging Services [address] [place] [address] OB Anatomy w/ Transvaginal MR#: [id number] Acct: [id number] Name: JOI DANIEL Rep #: [id number] : 2000 F 24 From: Johnny tate MD PCP: Care Physician,No Primary Status: REG CLI Study: OB Anatomy w/ Transvaginal Date of Exam: 11/10 Exam# [id number] Ordering Dr: Negrita Gomez PROCEDURE: OB ANATOMY [...] the biometry. Clinical correlation recommended. Reading Location: [place] [address] CC: Dr. Negrita Gomez MD; No Primary Care Physician Finance Clerk: Signed Normal [facility] Laboratory - Chemistry and C hemistry - challengeOrdered By: Mikayla Gutierrez on 11-01-2024 Glucose Ql (U) Negative [facility] Laboratory - UrinalysisOrder ed By: Mikayla Gutierrez on 11-01-2024 Protein Ql (U) Negative [facility] 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 Office Visit Reporton 11-01-2024 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 Office Visit Report [facility]'s [address], [address] [place] [address] OFFICE VISIT Date of Service: 11/01/24 MR#: [id number] Acct: [id number] Name: JOI DANEIL Rep #: [id number] : 2000 Provider: Dr. Mikayla Fraser DO Age/Sex: 24/F Location: [facility] Status: Signed Intake Vital Signs 08/23/24 11:16 10/08/24 08:51 11/01/24 13:15 11/01/24 13:15 Height 5 ft 4 in 5 ft 4 in 5 ft 4 in 5 ft 4 in Weight: 155 lb 8 oz 160 lb 4 oz BMI 26.6 27.5 BP 115/74 131/81 H Intake Visit Reasons: 20 wk ob Fitness Teacher Required: No Is patient in pain?: No [...] Surgical History History of root canal procedure [place] teeth extracted Family History Grandmother Stillbirth maternal [...] physical activity do you participate in: none manuelito/protestant: Gnosticism seatbelt use: always do you feel safe at home: Yes 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 ?-??? (more content not included)... Normal [facility] - Chemistry and C hemistry - challengeOrdered By: Shereen Amos on 10-08-2024 Glucose Ql (U) Negative [facility] Laboratory - UrinalysisOrder ed By: Shereen Amos on 10-08-2024 Protein Ql (U) Negative [facility] 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 Office Visit Reporton 10-08-2024 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 Office Visit Report [facility] Care [address], [address] [place] [address] OFFICE VISIT Date of Service: 10/08/24 MR#: [id number] Acct: [id number] Name: JOI DANIEL Rep #: [id number] : 2000 Provider: ABBI brito Age/Sex: 24/F Location: [facility] Status: Signed Intake Vital Signs 08/23/24 11:16 09/09/24 15:39 10/08/24 08:51 Height 5 ft 4 in 5 ft 4 in 5 ft 4 in Weight: 155 lb 8 oz BMI 26.6 BP 115/74 Intake Visit Reasons: 16 wk ob Fitness Teacher Required: No Is patient in pain?: No [...] Surgical History History of root canal procedure [place] teeth extracted Family History Grandmother Stillbirth maternal [...] physical activity do you participate in: none manuelito/protestant: Gnosticism seatbelt use: always do you feel safe at home: Yes 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 ?-???-???-???-??? (more content not included)... Normal [facility] Absolute neutrophil countOrd ered By: Negrita Gomez on 09-09-2024 Neutrophils (Bld) [#/Vol] 5.0 10*3/uL 2.0-7.7 [facility] Basophil percentageOrdered B y: Negrita Gomez on 09-09-2024 Basophils/100 WBC (Bld) 0.3 % 0-1 [facility] CBC W/Diff, Automatedon 08-13-2024 Absolute Lymph 1.47 X10 3/uL Normal 0.83-4.51 [facility] Comment on above: Performed By: #### B TS, L509.4005, L509.8000, L3890.6300, L100.0100, L3890.6100, L3890.6005 #### [facility] [address] [place], [address] Absolute Neut 5.0 X10 3/uL Normal 2.0-7.7 [facility] Comment on above: Performed By: #### B TS, L509.4005, L509.8000, L3890.6300, L100.0100, L3890.6100, L3890.6005 #### [facility] [address] [place], [address] Basophils/100 WBC (Bld) 0.3 % Normal 0-1 [facility] Comment on above: Performed By: #### B TS, L509.4005, L509.8000, L3890.6300, L100.0100, L3890.6100, L3890.6005 #### [facility] [address] [place], [address] Eosinophils/100 WBC (Bld) 1.0 % Normal 0-5 [facility] Comment on above: Performed By: #### B TS, L509.4005, L509.8000, L3890.6300, L100.0100, L3890.6100, L3890.6005 #### [facility] [address] [place], [address] Erythrocyte distribution width (RBC) [Ratio] 13.6 % Normal 11.6-14.6 [facility] Comment on above: Performed By: #### B TS, L509.4005, L509.8000, L3890.6300, L100.0100, L3890.6100, L3890.6005 #### [facility] [address] [place], [place], [id number] (615) Hematocrit (Bld) [Volume fraction] 34.1 % Low 37-47 [facility] Comment on above: Performed By: #### B TS, L509.4005, L509.8000, L3890.6300, L100.0100, L3890.6100, L3890.6005 #### [facility] [address] [place], [place], [id number] (618) Hemoglobin (Bld) [Mass/Vol] 11.3 g/dL Low 12.0-15.0 [facility] Comment on above: Performed By: #### B TS, L509.4005, L509.8000, L3890.6300, L100.0100, L3890.6100, L3890.6005 #### [facility] [address] [place], [address] IG% 0.100 Normal 0.0-0.9 [facility] Comment on above: Result Comment: IG% - Immature Granulocytes (promyelocytes, myelocytes and metamyelocytes) > 1% indicates that a LEFT SHIFT is Present. Performed By: #### B TS, L509.4005, L509.8000, L3890.6300, L100.0100, L3890.6100, L3890.6005 #### [facility] [address] [place], [address] Lymphocytes/100 WBC (Bld) 20.9 % Normal 19-41 [facility] Comment on above: Performed By: #### B TS, L509.4005, L509.8000, L3890.6300, L100.0100, L3890.6100, L3890.6005 #### [facility] [address] [place], [address] MCH (RBC) [Entitic mass] 29.4 pg Normal 27.0-32.0 [facility] Comment on above: Performed By: #### B TS, L509.4005, L509.8000, L3890.6300, L100.0100, L3890.6100, L3890.6005 #### [facility] [address] [place], [address] MCHC (RBC) [Mass/Vol] 33.1 g/dL Normal 32-36 [facility] Comment on above: Performed By: #### B TS, L509.4005, L509.8000, L3890.6300, L100.0100, L3890.6100, L3890.6005 #### [facility] [address] [place], [address] MCV (RBC) [Entitic vol] 88.6 fL Normal 81-99 [facility] Comment on above: Performed By: #### B TS, L509.4005, L509.8000, L3890.6300, L100.0100, L3890.6100, L3890.6005 #### [facility] [address] [place], [address] Monocytes/100 WBC (Bld) 7.0 % Normal 0-10 [facility] Comment on above: Performed By: #### B TS, L509.4005, L509.8000, L3890.6300, L100.0100, L3890.6100, L3890.6005 #### [facility] [address] [place], [address] Neutrophils/100 WBC (Bld) 70.7 % High 47-70 [facility] Comment on above: Performed By: #### B TS, L509.4005, L509.8000, L3890.6300, L100.0100, L3890.6100, L3890.6005 #### [facility] [address] [place], [address] Nucleated RBC (Bld) [#/Vol] 0 10*3/uL Normal 0-5 [facility] Comment on above: Performed By: #### B TS, L509.4005, L509.8000, L3890.6300, L100.0100, L3890.6100, L3890.6005 #### [facility] [address] [place], [address] Platelet mean volume (Bld) [Entitic vol] 9.8 fL Normal 6.2-12.0 [facility] Comment on above: Performed By: #### B TS, L509.4005, L509.8000, L3890.6300, L100.0100, L3890.6100, L3890.6005 #### [facility] [address] [place], [address] Platelets (Bld) [#/Vol] 200 10*3/uL Normal 150-450 [facility] Comment on above: Performed By: #### B TS, L509.4005, L509.8000, L3890.6300, L100.0100, L3890.6100, L3890.6005 #### [facility] [address] [place], [address] RBC (Bld) [#/Vol] 3.85 10*6/uL Low 4.2-5.4 [facility] Comment on above: Performed By: #### B TS, L509.4005, L509.8000, L3890.6300, L100.0100, L3890.6100, L3890.6005 #### [facility] [address] [place], [place], [id number] (088 RDW SD 44.4 fl High 35.1-43.9 [facility] Comment on above: Performed By: #### B TS, L509.4005, L509.8000, L3890.6300, L100.0100, L3890.6100, L3890.6005 #### [facility] [address] [place], [place], [id number] (488) WBC (Bld) [#/Vol] 7.1 10*3/uL Normal 4.4-11.0 [facility] Comment on above: Performed By: #### B TS, L509.4005, L509.8000, L3890.6300, L100.0100, L3890.6100, L3890.6005 #### [facility] [address] [place], [place], [address] Eosinophil percentageOrdered By: Negrita Gomez on 09-09-2024 Eosinophils/100 WBC (Bld) 1.0 % 0-5 [facility] Erythrocyte distribution wid th (RBC) [Ratio]Ordered By: Negrita Gomez on 09-09-2024 Erythrocyte distribution width (RBC) [Entitic vol] 44.4 fL High 35.1-43.9 [facility] Erythrocyte distribution wid th ratioOrdered By: Negrita Gomez on 09-09-2024 Erythrocyte distribution width (RBC) [Ratio] 13.6 % 11.6-14.6 [facility] HIV - WCHon 09-09-2024 HIV Non-Reactive Normal Nonreactive [facility] Comment on above: Order Comment: Reaso n for Exam: Performed By: #### B TS, L509.4005, L509.8000, L3890.6300, L100.0100, L3890.6100, L3890.6005 #### [facility] [address] [place], [address] HIV 1+2 Ab+HIV1 p24 Ag IA Ql Ordered By: Negrita Gomez on 09-09-2024 HIV (1&2) Antibody Non-Reactive Nonreactive [facility] Hematocrit Auto (Bld) [Volum e fraction]Ordered By: Negrita Gomez on 09-09-2024 Hematocrit (Bld) [Volume fraction] 34.1 % Low 37-47 [facility] Hemoglobin measurementOrdere d By: Negrita Gomez on 09-09-2024 Hemoglobin (Bld) [Mass/Vol] 11.3 g/dL Low 12.0-15.0 [facility] Hepatitis B Surface Antigeno n 09-09-2024 HEP B Surf Ag [facility]-Reactive [facility] Comment on above: Order Comment: Reaso n for Exam: Performed By: #### B TS, L509.4005, L509.8000, L3890.6300, L100.0100, L3890.6100, L3890.6005 #### [facility] [address] [place], [address] Hepatitis B surface antigen detectionOrdered By: Negrita Gomez on 09-09-2024 Hepatitis B Surface Antigen Non-Reactive Nonreactive [facility] Hepatitis C Antibodyon 09-09 Hepatitis C AB Non-Reactive Normal Nonreactive [facility] Comment on above: Order Comment: Reaso n for Exam: Result Comment: Non Reactive: < 0.8 Equivocal: >/= 0.8 to < 1.0 Reactive: >/= 1.0 The CDC requires that a reactive/equivocal HCV antibody result be sent out for confirmation. HCV Quant by PCR testing. Performed By: #### B TS, L509.4005, L509.8000, L3890.6300, L100.0100, L3890.6100, L3890.6005 #### [facility] [address] [place], [address] Hepatitis C virus antibody a ssayOrdered By: Negrita Gomez on 09-09-2024 Hepatitis C Antibody Non-Reactive Nonreactive [facility] Comment on above: Non Reactive: < 0.8 Equivocal: >/= 0.8 to < 1.0 Reactive: >/= 1.0The CDC requires that a reactive/equivocal HCV antibody result be sent out for confirmation. HCV Quant by PCR testing. Immature granulocytes/100 WB C Auto (Bld)Ordered By: Negrita Gomez on 09-09-2024 Immature granulocytes/100 WBC (Bld) 0.100 % 0.0-0.9 [facility] Comment on above: IG% - Immature Granu locytes (promyelocytes, myelocytes and metamyelocytes) > 1% indicates that a LEFT SHIFT is Present. L509.8000on 09-09-2024 Syphilis Abs Non-Reactive Normal [facility] Comment on above: Order Comment: Reaso n for Exam: Performed By: #### B TS, L509.4005, L509.8000, L3890.6300, L100.0100, L3890.6100, L3890.6005 #### [facility] [address] [facility] [place], [place], [address] Laboratory - Chemistry and C hemistry - challengeOrdered By: Negrita Gomez on 09-09-2024 Glucose Ql (U) Negative [facility] - UrinalysisOrder ed By: Negrita Gomez on 09-09-2024 Protein Ql (U) Negative [facility] Lymphocytes Auto (Unsp spec) [#/Vol]Ordered By: Negrita Gomez on 09-09-2024 Lymphocytes (Bld) [#/Vol] 1.47 10*3/uL 0.83-4.51 [facility] Lymphocytes/100 WBC Auto (Un sp spec)Ordered By: Negrita Gomez on 09-09-2024 Lymphocytes/100 WBC (Bld) 20.9 % 19-41 [facility] MCV (mean corpuscular volume ) determinationOrdered By: Negrita Gomez on 09-09-2024 MCV (RBC) [Entitic vol] 88.6 fL 81-99 [facility] Mean corpuscular hemoglobin (MCH) determinationOrdered By: Negrita Gomez on 09-09-2024 MCH (RBC) [Entitic mass] 29.4 pg 27.0-32.0 [facility] Mean corpuscular hemoglobin concentration (MCHC) determinationOrdered By: Negrita Gomez on 09-09-2024 MCHC (RBC) [Mass/Vol] 33.1 g/dL 32-36 [facility] Mean platelet volume determi nationOrdered By: Negrita Gomez on 09-09-2024 Platelet mean volume (Bld) [Entitic vol] 9.8 fL 6.2-12.0 [facility] Monocyte percentageOrdered B y: Negrita Gomez on 09-09-2024 Monocytes/100 WBC (Bld) 7.0 % 0-10 [facility] Neutrophil percentageOrdered By: Negrita Gomez on 09-09-2024 Neutrophils/100 WBC (Bld) 70.7 % High 47-70 [facility] Nucleated red blood cell per centageOrdered By: Negrita Gomez on 09-09-2024 Nucleated RBC/100 WBC (Bld) [Ratio] 0 % 0-5 [facility] 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 Office Visit Reporton 09-09-2024 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 Office Visit Report [facility]'[address], [address] [place] [address] OFFICE VISIT Date of Service: 09/09/24 MR#: [id number] Acct: [id number] Name: JOI DANIEL Rep #: [id number] : 2000 Provider: Dr. 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 Normal [facility] Platelet countOrdered By: Sari Gomez on 09-09-2024 Platelets (Bld) [#/Vol] 200 10*3/uL 150-450 [facility] RBC Auto (Bld) [#/Vol]Ordere d By: Negrita Gomez on 09-09-2024 RBC (Bld) [#/Vol] 3.85 10*6/uL Low 4.2-5.4 [facility] Rubella IgGon 09-09-2024 Rubella IgG Reactive Normal Nonreactive [facility] Comment on above: Order Comment: Reaso n for Exam: Result Comment: Anti body Results Interpretation of Immune Status Non Reactive Presumed Non-Immune Equivocal Equivocal Reactive Presumed Immune Performed By: #### B TS, L509.4005, L509.8000, L3890.6300, L100.0100, L3890.6100, L3890.6005 #### [facility] [address] [place], [place], [address] Rubella immune status IgGOrd ered By: Negrita Gomez on 09-09-2024 Rubella IgG Antibody Reactive Nonreactive [facility] Comment on above: Antibody Results Int erpretation of Immune Status Non Reactive Presumed Non-Immune Equivocal Equivocal Reactive Presumed Immune Treponema sp Ab Ql (S)Ordere d By: Negrita Gomez on 09-09-2024 Syphilis Total Antibody Non-Reactive [facility] Type AND Screenon 09-09-2024 Ab SCREEN GEL PENDING Normal [facility] Comment on above: Order Comment: PN Performed By: #### B TS, L509.4005, L509.8000, L3890.6300, L100.0100, L3890.6100, L3890.6005 ####[facility] [address] [place], [address] ABO and Rh group Nom (Bld) Blood group B Rh(D) positive Normal [facility] Comment on above: Order Comment: PN Performed By: #### B TS, L509.4005, L509.8000, L3890.6300, L100.0100, L3890.6100, L3890.6005 ####[facility] [address] [place], [place], [address] White blood cell (WBC) count Ordered By: Negrita Gomez on 09-09-2024 WBC (Bld) [#/Vol] 7.1 10*3/uL 4.4-11.0 [facility] PAP I-G w/rfx hrHPV-Aptimaon 08-27-2024 ADEQ Comment Normal . [facility] Comment on above: Order Comment: Speci men Comment: [id number] Comment: Source.............Cervix;EndocervixSpecimen Comment: LMP / Prev Treat...[id number] Comment: Other..............Specimen Comment: No. of containers..01 ThinPrep Vial Result Comment: Sati sfactory for evaluation. No endocervical component is identified. An endocervical component is not commonly seen in the patient. Performed By: #### L 7000.1800, M100.2200, L7400.0353 ####[facility] [address] [place], [place], [id number] COMM . Normal . [facility] Comment on above: Order Comment: Speci men Comment: [id number] Comment: Source.............Cervix;EndocervixSpecimen Comment: LMP / Prev Treat...[id number] Comment: Other..............Specimen Comment: No. of containers..01 ThinPrep Vial Performed By: #### L 7000.1800, M100.2200, L7400.0353 ####[facility] [address] [place], [place], [address] COMMENT Comment Normal . [facility] Comment on above: Order Comment: Speci men Comment: [id number] Comment: Source.............Cervix;EndocervixSpecimen Comment: LMP / Prev Treat...[id number] Comment: Other..............Specimen Comment: No. of containers..01 ThinPrep Vial Result Comment: This liquid based ThinPrep(R) pap test was screened with the use of an image guided system. Performed By: #### L 7000.1800, M100.2200, L7400.0353 ####[facility] [address] [place], [place], [address] DIAG Comment Normal . [facility] Comment on above: Order Comment: Speci men Comment: [id number] Comment: Source.............Cervix;EndocervixSpecimen Comment: LMP / Prev Treat...[id number] Comment: Other..............Specimen Comment: No. of containers..01 ThinPrep Vial Result Comment: NEGA TIVE FOR INTRAEPITHELIAL LESION OR MALIGNANCY. Performed By: #### L 7000.1800, M100.2200, L7400.0353 ####[facility] [address] [place], [place], [address] HPV RFLX Comment Normal . [facility] Comment on above: Order Comment: Speci men Comment: [id number] Comment: Source.............Cervix;EndocervixSpecimen Comment: LMP / Prev Treat...[id number] Comment: Other..............Specimen Comment: No. of containers..01 ThinPrep Vial Result Comment: The HPV DNA reflex criteria were not met with this specimen result therefore, no HPV testing was performed. Performed at: [address] [id number] Substation Engineer: Masood Polanco PhD, Phone: [phone] Performed at: [facility] [id number] Substation Engineer: Amber García MD, Phone: [phone] Performed By: #### L 7000.1800, M100.2200, L7400.0353 ####[facility] [address] [place], [place], [address] PAPSMR Comment Normal . [facility] Comment on above: Order Comment: Speci men Comment: [id number] Comment: Source.............Cervix;EndocervixSpecimen Comment: LMP / Prev Treat...[id number] Comment: Other..............Specimen Comment: No. of containers..01 ThinPrep [...] Performed By: #### L 7000.1800, M100.2200, L7400.0353 ####[facility] [address] [place], [address] PERFORM Comment Normal . [facility] Comment on above: Order Comment: Speci men Comment: [id number] Comment: Source.............Cervix;EndocervixSpecimen Comment: LMP / Prev Treat...HLB=[id number] Comment: Other..............Specimen Comment: No. of containers..01 ThinPrep Vial Result Comment: Mary Andrade, Clinic Lpn (ASCP) Performed By: #### L 7000.1800, M100.2200, L7400.0353 ####[facility] [address] [place], [address] Chlamydia/GC AFRICA aptimaon CHLAMY,NUC ACID Negative Normal Negative [facility] Comment on above: Performed By: #### L 7000.1800, M100.2200, L7400.0353 ####[facility] [address] [place], [address] GC BY NUC ACID Negative Normal Negative [facility] Comment on above: Result Comment: Perf ormed at: =G - [facility] [address] [id number] Substation Engineer: Amber García MD, Phone: [phone] Performed By: #### L 7000.1800, M100.2200, L7400.0353 ####[facility] [address] [place], [address] Urine Cultureon 08-24-2024 URC Culture exhibits no growth. Normal [facility] Comment on above: Performed By: #### L 7000.1800, M100.2200, L7400.0353 ####[facility] [address] [place], [address] C. trachomatis rRNA AFRICA+prob e Ql (Unsp spec)Ordered By: Negrita Gomez on 08-23-2024 Chlamydia DNA (AFRICA) Negative Negative [facility] Whale Trainer Cyto stain Nom (C vx/Vag) [ID]Ordered By: Negrita Gomez on 08-23-2024 Pap Smear Performed By Comment . [facility] Comment on above: Leana Andrade, Cyto technologist (ASCP) Cytology report Cyto stain D oc (Cvx/Vag)Ordered By: Negrita Gomez on 08-23-2024 Thin Prep Pap Smear Comment . [facility] Comment on above: The Pap smear is a s creening test designed to aid in thedetection of premalignant and malignant conditions of theuterine cervix. It is not a diagnostic procedure andshould not be used as the sole means of detecting cervicalcancer. Both false-positive and false-negative reports dooccur. Image-guided ThinPrep PapOrd ered By: Negrita Gomez on 08-23-2024 Pap Smear Note Comment . [facility] Comment on above: This liquid based Th inPrep(R) pap test was screened withthe use of an image guided system. Image-guided liquid-based Pa pOrdered By: Negrita Gomez on 08-23-2024 Pap Smear Diagnosis Comment . [facility] Comment on above: NEGATIVE FOR INTRAEP ITHELIAL LESION OR MALIGNANCY. Image-guided liquid-based ce rvical Pap w high-risk HPV+reflex to HPV 16+18Ordered By: Negrita Gomez on 08-23-2024 Human Papillomavirus Screen Comment . [facility] Comment on above: The HPV DNA reflex c jeramy were not met with this specimenresult therefore, no HPV testing was performed.Performed at: [facility] [place] [id number] Director: Masood Polanco PhD, Phone: [phone] at: [address] [id number] Director: Amber García MD, Phone: [phone] Neisseria gonorrhoeae nuclei c acid detection by amplified probe techniqueOrdered By: Negrita Gomez on 08-23-2024 N. gonorrhoeae DNA AFRICA+probe Ql (Unsp spec) Negative Negative [facility] Comment on above: Performed at: =G - L [address] [place], [place] [id number] Director: Amber García MD, Phone: [phone] 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 Office Visit Reporton 08-23-2024 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 Office Visit Report [facility] [address], [address] [place] [address] OFFICE VISIT Date of Service: 08/23/24 MR#: [id number] Acct: [id number] Name: JOI DANIEL Rep #: [id number] : 2000 Provider: Dr. Negrita felix MD Age/Sex: 24/F Location: [facility] Status: Signed Intake Vital Signs 04/16/24 11:35 07/20/24 13:47 07/29/24 16:15 08/23/24 10:23 Height 5 ft 4 in 5 ft 4 in 5 ft 4 in 5 ft 4 in Weight: 150 lb 4 oz BMI 25.7 BP 103/72 Intake Visit Reasons: New OB, LMP 11/, KEVIN 03/22 hx miscarriage Allergies No Known [...] Surgical History History of root canal procedure [place] teeth extracted Family History Grandmother Stillbirth maternal [...] physical activity do you participate in: none manuelito/protestant: Gnosticism seatbelt use: always do you feel safe at home: Yes 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 Negrita felix MD Age/Sex: 24/F Location: [facility] Status: Signed Intake Vital Signs 04/16/24 11:35 07/20/24 13:47 07/29/24 16:15 08/23/24 10:23 Height 5 ft 4 in 5 ft 4 in 5 ft 4 in 5 ft 4 in Weight: 150 lb 4 oz BMI 25.7 BP 130/91 H Intake Visit Reasons: New OB, LMP 06/15, KEVIN 03/22 hx miscarriage Fitness Teacher Required: No Is patient in pain?: No [...] Surgical History History of root canal procedure [place] teeth extracted Family History Grandmother Stillbirth maternal [...] physical activity do you participate in: none manuelito/protestant: Gnosticism seatbelt use: always do you feel safe [...] (e.g.,TB,Asthma), Seasonal allergies, Drug/latex allergies/reactions , Breast, 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 Normal [facility] Service comment (Unsp spec) [Interp]Ordered By: Negrita Gomez on 08-23-2024 Pap Smear Comment (3) . . [facility] Urine cultureOrdered By: Anselmo Gomez on 08-23-2024 Bacteria identified Cx Nom (U) Culture exhibits no growth. [facility] Transvaginal w/Preg USon Transvaginal w/Preg US [facility] Imaging Services [address] [place] [address] Transvaginal w/Preg US MR#: [id number] Acct: [id number] Name: JOI DANIEL Rep #: [id number] : 2000 F 24 From: Dl Bennett MD PCP: Care Physician,No Primary Status: REG CLI Study: Transvaginal w/Preg US Date of Exam: 08/09/24 Exam# [id number] Ordering Dr: Mikayla Ferrer DO -[id number] EXAM: US , TRANSVAGINAL CLINICAL INDICATION: [...] 21:27 EST , CC: Dr. Mikayla Ferrer, ; No Primary Care Physician Finance Clerk: Signed Normal [facility] [id number] 07-29-2024 ABO and Rh group Nom (Bld) Blood group B Rh(D) positive Normal [facility] Comment on above: Performed By: #### L 700.8000, B882-1 ####[facility] [address] [facility] [place], [address] Bilirubin Test strip Ql (U)O rdered By: Gary Grace on 07-29-2024 Bilirubin Ql (U) Negative Negative [facility] Emergency Department Summary on 07-29-2024 Emergency Department Summary [facility] Medical Records Department [address] [place] [address] Emergency Department Summary 07/29/24 MR#: [id number] Acct: [id number] Name: JOI DANIEL Rep #: [id number] : 2000 24 From: Gary Grace MD [...] symptoms: No Recent Illness/Hospitaliza tion: No PFSH PFS Medical History Supervision of normal first Screening [...] Surgical History History of root canal procedure [place] teeth extracted Social History adopted: No household [...] physical activity do you participate in: none manuelito/protestant: Gnosticism seatbelt use: always do you feel safe at home: Yes 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 Normal [facility] Epithelial cells.squamous LM Ql (Urine sed)Ordered By: Gary Grace on 07-29-2024 Epithelial cells.squamous LM.HPF (Urine sed) [#/Area] 5 /[HPF] 5-10 [facility] Glucose Ql (U)Ordered By: Adeel Grace on 07-29-2024 Urine Glucose (UA) Normal mg/dl Normal [facility] HCG ( test) QlOrder ed By: Gary Grace on 07-29-2024 Human Chorionic Gonadotropin, Quant 65881 mIU/mL High <4 [facility] Comment on above: hCG levels with Gest ational AgeGestational Age hCG mIU/mL (IU/L)0.2 - 1 week 5 - 501-2 weeks 50 - 5002-3 weeks 100 - 00282-3 weeks 500 - 249072-3 weeks 1000 - 559910-4 weeks 93412 - 100,0006-8 weeks 56524 - 200,0002-3 months 58100 - 100,000 Ketones Test strip Ql (U)Ord ered By: Gary Grace on 07-29-2024 Ketones Ql (U) Negative Negative [facility] Microscopic analysis of urin e for red blood cells (RBC)Ordered By: Gary Grace on 07-29-2024 Urine RBC 0 SEEN /hpf 0-5 [facility] Mucus LM Ql (Urine sed)Order ed By: Gary Grace on 07-29-2024 Mucus Ql (Urine sed) 0 SEEN /hpf [facility] Nitrite Test strip Ql (U)Ord ered By: Gary Grace on 07-29-2024 Nitrite Ql (U) Negative Negative [facility] Protein Test strip Ql (U)Ord ered By: Gary Grace on 07-29-2024 Protein Ql (U) Negative Negative [facility] Transvaginal w/Preg USon Transvaginal w/Preg US [facility] Imaging Services [address] [place] [address] Transvaginal w/Preg US MR#: [id number] Acct: [id number] Name: JOI DANIEL Rep #: [id number] : 2000 F 24 From: Rahul Bush MD PCP: Care Physician,No Primary Status: REG ER Study: Transvaginal w/Preg US Date of Exam: 07/29/24 Exam# [id number] Ordering Dr: Gary Grace MD -[id number] STUDY: FIRST TRIMESTER OBSTETRICAL ULTRASOUND REASON [...] Signed: Rahul Bush MD at 18:23 EST Reading Location ID and State: [address] [place] [address] Tel , Service support , CC: Dr. Gary Grace MD; No Primary Care Physician Finance Clerk: Signed Normal [facility] Urinalysis, Completeon 07-29 EPI,SQUAMOUS 5-10 SEEN Normal 5-10 [facility] Comment on above: Order Comment: CLEAN CATCH Performed By: #### L 400.0001 ####[facility] [address] [place], [address] WBC 0-5 SEEN Normal 0-5 [facility] Comment on above: Order Comment: CLEAN CATCH Performed By: #### L 400.0001 ####[facility] [address] [place], [address] BACTERIA 0 SEEN Normal None Seen [facility] Comment on above: Order Comment: CLEAN CATCH Performed By: #### L 400.0001 ####[facility] [address] [place], [address] Mucus Ql (Urine sed) 0 SEEN Normal [facility] Comment on above: Order Comment: CLEAN CATCH Performed By: #### L 400.0001 ####[facility] [address] [place], [address] RBC 0 SEEN Normal 0-5 [facility] Comment on above: Order Comment: CLEAN CATCH Performed By: #### L 400.0001 ####[facility] [address] [place], [address] Urine blood detectionOrdered By: Gary Grace on 07-29-2024 Urine Occult Blood Negative Negative [facility] Urine clarityOrdered By: Tal Grace on 07-29-2024 Clarity (U) Clear Clear [facility] Urine color determinationOrd ered By: Gary Grace on 07-29-2024 Color (U) Yellow Yellow [facility] Urine leukocyte esterase det ection by dipstickOrdered By: Gary Grace on 07-29-2024 Leukocyte esterase Test strip Ql (U) Negative Negative [facility] Urine pHOrdered By: Gary mclean on 07-29-2024 pH (U) 6.5 [pH] 5.0 - 8.0 [facility] Urine sediment bacteria coun t by microscopy (number/high power field)Ordered By: Gary Grace on 07-29-2024 Bacteria LM.HPF (Urine sed) [#/Area] 0 /[HPF] None Seen [facility] Urine specific gravity measu rementOrdered By: Gary Grace on 07-29-2024 Specific gravity (U) [Rel density] 1.015 1.002-1.030 [facility] Urobilinogen Ql (U)Ordered B y: Gary Grace on 07-29-2024 Urine Urobilinogen Normal mg/dl Normal [facility] White blood cell countOrdere d By: Gary Grace on 07-29-2024 Urine WBC 0-5 SEEN /hpf 0-5 [facility] hCG Titer Quant., Serumon HCG QUANT. 03983 mIU/mL High 1-3 [facility] Comment on above: Result Comment: hCG levels with Gestational Age Gestational Age hCG mIU/mL (IU/L) 0.2 - 1 week 5 - 50 1-2 weeks 50 - 500 2-3 weeks 100 - 5000 3-4 weeks 500 - 96107 4-5 weeks 1000 - 89739 5-6 weeks 49518 - 100,000 6-8 weeks 19927 - 200,000 2-3 months 41187 - 100,000 Performed By: #### L 700.8000, B882-1 ####[facility] [address] [place], [place], [address] HCG ( test) QlOrder ed By: Rosa M Moran on 07-23-2024 Human Chorionic Gonadotropin, Quant 1355 mIU/mL High <4 [facility] Comment on above: hCG levels with Gest ational AgeGestational Age hCG mIU/mL (IU/L)0.2 - 1 week 5 - 501-2 weeks 50 - 5002-3 weeks 100 - 26490-5 weeks 500 - 932050-0 weeks 1000 - 910071-6 weeks 37912 - 100,0006-8 weeks 07619 - 200,0002-3 months 84612 - 100,000 hCG Titer Quant., Serumon HCG QUANT. 1355 mIU/mL High 1-3 [facility] Comment on above: Result Comment: hCG levels with Gestational Age Gestational Age hCG mIU/mL (IU/L) 0.2 - 1 week 5 - 50 1-2 weeks 50 - 500 2-3 weeks 100 - 5000 3-4 weeks 500 - 47143 4-5 weeks 1000 - 22705 5-6 weeks 62556 - 100,000 6-8 weeks 95688 - 200,000 2-3 months 13178 - 100,000 Performed By: #### L 700.8000 ####[facility] [address] [place], [address] HCG ( test) QlOrder ed By: Paola Almanza on 07-21-2024 Human Chorionic Gonadotropin, Quant 561 mIU/mL High <4 [facility] Comment on above: hCG levels with Gest ational AgeGestational Age hCG mIU/mL (IU/L)0.2 - 1 week 5 - 501-2 weeks 50 - 5002-3 weeks 100 - 23009-7 weeks 500 - 383326-5 weeks 1000 - 465194-0 weeks 30862 - 100,0006-8 weeks 46868 - 200,0002-3 months 57716 - 100,000 hCG Titer Quant., Serumon HCG QUANT. 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 Mikayla Fraser, DO Age/Sex: 24/F Location: [facility] Status: Signed Intake Vital Signs 04/09/24 11:08 04/09/24 12:18 04/16/24 11:35 04/16/24 11:35 Height 5 ft 4 in 5 ft 4 in 5 ft 4 in 5 ft 4 in Weight: 139 lb 2 oz BMI 23.8 BP 115/76 Intake Visit Reasons: miscarriage follow up *give pt new hipaa form* Fitness Teacher Required: No Is patient in pain?: No Allergies No Known Allergies Allergy (Verified 04/16/24 11:32) Medications ???Medication ???Instructions ???Recorded ???Confirmed ???Type NK 04/16/24 04/16/24 History Post menopausal: No [facility] : No : [facility] Supervision of normal first Screening examination for STI Surgical History History of root canal procedure [place] teeth extracted Family History Grandmother Breast cancer, [...] physical activity do you participate in: none manuelito/protestant: Gnosticism seatbelt use: always do you feel safe at home: Yes 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 *give pt [...] Pillai Signature: Date (if applicable) CC: Normal [facility] 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 Office Visit Reporton 04-09-2024 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 Office Visit Report [facility] [address] [place] [address], [address] [place] [address] OFFICE VISIT Date of Service: 04/09/24 MR#: [id number] Acct: [id number] Name: JOI DANIEL Rep #: [id number] : 2000 Provider: ABBI Del Castillo ams Age/Sex: 24/F Location: [facility] Status: Signed Intake Vital Signs 09/11/23 07:07 03/03/24 09:18 04/09/24 11:06 04/09/24 11:08 Height 5 ft 4 in 5 ft 4 in 5 ft 4 in 5 ft 4 in Weight: 136 lb 139 lb 2 oz BMI 23.3 23.8 BP 98/67 120/82 H Blood Pressure Location Lt brachial Position Sitting Intake Visit Reasons: New OB, LMP 01/25, KEVIN 11/01/24 Fitness Teacher Required: No Is patient in pain?: No Allergies No Known Allergies Allergy (Verified 04/09/24 11:06) Medications ???Medication ???Instructions ???Recorded ???Confirmed ???Type multivit-min no.71-iron fum 28 cap PO 03/23/24 04/09/24 History mg-folate no.1 1 mg-dha 300 mg capsule (PNV-Charlotte) misoprostol 200 mcg tablet 800 mcg (4 [...] Surgical History History of root canal procedure [place] teeth extracted Family History Grandmother Breast cancer, [...] physical activity do you participate in: none manuelito/protestant: Gnosticism seatbelt use: always do you feel safe at home: Yes 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 Normal [facility] HCG ( test) Ql (U)O rdered By: Jeannette Lloyd on 06-07-2023 Internal Control Pass [facility] Interpretation and review of laboratory results Normal [facility] Laboratory - Chemistry and C hemistry - challengeon 06-07-2023 Bilirubin Ql (U) Negative Negative [facility] Glucose Ql (U) Negative Normal, Negative mg/dL [facility] Ketones Ql (U) Trace Abnormal Negative mg/dL [facility] alth pH (U) 7.0 [pH] 5.0 - 7.0 [facility] Specific gravity (U) [Rel density] 1.020 1.005 - 1.025 [facility] Urobilinogen Qn (U) 0.2 mg/dL <2.0, 0. 2, Normal, Negative, 1.0, 2.0, <1.0 [facility] Laboratory - Chemistry and C hemistry - challengeOrdered By: Jeannette Lloyd on 06-07-2023 HCG ( test) Ql (U) Negative Negative [facility] Laboratory - Hematology and Cell countson 06-07-2023 Hemoglobin Ql (U) Trace-intact Abnormal Negative [facility] ealt Laboratory - Urinalysison Leukocyte esterase Test strip Ql (U) Large Abnormal Negative [facility] Nitrite Ql (U) Negative Negative [facility] Protein Ql (U) Trace Abnormal Negative mg/dL [facility] alth No Panel Informationon 06-07 Interpretation and review of laboratory results Abnormal [facility] Vital Signs Date Time Vital Sign Value Performing Clinician Facility 03-29-2025 09:00-0400 Body temperature 98 [degF] No Primary Care Physician [facility] 03-29-2025 09:00-0400 Diastolic blood pressure 53 mm[Hg] No Primary Care Physician [facility] 03-29-2025 09:00-0400 Heart rate 81 /min No Primary Care Physician [facility] 03-29-2025 09:00-0400 Respiratory rate 16 /min No Primary Care Physician [facility] 03-29-2025 09:00-0400 Systolic blood pressure 98 mm[Hg] No Primary Care Physician [facility] 03-29-2025 02:39-0400 SaO2% (BldA) [Mass fraction] 99 % No Primary Care Physician [facility] 03-27-2025 10:24-0400 Body height 162.56 cm No Primary Care Physician [facility] 03-27-2025 10:24-0400 Body mass index (BMI) [Ratio] 30.5 kg/m2 No Primary Care Physician [facility] 03-27-2025 10:24-0400 Body weight 80.8 kg No Primary Care Physician [facility] 01-29-2025 21:53-0400 Body height 162.56 cm No Primary Care Physician [facility] 01-29-2025 21:53-0400 Body mass index (BMI) [Ratio] 29.7 kg/m2 No Primary Care Physician [facility] 01-29-2025 21:53-0400 Body weight 78.58 kg No Primary Care Physician [facility] 01-29-2025 21:48-0400 Heart rate 91 /min No Primary Care Physician [facility] 01-29-2025 21:48-0400 SaO2% (BldA) [Mass fraction] 99 % No Primary Care Physician [facility] 01-29-2025 21:47-0400 Body temperature 98.6 [degF] No Primary Care Physician [facility] 01-29-2025 21:47-0400 Diastolic blood pressure 63 mm[Hg] No Primary Care Physician [facility] 01-29-2025 21:47-0400 Respiratory rate 14 /min No Primary Care Physician [facility] 01-29-2025 21:47-0400 Systolic blood pressure 111 mm[Hg] No Primary Care Physician [facility] 01-27-2025 15:25-0400 Body height 162.56 cm No Primary Care Physician [facility] 01-27-2025 15:25-0400 Body mass index (BMI) [Ratio] 29.8 kg/m2 No Primary Care Physician [facility] 01-27-2025 15:25-0400 Body temperature 98.4 [degF] No Primary Care Physician [facility] 01-27-2025 15:25-0400 Body weight 78.92 kg No Primary Care Physician [facility] 01-27-2025 15:25-0400 Diastolic blood pressure 65 mm[Hg] No Primary Care Physician [facility] 01-27-2025 15:25-0400 Heart rate 90 /min No Primary Care Physician [facility] 01-27-2025 15:25-0400 SaO2% (BldA) [Mass fraction] 97 % No Primary Care Physician [facility] 01-27-2025 15:25-0400 Systolic blood pressure 98 mm[Hg] No Primary Care Physician [facility] 11-29-2024 09:55-0400 Body mass index (BMI) [Ratio] 28.1 kg/m2 No Primary Care Physician [facility] 11-29-2024 09:55-0400 Body weight 74.38 kg No Primary Care Physician [facility] 11-29-2024 09:55-0400 Diastolic blood pressure 74 mm[Hg] No Primary Care Physician [facility] 11-29-2024 09:55-0400 Systolic blood pressure 120 mm[Hg] No Primary Care Physician [facility] 11-01-2024 13:15-0400 Body height 162.[address] Mikayla Ferrer DO Work Phone: [facility] 11-01-2024 13:15-0400 Body mass index (BMI) [Ratio] 27.5 kg/m2 Dr. Mikayla Ferrer DO Work Phone: [facility] 11-01-2024 13:15-0400 Body weight 72.[address] Mikayla Ferrer DO Work Phone: [facility] 11-01-2024 13:15-0400 Diastolic blood pressure 81 mm[Hg] Dr. Mikayla Ferrer DO Work Phone: [facility] 11-01-2024 13:15-0400 Systolic blood pressure 131 mm[Hg] Dr. Mikayla Ferrer DO Work Phone: [facility] 10-08-2024 08:51-0500 Body mass index (BMI) [Ratio] 26.6 kg/m2 Dr. Mikayla Ferrer DO Work Phone: [facility] 10-08-2024 08:51-0500 Body weight 70.[address] Mikayla Ferrer DO Work Phone: [facility] 10-08-2024 08:51-0500 Diastolic blood pressure 74 mm[Hg] Dr. Mikayla Ferrer DO Work Phone: [facility] 10-08-2024 08:51-0500 Systolic blood pressure 115 mm[Hg] Dr. Mikayla Ferrer DO Work Phone: [facility] 09-09-2024 15:36-0500 Body mass index (BMI) [Ratio] 25.9 kg/m2 Dr. Mikayla Ferrer DO Work Phone: [facility] 09-09-2024 15:36-0500 Body weight 68.[address] Mikayla Ferrer DO Work Phone: [facility] 09-09-2024 15:36-0500 Diastolic blood pressure 78 mm[Hg] Dr. Mikayla Ferrer DO Work Phone: [facility] 09-09-2024 15:36-0500 Systolic blood pressure 124 mm[Hg] Dr. Mikayla Ferrer DO Work Phone: [facility] 08-23-2024 10:23-0500 Body mass index (BMI) [Ratio] 25.7 kg/m2 Dr. Mikayla Ferrer DO Work Phone: [facility] 08-23-2024 10:23-0500 Body weight 68.[address] Mikayla Ferrer DO Work Phone: [facility] 08-23-2024 10:23-0500 Diastolic blood pressure 72 mm[Hg] Dr. Mikayla Ferrer DO Work Phone: [facility] 08-23-2024 10:23-0500 Systolic blood pressure 103 mm[Hg] Dr. Mikayla Ferrer DO Work Phone: [facility] 07-29-2024 18:15-0500 Heart rate 98 /min Dr. Mikayla Ferrer DO Work Phone: [facility] 07-29-2024 18:15-0500 Respiratory rate 18 /min Dr. Mikayla Ferrer DO Work Phone: [facility] 07-29-2024 18:15-0500 SaO2% (BldA) [Mass fraction] 100 % Dr. Mikayla Ferrer DO Work Phone: [facility] 07-29-2024 16:15-0500 Body mass index (BMI) [Ratio] 23.6 kg/m2 Dr. Mikayla Ferrer DO Work Phone: [facility] 07-29-2024 16:15-0500 Body temperature 97.5 [degF] Dr. Mikayla Ferrer DO Work Phone: [facility] 07-29-2024 16:15-0500 Body weight 62.[address] Mikayla Ferrer DO Work Phone: [facility] 07-29-2024 16:15-0500 Diastolic blood pressure 99 mm[Hg] Dr. Mikayla Ferrer DO Work Phone: [facility] 07-29-2024 16:15-0500 Systolic blood pressure 142 mm[Hg] Dr. Mikayla Ferrer DO Work Phone: [facility] 06-07-2023 12:54-0400 Body height 165.[address] [facility] 06-07-2023 12:54-0400 Body mass index (BMI) [Ratio] 22.88 kg/m2 [facility] 06-07-2023 12:54-0400 Body temperature 97.9 [degF] [facility] 06-07-2023 12:54-0400 Body weight 62.[address] [facility] 06-07-2023 12:54-0400 Diastolic blood pressure 75 mm[Hg] [facility] 06-07-2023 12:54-0400 Heart rate 69 /min [facility] 06-07-2023 12:54-0400 Respiratory rate 18 /min [facility] 06-07-2023 12:54-0400 SaO2% (BldA) [Mass fraction] 95 % [facility] 06-07-2023 12:54-0400 Systolic blood pressure 110 mm[Hg] [facility] Encounters Encounter Date Encounter Type Care Provider Facility Start: 03-29-2025 Non-patient / Non-visit Dr. Mikayla Ferrer DO [facility] [place] Start: 03-28-2025 Non-patient / Non-visit Rosa M Moran [facility] Start: 03-27-2025 ambulatory No Primary Car e Physician [place] [place]: 03-27-2025 End: 03-29-2025 Evaluation and management of inpatient Dr. Negrita Gomez [facility] Work Phone: Start: 01-30-2025 ambulatory Shereen Amos Facilit y:[facility] Start: 01-30-2025 Non-patient / Non-visit Shereen Amos [facility] Start: 01-29-2025 End: 01-29-2025 ambulatory No Primary Care Physician [facility] Work Phone: Start: 01-29-2025 End: 01-29-2025 Patient encounter procedure Shereen Amos CNM -[facility] Work Phone: Start: 01-27-2025 End: 01-27-2025 Patient encounter procedure Jose Palomo [facility] -[facility] Work Phone: Start: 01-27-2025 End: 01-27-2025 ambulatory No Primary Care Physician [facility] Work Phone: Start: 11-29-2024 End: 11-29-2024 Patient encounter procedure Paola CALVO -[facility] Work Phone: Start: 11-29-2024 End: 11-29-2024 ambulatory No Primary Care Physician Facility:[facility] Start: 11-19-2024 End: 11-19-2024 ambulatory MD [facility] Start: 11-10-2024 End: 11-10-[address] Mikayla Ferrer DO Work Phone: [facility] Work Phone: Start: 11-10-2024 End: 11-10-[address] Negrita Gomez MD [facility] Work Phone: Start: 11-10-2024 End: 11-10-2024 ambulatory No Primary Care Physician Facility:[facility] Start: 11-01-2024 End: 11-01-[address] [facility] Work Phone: Start: 11-01-2024 End: 11-01-2024 ambulatory No Primary Care Physician Facility:[facility] Start: 10-08-2024 End: 10-08-2024 Patient encounter procedure Shereen Amos CNM -[facility] Work Phone: Start: 10-08-2024 End: 10-08-2024 ambulatory Shereen Amos Facility:[facility] Start: 09-09-2024 End: 09-09-[address] Negrita Gomez MD -[facility] Work Phone: Start: 09-09-2024 End: 09-09-2024 ambulatory No Primary Care Physician Facility:[facility] Start: 09-09-2024 End: 09-09-2024 ambulatory No Primary Care Physician Facility:[facility] Start: 08-23-2024 End: 08-23-[address] Negrita Gomez MD -Lab, [facility] Start: 08-23-2024 End: 08-23-2024 ambulatory Negrita Gomez Facility:[facility] Start: 08-23-2024 End: 08-23-[address] Negrita Gomez MD -[facility] Work Phone: Start: 08-23-2024 End: 08-23-2024 ambulatory Negritabenny Gomez Facility:[facility] Start: 08-09-2024 End: 08-09-[address] Mikayla Ferrer DO -Ultrasound, [facility] Work Phone: Start: 08-09-2024 End: 08-09-2024 ambulatory Mikayla Ferrer Facility:[facility] Start: 07-29-2024 End: 07-29-2024 Emergency department patient visit Dr. Gary Grace MD -Emergency Department Work Phone: Start: 07-23-2024 End: 07-23-2024 Patient encounter procedure Rosa M Moran CNM -Lab, [facility] Start: 07-23-2024 End: 07-23-2024 ambulatory Rosa M Moran Facility:[facility] Start: 07-21-2024 End: 07-21-[address] Mikayla Ferrer DO -Lab, [facility] Start: 07-21-2024 End: 07-21-2024 ambulatory Mikayla Ferrer Facility:[facility] Start: 04-16-2024 End: 04-16-2024 ambulatory Miakyla Ferrer Facility:[facility] Start: 04-09-2024 End: 04-09-2024 ambulatory Rosa M Moran Facility:[facility] Start: 06-07-2023 End: 06-07-2023 ambulatory [facility] Start: 06-07-2023 End: 06-07-2023 Office outpatient new 30 minutes [facility] Comment on above: Vaginal discharge (P rimary Dx) Procedures Date Procedure Procedure Detail Performing Clinician Start: 03-27-2025 Serologic test for syphilis No Primary Care Physician Start: 11-10-2024 Ultrasonography in f irst trimester Dr. Mikayla Ferrer DO Work Phone: Start: 08-23-[address] Malou Ferrer DO Work Phone: Start: 08-09-[address]24 Transv[address]etr ic ultrasonography Dr. Mikayla Ferrer DO Work Phone: Start: 07-29-[address] ic ultrasonography Dr. Mikayla Ferrer DO Work Phone: Start: 06-07-2023 End: 06-07-2023 Urine test visual color cmprsn meths Giovanni Ford [facility] [place] Plan of Treatment Date Care Activity Detail Author Start: 03-29-2025 Patient discharge [facility] Start: 03-27-2025 Documentation procedure [facility] Start: 03-27-2025 Administration of medication [facility] Start: 03-27-2025 Application of ice collar, cap or bag [facility] Start: 03-27-2025 Catheterization of vein [facility] Start: 03-27-2025 Introduction of urin miladis catheter [facility] Start: 03-27-2025 Measuring intake and output [facility] Start: 03-27-2025 Notification of physician [facility] Start: 03-27-2025 Procedure discontinued [facility] Start: 03-27-2025 Provision of activit y privileges [facility] Start: 03-27-2025 Vital signs measurements [facility] Start: 03-27-2025 End: 03-27-2025 [facility] Start: 03-27-2025 Admission procedure [facility] Start: 01-29-2025 Nonstress test [facility] Start: 01-29-2025 Obstetric monitoring [facility] Start: 01-29-2025 Vital signs measurements [facility] Start: 01-29-[address] [facility] Start: 01-29-2025 Patient discharge [facility] Start: 07-29-[address] [facility] Start: 04-11-2023 Influenza vaccination Sequenti al Influenza Vaccine (#1) [facility] Start: 2019 Screening for malign ant neoplasm of cervix Pap Smear [facility] Start: 2016 Hepatitis C screening Hepatitis C Sc reening [facility] Start: 2013 HIV screening HIV Screening [facility] Start: 2010 Depression screening using PHQ-9 (Patient Health Questionnaire 9) score Depression Screening (PHQ-2/9) [facility] Start: 2009 Vaccination for marguerite n papillomavirus HPV Vaccines (1 - 2-dose series) [facility] Start: 2001 History and physical examination, annual for health maintenance Wellness Visit [facility] Start: 1998 COVID-19 Vaccine (#1) COVID-19 Vacci ne (#1) [facility] Start: 1998 Tetanus vaccination Tetanus: Every 1 0yrs [facility] End: 06-07-2024 Bacteria identified in Unspecified specimen by Aerobe culture Urine Aerobic Culture Microbiology Routine Vaginal discharge 1 Occurrences starting 06/07/2023 until 06/07/2024 [facility] Comment on above: 1 Occurrences starti ng 06/07/2023 until 06/07/2024 CBC W Auto Different ial panel - Blood [facility] Chlamydia trachomati s rRNA assay Chlamydia/GC/Trichomon as Amplified RNA Microbiology Routine Vaginal discharge Ordered: 06/07/2023 [facility] Comment on above: Ordered: 06/07/2023 End: 06-07-2024 Gardnerella vaginalis rRNA assay Vaginitis DNA Probes Microbiology Routine Vaginal discharge 1 Occurrences starting 06/07/2023 until 06/07/2024 [facility] Comment on above: 1 Occurrences starti ng 06/07/2023 until 06/07/2024 Measurement of gluco se 2 hours after glucose challenge for glucose tolerance test [facility] Neisseria gonorrhoea e nucleic acid detection Chlamydia/Gonorrhoeae Amplified RNA Microbiology Routine Vaginal discharge Ordered: 06/07/2023 [facility] Comment on above: Ordered: 06/07/2023 Patient Education [facility] Work Phone: Patient referral [facility] Work Phone: Serologic test for syphilis [facility] Trichomonas vaginali s Amplified RNA Trichomonas vaginalis Amplified RNA Microbiology Routine Vaginal discharge Ordered: 06/07/2023 [facility] Comment on above: Ordered: 06/07/2023 [facility] Payers Date Payer Category Payer Unknown [id number] 2024 Self-pay 2022 Unknown [id number] 2022 Unknown [id number] 2000 Unknown [id number] 2.16. [id number] Unknown [id number] 2.16.8 40.1.135202.3.579.2.462 Unknown [id number] 2.16.8 40.1.986358.3.579.2.462 Unknown [id number] 2.16.8 40.1.412864.3.579.2.462 Unknown [id number] 2.16.8 40.1.137672.3.579.2.462 Unknown [id number] 2.16.8 40.1.896202.3.579.2.462 Unknown [id number] 2.16.8 40.1.644485.3.579.2.462 Unknown [id number] 2.16.8 40.1.200219.3.579.2.462 Unknown [id number] 2.16.8 40.1.755095.3.579.2.462 Unknown [id number] 2.16.8 40.1.939292.3.579.2.462 Unknown [id number] 2.16.8 40.1.479000.3.579.2.462 Unknown [id number] 2.16.8 40.1.506975.3.579.2.462 Unknown [id number] 2.16.8 40.1.172021.3.579.2.462 Unknown [id number] 2.16.8 40.1.987010.3.579.2.462 Unknown [id number] 2.16.8 40.1.484775.3.579.2.462 Unknown [id number] 2.16.8 40.1.884522.3.579.2.462 Unknown [id number] 2.16.8 40.1.713283.3.579.2.462 Unknown [id number] 2.16.8 40.1.039936.3.579.2.462 Unknown [id number] 2.16.8 40.1.362276.3.579.2.462 Unknown [id number] 2.16.8 40.1.626233.3.579.2.462 Unknown [id number] 2.16.8 40.1.950084.3.579.2.462 Unknown [id number] 2.16.8 40.1.832080.3.579.2.462 Social History Date Type Detail Facility Start: 06-07-2023 Tobacco smoking status NHIS Ex-smoker [facility] History of tobacco use Current smoker [facility] History of tobacco use Cigarette Smoker [facility] Start: 06-07-2023 Tobacco use and exposure Smokeless tobacco non-user [facility] Start: 06-07-2023 Alcohol intake Current drinke r of alcohol (finding) [facility] Start: 06-07-2023 History of Social function [facility] Start: 06-07-2023 Tobacco use panel [facility] Start: 06-07-2023 Alcohol Comment occassional [facility] Start: 2000 Sex Assigned At Not on file O [facility] Start: 08-23-2024 End: 03-27-2025 Tobacco smoking status NHIS Never smoked tobacco (finding) [facility] Start: 11-16-2024 Sex Female (finding) [facility] Start: 2000 Sex Assigned At Female [facility] Goals Date Patient Goal Desired Activity /State Clinical Notes 06-07-2023 to 03-29-2025 Note Date & Type Note Facility 03-29-2025 Discharge summary Note Date/Time March 29, 2025 7:48am [facility] Medical Records Department [address] [place] [address] Discharge Summary 03/29/25 0742 MR#: [id number] Acct: [id number] Name: JOI DANIEL Rep #:[id number] : 2000 25 From: Mikayla Ferrer DO PCP: Care Physician,No Primary Status :ADM IN Location: [place] [address]1 Providers Date of Admission: 03/27/25 Primary Care Physician: No Primary Care Phys Reason For Visit: LABOR Diagnosis Discharge Diagnosis (1) Vaginal delivery: Status: Acute Code(s): O80 - Encounter for full-term uncomplicated delivery (2) Active labor at term: Status: Acute (3) Contact dermatitis: Status: Acute Code(s): L25.9 - Unspecified contact dermatitis, unspecified cause (4) Asymmetric IUGR affecting , antepartum: Status: Acute Code(s): O36.5990 - Maternal care for other known or suspected poor growth, unspecified trimester, not applicable or unspecified (5) Supervision of normal : Status: Acute Code(s): Z34.90 - Encounter for supervision of normal , unspecified, unspecifiedtrimester Qualifiers: Normal : normal first Trimester: second trimester Qualified Code(s): Z34.02 - Encounter for supervision of normal firstpregnancy, second trimester (6) : Status: Acute Code(s): Z34.90 - Encounter for supervision of normal , unspecified, unspecifiedtrimester Qualifiers: Weeks of gestation: 23 weeks Qualified Code(s): Z3A.23 - 23 weeks gestation of Medications at Discharge Home Medications vit no.164-ferrous gluconate 6 mg-folate 833.5 mcg DFE tablet (Giovanni PNV) 1 tab PO DAILY pregnanc 08/12/24 Hospital Course Operations None Procedures None Summary of Care Provided Minutes Spent on Discharge: 15 Hospital Course: The patient was admitted to L&D on 03/27/25 and delivered a viable male ont day. On post day #1 she used services to help with breast feeding and on post day #2 she requests discharged to home. She denies heavy vaginal bleeding or dizziness. Weight / BMI Weight Weight: 178 lb 2.136 oz Body Mass Index (BMI) 30.5 ABG / Lab / Microbiology Data 03/27/25 11:30 D/C Instructions Discharge Activity: Return to Normal Activity, May Not Drive (while taking narcotic pain medications.) and May Shower May resume sexual activity in: 4-6 weeks Call your doctor if your incision/area has: Continuous Slow Oozing, Sudden Increased Bleeding, Increased Pain/ Swelling, Increased Redness and Foul Smelling Discharge DC O2, CPAP, BIPAP Needs Home O2 Discharge instructions: No Please Follow Up With: Negrita Gomez MD When: Call [phone] to make an appointment with your doctor in 6 weeks. If you had elevated blood pressure or 4th degree laceration, you will need to be seen in 2 weeks. Meaningful Use Info Meaningful Use Meaningful Use Diagnoses (Choose all that apply): None applicable Discharge Plan Admission Admit Date/Time: 03/27/25 11:00 Primary Reason for Your Visit: vaginal delivery Attending Provider: Negrita Gomez Primary Care Provider: Care Physician,No Primary Discharge Orders/Prescriptions Prescriptions: No Action Giovanni PNV 6 mg iron- 833.5 mcg DFE tablet 1 tab PO DAILY Referrals / Follow Up: Care Physician,No Primary [Primary Care Provider] - Disposition Disposition (needs filled in before D/C Order can be placed): Home, Self Care 03/29/25 0748 <Electronically signed by Mikayla Ferrer DO> Cosigner Signature (if applicable): CC: Dr. Mikayla Ferrer DO; No Primary Care Physician~ Signed [facility] Work Phone: 1(518) 888-991708-19-2025 Discharge summary [facility] Medical Records Department [address] [place] [address] Discharge Summary 03/29/25 0742 MR#: [id number] Acct: [id number] Name: JOI DANIEL Rep #:[id number] : 2000 25 From: Mikayla Ferrer DO PCP: Care Physician,No Primary Status :ADM IN Location: [place] [id number] Providers Date of Admission: 03/27/25 Primary Care Physician: No Primary Care Phys Reason For Visit: LABOR Diagnosis Discharge Diagnosis (1) Vaginal delivery: Status: Acute Code(s): O80 - Encounter for full-term uncomplicated delivery (2) Active labor at term: Status: Acute (3) Contact dermatitis: Status: Acute Code(s): L25.9 - Unspecified contact dermatitis, unspecified cause (4) Asymmetric IUGR affecting , antepartum: Status: Acute Code(s): O36.5990 - Maternal care for other known or suspected poor growth, unspecified trimester, notapplicable or unspecified (5) Supervision of normal : Status: Acute Code(s): Z34.90 - Encounter for supervision of normal , unspecified, unspecifiedtrimester Qualifiers: Normal : normal first Trimester: second trimester Qualified Code(s): Z34.02 - Encounter for supervision of normal firstpregnancy, second trimester (6) : Status: Acute Code(s): Z34.90 - Encounter for supervision of normal , unspecified, unspecifiedtrimester Qualifiers: Weeks of gestation: 23 weeks Qualified Code(s): Z3A.23 - 23 weeks gestation of Medications at Discharge Home Medications vit no.164-ferrous gluconate 6 mg-folate 833.5 mcg DFE tablet ( PNV) 1 tab PO DAILY pregnanc 08/12/24 Hospital Course Operations None Procedures None Summary of Care Provided Minutes Spent on Discharge: 15 Hospital Course: The patient was admitted to L&D on 03/27/25 and delivered a viable male . On post day #1 she used services to help with breast feeding and on post day #2 she requests discharged to home. She denies heavy vaginal bleeding or dizziness. Weight / BMI Weight Weight: 178 lb 2.136 oz Body Mass Index (BMI) 30.5 ABG / Lab / Microbiology Data 03/27/25 11:30 D/C Instructions Discharge Activity: Return to Normal Activity, May Not Drive (while taking narcotic pain medications.) and May Shower May resume sexual activity in: 4-6 weeks Call your doctor if your incision/area has: Continuous Slow Oozing, Sudden Increased Bleeding, Increased Pain/ Swelling, Increased Redness and Foul Smelling Discharge DC O2, CPAP, BIPAP Needs Home O2 Discharge instructions: No Please Follow Up With: Negrita Gomez MD When: Call [phone] to make an appointment with your doctor in 6 weeks. If you had elevated blood pressure or 4th degree laceration, you will need to be seen in 2 weeks. Meaningful Use Info Meaningful Use Meaningful Use Diagnoses (Choose all that apply): None applicable Discharge Plan Admission Admit Date/Time: 03/27/25 11:00 Primary Reason for Your Visit: vaginal delivery Attending Provider: Negrita Gomez Primary Care Provider: Care Physician,No Primary Discharge Orders/Prescriptions Prescriptions: No Action Giovanni PNV 6 mg iron- 833.5 mcg DFE tablet 1 tab PO DAILY Referrals / Follow Up: Care Physician,No Primary [Primary Care Provider] - Disposition Disposition (needs filled in before D/C Order can be placed): Home, Self Care 03/29/25 0748 [facility] (if applicable): CC: Dr. Mikayla Ferrer DO; No Primary Care Physician~ Signed [facility]08-19-2025 [facility] Medical Records Department [address] [place] [address] Discharge Summary 03/29/25 0742 MR#: [id number] Acct: [id number] Name: JOI DANIEL Rep #: [id number] : 2000 25 From: Mikayla Ferrer DO PCP: Care Physician,No Primary Status:ADM IN Location: [place] [id number] Providers Date of Admission: 03/27/25 Primary Care Physician: No Primary Care Phys Reason For Visit: LABOR Diagnosis Discharge Diagnosis (1) Vaginal delivery: Status: Acute Code(s): O80 - Encounter for full-term uncomplicated delivery (2) Active labor at term: Status: Acute (3) Contact dermatitis: Status: Acute Code(s): L25.9 - Unspecified contact dermatitis, unspecified cause (4) Asymmetric IUGR affecting , antepartum: Status: Acute Code(s): O36.5990 - Maternal care for other known or suspected poor growth, unspecified trimester, not applicable or unspecified (5) Supervision of normal : Status: Acute Code(s): Z34.90 - Encounter for supervision of normal , unspecified, unspecified trimester Qualifiers: Normal : normal first Trimester: second trimester Qualified Code(s): Z34.02 - Encounter for supervision of normal first , second trimester (6) : Status: Acute Code(s): Z34.90 - Encounter for supervision of normal , unspecified, unspecified trimester Qualifiers: Weeks of gestation: 23 weeks Qualified Code(s): Z3A.23 - 23 weeks gestation of Medications at Discharge Home Medications vit no.164-ferrous gluconate 6 mg-folate 833.5 mcg DFE tablet ( PNV) 1 tab PO DAILY pregnanc 08/12/24 Hospital Course Operations None Procedures None Summary of Care Provided Minutes Spent on Discharge: 15 Hospital Course: The patient was admitted to [facility] on 03/27/25 and delivered a viable male infant on this day. On post day #1 she used services to help with breast feeding and on post day #2 she requests discharged to home. She denies heavy vaginal bleeding or dizziness. Weight / BMI Weight Weight: 178 lb 2.136 oz Body Mass Index (BMI) 30.5 ABG / Lab / Microbiology Data 03/27/25 11:30 D/C Instructions Discharge Activity: Return to Normal Activity, May Not Drive (while taking narcotic pain medications.) and May Shower May resume sexual activity in: 4-6 weeks Call your doctor if your incision/area has: Continuous Slow Oozing, Sudden Increased Bleeding, Increased Pain/ Swelling, Increased Redness and Foul Smelling Discharge DC O2, CPAP, BIPAP Needs Home O2 Discharge instructions: No Please Follow Up With: Negrita Gomez MD When: Call [phone] to make an appointment with your doctor in 6 weeks. If you had elevated blood pressure or 4th degree laceration, you will need to be seen in 2 weeks. Meaningful Use Info Meaningful Use Meaningful Use Diagnoses (Choose all that apply): None applicable Discharge Plan Admission Admit Date/Time: 03/27/25 11:00 Primary Reason for Your Visit: vaginal delivery Attending Provider: Negrita Gomez Primary Care Provider: Karen Hood Primary Discharge Orders/Prescriptions Prescriptions: No Action PNV 6 mg iron- 833.5 mcg DFE tablet 1 tab PO DAILY Referrals / Follow Up: Care Physician,Karen Primary [Primary Care Provider] - Disposition Disposition (needs filled in before D/C Order can be placed): Home, Self Care 03/29/25 0748 Cosigner Signature (if applicable): CC: Dr. Mikayla Ferrer, DO; No [facility] Progress note Author Rosa M Moran [facility] Note Date/Time March 28, 2025 7: 47am [facility] Medical Records Department [address] [place] [address] Progress Note - OBGYN 03/28/2546 MR#: [id number] Acct: [id number] Name: JOI DANIEL Rep #:[id number] : 2000 25 From: Rosa M Moran CNM PCP: Care Physician,No Primary Status :ADM IN Location: [place] [id number] Subjective Subjective Patient doing well without complaints. Tolerating PO. Ambulating and voiding without difficulty. Feeding well. Denies chest pain, shortness of breath, calf pain/swelling, fevers, chills, lightheadedness. Objective Data Objective Data Vital Signs: Vital Signs Temp Pulse Resp BP Pulse Ox O2 Del Method 98.0 F 98 16 100/59 L 99 Room Air 03/28/25 04:44 03/28/25 04:44 03/28/25 04:44 03/28/25 04:44 03/28/25 04:44 03/28/25 04:44 Oxygen Delivery Method Room Air Weight: 178 lb 2.136 oz Body Mass Index (BMI) 30.5 Intake & Output: Intake and Output for Last 24 Hours 03/26/25 03/27/25 03/28/25 23:59 23:59 23:59 Intake Total 2250 / 2250 Output Total 100 / 100 Balance 2150 / 2150 Lab / Micro Data Attestation: I reviewed the patient's lab results. 03/27/25 11:30 Labs: Laboratory Results - last 24 hr 03/27/25 11:30: WBC 16.1 H, RBC 4.08 L, Hgb 12.6, Hct 36.4 L, MCV 89.2, MCH 30.9, MCHC 34.6, RDW Std Deviation 42.1, RDW Coeff of Melissa 12.9, Plt Count 215, MPV 9.2, Immature Gran % (Auto) 0.900, Neut % (Auto) 85.0 H, Lymph % (Auto) 8.0 L, [place] % (Auto) 5.8, Eos % (Auto) 0.1, Baso % (Auto) 0.2, Absolute Neuts (auto)13.7 H, Absolute Lymphs (auto) 1.28, Nucleated RBC % 0, Syphilis Total Ab Nonreactive, Blood Type B POSITIVE, Antibody Screen NEGATIVE ROS Constitutional Constitutional: Reports systems reviewed and no addt'l complaints, except as documented; Denies anorexia or headache(s) Cardiovascular Cardiovascular: Reports systems reviewed and no addt'l complaints, except as documented; Denies dizziness, dyspnea, nausea or tachypnea Respiratory/Chest Respiratory/Chest: Reports systems reviewed and no addt'l complaints, except as documented; Denies cough, dyspnea, shortness of breath at rest or tachypnea Gastrointestinal Gastrointestinal: Reports systems reviewed and no addt'l complaints, except as documented; Denies abdominal pain, constipation or nausea Genitourinary Genitourinary: Reports systems reviewed and no addt'l complaints, except as documented; Denies burning urination, difficulty urinating, dysuria, urinary frequency or urinary incontinence Musculoskeletal Musculoskeletal: Reports systems reviewed and no addt'l complaints, except as documented Integumentary Integumentary: Reports systems reviewed and no addt'l complaints, except as documented Neurologic Neurologic: Reports systems reviewed and no addt'l complaints, except as documented; Denies abnormal speech, dizziness or headache(s) Psychiatric Psychiatric: Reports systems reviewed and no addt'l complaints, except as documented Endocrine Endocrinology: Reports systems reviewed and no addt'l complaints, except as documented Hematologic/Lymphatic Hematologic/Lymphatic: Reports systems reviewed and no addt'l complaints, exceptas documented Physical Exam Const alert, oriented x3 and no apparent distress Neck full ROM Resp normal respiratory effort, normal air movement and no retractions Effort and Inspection: able to speak in complete sentences and symmetric chest movement GI soft to palpation Bladder / Kidney Exam: bladder normal to palpation Uterus Palpation: uterus fundus firm Extremity normal to inspection and full ROM Psych mental status grossly normal, thought process normal and cooperative Assessment & Plan (1) Vaginal delivery: COMMENT: SM-boy PLAN: s/p PPD # 1 1. routine post delivery care 2. breast feeding- support given 3. rh positive 4. rubella immune (2) Active labor at term: (3) Contact dermatitis: (4) Asymmetric IUGR affecting , antepartum: COMMENT: referral MFM for anatomy: 11/19 40%/nl. Rpt 12/20: (5) Supervision of normal : QUALIFIERS: Normal : normal first Trimester: second trimester Qualified Code(s): Z34.02 - Encounter for supervision of normal first , second trimester COMMENT: PRR , KEVIN 03/22/25, Aubrey (6) : QUALIFIERS: Weeks of gestation: 23 weeks Qualified Code(s): Z3A.23 - 23 weeks gestation of COMMENT: plan NIPT w/gender & declined carrier testing Charges/Coding Multi Select Codes Urinary/Genital Urinary/Genital CPT Codes: No Charge 03/28/25 0747 <Electronically signed by Rosa M Moran CNM> Cosigner Signature (if applicable): CC: ~ Signed [facility] Work Phone: 1(398) 668-341008-18-2025 Progress note [facility] Medical Records Department [address] [place] [address] Progress Note - OBGYN 03/28/25 0746 MR#: [id number] Acct: [id number] Name: JOI DANIEL Rep #:[id number] : 2000 25 From: Rosa M Moran CNM PCP: Care Physician,No Primary Status :ADM IN Location: [place] [address] Subjective Subjective Patient doing well without complaints. Tolerating PO. Ambulating and voiding without difficulty. Feeding well. Denies chest pain, shortness of breath, calf pain/swelling, fevers, chills, lightheadedness. Objective Data Objective Data Vital Signs: Vital Signs Temp Pulse Resp BP Pulse Ox O2 Del Method 98.0 F 98 16 100/59 L 99 Room Air 03/28/25 04:44 03/28/25 04:44 03/28/25 04:44 03/28/25 04:44 03/28/25 04:44 03/28/25 04:44 Oxygen Delivery Method Room Air Weight: 178 lb 2.136 oz Body Mass Index (BMI) 30.5 Intake & Output: Intake and Output for Last 24 Hours 03/26/25 03/27/25 03/28/25 23:59 23:59 23:59 Intake Total 2250 / 2250 Output Total 100 / 100 Balance 2150 / 2150 Lab / Micro Data Attestation: I reviewed the patient's lab results. 03/27/25 11:30 Labs: Laboratory Results - last 24 hr 03/27/25 11:30: WBC 16.1 H, RBC 4.08 L, Hgb 12.6, Hct 36.4 L, MCV 89.2, MCH 30.9, MCHC 34.6, RDW Std Deviation 42.1, RDW Coeff of Melissa 12.9, Plt Count 215, MPV 9.2, Immature Gran % (Auto) 0.900, Neut % (Auto) 85.0 H, Lymph % (Auto) 8.0 L, Elmore % (Auto) 5.8, Eos % (Auto) 0.1, Baso % (Auto) 0.2, Absolute Neuts (auto)13.7 H, Absolute Lymphs (auto) 1.28, Nucleated RBC % 0, Syphilis Total Ab Nonreactive, Blood Type B POSITIVE, Antibody Screen NEGATIVE ROS Constitutional Constitutional: Reports systems reviewed and no addt'l complaints, except as documented; Denies anorexia or headache(s) Cardiovascular Cardiovascular: Reports systems reviewed and no addt'l complaints, except as documented; Denies dizziness, dyspnea, nausea or tachypnea Respiratory/Chest Respiratory/Chest: Reports systems reviewed and no addt'l complaints, except as documented; Denies cough, dyspnea, shortness of breath at rest or tachypnea Gastrointestinal Gastrointestinal: Reports systems reviewed and no addt'l complaints, except as documented; Denies abdominal pain, constipation or nausea Genitourinary Genitourinary: Reports systems reviewed and no addt'l complaints, except as documented; Denies burning urination, difficulty urinating, dysuria, urinary frequency or urinary incontinence Musculoskeletal Musculoskeletal: Reports systems reviewed and no addt'l complaints, except as documented Integumentary Integumentary: Reports systems reviewed and no addt'l complaints, except as documented Neurologic Neurologic: Reports systems reviewed and no addt'l complaints, except as documented; Denies abnormal speech, dizziness or headache(s) Psychiatric Psychiatric: Reports systems reviewed and no addt'l complaints, except as documented Endocrine Endocrinology: Reports systems reviewed and no addt'l complaints, except as documented Hematologic/Lymphatic Hematologic/Lymphatic: Reports systems reviewed and no addt'l complaints, exceptas documented Physical Exam Const alert, oriented x3 and no apparent distress Neck full ROM Resp normal respiratory effort, normal air movement and no retractions Effort and Inspection: able to speak in complete sentences and symmetric chest movement GI soft to palpation Bladder / Kidney Exam: bladder normal to palpation Uterus Palpation: uterus fundus firm Extremity normal to inspection and full ROM Psych mental status grossly normal, thought process normal and cooperative Assessment & Plan (1) Vaginal delivery: COMMENT: SM-boy PLAN: s/p PPD # 1 1. routine post delivery care 2. breast feeding- support given 3. rh positive 4. rubella immune (2) Active labor at term: (3) Contact dermatitis: (4) Asymmetric IUGR affecting , antepartum: COMMENT: referral MFM for anatomy: 11/19 40%/nl. Rpt 12/20: (5) Supervision of normal : QUALIFIERS: Normal : normal first Trimester: second trimester Qualified Code(s): Z34.02 - Encounter for supervision of normal first , second trimester COMMENT: PRR , KEVIN 03/22/25, Aubrey (6) : QUALIFIERS: Weeks of gestation: 23 weeks Qualified Code(s): Z3A.23 - 23 weeks gestation of COMMENT: plan NIPT w/gender & declined carrier testing Charges/Coding Multi Select Codes Urinary/Genital Urinary/Genital CPT Codes: No Charge 03/28/25 0747 Cosigner Signature (if applicable): CC: ~ Signed [facility]08-17-2025 Discharge summary Author Negrita Gomez [facility] Note Date/Time March 27, 2025 4: 55pm [facility] Medical Records Department [address] [place] [address] Instructions for Home/Discharge Instructions 03/27/25 1655 MR#: [id number] Acct: [id number] Name: FREDYJOI MARTINEZ Rep #:[id number] : 2000 25 From: Negrita brunner MD PCP: Care Physician,No Primary Status :ADM IN Discharge Instructions DC O2, CPAP, BIPAP needs Home O2 Discharge instructions: No Dressing / Incision Discharge Activity: Return to Normal Activity, May Not Drive (while taking narcotic pain medications.) and May Shower May resume sexual activity in: 4-6 weeks Dressing / Incision Call your doctor if your incision/area has: Continuous Slow Oozing, Sudden Increased Bleeding, Increased Pain/ Swelling, Increased Redness and Foul Smelling Discharge Follow Up Care Please Follow Up With: Negrita Gomez MD When: Call [phone] to make an appointment with your doctor in 6 weeks. If you had elevated blood pressure or 4th degree laceration, you will need to be seen in 2 weeks. Test Results: Test results from this visit will be discussed in further detail at your follow- up appointment, if applicable. Discharge Plan Admission Admit Date/Time: 03/27/25 11:00 Attending Provider: Negrita Gomez Primary Care Provider: Herber Physician,Karen Primary Discharge Orders/Prescriptions Prescriptions: No Action Giovanni PNV 6 mg iron- 833.5 mcg DFE tablet 1 tab PO DAILY Referrals / Follow Up: Care Physician,Karen Primary [Primary Care Provider] - 03/27/251654<Electronically signed by Negrita Gomez MD>Negrita Gomez MD CC: No Primary Care Physician ~ Signed [facility] Work Phone: 1(892) 540-335608-17-2025 History and physical note Author Negrita Gomez [facility] Note Date/Time March 27, 2025 4: 52pm [facility] Medical Records Department [address] [place] [address] H&P Exam - DEDENTER 03/27/25 1036 MR#: [id number] Acct: [id number] Name: JOI DANIEL Rep #:[id number] : 2000 25 From: Negrita brunner MD PCP: Herber Physician,No Primary Status :ADM IN Location: [id number] HPI - General General Date of Admission: 03/27/25 HPI Narrative JOI DANIEL, is a 25 F who presents IAL regular ctx was 2 now 4 cm no vb lof good fm. she hasn't been seen by our practice since 24 weeks she has been planning on a home [facility] Medical History Poison harris dermatitis Pelvic pain affecting Supervision of normal first Screening examination for STI Home Medications ?Medication ?Instructions ?Recorded ?Last Taken ?Type vit no.164-ferrous 1 tab PO DAILY pregnanc 01/29/25 History gluconate 6 mg-folate 833.5 mcg DFE tablet ( PNV) Allergy/AdvReac Type Severity Reaction Status Date / Time No Known Allergies Allergy Verified 03/27/25 10:24 Family History Grandmother Stillbirth maternal & paternal each with 1 stillborn Colon cancer Uncle Cancer Paternal- throat cancer Mother Family history of recurrent miscarriage 3 miscarriages Surgical History History of root canal procedure [place] teeth extracted Social History adopted: No household [...] physical activity do you participate in: none manuelito/protestant: Gnosticism seatbelt use: always do you feel safe at home: Yes 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 Hx Para 0 [...] 7weeks NST FHR Rate Baby A Baseline: 140 Variability:: Moderate Accelerations:: 15 x 15 Decelerations:: None NST Reactive:: Yes FHR Category:: Category I Uterine Activity:: q3-5 ROS Constitutional Constitutional: Reports systems reviewed and no addt'l complaints, except as documented ENT HEENT: Reports systems reviewed and no addt'l complaints, except as documented Cardiovascular Cardiovascular: Reports systems reviewed and no addt'l complaints, except as documented Respiratory/Chest Respiratory/Chest: Reports systems reviewed and no addt'l complaints, except as documented Gastrointestinal Gastrointestinal: Reports systems reviewed and no addt'l complaints, except as documented and nausea; Denies abdominal pain Genitourinary Genitourinary: Reports systems reviewed and no addt'l complaints, except as documented, contractions Details: present and frequency (regular ) and movement Details: present Musculoskeletal Musculoskeletal: Reports systems reviewed and no addt'l complaints, except as documented Integumentary Integumentary: Reports as per HPI Neurologic Neurologic: Reports systems reviewed and no addt'l complaints, except as documented Endocrine Endocrinology: Reports systems reviewed and no addt'l complaints, except as documented Vital Signs Vital Signs Vital Signs: 03/27/25 10:10 03/27/25 10:10 03/27/25 10:10 Temperature Temperature Source Temporal Pulse Rate 90 Blood Pressure 121/75 H BP Systolic 121 BP Diastolic 75 03/27/25 10:10 Temperature 98.5 F Temperature Source Pulse Rate Blood Pressure BP Systolic BP Diastolic Weight Weight: 178 lb 2.136 oz Body Mass Index (BMI) 30.5 Physical Exam Const alert, oriented x3 and healthy appearing Constitutional Narrative: uncomfortable with contractions HEENT normocephalic and moist oral mucous membranes Head and Scalp: atraumatic Neck full ROM, no lymphadenopathy, supple and thyroid normal General: trachea midline Thyroid: thyroid normal Lymph Lymphatic: no lymphadenopathy noted Chest inspection of chest normal Resp normal respiratory effort Cardio regular rate GI soft to palpation and non-tender GI Narrative: gravid Inspection: gravid external exam normal Bimanual Exam - Vag & Uterus: uterus non-tender Manual OB Exam: estimated gestational size appropriate, presentation cephalic, dilated, effaced and station Extremity normal to inspection General Extremity: Negative for edema Skin no rashes or lesions noted Neuro deep tendon reflexes 2+ bilaterally Motor Exam: strength 5/5 throughout and clonus absent Psych mental status grossly normal Labs Labs Labs: Blood Type B POSITIVE Antibody Screen NEGATIVE Hct 36.4 % (37-47) L Hgb 12.6 g/dL (12.0-15.0) Obstetrics Ultrasound Syphilis Total Ab Nonreactive (Nonreactive) Rubella IgG Antibody Reactive (Nonreactive) Hep Bs Antigen Non-Reactive (Nonreactive) Hepatitis C Antibody Non-Reactive (Nonreactive) Chlamydia DNA ([place]) Negative (Negative) N.gonorrhoeae DNA ([place]) Negative (Negative) HIV 1&2 Antibody Non-Reactive (Nonreactive) Assessment & Plan (1) : QUALIFIERS: Weeks of gestation: 23 weeks Qualified Code(s): Z3A.23 - 23 weeks gestation of COMMENT: plan NIPT w/gender & declined carrier testing (2) Supervision of normal : QUALIFIERS: Normal : normal first Trimester: second trimester Qualified Code(s): Z34.02 - Encounter for supervision of normal first , second trimester COMMENT: PRR , KEVIN 03/22/25, Aubrey (3) Asymmetric IUGR affecting , antepartum: COMMENT: referral MFM for anatomy: 11/19 40%/nl. Rpt 12/20: (4) Contact dermatitis: PLAN: Plan Patient presents IAL, plan expectant management for , pitocin/AROM PRN if needed. Pain management: plans epidural. GBS unknown- no risk factors, no antibiotics indicated at this time. Management of any complications: none I have reviewed the [facility] and made any clinically relevant updates. 03/27/251651 <Electronically signed by Negrita Gomez MD> Cosigner Signature (if applicable): CC: Dr. Negrita Gomez MD; No Primary Care Physician~ Signed [facility] Work Phone: 1(114) 378-743208-17-2025 Discharge summary [facility] Medical Records Department [address] [place] [address] Instructions for Home/Discharge Instructions 03/27/25 1655 MR#: [id number] Acct: [id number] Name: JOI DANIEL Rep #:[id number] : 2000 25 From: Negrita brunner MD PCP: Care Physician,No Primary Status :ADM IN Discharge Instructions DC O2, CPAP, BIPAP needs Home O2 Discharge instructions: No Dressing / Incision Discharge Activity: Return to Normal Activity, May Not Drive (while taking narcotic pain medications.) and May Shower May resume sexual activity in: 4-6 weeks Dressing / Incision Call your doctor if your incision/area has: Continuous Slow Oozing, Sudden Increased Bleeding, Increased Pain/ Swelling, Increased Redness and Foul Smelling Discharge Follow Up Care Please Follow Up With: Negrita Gomez MD When: Call [phone] to make an appointment with your doctor in 6 weeks. If you had elevated blood pressure or 4th degree laceration, you will need to be seen in 2 weeks. Test Results: Test results from this visit will be discussed in further detail at your follow- up appointment, if applicable. Discharge Plan Admission Admit Date/Time: 03/27/25 11:00 Attending Provider: Negrita Gomez Primary Care Provider: Care Physician,No Primary Discharge Orders/Prescriptions Prescriptions: No Action Giovanni PNV 6 mg iron- 833.5 mcg DFE tablet 1 tab PO DAILY Referrals / Follow Up: Herber Physician,No Primary [Primary Care Provider] - 03/27/25 1655Negrita Gomez MD CC: No Primary Care Physician ~ Signed [facility]08-17-2025 Procedure note [facility] Medical Records Department [address] [place] [address] OB Vaginal Delivery 03/27/25 1653 MR#: [id number] Acct: [id number] Name: JOI DANIEL Rep #:[id number] : 2000 25 From: Negrita brunner MD PCP: Herber Physician,No Primary Status :ADM IN Location: [place] [address] Assessment & Plan (1) Asymmetric IUGR affecting , antepartum: COMMENT: referral MFM for anatomy: 11/19 40%/nl. Rpt 12/20: (2) Supervision of normal : QUALIFIERS: Normal : normal first Trimester: second trimester Qualified Code(s): Z34.02 - Encounter for supervision of normal first , second trimester COMMENT: PRR , KEVIN 03/22/25, Aubrey (3) : QUALIFIERS: Weeks of gestation: 23 weeks Qualified Code(s): Z3A.23 - 23 weeks gestation of COMMENT: plan NIPT w/gender & declined carrier testing (4) Active labor at term: Vaginal Delivery Maternal Presentation Maternal Presentation: see assessment and plan Vaginal Delivery Information Procedure Performed: Spontaneous Vaginal Delivery Surgeon/Practitioner: Negrita Gomez Pre-Procedure Diagnosis: see assessment and plan Post-Procedure Diagnosis: same Type of anesthesia: Epidural Findings Description of procedure: Patient began pushing and delivered the head in the HOOD presentation. The head was delivered atraumatically . The anterior and posterior shoulders delivered without complication followed by the rest of the infant and the was placed on the maternal abdomen. Delayed cord clamping was employed for approximately 60 seconds. Cord was clamped and cut and gentle traction was applied to the cord and the placenta delivered spontaneously immediately following it was noted to be intact with three-vessel cord. The perineum and vagina were inspected and noted to have no laceration. EBL was 100 cc. Patient and infant tolerated delivery well. Presentation: Vertex Placental Delivery Description: Spontaneous Specimen collected: Yes Description of specimen(s) removed: placenta Home Based Assistant seed analysis laboratory assistant: No Post Vaginal Deli Medications given after delivery: Other (pitocin) Complication Complications: No Multi Select Codes Urinary/Genital Urinary/Genital CPT Codes: 18186 Vaginal Delivery [facility] 03/27/25 1654 Cosigner Signature (if applicable): CC: Dr. Negrita Gomez MD; No Primary Care Physician~ Signed [facility]08-17-2025 History and physical note [facility] Medical Records Department [address] [place] [address] H&P Exam - DEDENTER 03/27/25 1036 MR#: [id number] Acct: [id number] Name: JOI DANIEL Rep #:[id number] : 2000 25 From: Negrita brunner MD PCP: Care Physician,No Primary Status :ADM IN Location: [id number] HPI - General General Date of Admission: 03/27/25 HPI Narrative JOI DANIEL, is a 25 F who presents IAL regular ctx was 2 now 4 cm no vb lof good fm. she hasn't been seen by our practice since 24 weeks she has been planning on a home [facility] Medical History Poison harris dermatitis Pelvic pain affecting Supervision of normal first Screening examination for STI Home Medications ?Medication ?Instructions ?Recorded ?Last Taken ?Type vit no.164-ferrous 1 tab PO DAILY pregnanc 01/29/25 History gluconate 6 mg-folate 833.5 mcg DFE tablet ( PNV) Allergy/AdvReac Type Severity Reaction Status Date / Time No Known Allergies Allergy Verified 03/27/25 10:24 Family History Grandmother Stillbirth maternal & paternal each with 1 stillborn Colon cancer Uncle Cancer Paternal- throat cancer Mother Family history of recurrent miscarriage 3 miscarriages Surgical History History of root canal procedure [place] teeth extracted Social History adopted: No household [...] physical activity do you participate in: none manuelito/protestant: Gnosticism seatbelt use: always do you feel safe at home: Yes 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 Hx Para 0 [...] 7weeks NST FHR Rate Baby A Baseline: 140 Variability:: Moderate Accelerations:: 15 x 15 Decelerations:: None NST Reactive:: Yes FHR Category:: Category I Uterine Activity:: q3-5 ROS Constitutional Constitutional: Reports systems reviewed and no addt'l complaints, except as documented ENT HEENT: Reports systems reviewed and no addt'l complaints, except as documented Cardiovascular Cardiovascular: Reports systems reviewed and no addt'l complaints, except as documented Respiratory/Chest Respiratory/Chest: Reports systems reviewed and no addt'l complaints, except as documented Gastrointestinal Gastrointestinal: Reports systems reviewed and no addt'l complaints, except as documented and nausea; Denies abdominal pain Genitourinary Genitourinary: Reports systems reviewed and no addt'l complaints, except as documented, contractions Details: present and frequency (regular ) and movement Details: present Musculoskeletal Musculoskeletal: Reports systems reviewed and no addt'l complaints, except as documented Integumentary Integumentary: Reports as per HPI Neurologic Neurologic: Reports systems reviewed and no addt'l complaints, except as documented Endocrine Endocrinology: Reports systems reviewed and no addt'l complaints, except as documented Vital Signs Vital Signs Vital Signs: 03/27/25 10:10 03/27/25 10:10 03/27/25 10:10 Temperature Temperature Source Temporal Pulse Rate 90 Blood Pressure 121/75 H BP Systolic 121 BP Diastolic 75 03/27/25 10:10 Temperature 98.5 F Temperature Source Pulse Rate Blood Pressure BP Systolic BP Diastolic Weight Weight: 178 lb 2.136 oz Body Mass Index (BMI) 30.5 Physical Exam Const alert, oriented x3 and healthy appearing Constitutional Narrative: uncomfortable with contractions HEENT normocephalic and moist oral mucous membranes Head and Scalp: atraumatic Neck full ROM, no lymphadenopathy, supple and thyroid normal General: trachea midline Thyroid: thyroid normal Lymph Lymphatic: no lymphadenopathy noted Chest inspection of chest normal Resp normal respiratory effort Cardio regular rate GI soft to palpation and non-tender GI Narrative: gravid Inspection: gravid external exam normal Bimanual Exam - Vag & Uterus: uterus non-tender Manual OB Exam: estimated gestational size appropriate, presentation cephalic, dilated, effaced and station Extremity normal to inspection General Extremity: Negative for edema Skin no rashes or lesions noted Neuro deep tendon reflexes 2+ bilaterally Motor Exam: strength 5/5 throughout and clonus absent Psych mental status grossly normal Labs Labs Labs: Blood Type B POSITIVE Antibody Screen NEGATIVE Hct 36.4 % (37-47) L Hgb 12.6 g/dL (12.0-15.0) Obstetrics Ultrasound Syphilis Total Ab Nonreactive (Nonreactive) Rubella IgG Antibody Reactive (Nonreactive) Hep Bs Antigen Non-Reactive (Nonreactive) Hepatitis C Antibody Non-Reactive (Nonreactive) Chlamydia DNA ([place]) Negative (Negative) N.gonorrhoeae DNA ([place]) Negative (Negative) HIV 1&2 Antibody Non-Reactive (Nonreactive) Assessment & Plan (1) : QUALIFIERS: Weeks of gestation: 23 weeks Qualified Code(s): Z3A.23 - 23 weeks gestation of COMMENT: plan NIPT w/gender & declined carrier testing (2) Supervision of normal : QUALIFIERS: Normal : normal first Trimester: second trimester Qualified Code(s): Z34.02 - Encounter for supervision of normal first , second trimester COMMENT: PRR , KEVIN 03/22/25, Aubrey (3) Asymmetric IUGR affecting , antepartum: COMMENT: referral MFM for anatomy: 11/19 40%/nl. Rpt 12/20: (4) Contact dermatitis: PLAN: Plan Patient presents IAL, plan expectant management for , pitocin/AROM PRN if needed. Pain management: plans epidural. GBS unknown- no risk factors, no antibiotics indicated at this time. Management of any complications: none I have reviewed the [facility] HEALTH and made any clinically relevant updates. 03/27/251651 Cosigner Signature (if applicable): CC: Dr. Negrita Gomez MD; No Primary Care Physician~ Signed [facility]04-21-2025 Evaluation note* Diagnosis Onset Date Resolution Status Admit Date Asymmetric IUGR affecting , antepartum acute November 9:51am acute November 29 9:51am Supervision of normal acute November 29, 2024 9:51am Contact dermatitis acute January 092024 3:17pm Asymmetric IUGR affecting , antepartum acute January 29, 2025 9:34pm Decreased movement resolved January 29, 2025 9:34pm Active labor at term acute 2024 11:00am Asymmetric IUGR affecting , antepartum acute March 11:00am Contact dermatitis acute March 27, 2025 11:00am acute March 27, 2 025 11:00am Supervision of normal acute March 27 11:00am Vaginal delivery acute March 112024 11:00am [facility] Work Phone: 1(925) 715-159704-11-2025 [facility] CONSULTATION Referring Provider Negrita Gomez MD [address] [place] [address] [place] [address] SUBJECTIVE Joi Daniel is a 24 y.o. [...] detailed ultrasound report. Laboratory Studies reviewed in [facility]. Medical Discussion: Ultrasound results reviewed. The [...] please provide us with follow-up for quality process lead. The data contained in the above ultrasound report/consultation along with subsequent clinical management of the patient are the responsibility of the ordering provider. Sincerely, Julio Brink MD, FACOG [employer]aternal [employer] The total time for today's visit is [...] daily, Disp: , Rfl: [3] [facility] Diagnostic study note [facility] Imaging Services [address] [place] [id number] OB Anatomy w/ Transvaginal MR#: [id number] Acct: [id number] Name: JOI DANIEL Rep #: [id number] : 2000 F 24 From: Leo Ryan MD PCP: Care Physician,No Primary Status: REG CLI Study:OB Anatomy w/ Transvaginal Date of Exam : 11/10/24 Exam# [id number] Ordering Dr: Negrita Steve MD PROCEDURE: OB [...] the biometry. Clinical correlation recommended. Reading Location: [facility] CC: Dr. Negrita Gomez MD; No Primary Care Physician ~ Finance Clerk: Signed [facility]02-28-2025 Evaluation note* Diagnosis Onset Date Resolution Status Admit Date acute October 08, 2024 8:45am Supervision of normal acute October 08, 025 8:45am acute November 01 1:11pm Supervision of normal acute November 01, 2024 1:11pm Asymmetric IUGR affecting , antepartum acute November 9:51am acute November 29 9:51am Supervision of normal acute November 29, 2024 9:51am [facility] Work Phone: [phone] Evaluation note* Diagnosis Onset Date Resolution Status Admit Date acute October 08, 2024 8:45am Supervision of normal acute October 08, 2 025 8:45am acute November 01 1:11pm Supervision of normal acute November 01, 2024 1:11pm Asymmetric IUGR affecting , antepartum acute November 9:51am acute November 29 9:51am Supervision of normal acute November 29, 2024 9:51am Contact dermatitis acute January 092024 3:17pm [facility] Work Phone: 1(933) 463-812101-13-2025 Evaluation note* Diagnosis Onset Date Resolution Status Admit Date acute August 23, 2024 10:05am Supervision of high-risk resolved August 23 10:05am acute September 09, 2024 3:30pm Supervision of normal acute September 09 3:30pm acute October 08, 2024 8:45am Supervision of normal acute October 08, 2 025 8:45am acute November 01 1:11pm Supervision of normal acute November 01, 2024 1:11pm [facility] Work Phone: 1(404) 420-105101-13-2025 NotePap Smear Specimen AdequacyJan2024 12:51pmComment.Satisfactory for evaluation. No endocervical component is identified.An endocervical component is not commonly seen in the patient.[facility] INTER[facility]ACED A#[id number] Hospitals Health SystemComment on above: Satisfactory for evaluation. No endocervical component is identified.An endocervical component is not commonly seen in the patient.06-07-2023 Evaluation + Plan note* Assessment & Plan Note - Giovanni Winston DO - 06/07/2023 1:17 PM EDTAssociated Problem(s): Vaginal discharge Reports vaginal discharge x2 months. Denies any urinary symptoms. Intimate exam offered to patient with wood heel flap rubber however patient declines as she states she has an upcoming [facility] appointment coming up. -Self swab of POC [...] practices. -Return precautions provided. -Follow-up with PCP. [id number] Miscellaneous Notes* Assessment & Plan Note - Giovanni Winston DO - 06/07/2023 1:17 PM EDTAssociated Problem(s): Vaginal discharge Reports vaginal discharge x2 months. Denies any urinary symptoms. Intimate exam offered to patient with wood heel flap rubber however patient declines as she states she has an upcoming DEDENTER appointment coming up. -Self swab of POC [...] provided. -Follow-up with PCP. documented in this [id number] History of Present illness Narrative* Giovanni Winston DO - 06/07/2023 1:03 PM EDT Images from the original note were not included. Patient Name: [facility] Location: Karissa Daniel [address] [place] [id number] Date Of : Date Of Visit: 2000 06/07/2023 MRN# Provider: [id number] Giovanni Winston DO Chief Complaint Patient presents with Vaginitis Swollen and itching (dark discharge) notice the symptoms a couple of months ago Assessment & Plan Problem List Vaginal discharge - Primary Reports vaginal discharge x2 months. Denies any urinary symptoms. Intimate exam offered to patient with wood heel flap rubber however patient declines as she states she has an upcoming [facility]ED[facility] appointment coming up. -Self swab of POC [...] specified as infective documented in this encounter [facility])No reason for referral information availableWUniversity Hospitals Health System Work Phone: Summary Purpose Family History No [...] Do you have a Healthcare Power of Rcis? No July 29, 2024 5:55pm Advance Directive Response Recorded Date/ Time Do you have a Healthcare Power of Rcis? No March 27, 2025 12:15pm Chief Complaint and Reason for Visit Chief [...] Contact dermatitis January 27, 2025 3:17 pm Chief Complaint Admit Date 24 wk ob November 29, 2024 9:5 1am [place] [place] January 27, 2025 3:17 pm DECREASED MOVEMENT January 29, 2025 9:34pm DECREASED MOVEMENT January 30, 2025 3:02pm LABOR March 27, 2025 11 :00am LABOR March 28, 2025 7: 46am LABOR March 29, 2025 7: 42am Reason for Visit Admit Date Asymmetric IUGR affecting , ant epartum November 29, 2024 9:51am November 29, 2024 9:5 1am Supervision of normal November 292024 9:51am Contact dermatitis January 27, 2025 3:17 pm Asymmetric IUGR affecting , ant epartum January 29, 2025 9:34pm Decreased movement January 29, 2025 9:34pm Active labor at term March 27, 2025 1 1:00am Asymmetric IUGR affecting , ant epartum March 27, 2025 11:00am Contact dermatitis March 27, 2025 11 :00am March 27, 2025 11 :00am Supervision of normal March 112024 11:00am Vaginal delivery March 27, 2025 11 :00am Additional Source Comments Reason for Visit (unrecogniz ed section and content) Reason Comments Vaginitis Swollen and itching (dark discharge) notice the symptoms a couple of months ago Care Teams (unrecognized sec tion and content) Polysomnography Technologist Relationship Specialty Start Date End Date No, Physician [facility] PCP - General 06/07/23 Team Status: [...] Status: Inactive Member Role Status Dates Dr. Negriat Gomez MD Attending Provider Active Start: August [...] 09, 2024 End: September 09, 2024 Dr. eNgrita Gomez MD Referring Provider Active Start: September [...] 2024 End: November 29, 2024 Paola Almanza SUPERINTENDENT TERMINAL, SUPERINTENDENT TERMINAL-C Attending Provider Active Start: November 29, 2024 [...] January 29, 2025 End: January 29, 2025 Team Status: Active Member Role/Relationship Status Dates No Primary Care Physician Primary Care Provider Active Team Status: Inactive Member Role/Relationship Status Dates No Primary Care Physician Primary Care Provider Active Start: November 29, 2024 End: November 29, 2024 No Primary Care Physician Referring Provider Active Start: November 29, 2024 End: November 29, 2024 Paola Almanza SUPERINTENDENT TERMINAL, SUPERINTENDENT TERMINAL-C Attending Provider Active Start: November 29, 2024 End: November 29, 2024 Team Status: Inactive Member Role/Relationship Status Dates No Primary Care Physician Primary Care Provider Active Start: January 27, 2025 End: January 27, 2025 No Primary Care Physician Referring Provider Active Start: January 27, 2025 End: January 27, 2025 BETTINA Ware Attending Provider Active Sta rt: January 27, 2025 End: January 27, 2025 Team Status: Inactive Member Role/Relationship Status Dates No Primary Care Physician Primary Care Provider Active Start: January 29, 2025 End: January 29, 2025 Shereen Amos CNM Attending Provider Active Start: January 29, 2025 End: January 29, 2025 Shereen Amos CNM Referring Provider Active Start: January 29, 2025 End: January 29, 2025 Team Status: Active Member Role/Relationship Status Dates No Primary Care Physician Primary Care Provider Active Start: January 30, 2025 Shereen Amos CNM Attending Provider Active Start: January 30, 2025 Shereen Amos CNM Referring Provider Active Start: January 30, 2025 Shereen Amos CNM Other Provider Active Star t: January 30, 2025 Team Status: Inactive Member Role/Relationship Status Dates No Primary Care Physician Primary Care Provider Active Start: March 27, 2025 End: March 29, 2025 Dr. eNgrita Gomez MD Admit Provider Active Start: March 27, 2025 End: March 29, 2025 Dr. Negrita Gomez MD Attending Provider Active Start: March 27, 2025 End: March 29, 2025 Dr. Negrita Gomez MD Other Provider Active Start: March 27, 2025 Team Status: Active Member Role/Relationship Status Dates No Primary Care Physician Primary Care Provider Active Start: March 28, 2025 Dr. Negrita Gomez MD Admit Provider Active Start: March 28, 2025 Dr. Negrita Gomez MD Other Provider Active Start: March 28, 2025 Rosa M Moran CNM Attending Provider Active S tart: March 28, 2025 Team Status: Active Member Role/Relationship Status Dates No Primary Care Physician Primary Care Provider Active Start: March 29, 2025 Dr. Negrita Gomez MD Admit Provider Active Start: March 29, 2025 Dr. Negrita Gomez MD Other Provider Active Start: March 29, 2025 Dr. Mikayla Ferrer DO Attending Provider Activ e Start: March 29, 2025 INFORMATION SOURCE (unrecogn ized section and content) DATE CREATED AUTHOR 06/09/2023 [facility] DATE CREATED AUTHOR AUTHOR'S ORGANIZ ATION 11/21/2024 [facility] DATE CREATED AUTHOR AUTHOR'S ORGANIZ ATION 03/29/2025 [facility] Goals (unrecognized section and content) Goals [...] BE BASED ON THE PRIMARY CLINICAL RECORDS. [facility] [employer] provides no warranty or guarantee of the accuracy or completeness of information in this document.
== END 2025-04-02 15:58 | disposition home or self-care (01) ==
LOC: WPOUT 15:51 → WP 15:51
PROVIDERS: Visit Provider Obstetrics & Gynecology
DX: R22.31 Localized swelling, mass and lump, right upper limb (principal)